=== PATIENT | female | born 1945 | race Two or more races ===

== ENCOUNTER → 2017-12-31 10:50 | Outpatient (CLI) | payer MEDICARE, BC, SELFPAY ==
--- NOTE | 2017-12-31 11:15 | RAD_ITS ---
STUDY: X-RAY CHEST REASON FOR EXAM: Female, 72 years old. Shortness of breath times several years TECHNIQUE: PA and lateral views of the chest. COMPARISON: Previous study of October 28, 2013 FINDINGS: The lungs are clear and expanded. There is no demonstrated pleural abnormality. Normal size heart. Normal mediastinum and kartik. Normal visualized pulmonary arteries. Normal visualized aortic arch and descending thoracic aorta. There is a mild S-shaped thoracolumbar scoliosis. Normal visualized ribs, clavicles, and shoulders. Surgical clips are seen in both axillae. Status post bilateral mastectomy changes are seen. RAD/Chest PA and Lateral IMPRESSION: Status post bilateral mastectomy. Mild thoracolumbar scoliosis. No acute cardiopulmonary disease process is seen. Electronically Signed: Anderson Perez MD at 17:12 EDT , Service support ,
== END ==
PROVIDERS: Family Provider Internal Medicine; PCP Internal Medicine; Visit Provider Internal Medicine Cardiovascular Disease
DX: R06.02 Shortness of breath (principal)
CPT/HCPCS: 71046

== ENCOUNTER → 2018-01-08 08:51 | Day surgery (SDC) | payer MEDICARE, BC, SELFPAY ==
[2018-01-07 10:25] VITALS: BMI 25.7
[2018-01-08 10:40] LABS: Base Excess -3 mmol/L (-2 to +2); Bicarbonate 21.9 mmol/L (22-26); Blood Gas Specimen Type ART; PO2 92 mmHG (75-100); SO2 97 % (95-99); Total Carbon Dioxide 23 mmol/L; pCO2 34.3 mmHg (35-45); pH 7.41 (7.35-7.45)
[2018-01-08 10:40] LABS: Blood Gas Specimen Type VEN; VBG BASE EXCESS -1 mmol/L (-1.0-3.5); VBG Bicarbonate 24 mmol/L (22-26); VBG Oxygen Content 25 mmol/L (23-33); VBG PO2 38 mmHg (25-40); VBG SO2 72 % (50-70); VBG pCO2 38.1 mmHg (41-51); VBG pH 7.41 (7.32-7.42)
[2018-01-08 10:40] LABS: Blood Gas Specimen Type VEN; VBG BASE EXCESS -1 mmol/L (-1.0-3.5); VBG Bicarbonate 24 mmol/L (22-26); VBG Oxygen Content 25 mmol/L (23-33); VBG PO2 36 mmHg (25-40); VBG SO2 69 % (50-70); VBG pCO2 38.1 mmHg (41-51)
--- NOTE | 2018-01-08 10:48 | CL.D_ITS ---
Patient Name: CORY DA SILVA Study Date: 01/08/2018 Performing: Regan Gaspar MD Ht: 62.59 inches 159 cm : 1945 Wt: 143.3 lbs 65 kg Age: 72 Gender: female BSA: 1.67 PROCEDURE(S) PERFORMED OM81-ADA/LHC/COR/LV CLINICAL PROFILE AND INDICATIONS Indications: Other Heart Failure: None Stress/Imaging Stress/Image Study Performed: No CAD Presentations: No Sxs, no angina. CONCLUSIONS Normal coronary arteries Normal LV size, wall motion,and systolic function Right heart pressures - Normal RECOMMENDATIONS Medical therapy DESCRIPTION OF PROCEDURE The patient arrived to the procedure lab. The risks and benefits of the procedure as well as a full d escription of our services here and current unavailability of surgical backup were fully explained to the patient and/or their significant other prior to the catheterization. The Timeout was completed, verifying the correct patient and procedure. The patient's procedural site was prepped and draped in the usual fashion. Local anesthetic was given subcutaneously to right groin region with Lidocaine 2%. Using a modified Seldinger technique, arterial access was obtained via the right femoral artery, a 5 Fr sheath was inserted. Venous access was obtained via the right femoral vein, a 7Fr sheath was inser denia. A 7Fr thermal dilution catheter was inserted and right heart pressures were recorded, it was the n advanced to PA position for cardiac outputs. Thermal dilution cardiac outputs were then recorded. O 2 saturations were then obtained. The Thermal dilution catheter was then removed. Left Coronary Arter y selective angiography was performed in multiple views using a 5 Fr. JL4 catheter. Right Coronary Ar carlene selective angiography was then performed in multiple views using a 5 Fr. 3DRC (Ricky) cathete r. Left Ventriculography was performed in MINOR projection using a 5 Fr. Pigtail catheter. Left Ventric ulography was performed in MINOR projection using a 5 Fr. Pigtail catheter.Contrast was injected throug h the sheath and the Right Iliac and Femoral artery were assessed for possible closure device.The art erial sheath was pulled and a Mynx closure device was deployed for hemostasis. The venous sheath was then pulled and manual compression applied until hemostasis achieved CORONARY ANGIOGRAPHY DOMINANCE: Right Dominant LEFT HEART ASSESSMENT Left Ventricular Ejection Fraction: by LV Gram 60 % Normal LV wall motion Normal Left Ventricular systolic function Normal Left Ventricular systolic function RIGHT HEART ASSESSMENT Thermal CO: 2.61 Thermal CI: 1.56 PW: 4/5 4 PA: 14/4 9 RV: 19/-1 2 RA: 2/ 0 PVR: 153 LEFT MAIN: Angiographically normal LEFT ANTERIOR DECENDING ARTERY: Angiographically normal CIRCUMFLEX ARTERY: Angiographically normal RIGHT CORONARY ARTERY: Angiographically normal COMPLICATIONS No Complications PROCEDURE MEDICATIONS Versed 1 mg IV SUMMARY OF HEMODYNAMIC DATA Time AIR REST ECG 09:37:53 ECG 09:53:52 RA 2/1 (0) 10:16:49 PW 4/5 (4) PV 10:17:30 PA 14/4 (9) PA 10:17:50 PA 18/3 (9) 10:19:13 RV 19/-1, 2 10:21:22 RA 3/3 (1) 10:21:38 AO 152/68 (98) SA 10:23:41 LV 156/3, 12 10:31:07 LV 149/3, 11 10:31:14 LV 133/2, 10 10:32:36 LV 140/3, 12 10:32:44 LVp 143/2, 10 10:32:47 AOp 146/67 (98) 10:32:52 Type SV CO (l/m) CI (l/m/ HR Time AIR REST Thermal 43.50 2.61 1.56 60 09:37:53 Label % O2 Pres/Loc Time AIR REST FA 97 PV 10:27:41 RA 72 SV 10:27:47 PA 69 PA 10:27:50 Signed By Regan Gaspar MD On 01/08/2018 10:47:19 AM Regan Gaspar MD
== END ==
PROVIDERS: Family Provider Internal Medicine; PCP Internal Medicine; Visit Provider Internal Medicine Cardiovascular Disease
DX: R06.02 Shortness of breath (principal); E78.00 Pure hypercholesterolemia, unspecified; I08.3 Combined rheumatic disorders of mitral, aortic and tricuspid valves; I10 Essential (primary) hypertension; R09.89 Other specified symptoms and signs involving the circulatory and respiratory systems; D64.9 Anemia, unspecified; J45.909 Unspecified asthma, uncomplicated; I65.29 Occlusion and stenosis of unspecified carotid artery; K21.9 Gastro-esophageal reflux disease without esophagitis; E03.9 Hypothyroidism, unspecified; M85.80 Other specified disorders of bone density and structure, unspecified site; Z79.82 Long term (current) use of aspirin; Z79.899 Other long term (current) drug therapy; Z82.3 Family history of stroke
CPT/HCPCS: 82803; 93460; 99152; 99153; C1760; J7040; Q9967; C1751; C1894

== ENCOUNTER → 2019-05-30 15:27 | Outpatient (CLI) | payer MEDICARE, BC, SELFPAY ==
[2019-05-03 07:54] VITALS: BMI 25.7
[2019-05-30 18:47] LABS: CRP < 2.90 mg/L (0.0-3.0)
[2019-06-02 00:33] LABS: Endomysial Antibody IgA Negative (Negative)
[2019-06-02 11:52] LABS: Immunoglobulin A 302 mg/dL (64-422); t-Transglutaminase IgA <2 U/mL (0-3)
== END ==
PROVIDERS: Family Provider Internal Medicine; PCP Internal Medicine; Referring Provider Internal Medicine Gastroenterology; Visit Provider Internal Medicine Gastroenterology
DX: K52.9 Noninfective gastroenteritis and colitis, unspecified (principal)
CPT/HCPCS: 36415; 82784; 83516; 86140; 86255

== ENCOUNTER → 2021-02-05 08:52 | Outpatient (CLI) | payer MEDICARE, BC, SELFPAY ==
[2020-05-03 10:30] VITALS: BMI 26.2
--- NOTE | 2021-02-05 08:58 | BD_ITS ---
STUDY: DUAL ENERGY X-RAY ABSORPTIOMETRY / DXA REASON FOR EXAM: Female, 75 years old. M85.89. Patient is postmenopausal. TECHNIQUE: Bone Mineral Density (BMD) measurements of lumbar spine and bilateral hips were obtained. COMPARISON: None. FINDINGS: Lumbar Spine (L1-L4): g/cm2 (0.932) / T-score (-1.1) / Z-score (1.2) Findings are suggestive of normal bone density with a low fracture risk. Left Femur Total: g/cm2 (0.877) / T-score (-0.5) / Z-score (1.1) Left Femoral Neck: g/cm2 (0.721) / T-score (-1.2) / Z-score (0.8) Right Femur Total: g/cm2 (0.878) / T-score (-0.5) / Z-score (1.2) Right Femoral Neck: g/cm2 (0.737) / T-score (-1.0) / Z-score (1.0) BD/Dexa Bone Density Study IMPRESSION: The patient is considered osteopenic as outlined below according to World Alexis Organization (WHO) criteria with a low fracture risk. Reference Information: The T-score is the number of standard deviations above or below the standard which is normal for young adults at their peak bone mineral density. The World Health Organization (WHO) interprets the T-scores as follows: Above -1 Normal bone density Between -1 and -2.5 Osteopenia Equal to / or below -2.5 Osteoporosis As a practical clinical guideline, osteopenia may be graded as follows: Mild -1 through -1.5 Moderate -1.6 through -2.0 Severe -2.1 through -2.4 The Z-score is the number of standard deviations above or below age-matched controls. A Z-score of less than -1.5 would be considered abnormal. References: 1. NIH Osteoporosis and Related Bone Diseases www osteo.org 2. International Society for Clinical Densitometry www iscd.org 3. National Osteoporosis Foundation www nof.org Electronically Signed: Josiah Miller MD at 14:06 EDT , Service support ,
== END ==
PROVIDERS: PCP Internal Medicine; Referring Provider Internal Medicine Gastroenterology; Visit Provider Internal Medicine Gastroenterology
DX: M85.89 Other specified disorders of bone density and structure, multiple sites (principal); Z78.0 Asymptomatic menopausal state
CPT/HCPCS: 77080

== ENCOUNTER 2021-08-12 12:41 | Outpatient (CLI) | payer MEDICARE, BC, SELFPAY ==
[2021-08-12 12:59] LABS: Erythrocyte Sedimentation Rate 13 mm/hr (0-30)
[2021-08-12 13:13] LABS: CRP < 2.90 mg/L (0.0-3.0)
== END 2021-08-12 23:59 | disposition home or self-care (01) ==
LOC: LABSPEC 12:45
PROVIDERS: PCP Internal Medicine; Visit Provider Nurse Practitioner
DX: M54.12 Radiculopathy, cervical region (principal); M62.81 Muscle weakness (generalized); R20.0 Anesthesia of skin; R20.2 Paresthesia of skin
CPT/HCPCS: 85652; 86140

== ENCOUNTER → 2022-02-06 | Outpatient (CLI) | payer MEDICARE, BC, SELFPAY ==
[2022-02-06 15:03] LABS: Hematocrit 36.8 % (37-47); Hemoglobin 12.2 g/dL (12.0-15.0); Mean Corp Hgb Conc 33.2 g/dL (32-36); Mean Corpuscular Hgb 31.3 pg (27.0-32.0); Mean Corpuscular Volume 94.4 fL (81-99); Mean Platelet Vol. 9.5 fl (6.2-12.0); Platelet Count 272 K/mm3 (150-450); RBC Distribution Width CV 12.2 % (11.6-14.6); White Blood Count 5.6 K/mm3 (4.4-11.0)
== END | disposition home or self-care (01) ==
LOC: MTLAB 12:44
PROVIDERS: PCP Internal Medicine; Referring Provider Internal Medicine Pulmonary Disease; Visit Provider Internal Medicine Pulmonary Disease
DX: D50.0 Iron deficiency anemia secondary to blood loss (chronic) (principal)
CPT/HCPCS: 36415; 85027

== ENCOUNTER → 2022-03-18 | Outpatient (CLI) | payer MEDICARE, BC, SELFPAY ==
--- NOTE | 2022-03-18 16:57 | US_ITS ---
STUDY: RENAL ULTRASOUND - COMPLETE REASON FOR EXAM: Female, 76 years old. Flank pain and fever TECHNIQUE: Ultrasound evaluation of the kidneys was performed with real-time and static dodson-scale imaging. COMPARISON: None. FINDINGS: RIGHT KIDNEY: Normal location of the right kidney, which is normal in size. The right kidney measures 9 x 4.9 x 3.9 cm. There is a normal cortex of the right kidney. The renal cortex measures 1 cm. There is no right renal mass or cyst. There are no right renal calculi. There is no right hydronephrosis. DISTAL RIGHT URETER: There is non-visualization of the distal right ureter. There is no demonstrated right ureterovesical junction calculus. There is a visualized right ureteral jet. LEFT KIDNEY: Normal location of the left kidney, which is normal in size. The left kidney measures 9.5 x 4.4 x 5.4 cm. There is a normal cortex of the left kidney. The renal cortex measures 1.3 cm. There is no left renal mass or cyst. There are no left renal calculi. There is no left hydronephrosis. DISTAL LEFT URETER: There is non-visualization of the distal left ureter. There is no demonstrated left ureterovesical junction calculus. There is a visualized left ureteral jet. AORTA: There is no elongation or tortuosity of the abdominal aorta. I.V.C.: The IVC is patent. BLADDER: The distended urinary bladder has a volume of 135.37 ml. There is a diffusely thickened wall of the distended bladder. There is no demonstrated mass within the urinary bladder. There are no demonstrated bladder calculi. US/Kidney and Bladder IMPRESSION: Sonographically normal kidneys Diffuse nonspecific bladder wall thickening. This is likely due to inflammation. Acute or chronic cystitis is suspected. Electronically Signed: Tuan Sawant MD at 10:55 EDT ,
== END | disposition home or self-care (01) ==
LOC: US 16:53
PROVIDERS: PCP Internal Medicine; Visit Provider Urology
DX: N39.0 Urinary tract infection, site not specified (principal)
CPT/HCPCS: 76770

== ENCOUNTER → 2022-03-21 | Outpatient (CLI) | payer MEDICARE, BC, SELFPAY ==
[2022-03-21 12:42] LABS: Anion Gap 12 (5-15); BUN 9 mg/dL (7-18); Calcium,Total 9.7 mg/dL (8.5-10.1); Chloride 101 mmol/L (98-107); Creatinine, Serum 0.69 mg/dL (0.55-1.02); EST Glomerular Filtration Rate 88 mL/min (>60); Est Glom Filt Rate - Afr Amer 107 mL/min (>60); Glucose 94 mg/dL (74-106); Potassium 3.9 mmol/L (3.5-5.1); Sodium Level 135 mmol/L (136-145)
== END | disposition home or self-care (01) ==
LOC: MTLAB 09:33
PROVIDERS: PCP Internal Medicine; Referring Provider Internal Medicine Cardiovascular Disease; Visit Provider Internal Medicine Cardiovascular Disease
DX: R60.0 Localized edema (principal); I10 Essential (primary) hypertension
CPT/HCPCS: 36415; 80048; 83880

== ENCOUNTER → 2022-03-31 | Outpatient (CLI) | payer MEDICARE, BC, SELFPAY ==
--- NOTE | 2022-03-31 08:06 | ECHOD_ITS ---
Version 2 Reason For Study: Dyspnea/SOB Procedure This was a 2D Doppler, Color Flow transthoracic echocardiogram. Myocardial strain analysis was performed in this exam to aid in the assessment of cardiac function. Exam performed in department. Left Ventricle Normal LV size. Left ventricular systolic function is normal. The estimated ejection fraction is 55 %. Stage 1 diastolic dysfunction. No regional wall motion abnormalities noted. Right Ventricle Normal RV size. Normal systolic function. Atria Normal left atrium. Normal right atrium. Mitral Valve Normal mitral valve. Mild-Moderate (1-2+) eccentric mitral valve insufficiency. Tricuspid Valve Normal tricuspid valve. Mild tricuspid valve insufficiency. Aortic Valve Trisinus/trileaflet aortic valve. Trivial aortic valve insufficiency. Pulmonic Valve Normal pulmonic valve. Great Vessels Normal aortic root. The pulmonary artery is normal size. Normal inferior vena cava. Pericardium/Pleural No pericardial effusion. MMode/2D Measurements & Calculations LVIDd: 4.8 cm IVSd: 0.77 cm Ao root diam: 3.4 cm LVIDs: 3.4 cm LVPWd: 0.73 cm RVDd: 3.0 cm FS: 28.1 % LAV(MOD-bp): 35.7 ml LVAd ap4: 21.7 cm2 SV(MOD-sp4): 32.3 ml LAV(MOD-bp) Indexed: 21.6 ml/m2 LVLd ap4: 7.0 cm LAV(MOD-sp2): 42.8 ml EDV(MOD-sp4): 55.3 ml LAV(MOD-sp4): 29.4 ml EDV(sp4-el): 57.0 ml LVAs ap4: 12.8 cm2 LVLs ap4: 6.1 cm ESV(MOD-sp4): 23.0 ml ESV(sp4-el): 22.6 ml EF(MOD-sp4): 58.4 % EF(sp4-el): 60.4 % SV(sp4-el): 34.4 ml LA A4 area: 13.2 cm2 LA dimension(2D): 3.4 cm RA A4 area: 7.5 cm2 Doppler Measurements & Calculations MV E max jose manuel: 68.6 cm/sec Lat Peak E' Jose Manuel: 7.6 cm/sec Med Peak E' Jose Manuel: 5.6 cm/sec MV A max jose manuel: 85.3 cm/sec E/E' lat: 9.1 E/E' med: 12.1 MV E/A: 0.80 Ao V2 max: 139.3 cm/sec AI max jose manuel: 368.2 cm/sec LV V1 max: 107.7 cm/sec Ao max P.8 mmHg AI max P.8 mmHg LV V1 max P.6 mmHg Ao V2 mean: 89.8 cm/sec Ao mean P.6 mmHg AI dec slope: 207.6 cm/sec2 Ao V2 VTI: 29.5 cm AI P1/2t: 519.4 msec PA V2 max: 70.5 cm/sec TR max jose manuel: 222.5 cm/sec TR max P.8 mmHg ECHO/Echo Complete Interpretation Summary Normal LV size. Left ventricular systolic function is normal. The estimated ejection fraction is 55 %. Trivial aortic valve insufficiency. Mild-Moderate (1-2+) eccentric mitral valve insufficiency. Stage 1 diastolic dysfunction. The global longitudinal strain is normal. The global longitudinal strain = -17. 5 % (normal). Ordering Physician: Regan Gaspar Referring Physician: Mattie Santos Performed By: Estefania Martinez, RDCS, RVT
== END | disposition home or self-care (01) ==
LOC: CVS 08:06
PROVIDERS: PCP Internal Medicine; Referring Provider Internal Medicine Cardiovascular Disease; Visit Provider Internal Medicine Cardiovascular Disease
DX: I08.1 Rheumatic disorders of both mitral and tricuspid valves (principal); I50.30 Unspecified diastolic (congestive) heart failure; R06.02 Shortness of breath; R60.0 Localized edema
CPT/HCPCS: 93306

== ENCOUNTER → 2022-04-18 | Outpatient (CLI) | payer MEDICARE, BC, SELFPAY ==
[2022-04-18 18:42] LABS: Anion Gap 6 (5-15); BUN 15 mg/dL (7-18); Calcium,Total 9.8 mg/dL (8.5-10.1); Chloride 102 mmol/L (98-107); Creatinine, Serum 0.75 mg/dL (0.55-1.02); EST Glomerular Filtration Rate 80 mL/min (>60); Est Glom Filt Rate - Afr Amer 97 mL/min (>60); Glucose 101 mg/dL (74-106); Potassium 4.7 mmol/L (3.5-5.1); Sodium Level 139 mmol/L (136-145)
== END | disposition home or self-care (01) ==
LOC: MTLAB 15:00
PROVIDERS: PCP Internal Medicine; Referring Provider Internal Medicine Cardiovascular Disease; Visit Provider Internal Medicine Cardiovascular Disease
DX: R60.0 Localized edema (principal)
CPT/HCPCS: 36415; 80048

== ENCOUNTER 2022-04-30 21:59 | Observation (INO) | payer MEDICARE, BC, SELFPAY ==
[2022-04-30 22:02] VITALS: BP 156/79; PULSE 92; RESP 15; TEMP 36.2; O2SAT 100; BMI 25.9
--- NOTE | 2022-04-30 23:40 | CT_ITS ---
EXAM: CTA Head and Neck W/ Contrast Injection (and W/O Contrast Images if performed) HISTORY: Neuro deficit, acute, stroke suspected TECHNIQUE: CTA Head and Neck W/ Contrast Injection (and W/O Contrast Images if performed) Noncontrast axial images were obtained of the brain and neck. NASCET criteria using the distal ICAs for comparison were used for evaluation of stenoses. 3D reconstructions were reviewed. A radiation dose optimization technique was used for this scan. COMPARISON: None. LIMITATIONS: None. BRAIN: Normal hall/white matter differentiation. VENTRICLES: No hydrocephalus. EXTRA-AXIAL SPACES: No hemorrhages, fluid collections, or masses. CALVARIUM/SKULL BASE: Normal. FACE/SINUSES: Visualized portions normal. SOFT TISSUES: Normal. OTHER: None. CAROTID ARTERIES: Normal. ANTERIOR CEREBRAL ARTERIES: Normal. MIDDLE CEREBRAL ARTERIES: Normal. POSTERIOR CEREBRAL ARTERIES: Normal. BASILAR ARTERY: Normal. VERTEBRAL ARTERIES: Normal. VENOUS STRUCTURES: Normal. OTHER: Odontogenic disease. AORTIC ARCH: Normal. CAROTID ARTERIES: Normal. VERTEBRAL ARTERIES: Normal. OTHER ARTERIES: Normal. VENOUS STRUCTURES: Normal. BONES/SOFT TISSUES: Normal. OTHER: Biapical pleural/parenchymal scarring.. CT/STROKE CTA Head AND Neck W/Con IMPRESSION: 1. No intracranial hemorrhage or acute territorial infarction. 2. No flow-limiting stenosis, aneurysm or dissection in the head and neck. Findings discussed with Jose Howard MD via phone at 9:50 PM PST in 04/30/2022 N.B. : The above Results were Read Back by Leonard Ford MD to Jose Gonzalez MD, and understanding confirmed on 05/01/2022 00:53:38 (ET). Electronically Signed: Leonard Ford MD at 0:54 EDT ,
--- NOTE | 2022-04-30 23:41 | EDS_ITS ---
HPI History of Present Illness Chief Complaint: General Illness Informant: patient and family Onset/Context/Timing Onset: Hours (4) and - Context: Sudden Onset (Noticed during a phone call when she answered it and was speaking abnormally) Timing: Lasts (15 or 20 minutes according to patient) Quality: Expressive aphasia Current Severity: Gone Maximum Severity: Severe Worsened by: Nothing in particular Relieved by: Nothing in particular Narrative Narrative: Patient answered phone when her son called and she was not able to formulate her words correctly. She states subsequently, she was feeling an irregular pulse and her heart was beating hard. No chest pain or shortness of breath, no headache, but she denies having at any point in time any lateralizing weakness or numbness/tingling or facial symptoms or vision changes. The last time [employer] talk to her was several hours before that around 4 PM, her daughter over the phone. She does not take any anticoagulant or antiplatelet medications. She takes medication for blood pressure, she checked it after the symptoms, it was in the 160s. Denies any recent illness or injury, she has not fallen or hit her head recently. No history of any stroke or TIA that she knows of. Recently had dental extractions couple weeks ago, she has been on clindamycin ever since then. She states that those sites are feeling better and better since then. She also started Lasix about 5 weeks ago because of leg edema, she has been feeling shaky ever since then, she felt a little more shaky after this event today. She was initially on 40 mg once daily, and due to the shakiness they backed it off to 20 mg once daily. [facility] Medical History (Updated 05/01/22 @ 06:[address] Jose Gonzalez MD) Anemia Asthma Breast cancer Carotid bruit Carotid stenosis Essential (primary) hypertension GERD (gastroesophageal reflux disease) History of radiation therapy HLD (hyperlipidemia) Hypothyroidism IBS (irritable bowel syndrome) Osteopenia Shortness of breath Home Medications atorvastatin 10 mg tablet 10 mg PO QHS 03/08/17 [History Last Taken 03/08/17] levothyroxine 75 mcg tablet 75 mcg PO DAILY 03/08/17 [History Last Taken 01/08/18] albuterol sulfate 90 mcg/actuation aerosol inhaler 1 inh inhalation DAILY 17 days ##18 10/19/17 [History Last Taken Unknown] multivitamin 1 tab PO QAM 10/19/17 [History Last Taken Unknown] mometasone 50 mcg/actuation nasal spray 1 spray PO DAILY PRN Sob &/Or Wheezing 10/22/17 [History Last Taken Unknown] beclomethasone dipropionate 80 mcg/actuation HFA breath activated aerosol (Qvar RediHaler) 1 inh inhalation BID 05/03/19 [History Last Taken Unknown] cholecalciferol (vitamin D3) 25 mcg (1,000 unit) capsule 2,000 unit PO QDAY 05/03/20 [History Last Taken Unknown] omeprazole 20 mg capsule,delayed release 20 mg PO .qod 05/09/21 [History Last Taken Unknown] amlodipine 5 mg tablet 5 mg PO DAILY Dose decreased back to 5 mg once a day #90 tabs 04/08/22 [Rx Last Taken Unknown] losartan 50 mg tablet 50 mg PO BID #180 tabs 04/08/22 [Rx Last Taken Unknown] clindamycin HCl 300 mg capsule 300 mg PO TID Per dentist. #30 caps 04/21/22 [Rx Last Taken Unknown] furosemide 40 mg tablet (Lasix) 20 mg PO .COMPLEX #90 tabs 04/21/22 [Rx Last Taken Unknown] gabapentin 100 mg capsule 100 mg PO DAILY 04/30/22 [History Last Taken Unknown] Allergy/AdvReac Type Severity Reaction Status Date / Time celecoxib [From Celebrex] Allergy Rash Verified 04/30/22 22:05 codeine Allergy Rash Verified 04/30/22 22:05 Penicillins Allergy Anaphylaxis Verified 04/30/22 22:05 Family History Mother CVA (cerebral vascular accident) Father Diabetes COPD (chronic obstructive pulmonary disease) Sister Colon cancer Sister Cancer ovarian cancer Brother Diabetes Colon cancer Brother Kidney failure Surgical History History of bilateral mastectomy History of left cataract extraction History of right and left heart catheterization (12/2017) Social History Smoking Status: Never smoker alcohol intake: current substance use type: does not use seatbelt use: always do you feel safe at home: Yes ROS ROS ED Constitutional Constitutional ED: Reports other Details: shaky ; Denies chills or fever(s) Eyes Eyes: Denies change in vision or diplopia ENT ENT ED: Denies rhinorrhea or sore throat Cardiovascular Cardiovascular: Reports leg edema; Denies chest pain or palpitations Respiratory/Chest Respiratory/Chest: Denies cough or dyspnea Gastrointestinal Gastrointestinal: Denies abdominal pain, diarrhea, nausea or vomiting Genitourinary Genitourinary ED: Denies dysuria or hematuria Musculoskeletal Musculoskeletal: Denies back pain or neck pain Integumentary Denies abscess or rash Neurologic Neurologic: Reports as per HPI and abnormal speech; Denies headache(s), paresthesias or weakness Psychiatric Psychiatric: Denies anxiety or suicidal thoughts EXAM Physical Exam Const Vital Signs: 04/30/22 22:02 04/30/22 22:40 04/30/22 23:42 Temperature 97.1 F L Temperature Source Temporal Pulse Rate 92 Respiratory Rate 15 Respiratory Effort Normal Respiratory Pattern Normal Blood Pressure 156/79 H Blood Pressure Mean 104 Pulse Ox 100 Oxygen Delivery Method Room Air Room Air 05/01/22 00:36 Temperature Temperature Source Pulse Rate 85 Respiratory Rate 12 Respiratory Effort Respiratory Pattern Blood Pressure 127/69 H Blood Pressure Mean 88 Pulse Ox 100 Oxygen Delivery Method Room Air Positive well nourished and well developed General Appearance ED: well developed and NAD HEENT Reports moist mucous membranes normocephalic and atraumatic Eyes PERRL and EOMs intact bilaterally Neck full ROM and supple Neck Narrative: No carotid bruits bilaterally Resp normal respiratory effort and clear to auscultation bilaterally Cardio regular rate, regular rhythm and no murmurs GI non-tender and non-distended Auscultation: normoactive bowel sounds Palpation: soft Back/Spine no CVA tenderness General Back: other FROM Extremity normal to inspection General Extremety ED: Negative for edema, pulses abnormal or tenderness General Extremity: Negative for edema or pulses abnormal Neuro oriented x3, CN's II-XII intact bilaterally and no sensory deficits noted Sensorium / Orientation: awake and alert Motor Exam: strength 5/5 throughout Skin no rashes or lesions noted and no wounds NIHSS NIHSS Initial: 1a Level of Consciousness: 0 1b LOC Questions (Score 2 if aphasic/stupor): 0 1c LOC Commands (Only score 1st attempt): 0 2 Best Gaze (If aphasic, use reflexive mvmts.): 0 3 Visual: 0 4 Facial Palsy: 0 5 Motor Arm Right (UN = amputation/fusion): 0 5 Motor Arm Left: 0 6 Motor Leg Right: 0 6 Motor Leg Left: 0 7 Limb ataxia (Only + if out of proportion): 0 8 Sensory (Aphasia/stupor=0 or 1, coma=2): 0 9 Best Language: 0 10 Dysarthria (mute, coma=2, intubated=UN): 0 11 Extinction and Inattention (only scored if +): 0 Total Score: 0 MDM MDM MDM Narrative Medical decision making narrative: Stroke work-up obtained, but stroke team felt unnecessary since patient does not have any active symptoms or abnormal findings and her NIHSS is 0. Turns out her sodium is a little on the low side but it has been low in the past and she recently had her Lasix dose cut in half, but given the transient acute nature of these neurologic symptoms I do not think this was caused by her hyponatremia. I think she should be admitted for a stroke/TIA work-up, the CT/CT angiography was all negative/unremarkable, and her heart rhythm is normal. Discussed with hospitalist. With observation her blood pressure came down to 124 systolic. Lab Data Attestation: I reviewed the patient's lab results. Labs: Laboratory Results - last 24 hr 04/30/22 04/30/22 04/30/22 22:15 22:15 22:15 WBC 8.5 RBC 3.68 L Hgb 11.7 L Hct 32.8 L MCV 89.1 MCH 31.8 MCHC 35.7 RDW Std Deviation 39.8 RDW Coeff of Nikunj 12.2 Plt Count 278 MPV 9.3 Immature Gran % (Auto) 0.500 Neut % (Auto) 66.2 Lymph % (Auto) 24.1 Brantley % (Auto) 7.0 Eos % (Auto) 1.7 Baso % (Auto) 0.5 Absolute Neuts (auto) 5.6 Absolute Lymphs (auto) 2.04 Nucleated RBC % 0 PT 12.7 INR 1.0 APTT 30.4 Sodium 125 L Potassium 3.9 Chloride 91 L Carbon Dioxide 25.0 Anion Gap 9 BUN 10 Creatinine 0.74 Estim Creat Clear Calc 39.04 Est GFR (MDRD) Af Amer 99 Est GFR (MDRD) Non-Af 82 BUN/Creatinine Ratio 13.6 Glucose 190 H Calcium 9.5 Troponin I High Sens 8 POC Glucose 04/30/22 23:44 WBC RBC Hgb Hct MCV MCH MCHC RDW Std Deviation RDW Coeff of Nikunj Plt Count MPV Immature Gran % (Auto) Neut % (Auto) Lymph % (Auto) Brantley % (Auto) Eos % (Auto) Baso % (Auto) Absolute Neuts (auto) Absolute Lymphs (auto) Nucleated RBC % PT INR APTT Sodium Potassium Chloride Carbon Dioxide Anion Gap BUN Creatinine Estim Creat Clear Calc Est GFR (MDRD) Af Amer Est GFR (MDRD) Non-Af BUN/Creatinine Ratio Glucose Calcium Troponin I High Sens POC Glucose 129 H Radiography Chest X-Ray - ED: 1 View, Read by ED Physician and No Acute Disease Diagnostic Testing: Clinical Impression(s) from Imaging Studies Head/Neck CTA 04/30/22 23:40 IMPRESSION: 1. No intracranial hemorrhage or acute territorial infarction. 2. No flow-limiting stenosis, aneurysm or dissection in the head and neck. Findings discussed with Jose Howard MD via phone at 9:50 PM PST in 04/30/2022 N.B. : The above Results were Read Back by Leonard Ford MD to Jose Gonzalez MD, and understanding confirmed on 05/01/2022 00:53:38 (ET). Electronically Signed: Leonard Ford MD at 0:54 EDT , ADDENDUM: 05/01/22 0101 IMPRESSION: 1. No intracranial hemorrhage or acute territorial infarction. 2. No flow-limiting stenosis, aneurysm or dissection in the head and neck. Findings discussed with Jose Howard MD via phone at 9:50 PM PST in 04/30/2022 N.B. : The above Results were Read Back by Leonard Ford MD to Jose Gonzalez MD, and understanding confirmed on 05/01/2022 00:53:38 (ET). Electronically Signed: Leonard Ford MD at 0:54 EDT , Chest X-Ray 05/01/22 00:00 IMPRESSION: Blunting of left costophrenic angle again seen, may represent pleural thickening or small left pleural effusion. Electronically Signed: Leonard Ford MD at 0:26 EDT , Rhythm Strip Rhythm Strip: Sinus Rhythm Rate: 80 Ectopy: None EKG Initial EKG: Attestation: I personally reviewed and interpreted this EKG as follows: Interpretation: Sinus Rhythm and No Acute Injury Pattern Discharge Plan Dx/Rx/DC Orders Clinical Impression: Brain TIA, Hyponatremia Disposition Disposition: Acute Care Hospital [facility] Discharge Date/Time: 05/01/22 03:53 Stroke Documentation Questions Stroke Team Activated: No (sx resolved) Was Patient considered for Endovascular Intervention?: No-CTA negative, determined not to be an endovascular candidate IV Alteplase (t-PA) Administered: No (timing, sx resolved)
[2022-04-30 23:50] LABS: Absolute Lymphocyte Count 2.04 X10^3/uL (0.83-4.51); Absolute Neutrophil Count 5.6 X10^3/uL (2.0-7.7); Basophil# 0.04 X10^3/uL; Basophil% 0.5 % (0-1); Eosinophil# 0.14 X10^3/uL; Eosinophils% 1.7 % (0-5); Hematocrit 32.8 % (37-47); Hemoglobin 11.7 g/dL (12.0-15.0); Lymphocyte # 2.04 X10^3/ul (0.83-4.51); Lymphocyte % 24.1 % (19-41); Mean Corp Hgb Conc 35.7 g/dL (32-36); Mean Corpuscular Hgb 31.8 pg (27.0-32.0); Mean Corpuscular Volume 89.1 fL (81-99); Mean Platelet Vol. 9.3 fl (6.2-12.0); Monocyte# 0.59 X10^3/uL; NRBC Flagged by Analyzer 0 % (0-5); Neutrophil # 5.62 X10^3/uL (2.7-7.7); Neutrophil % 66.2 % (47-70); Platelet Count 278 K/mm3 (150-450); RBC Distribution Width CV 12.2 % (11.6-14.6); RBC Distribution Width SD 39.8 fl (35.1-43.9); Red Blood Count 3.68 M/mm3 (4.2-5.4); White Blood Count 8.5 K/mm3 (4.4-11.0)
[2022-04-30 23:58] LABS: Prothrombin Time (Protime)PT. 12.7 SECONDS (11.7-14.9)
[2022-05-01] VITALS (11 sets, daily range): BP systolic 125–158; BP diastolic 58–75; PULSE 69–85; RESP 12–16; TEMP 36.5–37; O2SAT 97–100; BMI 25.0; BMI 25.9
--- NOTE | 2022-05-01 | RAD_ITS ---
INDICATION: Neuro deficit, acute, stroke suspected EXAMINATION/TECHNIQUE: X-RAY - XR Chest 1 View COMPARISON: 12/31/2017 FINDINGS: LINES/DEVICES: None. LUNGS: Biapical pleural/parenchymal scarring. Blunting of the left costophrenic angle, similar compared to the prior. No consolidation, edema. No pneumothorax. MEDIASTINUM AND CARDIOVASCULAR STRUCTURES: Atherosclerotic calcifications and cardiomediastinal contours, similar compared to prior. BONES AND SOFT TISSUES: Surgical clips in the bilateral axilla, similar compared to prior. Scoliotic and degenerative changes in the visualized spine, similar compared to the prior.. RAD/Chest 1 View IMPRESSION: Blunting of left costophrenic angle again seen, may represent pleural thickening or small left pleural effusion. Electronically Signed: Leonard Ford MD at 0:26 EDT ,
[2022-05-01 00:06] LABS: Partial Thromboplast Time 30.4 Seconds (24.1-36.2)
[2022-05-01 00:06] LABS: Bedside Glucose 129 mg/dL (74-106)
[2022-05-01 00:09] LABS: Anion Gap 9 (5-15); BUN 10 mg/dL (7-18); BUN/Creat Ratio 13.6 RATIO (10-20); Calcium,Total 9.5 mg/dL (8.5-10.1); Chloride 91 mmol/L (98-107); Creatinine, Serum 0.74 mg/dL (0.55-1.02); EST Glomerular Filtration Rate 82 mL/min (>60); Est Glom Filt Rate - Afr Amer 99 mL/min (>60); Estimated Creatinine Clearance 39.04 ml/min; Glucose 190 mg/dL (74-106); Potassium 3.9 mmol/L (3.5-5.1); Sodium Level 125 mmol/L (136-145); Troponin-I HS 8 pg/mL (3.0-54.0)
--- NOTE | 2022-05-01 03:51 | HP.PCM.HOS_ITS ---
[facility] - General General Date of Admission: 05/01/22 Date of Service: 05/01/22 Chief Complaint: Dysarthria HPI Narrative CORY DA SILVA, is a 76 F who presented to the emergency department [facility] on 05/01/2022 with dysarthria. Evidently the patient had called her son and he noted to her that she was not speaking correctly and formulating her words well. She did not notice anything until he told her this. The last time she was seen normal prior to this conversation was at 4 PM and the onset of symptoms was approximately 4 hours later. It is reported that these symptoms lasted 15 to 20 minutes. Symptoms were gone upon presentation NIH was 0. She had no other lateralizing symptoms or sensory changes. She d enied any visual changes as well. She checked her blood pressure after she had the symptoms and it was noted to be 160 systolic. She denies any recent illnesses and has no history of stroke or TIA. She did report she had dental extractions about 1 to 2 weeks ago and has been on clindamycin since that point time however this has been improving. She also reported that she had been on Lasix for treatment of leg edema and that she was feeling a little bit more shaky so this dose was decreased recently to 20 mg daily. Vital signs on presentation showed a temperature of 97.1 heart rate of 92, blood pressure 156/79 with subsequent pressure at 127/69, respiratory rate is 15 oxygen saturations were 100% on room air. Her CBC only showed a mild chronic and stable hemoglobin at 11.7. Coags were normal. Her chemistry panel showed marked hyponatremia with a sodium of 125 (baseline 135 to 140) And blood Leukos elevation at 190 at the time of presentation. Her troponin was normal. Her EKG was normal sinus rhythm without any ST-T wave changes concerning for ischemia and intervals were within normal limits. Her chest x- ray showed no acute findings. CTA of her head and neck was unremarkable for any acute findings. [facility] Medical History Anemia Asthma Breast cancer Carotid bruit Carotid stenosis Essential (primary) hypertension GERD (gastroesophageal reflux disease) History of radiation therapy HLD (hyperlipidemia) Hypothyroidism IBS (irritable bowel syndrome) Osteopenia Shortness of breath Home Medications atorvastatin 10 mg tablet 10 mg PO QHS 03/08/17 [History Last Taken 03/08/17] levothyroxine 75 mcg tablet 75 mcg PO DAILY 03/08/17 [History Last Taken 01/08/18] albuterol sulfate 90 mcg/actuation aerosol inhaler 1 inh inhalation DAILY 17 days ##18 10/19/17 [History Last Taken Unknown] multivitamin 1 tab PO QAM 10/19/17 [History Last Taken Unknown] mometasone 50 mcg/actuation nasal spray 1 spray PO DAILY PRN Sob &/Or Wheezing 10/22/17 [History Last Taken Unknown] beclomethasone dipropionate 80 mcg/actuation HFA breath activated aerosol (Qvar RediHaler) 1 inh inhalation BID 05/03/19 [History Last Taken Unknown] cholecalciferol (vitamin D3) 25 mcg (1,000 unit) capsule 2,000 unit PO QDAY 05/03/20 [History Last Taken Unknown] omeprazole 20 mg capsule,delayed release 20 mg PO .qod 05/09/21 [History Last Taken Unknown] amlodipine 5 mg tablet 5 mg PO DAILY Dose decreased back to 5 mg once a day #90 tabs 04/08/22 [Rx Last Taken Unknown] losartan 50 mg tablet 50 mg PO BID #180 tabs 04/08/22 [Rx Last Taken Unknown] clindamycin HCl 300 mg capsule 300 mg PO TID Per dentist. #30 caps 04/21/22 [Rx Last Taken Unknown] furosemide 40 mg tablet (Lasix) 20 mg PO .COMPLEX #90 tabs 04/21/22 [Rx Last Taken Unknown] gabapentin 100 mg capsule 100 mg PO DAILY 04/30/22 [History Last Taken Unknown] Allergy/AdvReac Type Severity Reaction Status Date / Time celecoxib [From Celebrex] Allergy Rash Verified 04/30/22 22:05 codeine Allergy Rash Verified 04/30/22 22:05 Penicillins Allergy Anaphylaxis Verified 04/30/22 22:05 Family History Mother CVA (cerebral vascular accident) Father Diabetes COPD (chronic obstructive pulmonary disease) Sister Colon cancer Sister Cancer ovarian cancer Brother Diabetes Colon cancer Brother Kidney failure Surgical History History of bilateral mastectomy History of left cataract extraction History of right and left heart catheterization (12/2017) Social History Smoking Status: Never smoker alcohol intake: current substance use type: does not use seatbelt use: always do you feel safe at home: Yes ROS Constitutional Constitutional: Denies anorexia, change in weight, chills, fatigue, fever(s), malaise, night sweats, weakness or other Eyes Eyes: Denies blurry vision, change in eye color, change in vision, discharge from eye(s), double vision, erythema, eye pain, loss of vision or other ENT HEENT: Denies abnormal hearing, dysphagia, ear pain, epistaxis, headache(s), hearing loss, nasal congestion, nasal discharge, post nasal drip, sinus pressure, sore throat or other Cardiovascular Cardiovascular: Denies chest pain, claudication, dyspnea on exertion, edema, lightheadedness, orthopnea, palpitations, paroxysmal nocturnal dyspnea, rapid heart rate, syncope or other Respiratory/Chest Respiratory/Chest: Denies cough, dyspnea, excessive phlegm production, hemoptysis, productive cough, shortness of breath at rest, shortness of breath with exertion, wheezing or other Gastrointestinal Gastrointestinal: Denies abdominal pain, coffee ground emesis, constipation, diarrhea, dyspepsia, hematemesis, hematochezia, loose stools, melena, nausea, vomiting or other Genitourinary Genitourinary: Denies burning urination, difficulty urinating, dysuria, hematuria, nocturia, urinary frequency, urinary hesitancy, urinary incontinence, urinary urgency or other Musculoskeletal Musculoskeletal: Denies arthralgias, back pain, joint pain, joint stiffness, joint swelling, myalgias, neck pain or other Neurologic Neurologic: Reports abnormal speech; Denies abnormal gait, confusion, disequilibrium, dizziness, focal weakness, headache(s), numbness, paresthesias, seizure-like activity, seizures, syncope, tingling, tremor(s) or other Psychiatric Psychiatric: Denies anxiety, depression, homicidal ideation, suicidal ideation or other Endocrine Endocrinology: Denies change in body appearance, cold intolerance, excessive sweating, heat intolerance, polydipsia, polyuria or other Allergic/Immunologic Allergic/Immunologic: Denies rhinitis, hives, eczemia, asthma or other Vital Signs Vital Signs Vital Signs: 04/30/22 22:02 04/30/22 22:40 04/30/22 23:42 Temperature 97.1 F L Temperature Source Temporal Pulse Rate 92 Respiratory Rate 15 Respiratory Effort Normal Respiratory Depth Respiratory Pattern Normal Blood Pressure 156/79 H Blood Pressure Mean 104 Blood Pressure Source Blood Pressure Position Blood Pressure Location Pulse Ox 100 Oxygen Delivery Method Room Air Room Air 05/01/22 00:36 05/01/22 03:15 05/01/22 03:41 Temperature 98.2 F Temperature Source Oral Pulse Rate 85 80 Respiratory Rate 12 16 Respiratory Effort Normal Respiratory Depth Normal Respiratory Pattern Normal Blood Pressure 127/69 H 158/75 H Blood Pressure Mean 88 102 Blood Pressure Source Monitor Blood Pressure Position Semi-Fowlers Blood Pressure Location Left Arm Pulse Ox 100 100 Oxygen Delivery Method Room Air Room Air Room Air Weight Weight: 64.41 kg Body Mass Index (BMI) 25.9 Physical Exam Const alert, oriented x3, no apparent distress, healthy appearing and well nourished Constitutional Narrative: Older [place] female sitting up in bed, at bedside and daughter on phone, patient appears comfortable nontoxic, follows commands consistently without any deficits General Appearance: cooperative HEENT normocephalic, head/scalp atraumatic, hearing grossly normal bilaterally and moist oral mucous membranes HEENT Narrative: Dentition is good, Mallampati is 2, no thrush Eyes PERRL, EOMs intact bilaterally and conjunctivae normal Eyes Narrative: No scleral icterus Neck no lymphadenopathy, supple, no JVD and No no carotid bruits Neck Narrative: Left carotid bruit, trachea midline, no thyroid enlargement Resp normal respiratory effort, no retractions, no use of accessory muscles and clear to auscultation bilaterally Auscultation: Negative for crackles, rales, rhonchi or wheezes Cardio regular rate, regular rhythm, S1 normal heart sound, S2 normal heart sound, no murmurs, no rub, no gallops and no clicks Cardio Narrative: No ectopy GI normal to inspection, nondistended, normoactive bowel sounds, soft to palpation, non-tender and non-distended Extremity normal to inspection and no clubbing, cyanosis or edema Extremity Narrative: 2+ pedal pulses Skin no rashes or lesions noted, no wounds, skin turgor normal, no jaundice, no petechiae and no mottling Neuro oriented x3, CN's II-XII intact bilaterally, moves all extremities and no focal motor deficits Neuro Narrative: 2+ reflexes at patella and brachioradialis, no sensory deficits, speech is normal, mild generalized weakness proximal greater than distal Speech: speech normal Psych affect normal Psych Narrative: Very pleasant and appropriately interactive Results Lab / Micro Data Attestation: I reviewed the patient's lab results. Result Diagrams: 04/30/22 22:15 04/30/22 22:15 Labs: Laboratory Results - last 24 hr 04/30/22 22:15: WBC 8.5, RBC 3.68 L, Hgb 11.7 L, Hct 32.8 L, MCV 89.1, MCH 31.8, MCHC 35.7, RDW Std Deviation 39.8, RDW Coeff of [place] 12.2, Plt Count 278, MPV 9.3, Immature Gran % (Auto) 0.500, Neut % (Auto) 66.2, Lymph % (Auto) 24.1, [place] % (Auto) 7.0, Eos % (Auto) 1.7, Baso % (Auto) 0.5, Absolute Neuts (auto) 5.6, Absolute Lymphs (auto) 2.04, Nucleated RBC % 0 04/30/22 22:15: PT 12.7, INR 1.0, APTT 30.4 04/30/22 22:15: Sodium 125 L, Potassium 3.9, Chloride 91 L, Carbon Dioxide 25.0, Anion Gap 9, BUN 10, Creatinine 0.74, Estim Creat Clear Calc 39.04, Est GFR (MDRD) Af Amer 99, Est GFR (MDRD) Non-Af 82, BUN/Creatinine Ratio 13.6, Glucose 190 H, Calcium 9.5, Troponin I High Sens 8 04/30/22 23:44: POC Glucose 129 H Radiology Impression Head/Neck CTA 04/30/22 23:40 IMPRESSION: 1. No intracranial hemorrhage or acute territorial infarction. 2. No flow-limiting stenosis, aneurysm or dissection in the head and neck. Findings discussed with Jose Howard MD via phone at 9:50 PM PST in 04/30/2022 N.B. : The above Results were Read Back by Leonard Ford MD to Jose Gonzalez MD, and understanding confirmed on 05/01/2022 00:53:38 (ET). Electronically Signed: Leonard Ford MD at 0:54 EDT , ADDENDUM: 05/01/22 0101 IMPRESSION: 1. No intracranial hemorrhage or acute territorial infarction. 2. No flow-limiting stenosis, aneurysm or dissection in the head and neck. Findings discussed with Jose Howard MD via phone at 9:50 PM PST in 04/30/2022 N.B. : The above Results were Read Back by Leonard Ford MD to Jose Gonzalez MD, and understanding confirmed on 05/01/2022 00:53:38 (ET). Electronically Signed: Leonard Ford MD at 0:54 EDT , Chest X-Ray 05/01/22 00:00 IMPRESSION: Blunting of left costophrenic angle again seen, may represent pleural thickening or small left pleural effusion. Electronically Signed: Leonard Ford MD at 0:26 EDT , Assessment & Plan Assessment/Plan (1) Dysarthria: (2) Hyponatremia: (3) Hyperglycemia: PLAN: Plan Dysarthria -Patient with no other lateralizing deficits -CTA of the head and neck showed no intracranial hemorrhage or acute territorial infarction and no flow-limiting stenosis aneurysm or dissection in the head or neck -Check lipids -Check hemoglobin A1c -Continue home atorvastatin -Speech eval -Check MRI -Patient with recent 03/31/2022 echocardiogram showing an EF of 55% and trivial aortic valve insufficiency along with mild to moderate eccentric valvular insufficiency and stage I diastolic dysfunction, bubble study was not done at that time -If MRI reveals stroke would recommend echocardiogram be performed with bubble study -PT/OT consultation -Speech therapy consultation Hyponatremia -Suspect this is related to her ongoing diuretic use -Patient is on Lasix day daily with the dose recently being adjusted -We will hold Lasix and reevaluate sodium in the morning -Check TSH -If sodium does not improve with discontinuing the patient of Lasix may need further work-up including urine sodium, urine osmolality, and serum osmolality -Repeat BMP in a.m. Hyperglycemia -Blood sugar 190 on presentation -Patient with no documented history of diabetes -We will check hemoglobin A1c Recent dental infection -Continue home clindamycin Hyperlipidemia -Continue home atorvastatin Hypertension -Continue metoprolol -Hold home Lasix -Continue home losartan Hypothyroidism -Continue home levothyroxine -Check TSH GERD -Continue home PPI with therapeutic substitution Chronic anemia -Hemoglobin stable -Repeat CBC in a.m. History of breast cancer -In remission -No current issues DVT prophylaxis -Lovenox daily Charges/Coding Visit Charges OBSV E&M: 38608 Initial observation care L3
--- NOTE | 2022-05-01 06:02 | MRI_ITS ---
STUDY: MRI BRAIN WITHOUT CONTRAST REASON FOR EXAM: Female, 76 years old. TIA -- word finding difficulty-resolved now TECHNIQUE: Standardized multiplanar fat and water weighted pulse sequences were obtained. COMPARISON: None. FINDINGS: Normal size of the ventricles and extra-axial spaces for the patient''s age. Normal white matter tracts of the supratentorial brain. There is no evidence for recent intracranial ischemia or other cause of cytotoxic edema on diffusion weighted imaging (DWI). Normal T2* images of the brain without demonstrated susceptibility artifact. There is no demonstrated hemosiderin stain. Normal bilateral basal ganglia. Normal thalami. There is no extra-axial fluid accumulation. Normal flow voids within the major intracranial circulation suggesting patency by spin echo criteria. Normal sella turcica, pituitary gland, infundibular stalk, optic chiasm and hypothalamus. Normal tectal plate and pineal gland. Normal midbrain, cecilio and medulla. Normal cerebellum. Normal basal cisterns. Normal bilateral temporal bones. Normal bilateral internal auditory canals. There are bilateral ocular lens implants with otherwise normal intraorbital contents. Normal visualized paranasal sinuses. Normal calvarium and skull base. Normal visualized soft tissue structures. Normal visualized upper cervical spine. MRI/Brain without Contrast IMPRESSION: Normal unenhanced MRI of the brain. Electronically Signed: Rodger Burgess MD at 16:01 EDT ,
[2022-05-01 06:45] LABS: Absolute Lymphocyte Count 1.86 X10^3/uL (0.83-4.51); Absolute Neutrophil Count 2.8 X10^3/uL (2.0-7.7); Basophil# 0.02 X10^3/uL; Basophil% 0.4 % (0-1); Eosinophil# 0.11 X10^3/uL; Eosinophils% 2.1 % (0-5); Hematocrit 31.7 % (37-47); Hemoglobin 11.2 g/dL (12.0-15.0); Lymphocyte # 1.86 X10^3/ul (0.83-4.51); Lymphocyte % 35.7 % (19-41); Mean Corp Hgb Conc 35.3 g/dL (32-36); Mean Corpuscular Hgb 31.5 pg (27.0-32.0); Mean Platelet Vol. 8.6 fl (6.2-12.0); Monocyte# 0.46 X10^3/uL; Monocyte% 8.8 % (0-10); NRBC Flagged by Analyzer 0 % (0-5); Neutrophil # 2.75 X10^3/uL (2.7-7.7); Neutrophil % 52.8 % (47-70); Platelet Count 269 K/mm3 (150-450); RBC Distribution Width SD 39.3 fl (35.1-43.9); Red Blood Count 3.56 M/mm3 (4.2-5.4); White Blood Count 5.2 K/mm3 (4.4-11.0)
[2022-05-01] MEDS: Levothyroxine 75 MCG Tablet PO (06:56)
[2022-05-01 07:04] LABS: Phosphorus 3.5 mg/dL (2.5-4.9)
[2022-05-01 07:07] LABS: ALB/GLOB Ratio 0.9 RATIO (0.9-2.4); AST(SGOT) 15 U/L (15-37); Alanine Aminotransfer ALT/SGPT 20 U/L (13-56); Albumin, Serum 3.3 g/dL (3.2-5.0); Alkaline Phosphatase 54 U/L (45-117); Anion Gap 8 (5-15); BUN 7 mg/dL (7-18); BUN/Creat Ratio 11.7 RATIO (10-20); Calcium,Total 9.5 mg/dL (8.5-10.1); Chloride 99 mmol/L (98-107); Cholesterol 127 mg/dL (200); EST Glomerular Filtration Rate 104 mL/min (>60); Est Glom Filt Rate - Afr Amer 126 mL/min (>60); Estimated Creatinine Clearance 39.04 ml/min; Globulin 3.8 g/dL (2.2-4.2); Glucose 109 mg/dL (74-106); High Density Lipoprotein 55 mg/dL; Protein, Total 7.1 g/dL (6.4-8.2); Sodium Level 133 mmol/L (136-145); Thyroid Stim Hormone (TSH) 2.04 uIU/mL (0.358-3.74); Triglycerides 82 mg/dL; Troponin-I HS 14 pg/mL (3.0-54.0); Very Low Density Lipoprotein 16 mg/dL (5-40)
[2022-05-01 07:10] LABS: Bedside Glucose 108 mg/dL (74-106)
[2022-05-01] MEDS: Clindamycin HCl 150 MG Capsule 300 MG PO ×2 (08:02→14:37)
[2022-05-01] MEDS: Aspirin 81 MG TAB.CHEW PO (08:02)
[2022-05-01] MEDS: Enoxaparin 40 MG/0.4 ML Syringe SC (08:03)
[2022-05-01] MEDS: Pantoprazole Sodium 40 MG Tablet PO (08:03)
[2022-05-01 08:04] LABS: Hemoglobin A1c 5.7 % (3.8-5.6)
--- NOTE | 2022-05-01 11:00 | DS.PCM_ITS ---
Providers Date of Admission: 05/01/22 Date of Discharge: 05/01/22 Primary Care Physician: Dr. Mattie Santos MD Reason For Visit: SOB, HTN, TROUBLE SPEAKING Diagnosis Discharge Diagnosis (1) Dysarthria: Status: Acute Code(s): R47.1 - Dysarthria and anarthria (2) Hyponatremia: Status: Acute Code(s): E87.1 - Hypo-osmolality and hyponatremia (3) Hyperglycemia: Status: Acute Code(s): R73.9 - Hyperglycemia, unspecified Medications at Discharge Home Medications levothyroxine 75 mcg tablet 75 mcg PO DAILY thyroid 03/08/17 albuterol sulfate 90 mcg/actuation aerosol inhaler 1 inh inhalation DAILY breathing 17 days ##18 10/19/17 multivitamin 1 tab PO QAM vitamin 10/19/17 mometasone 50 mcg/actuation nasal spray 1 spray PO DAILY PRN Sob &/Or Wheezing 10/22/17 beclomethasone dipropionate 80 mcg/actuation HFA breath activated aerosol (Qvar RediHaler) 1 inh inhalation BID breathing 05/03/19 cholecalciferol (vitamin D3) 25 mcg (1,000 unit) capsule 2,000 unit PO QDAY vitamin 05/03/20 omeprazole 20 mg capsule,delayed release 20 mg PO .qod reflux 05/09/21 amlodipine 5 mg tablet 5 mg PO DAILY Dose decreased back to 5 mg once a day #90 tabs 04/08/22 losartan 50 mg tablet 50 mg PO BID #180 tabs 04/08/22 clindamycin HCl 300 mg capsule 300 mg PO TID Per dentist. #30 caps 04/21/22 furosemide 40 mg tablet (Lasix) 20 mg PO .COMPLEX #90 tabs 04/21/22 gabapentin 100 mg capsule 100 mg PO DAILY nerve pain 04/30/22 aspirin 81 mg chewable tablet 81 mg PO BREAKFAST 90 days #90 tabs 05/01/22 atorvastatin 20 mg tablet 20 mg PO DAILY #60 tabs 05/01/22 Hospital Course Summary of Care Provided Minutes Spent on Discharge: 35 Hospital Course: Patient is a 76-year-old female admitted with dysarthria. Admitted to monitored bed as a case of TIA TIA ? Patient presented with dysarthria placed on a monitored bed every 4 neurochecks ordered patient underwent subsequent evaluation with an MRI ? Patient MRI was negative for acute CVA. Patient was on statin therapy did continue with dose adjustment from 10 mg of atorvastatin to 20 mg of atorvastatin. Patient was also discharged home on aspirin 81 mg daily. Instructed to follow-up with primary care physician for subsequent care Hyponatremia ? Secondary to patient being on diuretics monitored with BMPs ? Sodium level did improve from1 25-1 33. Patient diuretics?furosemide held on discharge. Hypertension - Blood pressure controlled, home medications continued with dose adjustment as needed Dyslipidemia -Patient is on atorvastatin 10 mg dose was increased to 40 on discharge Hypothyroidism - Patient is on levothyroxine home dose continued GERD ? Patient is on PPI Physical Exam Narrative GENERAL: cooperative HEENT: Atraumatic; normocephalic EYES; Anicteric, Normal Conjunctiva NECK; supple, normal thyroid, RESPIRATORY: Diminished to auscultation CARDIOVASCULAR: Regular S1 S2, GI: soft, normoactive bowel sounds, : No Renal angle tenderness; EXTREMITIES: No edema, no clubbing, MUSCULOSKELETAL: no muscle wasting NEURO: Awake; no lateralizing signs. SKIN: No Rash PSYCH; Flat affect Weight / BMI Weight Weight: 62.1 kg Body Mass Index (BMI) 25.9 ABG / Lab / Microbiology Data Result Diagrams: 05/01/22 06:25 05/01/22 06:25 Laboratory: Laboratory Results - last 24 hr 04/30/22 22:15: WBC 8.5, RBC 3.68 L, Hgb 11.7 L, Hct 32.8 L, MCV 89.1, MCH 31.8, MCHC 35.7, RDW Std Deviation 39.8, RDW Coeff of Nikunj 12.2, Plt Count 278, MPV 9.3, Immature Gran % (Auto) 0.500, Neut % (Auto) 66.2, Lymph % (Auto) 24.1, [place] % (Auto) 7.0, Eos % (Auto) 1.7, Baso % (Auto) 0.5, Absolute Neuts (auto) 5.6, Absolute Lymphs (auto) 2.04, Nucleated RBC % 0 04/30/22 22:15: PT 12.7, INR 1.0, APTT 30.4 04/30/22 22:15: Sodium 125 L, Potassium 3.9, Chloride 91 L, Carbon Dioxide 25.0, Anion Gap 9, BUN 10, Creatinine 0.74, Estim Creat Clear Calc 39.04, Est GFR (MDRD) Af Amer 99, Est GFR (MDRD) Non-Af 82, BUN/Creatinine Ratio 13.6, Glucose 190 H, Calcium 9.5, Troponin I High Sens 8 04/30/22 23:44: POC Glucose 129 H 05/01/22 06:25: Sodium 133 L, Potassium 4.0, Chloride 99, Carbon Dioxide 26.0, A nion Gap 8, BUN 7, Creatinine 0.60, Estim Creat Clear Calc 39.04, Est GFR (MDRD) Af Amer 126, Est GFR (MDRD) Non-Af 104, BUN/Creatinine Ratio 11.7, Glucose 109 H , Calcium 9.5, Magnesium 2.0, Total Bilirubin 0.80, AST 15, ALT 20, Alkaline Phosphatase 54, Troponin I High Sens 14, Total Protein 7.1, Albumin 3.3, Globulin 3.8, Albumin/Globulin Ratio 0.9, Triglycerides 82, Cholesterol 127, LDL Cholesterol 56, VLDL Cholesterol 16, HDL Cholesterol 55, TSH 2.04 05/01/22 06:25: Hemoglobin A1c 5.7 H 05/01/22 06:25: WBC 5.2, RBC 3.56 L, Hgb 11.2 L, Hct 31.7 L, MCV 89.0, MCH 31.5, MCHC 35.3, RDW Std Deviation 39.3, RDW Coeff of Nikunj 12.0, Plt Count 269, MPV 8.6, Immature Gran % (Auto) 0.200, Neut % (Auto) 52.8, Lymph % (Auto) 35.7, [place] % (Auto) 8.8, Eos % (Auto) 2.1, Baso % (Auto) 0.4, Absolute Neuts (auto) 2.8, Absolute Lymphs (auto) 1.86, Nucleated RBC % 0 05/01/22 06:25: Phosphorus 3.5 05/01/22 06:48: POC Glucose 108 H Radiography Diagnostic Testing: Radiology Impression Head/Neck CTA 04/30/22 23:40 IMPRESSION: 1. No intracranial hemorrhage or acute territorial infarction. 2. No flow-limiting stenosis, aneurysm or dissection in the head and neck. Findings discussed with Jose Howard MD via phone at 9:50 PM PST in 04/30/2022 N.B. : The above Results were Read Back by Leonard Ford MD to Jose Gonzalez MD, and understanding confirmed on 05/01/2022 00:53:38 (ET). Electronically Signed: Leonard Ford MD at 0:54 EDT , ADDENDUM: 05/01/22 0101 IMPRESSION: 1. No intracranial hemorrhage or acute territorial infarction. 2. No flow-limiting stenosis, aneurysm or dissection in the head and neck. Findings discussed with Jose Howard MD via phone at 9:50 PM PST in 04/30/2022 N.B. : The above Results were Read Back by Leonard Ford MD to Jose Gonzalez MD, and understanding confirmed on 05/01/2022 00:53:38 (ET). Electronically Signed: Leonard Ford MD at 0:54 EDT , Chest X-Ray 05/01/22 00:00 IMPRESSION: Blunting of left costophrenic angle again seen, may represent pleural thickening or small left pleural effusion. Electronically Signed: Leonard Ford MD at 0:26 EDT , Meaningful Use Info Meaningful Use Diagnoses (Choose all that apply): None applicable Discharge Plan Admission Admit Date/Time: 05/01/22 01:35 Attending Provider: Sheng Diehl Primary Care Provider: Mattie Santos Consulting Providers: Victoria Lee Discharge Orders/Prescriptions Prescriptions: New aspirin 81 mg Tablet,Chewable 81 mg PO BREAKFAST 90 Days Qty: 90 0RF atorvastatin 20 mg tablet 20 mg PO DAILY Qty: 60 0RF Continued cholecalciferol (vitamin D3) 25 mcg (1,000 unit) capsule 2,000 unit PO QDAY multivitamin tablet 1 tab PO QAM albuterol sulfate 90 mcg/actuation HFA aerosol inhaler 1 inh INHALATION DAILY 17 Days Qty: 18 Label Comments: Qvar RediHaler 80 mcg/actuation HFA aerosol breath activated 1 inh INHALATION BID levothyroxine 75 MCG tablet 75 mcg PO DAILY mometasone 50 mcg/actuation spray,non-aerosol 1 spray PO DAILY PRN (Reason: Sob &/Or Wheezing) Label Comments: omeprazole 20 mg capsule,delayed release(DR/EC) 20 mg PO .qod gabapentin 100 mg capsule 100 mg PO DAILY losartan 50 mg tablet 50 mg PO BID Qty: 180 3RF amlodipine 5 mg tablet 5 mg PO DAILY Qty: 90 3RF clindamycin HCl 300 mg capsule 300 mg PO TID Qty: 30 0RF Held furosemide [Lasix] 40 mg tablet 20 mg PO .COMPLEX Qty: 90 3RF Hold Instructions: Resume on 05/22/22. Until okayed by your primary care physician Rx Instructions: 20 mg orally daily; may take 40 mg daily prn weight gain or swelling; Discontinued atorvastatin 10 MG tablet 10 mg PO QHS Referrals / Follow Up: Regan Gaspar MD [Med Staff - Active Staff] - Within 2 Weeks Mattie Santos MD [Primary Care Provider] - In 1 Week Disposition Disposition (needs filled in before D/C Order can be placed): Home, Self Care Charges/Coding Visit Charges OBSV E&M: 68889 Observation care discharge
--- NOTE | 2022-05-01 11:05 | CASEMGMT ---
SW completed a PHQ 9 with patient as she may have had a Stroke or TIA. Patient scored a 4 which indicates minimal depression. Patient originally declined resources for counseling, but then changed her mind and said she would be open to resources. SW provided patient with a list of local counseling agencies. Patient then started to talk a little more about what has been happening with her so SW sat down to listen. Patient was appreciative of CAMIL[facility]. Carol Hendrix [employer] KACI
[2022-05-01 11:46] LABS: Bedside Glucose 114 mg/dL (74-106)
--- NOTE | 2022-05-01 14:31 | CASEMGMT ---
Per therapy, no need for any further therapy at discharge. Pt's NIH is 0, still awaiting MRI. SStchristie RN CM
== END 2022-05-01 16:37 | disposition home or self-care (01) ==
LOC: ED 23:12 → PCU 05-01 03:10
PROVIDERS: Admitting Provider Internal Medicine; Emergency Provider Emergency Medicine; PCP Internal Medicine; Visit Provider Internal Medicine
DX: G45.9 Transient cerebral ischemic attack, unspecified (principal); R47.1 Dysarthria and anarthria; I10 Essential (primary) hypertension; E78.5 Hyperlipidemia, unspecified; E87.1 Hypo-osmolality and hyponatremia; R06.02 Shortness of breath; R73.9 Hyperglycemia, unspecified; E03.9 Hypothyroidism, unspecified; R47.01 Aphasia; K21.9 Gastro-esophageal reflux disease without esophagitis; Z79.890 Hormone replacement therapy; Z79.899 Other long term (current) drug therapy
CPT/HCPCS: 36415; 70496; 70498; 70551; 71045; 80048; 80053; 80061; 82962; 83036; 83735; 84100; 84443; 84484; 85025; 85610; 85730; 93005; 94762; 96372; 97166; 97802; 99218; 99285; Q9967; A4216; G0378

== ENCOUNTER → 2022-05-06 | Outpatient (CLI) | payer MEDICARE, BC, SELFPAY ==
[2022-05-06 13:55] LABS: Anion Gap 6 (5-15); BUN 10 mg/dL (7-18); BUN/Creat Ratio 17.4 RATIO (10-20); Chloride 94 mmol/L (98-107); Creatinine, Serum 0.58 mg/dL (0.55-1.02); EST Glomerular Filtration Rate 109 mL/min (>60); Est Glom Filt Rate - Afr Amer 132 mL/min (>60); Glucose 102 mg/dL (74-106); Potassium 4.3 mmol/L (3.5-5.1); Sodium Level 130 mmol/L (136-145)
== END | disposition home or self-care (01) ==
LOC: LAB 11:25
PROVIDERS: PCP Internal Medicine; Visit Provider Nurse Practitioner Gerontology
DX: E87.1 Hypo-osmolality and hyponatremia (principal)
CPT/HCPCS: 36415; 80048

== ENCOUNTER → 2022-05-14 | Outpatient (CLI) | payer MEDICARE, BC, SELFPAY | END | disposition home or self-care (01) | LOC: PSN 08:25 | PROVIDERS: PCP Internal Medicine; Referring Provider Nurse Practitioner Gerontology; Visit Provider Nurse Practitioner Gerontology | DX: R00.2 Palpitations (principal) | CPT/HCPCS: 93225; 93226 ==

== ENCOUNTER → 2022-05-15 | Outpatient (CLI) | payer MEDICARE, BC, SELFPAY ==
[2022-05-15 10:50] LABS: Anion Gap 10 (5-15); BUN 9 mg/dL (7-18); BUN/Creat Ratio 13.6 RATIO (10-20); Calcium,Total 9.9 mg/dL (8.5-10.1); Chloride 98 mmol/L (98-107); Creatinine, Serum 0.66 mg/dL (0.55-1.02); EST Glomerular Filtration Rate 93 mL/min (>60); Est Glom Filt Rate - Afr Amer 112 mL/min (>60); Glucose 110 mg/dL (74-106); Sodium Level 133 mmol/L (136-145)
== END | disposition home or self-care (01) ==
LOC: LAB 09:29
PROVIDERS: PCP Internal Medicine; Visit Provider Nurse Practitioner Gerontology
DX: E87.1 Hypo-osmolality and hyponatremia (principal)
CPT/HCPCS: 36415; 80048

== ENCOUNTER → 2022-06-17 | Outpatient (CLI) | payer MEDICARE, BC, SELFPAY | END | disposition home or self-care (01) | LOC: CVS 08:58 | PROVIDERS: PCP Internal Medicine; Referring Provider Internal Medicine Cardiovascular Disease; Visit Provider Internal Medicine Cardiovascular Disease | DX: I10 Essential (primary) hypertension (principal) | CPT/HCPCS: 93788 ==

== ENCOUNTER → 2023-06-26 | Outpatient (CLI) | payer MEDICARE, BC, SELFPAY ==
--- NOTE | 2023-06-26 13:00 | CT_ITS ---
STUDY: CT Chest W/O Contrast Injection 06/28/2023 4:11 PM REASON FOR EXAM: Female, 77 years old. SOB Individualized dose optimization techniques were used for this CT. TECHNIQUE: Transaxial imaging was performed without contrast material. COMPARISON: None. FINDINGS: There are degenerative changes of the shoulders. There is no pneumothorax. There is no demonstrated pleural abnormality. Right apical pulmonary fibrosis. Right anterior middle lobe pulmonary fibrosis. Right mastectomy changes. There are multiple metallic clips in the right axilla. This is consistent for a prior axillary dissection. There are mastectomy changes noted. Normal heart and pericardium with no evidence for calcifications of the coronary arteries. Normal mediastinum. Normal hilar regions. Normal pulmonary arteries. There is atherosclerotic calcification of the aortic arch with tortuosity and elongation of the aortic arch and descending thoracic aorta. There are multi-level degenerative changes of the thoracic spine. There are no acute findings of the upper abdomen. CT/Chest without Contrast IMPRESSION: Postsurgical changes along the right chest wall suggesting prior mastectomy and axillary dissection. Pulmonary fibrosis on the right side. This may be related to post radiation changes. Electronically Signed: Juan Francisco Sanchez MD at 16:13 [facility] ,
--- OUTSIDE RECORDS SUMMARY | 2023-06-26 13:26 | XMS RPT_ITS | CCD ---
Author Name Unknown Address [address] [place] [address] Organization [facility] Care Team Providers Care Meal Cook Name Role Phone Светлана Hughes Unavailable Unavailable Светлана Hughes Unavailable Unavailable Leila Santos MD Primary Care Provider Leila Santos MD Primary Care Provider Leila Santos MD Primary Care Provider PALMIRA SHRESTHA Referring Unavailable TALAMPAS, LEILA D Primary Care Unavailable KRISTINE RODRIGUEZ Attending Unavailabl e TALAMPAS, LEILA D Primary Care Unavailable AURORA BOLANOS Attending Unavailable TALAMPAS, LEILA D Referring Unavailable TALAMPAS, LEILA D Primary Care Unavailable TALAMPAS, LEILA D Primary Care Unavailable TALAMPAS, LEILA D Referring Unavailable TALAMPAS, LEILA D Attending Unavailable TALAMPAS, LEILA D Primary Care Unavailable TALAMPAS, LEILA D Primary Care Unavailable AURORA BOLANOS D Referring Unavailable TALAMPAS, LEILA D Primary Care Unavailable BOLANOS AURORA D Referring Unavailable PANCHO, MARYLIN Attending Unavailable TALAMPAS, LEILA D Attending Unavailable TALAMPAS, LEILA D Referring Unavailable TALAMPAS, LEILA D Primary Care Unavailable TALAMPAS, LEILA D Primary Care Unavailable AURORA BOLANOS Attending Unavailable BOLANOS, AURORA D Referring Unavailable DANIELA PORTER Attending Unavailable TALAMPAS, LEILA D Primary Care Unavailable PALMIRA SHRESTHA Attending Unavailable TALAMPAS, LEILA D Primary Care Unavailable PALMIRA SHRESTHA Referring Unavailable KRISTINE RODRIGUEZ Attending Unavailabl e TALAMPAS, LEILA D Primary Care Unavailable TALAMPAS, LEILA D Referring Unavailable TALAMPAS, LEILA D Primary Care Unavailable TALAMPAS, LEILA D Attending Unavailable TALAMPAS, LEILA D Primary Care Unavailable ALEXANDRA NAM Attending Unavailable TALAMPAS, LEILA D Primary Care Unavailable ALEXANDRA NAM Attending Unavailable TALAMPAS, LEILA D Primary Care Unavailable TALAMPAS, LEILA D Attending Unavailable TALAMPAS, LEILA D Referring Unavailable TALAMPAS, LEILA D Primary Care Unavailable Allergies Allergy Classification Reported Allergen(s) Allergy Type Date of Onset Reaction(s) Facility (2 sources) celecoxib Drug Allergy 2 [facility] Work Phone: [phone] (20 sources) codeine; Translations: [CODEINE] Drug Allergy 2 [facility] Work Phone: (2 sources) penicillin Drug Allergy 2 [facility] Work Phone: [phone] (20 sources) celecoxib; Translations: [CELECOXIB] Drug Allergy 6 Rash [facility] Work Phone: (15 sources) Cephalexin Drug Allergy 8 Diarrhea [facility] Work Phone: (8 sources) Penicillins; Translations: [PENICILLINS] Propensity to adverse reactions 2 [facility] (20 sources) Mangoes; Translations: [MANGOES] Food Intolerance 9 Rash, GI Upset [facility] (20 sources) Penicillins Propensity to adverse reactions 2 Rash, Shortness of Breath [facility] Medications Current Medications Medication Drug Class(es) Dates Sig (Normalized) Sig (Original) estradiol 0.1 mg/ml vaginal cream (10 sources) Estrogen Start: 10-14-2022 End: 10-14-2023 estradiol (ESTRACE) 0.01 % (0.1 mg/gram) vaginal cream Use 1 g vaginally as directed. Apply 1 pea-sized amount per vagina with fingertip every night for 2 weeks then 3 times weekly 42.5 g 3 10/14/2022 10/14/2023 Active Completed/Discontinued Medications Medication Drug Class(es) Dates Sig (Normalized) Sig (Original) acetaminophen 325 mg oral tablet (20 sources) Start: 05-19-2002 TYLENOL 325MG CAPLET prn 0 05/19/2002 Active Problems Active Problems Problem Classification Problem Date Documented Date Episodic/Chronic Anxiety disorders (5 sources) Generalized anxiety disorder; Translations: [Generalized anxiety disorder] Chronic Asthma (20 sources) Uncomplicated moderate persistent asthma; Translations: [Moderate persistent asthma, uncomplicated] Onset: 1 09-23-2020 Chronic Blindness and vision defects (1 source) Metamorphopsia; Translations: [Visual distortions of shape and size] 06-10-2023 Episodic Cancer of breast (20 sources) Malignant neoplasm of female breast; Translations: [Malignant neoplasm of unspecified site of unspecified female breast] Onset: 5 01-28-2005 Chronic Cataract (20 sources) Nuclear senile cataract; Translations: [Age-related nuclear cataract, unspecified eye] Onset: 3 11-26-2012 Chronic Chronic obstructive pulmonary disease and bronchiectasis (1 source) Bronchitis; Translations: [Bronchitis, not specified as acute or chronic] Episodic Complication of device; implant or graft (1 source) Vaginitis; Translations: [Infection and inflammatory reaction due to other prosthetic device, implant and graft in genital tract, initial encounter] 02-13-2023 Episodic Complications of surgical procedures or medical care (20 sources) Postmastectomy lymphedema syndrome; 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] Onset: 7 06-15-2007 Chronic Deficiency and other anemia (2 sources) Anemia; Translations: [Anemia, unspecified] Episodic Disorders of lipid metabolism (20 sources) Hyperlipidemia; Translations: [Hypercholesterolemia] Onset: 2 12-23-2011 Chronic Disorders of teeth and jaw (1 source) Infection of tooth; Translations: [Periapical abscess without sinus] Episodic Esophageal disorders (20 sources) Martell's esophagus; 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] 10-06-2018 Chronic Essential hypertension (20 sources) Hypertensive disorder; Translations: [Essential hypertension] Onset: 2 12-23-2011 Chronic Genitourinary symptoms and ill-defined conditions (20 sources) Urge incontinence of urine; Translations: [Urge incontinence] Onset: 7 11-11-2006 Chronic Menopausal disorders (20 sources) Postmenopausal bleeding; Translations: [Postmenopausal bleeding] Onset: 3 11-26-2011 Chronic Miscellaneous mental health disorders (2 sources) Psychophysiologic insomnia; Translations: [Psychophysiologic insomnia] Chronic Nutritional deficiencies (20 sources) Vitamin D deficiency; Translations: [Vitamin D deficiency, unspecified] Onset: 0 08-31-2019 Chronic Osteoarthritis (20 sources) Osteoarthritis of right knee joint; Translations: [Unilateral primary osteoarthritis, right knee] Onset: 8 01-24-2018 Chronic Osteoporosis (20 sources) Osteoporosis; Translations: [Age-related osteoporosis without current pathological fracture] Onset: 2 10-23-2003 Chronic Other aftercare (5 sources) Patient encounter status; Translations: [Other group home (current) drug therapy] Episodic Other bone disease and musculoskeletal deformities (2 sources) Osteopenia; Translations: [Other specified disorders of bone density and structure, multiple sites] Episodic Other connective tissue disease (5 sources) Bilateral weakness of upper limbs; Translations: [Other symptoms and signs involving the musculoskeletal system] Onset: 2 Episodic Other connective tissue disease (2 sources) Plantar fasciitis of left foot; Translations: [Plantar fascial fibromatosis] Episodic Other diseases of bladder and urethra (11 sources) Hypertrophy of bladder; Translations: [Other specified disorders of bladder] Onset: 3 10-14-2022 Chronic Other diseases of veins and lymphatics (7 sources) Lymphedema of right upper limb; Translations: [Lymphedema, not elsewhere classified] Onset: 3 03-24-2023 Chronic Other diseases of veins and lymphatics (1 source) Lymphedema, not elsewhere classified; Translations: [Lymphedema of right arm] Onset: 3 Chronic Other ear and sense organ disorders (1 source) Eczema of external auditory canal; Translations: [Acute eczematoid otitis externa, bilateral] Episodic Other eye disorders (2 sources) Degenerative disorder of eye; Translations: [Degenerative myopia with other maculopathy, bilateral eye] Chronic Other eye disorders (2 sources) Tear film insufficiency; Translations: [Dry eye syndrome of bilateral lacrimal glands] Episodic Other nervous system disorders (5 sources) Numbness and tingling sensation of skin; Translations: [Anesthesia of skin] Onset: 2 Episodic Other skin disorders (1 source) Loss of hair; Translations: [Nonscarring hair loss, unspecified] 03-24-2023 Episodic Other upper respiratory disease (1 source) Allergic rhinitis; Translations: [Allergic rhinitis, unspecified] 03-24-2023 Chronic Prolapse of female genital organs (20 sources) Midline cystocele; Translations: [Cystocele, midline] Onset: 0 12-17-2009 Chronic Residual codes; unclassified (3 sources) Bilateral lower limb edema; Translations: [Localized edema] Episodic Retinal detachments; defects; vascular occlusion; and retinopathy (20 sources) Epiretinal membrane; Translations: [Puckering of macula, unspecified eye] Onset: 3 11-26-2012 Chronic Spondylosis; intervertebral disc disorders; other back problems (5 sources) Cervical radiculopathy; Translations: [Radiculopathy, cervical region] Onset: 2 Episodic Thyroid disorders (20 sources) Acquired hypothyroidism; Translations: [Hypothyroidism, unspecified] Onset: 7 04-01-2017 Chronic Urinary tract infections (2 sources) Acute cystitis; Translations: [Acute cystitis with hematuria] Episodic Varicose veins of lower extremity (2 sources) Varicose veins of lower extremity; Translations: [Varicose veins of bilateral lower extremities with other complications] Onset: 3 03-10-2023 Episodic Past or Other Problems Problem Classification Problem Date Documented Da te Episodic/Chronic Cancer of breast (20 sources) History of malignant neoplasm of breast; Translations: [Personal history of malignant neoplasm of breast] Onset: 2 06-01-2018 Episodic Diabetes mellitus without complication (20 sources) Hyperglycemia; Translations: [Impaired fasting glucose] Onset: 0 08-31-2019 Episodic Fluid and electrolyte disorders (4 sources) Hyponatremia; Translations: [Hypo-osmolality and hyponatremia] Onset: 3 Episodic Genitourinary symptoms and ill-defined conditions (20 sources) Nocturia; Translations: [Nocturia] Onset: 0 12-17-2009 Episodic Malaise and fatigue (2 sources) Fatigue; Translations: [Other fatigue] Onset: 2 12-23-2011 Episodic Other aftercare (1 source) Other group home (current) drug therapy; Translations: [Encounter for long-term current use of medication] Onset: 3 Episodic Other circulatory disease (2 sources) Carotid bruit; Translations: [Other specified symptoms and signs involving the circulatory and respiratory systems] Onset: 3 03-02-2013 Episodic Other connective tissue disease (20 sources) Swelling of limb; Translations: [Other specified soft tissue disorders] Onset: 7 06-15-2007 Episodic Other diseases of bladder and urethra (20 sources) Other specified disorders of urethra; Translations: [Urethrocele] Onset: 7 11-11-2006 Episodic Other female genital disorders (13 sources) Polyp of corpus uteri; Translations: [Polyp of corpus uteri] Onset: 3 Episodic Other gastrointestinal disorders (20 sources) Urgent desire for stool; Translations: [Fecal urgency] Onset: 7 02-16-2017 Episodic Other gastrointestinal disorders (12 sources) Fecal incontinence with fecal urgency; Translations: [Full incontinence of feces] Onset: 7 10-14-2022 Episodic Other inflammatory condition of skin (20 sources) Itching of skin; Translations: [Pruritus, unspecified] Onset: 1 09-23-2020 Episodic Other inflammatory condition of skin (10 sources) Pruritus, unspecified; Translations: [Unspecified pruritic disorder] Onset: 1 09-23-2020 Episodic Other lower respiratory disease (2 sources) Dyspnea; Translations: [Shortness of breath] Onset: 2 12-23-2011 Episodic Other screening for suspected conditions (not mental disorders or infectious disease) (3 sources) Atypical glandular cells on cervical Papanicolaou smear; Translations: [Unspecified abnormal cytological findings in specimens from cervix uteri] Onset: 3 Episodic Other skin disorders (20 sources) Keloid scar; Translations: [Hypertrophic scar] Onset: 6 03-10-2006 Episodic Residual codes; unclassified (2 sources) Family history of stroke; Translations: [Family history of stroke] Onset: 5 03-29-2015 Episodic Residual codes; unclassified (20 sources) Family history of malignant neoplasm of gastrointestinal tract; Translations: [Family history of malignant neoplasm of digestive organs] Onset: 2 07-14-2011 Episodic Residual codes; unclassified (20 sources) Family history of malignant neoplasm of ovary; Translations: [Family history of malignant neoplasm of ovary] Onset: 2 10-13-2011 Episodic Residual codes; unclassified (20 sources) Family history of cancer of colon; Translations: [Family history of malignant neoplasm of digestive organs] Onset: 7 08-28-2016 Episodic Results Test Name Value Interpretation Reference Range Facil ity Vital Signs Date Time Vital Sign Value Performing Clinician Faci lity 03-24-2023 08:27-0400 Body temperature 97.3 [degF] Leila Santos MD Work Phone: [facility] 03-24-2023 08:27-0400 Body weight 58.7 kg Leila Santos MD Work Phone: [facility] 03-24-2023 08:27-0400 Diastolic blood pressure 76 mm[Hg] Leila Santos MD Work Phone: [facility] 03-24-2023 08:27-0400 Heart rate 66 /min Leila Santos MD Work Phone: [facility] 03-24-2023 08:27-0400 Respiratory rate 18 /min Leila Santos MD Work Phone: [facility] 03-24-2023 08:27-0400 SaO2% (BldA) [Mass fraction] 98 % Leila Santos MD Work Phone: [facility] 03-24-2023 08:27-0400 Systolic blood pressure 137 mm[Hg] Leila Santos MD Work Phone: [facility] 03-10-2023 10:03-0400 Diastolic blood pressure 72 mm[Hg] Aurora Bolanos DO Work Phone: [facility] 03-10-2023 10:03-0400 Heart rate 71 /min Aurora Bolanos DO Work Phone: [facility] 03-10-2023 10:03-0400 SaO2% (BldA) [Mass fraction] 100 % Aurora Bolanos DO Work Phone: [facility] 03-10-2023 10:03-0400 Systolic blood pressure 129 mm[Hg] Aurora Bolanos DO Work Phone: [facility] 02-13-2023 07:00-0400 Body height 157.5 cm Kristine Rodriguez MD Work Phone: [facility] 02-13-2023 07:00-0400 Body weight 58.97 kg Kristine Rodriguez MD Work Phone: [facility] 02-13-2023 07:00-0400 Diastolic blood pressure 84 mm[Hg] Kristine Rodriguez MD Work Phone: [facility] 02-13-2023 07:00-0400 Systolic blood pressure 148 mm[Hg] Kristine Rodriguez MD Work Phone: [facility] 12-09-2022 15:32-0400 Body temperature 97.7 [degF] Leila Santos MD Work Phone: [facility] 12-09-2022 15:32-0400 Body weight 59.88 kg Leila Santos MD Work Phone: [facility] 12-09-2022 15:32-0400 Diastolic blood pressure 82 mm[Hg] Leila Santos MD Work Phone: [facility] 12-09-2022 15:32-0400 Heart rate 66 /min Leila Santos MD Work Phone: [facility] 12-09-2022 15:32-0400 Respiratory rate 18 /min Leila Santos MD Work Phone: [facility] 12-09-2022 15:32-0400 SaO2% (BldA) [Mass fraction] 100 % Leila Santos MD Work Phone: [facility] 12-09-2022 15:32-0400 Systolic blood pressure 136 mm[Hg] Leila Santos MD Work Phone: [facility] 09-30-2022 10:01-0400 Diastolic blood pressure 76 mm[Hg] Palmira Shrestha [employer] Work Phone: [facility] 09-30-2022 10:01-0400 Systolic blood pressure 164 mm[Hg] Palmira Shrestha [employer] Work Phone: [facility] 09-17-2022 10:45-0400 Body temperature 97.2 [degF] Leila Santos MD Work Phone: [facility] 09-17-2022 10:45-0400 Body weight 59.88 kg Leila Santos MD Work Phone: [facility] 09-17-2022 10:45-0400 Diastolic blood pressure 72 mm[Hg] Leila Santos MD Work Phone: [facility] 09-17-2022 10:45-0400 Heart rate 66 /min Leila Santos MD Work Phone: [facility] 09-17-2022 10:45-0400 Respiratory rate 18 /min Leila Santos MD Work Phone: [facility] 09-17-2022 10:45-0400 SaO2% (BldA) [Mass fraction] 100 % Leila Santos MD Work Phone: [facility] 09-17-2022 10:45-0400 Systolic blood pressure 134 mm[Hg] Leila Santos MD Work Phone: [facility] 09-16-2022 11:06-0400 Body weight 60.78 kg Palmira Shrestha [employer] Work Phone: [facility] 09-16-2022 11:06-0400 Diastolic blood pressure 72 mm[Hg] Palmira Shrestha [employer] Work Phone: [facility] 09-16-2022 11:06-0400 Systolic blood pressure 118 mm[Hg] Palmira Shrestha [employer] Work Phone: [facility] 07-15-2022 09:32-0500 Diastolic blood pressure 70 mm[Hg] Leila Santos MD Work Phone: [facility] 07-15-2022 09:32-0500 Systolic blood pressure 142 mm[Hg] Leila Santos MD Work Phone: [facility] 07-15-2022 08:34-0500 Body temperature 97.7 [degF] Leila Santos MD Work Phone: [facility] 07-15-2022 08:34-0500 Body weight 60.78 kg Leila Santos MD Work Phone: [facility] 07-15-2022 08:34-0500 Heart rate 68 /min Leila Santos MD Work Phone: [facility] 07-15-2022 08:34-0500 Respiratory rate 18 /min Leila Santos MD Work Phone: [facility] 07-15-2022 08:34-0500 SaO2% (BldA) [Mass fraction] 100 % Leila Santos MD Work Phone: [facility] 04-15-2022 08:27-0400 Body weight 63.5 kg Leila Santos MD Work Phone: [facility] 04-15-2022 08:27-0400 Diastolic blood pressure 82 mm[Hg] Leila Santos MD Work Phone: [facility] 04-15-2022 08:27-0400 Heart rate 65 /min Leila Santos MD Work Phone: [facility] 04-15-2022 08:27-0400 SaO2% (BldA) [Mass fraction] 98 % Leila Santos MD Work Phone: [facility] 04-15-2022 08:27-0400 Systolic blood pressure 126 mm[Hg] Leila Santos MD Work Phone: [facility] 01-03-2022 12:27-0400 Body temperature 97 [degF] Estefania Denbow PA-C Work Phone: [facility] 01-03-2022 12:27-0400 Body weight 65.05 kg Estefania Denbow PA-C Work Phone: [facility] 01-03-2022 12:27-0400 Diastolic blood pressure 78 mm[Hg] Estefania Denbow PA-C Work Phone: [facility] 01-03-2022 12:27-0400 Heart rate 75 /min Estefania Denbow PA-C Work Phone: [facility] 01-03-2022 12:27-0400 Respiratory rate 20 /min Estefania Denbow PA-C Work Phone: [facility] 01-03-2022 12:27-0400 SaO2% (BldA) [Mass fraction] 99 % Estefania Denbow PA-C Work Phone: [facility] 01-03-2022 12:27-0400 Systolic blood pressure 110 mm[Hg] Estefania Denbow PA-C Work Phone: [facility] 12-25-2021 15:05-0400 Body weight 64.86 kg Leila Santos MD Work Phone: [facility] 12-25-2021 15:05-0400 Diastolic blood pressure 78 mm[Hg] Leila Santos MD Work Phone: [facility] 12-25-2021 15:05-0400 Heart rate 66 /min Leila Santos MD Work Phone: [facility] 12-25-2021 15:05-0400 SaO2% (BldA) [Mass fraction] 100 % Leila Santos MD Work Phone: [facility] 12-25-2021 15:05-0400 Systolic blood pressure 138 mm[Hg] Leila Santos MD Work Phone: [facility] 12-24-2021 07:15-0400 Body temperature 97.2 [degF] Jean Carlos Rankin APRN.CNP Work Phone: [facility] 12-24-2021 07:15-0400 Body weight 64.86 kg Jean Carlos [place] [employer] Work Phone: [facility] 12-24-2021 07:15-0400 Diastolic blood pressure 74 mm[Hg] Jean Carlos [place] [employer] Work Phone: [facility] 12-24-2021 07:15-0400 Heart rate 76 /min Jean Carlos [place] [employer] Work Phone: [facility] 12-24-2021 07:15-0400 Respiratory rate 16 /min Jean Carlos [place] [employer] Work Phone: [facility] 12-24-2021 07:15-0400 SaO2% (BldA) [Mass fraction] 97 % Jean Carlos [place] [employer] Work Phone: [facility] 12-24-2021 07:15-0400 Systolic blood pressure 124 mm[Hg] Jean Carlos [place] [employer] Work Phone: [facility] 09-25-2021 11:06-0400 Diastolic blood pressure 78 mm[Hg] Leila Santos MD Work Phone: [facility] 09-25-2021 11:06-0400 Systolic blood pressure 134 mm[Hg] Leila Santos MD Work Phone: [facility] 09-25-2021 10:00-0400 Body weight 65.32 kg Leila Santos MD Work Phone: [facility] 09-25-2021 10:00-0400 Heart rate 64 /min Leila Santos MD Work Phone: [facility] 08-26-2021 15:46-0500 Body weight 64.86 kg Leila Santos MD Work Phone: [facility] 08-26-2021 15:46-0500 Diastolic blood pressure 88 mm[Hg] Leila Santos MD Work Phone: [facility] 08-26-2021 15:46-0500 Heart rate 72 /min Leila Santos MD Work Phone: [facility] 08-26-2021 15:46-0500 Systolic blood pressure 142 mm[Hg] Leila Santos MD Work Phone: [facility] 04-21-2017 10:24-0400 BMI (Body Mass Index) 28 kg/m2 Светлнаа [facility] Work Phone: 04-21-2017 10:24-0400 BP Diastolic 70 mm[Hg] Светлана [facility] Work Phone: 04-21-2017 10:24-0400 BP Systolic 120 mm[Hg] Светлана [facility] Work Phone: 04-21-2017 10:24-0400 Height 157.48 cm Светлана [facility] Work Phone: 04-21-2017 10:24-0400 Pulse (Heart Rate) 68 /min Светлана [facility] Work Phone: 04-21-2017 10:24-0400 Respiratory Rate 20 /min Светлана [facility] Work Phone: 04-21-2017 10:24-0400 Weight 69.45 kg Светлана [facility] Work Phone: 04-03-2016 12:44-0400 BSA (Body Surface Area) 1.7 m2 Светлана [facility] Work Phone: 04-03-2016 12:44-0400 Pulse Oximetry 99 % Светлана [facility] Work Phone: 12-25-2011 11:39-0400 Heart rate 425 ms Светлана [facility] Work Phone: 12-25-2011 11:39-0400 Heart rate 63 /min Светлана [facility] Work Phone: Encounters Encounter Date Encounter Type Care Provider Facility Start: 06-10-2023 End: 06-10-2023 ambulatory DANIELA PORTER Facility:[facility] Start: 06-10-2023 End: 06-10-2023 Patient encounter procedure Daniela Porter MD Work Phone: Ophthalmology Procedures Date Procedure Procedure Detail Performing Clinician Start: 06-10-2023 Clsr lacrimal punctu m plug each Daniela Porter MD Work Phone: Start: 06-10-2023 Computerized ophthal donnell imaging retina Daniela Porter MD Work Phone: Start: 03-24-2023 INFLUENZA VACCINE, P RSV FREE, AGE 65+ YR, HIGH DOSE, QUADRIVALENT (FLUZONE HIGH-DOSE) Leila Santos MD Work Phone: Start: 03-16-2023 Lipid 1996 panel - S tevin or Plasma Leila Santos MD Work Phone: Start: 02-13-2023 Urnls dip stick/tabl et rgnt auto w/o microscopy Kristine Rodriguez MD Work Phone: Start: 09-22-2022 transvaginal Palmira mcallister [employer] Work Phone: Start: 09-17-2022 Urnls dip stick/tabl et rgnt auto w/o microscopy Leila Santos MD Work Phone: Start: 03-28-2022 INFLUENZA SEASONAL QUADRIVALENT HIGH DOSE AGE 65+ Kassidy Roger MD Work Phone: Start: 01-03-2022 Urnls dip stick/tabl et rgnt auto w/o microscopy Francine Nam [employer] Work Phone: Start: 12-25-2021 Adult depression scr eening assessment Leila Santos MD Work Phone: Start: 12-24-2021 Urnls dip stick/tabl et rgnt auto w/o microscopy Leonard Quick APRN[employer] Work Phone: Start: 09-05-2020 Adult depression scr eening assessment Rose Mary Wright PT Work Phone: Start: 07-29-2019 Colonoscopy Rose Mary lorenz PT Work Phone: Start: 04-21-2017 End: 04-21-2017 GETACHEW Gaspar MD Start: 04-21-2017 End: 04-21-2017 Follow Up Appt 6 months Shanique Juan Start: 04-03-2016 End: 04-03-2016 *BMP Regan Gaspar MD Start: 04-03-2016 End: 04-03-2016 *CBC with Differential Regan Gaspar MD Start: 04-03-2016 End: 04-03-2016 GETACHEW Gaspar MD Start: 04-03-2016 End: 04-03-2016 Follow Up Appt 1 year Regan Gaspar MD Start: 04-03-2016 End: 04-03-2016 Natriuretic peptide B [Mass/volume] in Blood Regan Gaspar MD Start: 03-29-2015 End: 03-29-2015 GETACHEW Gaspar MD Start: 03-29-2015 End: 03-30-2015 Documentation of current medications Regan Gaspar MD Start: 03-29-2015 End: 04-09-2015 Echocardiography Regan Gaspar MD Start: 03-29-2015 End: 03-29-2015 Follow Up Appt 1 year Regan Gaspar MD Start: 03-29-2015 End: 03-29-2015 Dietary management education, guidance, and counseling Светлана [facility] Start: 02-28-2014 End: 02-28-2014 GETACHEW Gaspar MD Start: 02-28-2014 End: 02-28-2014 Follow Up Appt 1 year Regan Gaspar MD Start: 02-25-2013 End: 04-09-2015 Carotid duplex Regan Gaspar MD Start: 01-16-2012 End: 01-16-2012 Follow Up Appt 1 year Regan Gaspar MD Start: 12-25-2011 End: 01-12-2012 *BMP Regan Gaspar MD Start: 12-25-2011 End: 01-12-2012 Ct thorax w/o & w/contrast material Regan Gaspar MD Start: 12-25-2011 End: 12-25-2011 Ecg routine ecg w/least 12 lds w/i&r Regan Gaspar MD Start: 12-25-2011 End: 01-12-2012 Echocardiography Regan Gaspar MD Start: 12-25-2011 End: 12-25-2011 Follow up Appt 3 weeks Regan Gaspar MD Start: 12-25-2011 End: 01-12-2012 Nuclear stress test -adenosine Regan Gaspar MD Start: 12-25-2011 End: 01-12-2012 Pulmonary Fuction Test - complete Regan Gaspar MD Plan of Treatment Date Care Activity Detail Author Start: 03-16-2028 Lipid 1996 panel - S tevin or Plasma Lipid Screening [facility] Start: 03-16-2028 Lipid panel Lipid Screening [facility] Start: 04-09-2027 LIPID SCREEN LIPID SCREEN [facility] Start: 09-18-2026 LIPID SCREEN LIPID SCREEN [facility] Start: 03-16-2026 Diabetes Screening Diabetes Screenin g [facility] Start: 12-03-2025 DIABETES SCREEN DIABETES SCREEN [facility] Start: 04-09-2025 DIABETES SCREEN DIABETES SCREEN [facility] Start: 09-18-2024 DIABETES SCREEN DIABETES SCREEN [facility] Start: 07-29-2024 Colonoscopy COLONOSCOPY [facility] Start: 07-29-2024 COLORECTAL CANCER SCREENING COLORECTAL CANCER SCREENING [facility] Start: 07-29-2024 Screening for malign ant neoplasm of colon [facility] Start: 05-25-2024 BP Controlled (<130/80) BP Controlle d (<130/80) [facility] Start: 03-24-2024 Annual PCP Team [employer]ical [employer] reed Disease Visit Annual PCP Team Chronic Disease Visit [facility] Start: 03-24-2024 Covid-19 Vaccine ( season) Covid-19 Vaccine () [facility] Immunizations Immunization Date Immunization Notes Care Provider Sarah alva 03-24-2023 influenza (HD-IIV4) vaccine, age 65+ yr, high dose, quadrivalent, PF (FLUZONE HIGH-DOSE) Leila Santos MD Work Phone: [facility] 03-28-2022 influenza, high-dose , quadrivalent vaccine (FLUZONE HIGH DOSE QUADRIVALENT) Mi Nurse Work Phone: [facility] Work Phone: 03-12-2022 COVID-19 booster vaccine, age 12+ yr, bivalent (PFIZER-BIONTECH) Leila Santos MD Work Phone: [facility] 04-20-2021 influenza, high-dose , quadrivalent vaccine (FLUZONE HIGH DOSE QUADRIVALENT) Rose Mary Wright PT Work Phone: [facility] Work Phone: 08-22-2020 COVID-19 vaccine, ag e 12+ yr (PFIZER-BIONTECH - PURPLE TOP) Rose Mary Wright PT Work Phone: [facility] 08-01-2020 COVID-19 vaccine, ag e 12+ yr (PFIZER-BIONTECH - PURPLE TOP) Rose Mary Wright PT Work Phone: [facility] 03-30-2020 influenza, high-dose , quadrivalent vaccine (FLUZONE HIGH DOSE QUADRIVALENT) Rose Mary Wright PT Work Phone: [facility] Work Phone: 02-17-2020 pneumococcal polysaccharide vaccine, 23 valent Rose Mary Wright PT Work Phone: [facility] 04-23-2019 influenza, high dose seasonal, preservative-free Rose Mary Wright PT Work Phone: [facility] 05-01-2018 influenza, high dose seasonal, preservative-free Rose Mary Wright PT Work Phone: [facility] 04-01-2017 influenza, high dose seasonal, preservative-free Rose Mary Wright PT Work Phone: [facility] 04-19-2016 influenza, high dose seasonal, preservative-free Rose Mary Wright PT Work Phone: [facility] Work Phone: 06-26-2008 zoster vaccine, live Rose Mary Ga rrison PT Work Phone: [facility] 06-29-2000 pneumococcal polysaccharide vaccine, 23 valent Rose Mary Wright PT Work Phone: [facility] Payers Date Payer Category Payer Medicare MEDICARE MEDICAR E A AND B [id number] 2012-Present [phone] [place] [address] Medicare [id number] 2012 Medicare MEDICARE MEDICAR E A AND B [id number] 2012-Present [phone] [place] [address] Medicare [id number] 2012 Medicare [id number] 2005 Unknown [employer] BLUE CARD PPO OOS [id number] 2005-Present [phone] [address] [place] [address] PPO [id number] 2005 Unknown GOLD[employer] BLUE CARD PPO OOS [id number] 2005-Present [phone] [address] [place] [address] PPO [id number] 2005 Unknown [id number] Social History Date Type Detail Facility Start: 10-13-2011 End: 07-15-2022 Tobacco smoking status NHIS Never smoked tobacco [facility] Work Phone: Start: 08-27-2021 End: 06-10-2023 Alcohol intake Ex-drinker (finding) [facility] Start: 05-17-2020 End: 07-12-2022 History SDOH Alcohol Frequency 2 [facility] Start: 05-17-2020 End: 07-12-2022 History SDOH Alcohol Std Drinks 1 [facility] Start: 10-13-2011 History SDOH Alcohol Comment very rarely 3 per year [facility] Start: 02-12-2020 End: 07-12-2022 History SDOH Social Connections Phone 5 [facility] Start: 02-12-2020 End: 07-12-2022 History SDOH Social Connections Hoahaoism 3 [facility] Start: 02-12-2020 End: 07-12-2022 History SDOH Social Connections Meetings 98 [facility] Start: 02-12-2020 End: 07-12-2022 History SDOH Financial 4 [facility] Start: 02-12-2020 Education 17 [facility] Start: 1945 Sex Assigned At Female [facility] Start: 09-06-2021 End: 04-15-2022 Exposure to SARS-CoV-2 (event) Not sure [facility] Start: 10-13-2011 End: 07-15-2022 Tobacco use and exposure Smokeless tobacco non-user [facility] Start: 07-12-2022 History SDOH Physical Activity MPS 6 [facility] Start: 10-06-2018 Alcohol intake Current drinker of alcohol (finding) [facility] Start: 07-12-2022 End: 12-09-2022 History of Social function [facility] Start: 07-12-2022 End: 12-09-2022 Social connection and isolation panel [facility] How often do you get together with friends or relatives? Patient refused [facility] Do you belong to any clubs or organizations such as uatsdin groups, unions, fraternal or athletic groups, or school groups? No [facility] Are you now , , , , never or living with a partner? [facility] How often to you hav e a drink containing alcohol? Monthly or less [facility] How many standard dr inks containing alcohol do you have on a typical day? 1 or 2 [facility] How often do you hav e 6 or more drinks on 1 occasion? Never [facility] Do you feel stress - tense, restless, nervous, or anxious, or unable to sleep at night because your mind is troubled all the time - these days [OSQ] Only a little [facility] (I/We) worried wheth er (my/our) food would run out before (I/we) got money to buy more. Never true [facility] Start: 07-28-2021 Gender identity Identifies as female gender (finding) [facility] Start: 07-28-2021 Sexual orientation Heterosexual (finding) [facility] Medical Equipment Procedure Code Equipment Code Equipment Origin al Text Equipment Identifier Dates Lens Iol Ultrase rt 11.5 - [id number] Start: 11-27-2015 Lens Iol Ultrase rt 17.5 - [id number] Start: 05-11-2020 Clinical Notes 08-26-2021 to 06-10-2023 Patient InstructionsDaniela Porter MD - 06/10/2023 10:29 AM ESTTelephone Encounter - Jessica Bunch LPN - 06/03/2023 2:06 PM ESTTelephone Encounter - Jessica Bunch LPN - 06/03/2023 11:23 AM EST Note Date & Type Note Facility 06-10-2023 Note HNO ID: [id number] Author: Daniela Porter MD Service: ? Author Type: Physician Type: Progress Notes Filed: 06/10/2023 10:53 AM Note Text: Assessment and Plan 1. Dry eye syndrome, bilateral -main complaint is fluctuating vision, especially with prolonged computer use. Also eye fatigue -in setting of severe conjunctival chalasis both eyes Dry Eye Treatment: Artificial tears Effective?: Yes Cyclosporine Effective?: No 2. 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 Epiretinal membrane both eyes -stable peripheral changes -also Epiretinal membrane both eyes -history of laser retinopexy for small tear left eye 4. Bilateral pseudophakia 5. Left posterior capsular opacification -s/p cataract extraction with intraocular lens implantation both eyes with aim -6.00 -s/p YAG capsulotomy right eye -stable Plan: -Retina precautions reviewed. Return to clinic as soon as possible if increased floaters, flashes, or shadows. -artificial tears twice a day both eyes -3-month dissolvable collagen plug size 0.3 placed lower puncta both eyes 06/10/23 -follow-up retina for Epiretinal membrane and high myopia both eyes, optometry for glasses, me in 3 months for dry eye I have confirmed and edited as necessary the relevant ophthalmic history, ROS, and the neuro exam findings as obtained by others. I have seen and examined Francisco Taylor. I have discussed the case and the management of this patient's care with the Resident/Fellow, if applicable. I also have reviewed and agree with the assessment and plan as stated above and agree with all of its relevant components. Daniela Porter MD [facility] 06-10-2023 Instructions Daniela Porter MD - 06/10/2023 10:33 AM EST Images from the original note were not included. documented in this encounter [facility] 06-10-2023 History of Present illness Narrative Assessment and Plan 1. Dry eye syndrome, bilateral -main complaint is fluctuating vision, especially with prolonged computer use. Also eye fatigue -in setting of severe conjunctival chalasis both eyes Dry Eye Treatment: Artificial tears Effective?: Yes Cyclosporine Effective?: No 2. 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 Epiretinal membrane both eyes -stable peripheral changes -also Epiretinal membrane both eyes -history of laser retinopexy for small tear left eye 4. Bilateral pseudophakia 5. Left posterior capsular opacification -s/p cataract extraction with intraocular lens implantation both eyes with aim -6.00 -s/p YAG capsulotomy right eye -stable Plan: -Retina precautions reviewed. Return to clinic as soon as possible if increased floaters, flashes, or shadows. -artificial tears twice a day both eyes -3-month dissolvable collagen plug size 0.3 placed lower puncta both eyes 06/10/23 -follow-up retina for Epiretinal membrane and high myopia both eyes, optometry for glasses, me in 3 months for dry eye I have confirmed and edited as necessary the relevant ophthalmic history, ROS, and the neuro exam findings as obtained by others. I have seen and examined Francisco Taylor. I have discussed the case and the management of this patient's care with the Resident/Fellow, if applicable. I also have reviewed and agree with the assessment and plan as stated above and agree with all of its relevant components. Daniela Porter MD documented in this encounter [facility] 06-03-[address] Yanes reviewed patient's records in [facility] from 2006. Patient does not need to be seen here. Patient can follow up with PCP and [facility]. Patient is at least 21 years out from her surgery. I called and spoke with the patient again and she denied any new concerns. I also spoke with Dr. Gaspar's office and there were no new concerns of local recurrence. Patient is currently in physical therapy for lymphedema. Patient agreeable with plan of care. Jessica Bunch LPN Referral (just a cardiology progress note) was received 06/01/2023. Patient has not seen oncology since [facility] in 2006. Note given to Dr. Yanes to advise on scheduling with [facility]. Jessica Bunch LPN [facility] calling to see if the referral for patient was received. Requested a call if the referral was not received: [phone]- Ask for Marta documented in this encounter [facility] 06-02-2023 Note HNO ID: [id number] Author: Aurora Bolanos, DO Service: ? Author Type: Physician Type: Progress Notes Filed: 06/18/2023 3:02 PM Note Text: [facility] DEPARTMENT OF VASCULAR SURGERY OUTPATIENT VISIT DATE June 02, 2023 OUTPATIENT VISIT TYPE ESTABLISHED SERVICE DATE: 06/02/2023 SERVICE TIME: 9:41 AM PRIMARY CARE PHYSICIAN: Leila Santos MD HISTORY OF PRESENT ILLNESS: Ms. Taylor is a 77 year old female who presents today for a vascular surgery follow-up visit after venous reflux testing. PAST MEDICAL HISTORY Diagnosis Date Acquired hypothyroidism 04/01/[address] Amador--EGD 08/2016 Benign neoplasm of colon Benign neoplasm of rectum and anal canal 07/14/2011 Breast cancer (HCC) right mastectomy 1992 s/p chemo and radiation, 2001 left mastectomy Dengue Disorder of bone and cartilage, unspecified Diverticulosis of colon (without mention of hemorrhage) Esophagitis, unspecified Family history of malignant neoplasm of ovary IBS (irritable bowel syndrome) Leiomyoma of uterus, unspecified Lung infection Malignant neoplasm of breast (female), unspecified site Breast cancer/bilateral Obstructive chronic bronchitis with exacerbation (HCC) COPD Osteoarthritis, knee right knee PMH - PAST MEDICAL HISTORY OF Postmenopausal atrophic vaginitis Atroph. vaginitis/post-men. Postmenopausal bleeding Unspecified essential hypertension Essential hypertension Urge incontinence Uterine prolapse without mention of vaginal wall prolapse urethrocele PAST SURGICAL HISTORY Procedure Laterality Date BREAST SURGERY PROCEDURE UNLISTED 2001 stereotactic bx. L COLONOSCOPY FLX DX W/COLLJ SPEC WHEN PFRMD 04/17/2008 Colonoscopy COLONOSCOPY FLX DX W/COLLJ SPEC WHEN PFRMD 07/14/2011 Colonoscopy COLONOSCOPY FLX DX W/COLLJ SPEC WHEN PFRMD N/A 08/28/2016 ESOPHAGOGASTRODUODENOSCOPY TRANSORAL DIAGNOSTIC 07/14/2011 EGD KENALOG INJECTION dermatology x 2, spot on stomach MASTEC,MOD RADICAL 1992 right MASTEC,MOD RADICAL 05/11/2002 left PAST SURGICAL HISTORY OF uterine polypectomy 2016 and 2019 REM LESION TRUNK,ARM,LEG 0.6 -1.0CM Left 12/02/2014 Exc. SC left chest SC mass REMV CATARACT EXTRACAP,INSERT LENS Left 11/27/2015 Dr. Murillo RIGHT HEART CATHETERIZATION 02/08/2018 SIGMOIDOSCOPY FLX DX W/COLLJ SPEC BR/WA IF PFRMD 08/2002 Sigmoidoscopy XCAPSL CTRC RMVL INSJ IO LENS PROSTH W/O ECP Right 05/11/2020 Cataract Extraction with PC IOL SOCIAL HISTORY Social History Tobacco Use Smoking status: Never Smokeless tobacco: Never Vaping Use Vaping Use: Never used Substance Use Topics Alcohol use: Not Currently Comment: very rarely 3 per year Drug use: No MEDICATIONS: Cholecalciferol, Vitamin D3, 50 mcg (2,000 unit) cap Take 1 capsule by mouth once daily. levothyroxine (SYNTHROID) 50 mcg tablet Take 1 tablet by mouth once daily. As directed (Patient taking differently: Take 50 mcg by mouth once daily. As directed (Taking half pill on Sundays; whole pill daily rest of the week)) benzonatate (TESSALON PERLE) 100 mg capsule Take 1 capsule by mouth three times daily as needed for cough. fexofenadine (MANNY ALLERGY) 180 mg tablet Take 1 tablet by mouth once daily. desvenlafaxine ER (PRISTIQ) 50 mg 24 hr tablet Take 1 tablet by mouth once daily. trospium (SANCTURA) 20 mg tablet Take 1 tablet by mouth twice daily. The patient may take as needed for urinary urgency estradiol (ESTRACE) 0.01 % (0.1 mg/gram) vaginal cream Use 1 g vaginally as directed. Apply 1 pea-sized amount per vagina with fingertip every night for 2 weeks then 3 times weekly gabapentin (NEURONTIN) 100 mg capsule Take 2 capsules by mouth daily at bedtime AND 2 capsules every morning. Do all this for 180 days. mometasone (NASONEX) 50 mcg/actuation nasal spray Use 2 Sprays in the nose once daily. triamcinolone (KENALOG) 0.025 % ointment Apply to affected area twice daily. For ears as needed for recurrence of eczema, no more than 2 weeks at a time losartan (COZAAR) 50 mg tablet Take 1 tablet by mouth twice daily. (Dr. Gaspar) Oxyquinoline-Na Lauryl Sulfate (TRIMO-MARTINEZ JELLY) 0.025-0.01 % gel Use as needed for pessary insertion. betamethasone dipropionate 0.05 % ointment Apply to affected area once daily. As needed. furosemide (LASIX) 20 mg tablet Take 20 mg by mouth every other day. omeprazole (PRILOSEC) 20 mg capsule Take 1 capsule by mouth once daily. cycloSPORINE (RESTASIS) 0.05 % ophthalmic emulsion Use 1 Drop in both eyes twice daily. Generic ok ferrous sulfate (IRON ORAL) Take by mouth. 60 mg every other day atorvastatin (LIPITOR) 10 mg tablet Take 1 tablet by mouth once daily. Magnesium 250 mg tab Take 250 mg by mouth once daily. ascorbic acid, vitamin C, (VITAMIN C) 500 mg tablet Take 500 mg by mouth once daily. amLODIPine (NORVASC) 5 mg tablet Take 1 tablet by mouth once d (more content not included)... [facility] 05-25-2023 Note HNO ID: [id number] Author: Marylin Garcia, PT Service: ? Author Type: Physical Therapist Type: Progress Notes Filed: 05/25/2023 3:33 PM Note Text: Episode Visit Count: 1 Therapist That Will Accept/Oversee The Plan Of Care: Lemon. Coulter Start of Care Date: 05/25/23 Onset Date: 12/27/22 Plan of Care Certification Date: 05/25/23 Next Certification Due Date: 08/25/23 Patient Identified by Name and Date of : Yes REHABILITATION AND SPORTS THERAPY PHYSICAL THERAPY EVALUATION PLAN OF CARE: Assessment: Francisco Taylor presents with diagnosis of R UE lymphedema that interferes with nothing (Sometimes feels fatigued or increases swelling, but no pain or limitations in function.) . She presents with impairments in edema management and soft tissue condition. PROMIS? (Patient-Reported Outcomes Measurement Information System) scores were reviewed and physical function domain and self efficacy domain identified as within normal limits. Prognosis for therapy is Good due to: current objective clinical presentation, good support system/ coping skills, Prognosis may be limited due to multiple co- morbidities, chronic nature of impairments . She will benefit from skilled therapy services to meet the goals established for this plan of care as noted below. Goals for Episode of Care: created on 05/25/23 through 08/25/23 Patient able to verbalize skin care and lymphedema risk reductions Patient will demonstrate proper positioning of limb Patient/family independent with home exercise program including self MLD, skincare guidelines, garment instructions, and UE Decongestive Exercises. Patient will decrease involved limb volume by 5-10% for decreased risk of infection, improved mobility, allow appropriate fit in compressive garment, and decrease circumferential size Patient/family independent with donning/doffing compression garment and proper wearing schedule and care of garment Patient will have increased function and be able to perform all daily and household activities with the involved UE Patient Goals: Reduce the swelling Planned Interventions, Frequency, and Duration: Current Frequency: 2x/week Duration: 8 weeks Total Number of Visits Planned: 16 Planned Treatment Interventions: Therapeutic exercise (41380), Manual therapy (61271), Self-penitentiary management (12060), Patient/Family/Caregiver Education PLAN FOR NEXT VISIT: Assess changes with addition of decongestive exercises and more frequent wearin gof compression sleeve. May initiate MLD and/or instruction in self-MLD techniques. Patient demonstrates good understanding of plan of care and treatment. The above goals and plan of care were discussed and agreed upon by patient/family. SUBJECTIVE: Pt notes that she could always tell there was some puffiness at R shoulder and proximal arm since the surgery (the way her clothes/sleeves would fit), but in December stared feeling a little bit of puffiness in R forearm as well. Notes she also gets tingling and burning soemtimes, but this can occur in either arm d/t cervical disc issue. Pt brings two compression sleeves with her that she has used. One she feels does not have enough pressure and one is a little snug. Pt states she has only been wearing the sleeve for a few hours at a time. 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 5 points is clinically meaningfully difference Percentiles provide an indication of how the patient's score ranks in relation to the general population. Higher percentile rankings indicate better function/quality of life. 50th percentile is the average of the general population and indicates half of respondents had a worse score. OBJECTIVE MEASURES WITH LEVEL OF FUNCTION: Lymphedema Presents with: Swelling, Decreased knowledge of lymphedema management Lymphedema Contributing Factors: Chemotherapy, Radiation, Lymph Node Removal Relative Contra-indications to Neck Manual Lymph Drainage: : Hyper/hypothyroidism, Age (>70 year (more content not included)... [facility] 05-25-2023 History of Present illness Narrative Episode Visit Count: 1 Therapist That Will Accept/Oversee The Plan Of Care: Lemon. Coulter Start of Care Date: 05/25/23 Onset Date: 12/27/22 Plan of Care Certification Date: 05/25/23 Next Certification Due Date: 08/25/23 Patient Identified by Name and Date of : Yes REHABILITATION AND SPORTS THERAPY PHYSICAL THERAPY EVALUATION PLAN OF CARE: Assessment: Francisco Taylor presents with diagnosis of R UE lymphedema that interferes with nothing (Sometimes feels fatigued or increases swelling, but no pain or limitations in function.) . She presents with impairments in edema management and soft tissue condition. PROMIS (Patient-Reported Outcomes Measurement Information System) scores were reviewed and physical function domain and self efficacy domain identified as within normal limits. Prognosis for therapy is Good due to: current objective clinical presentation, good support system/ coping skills, Prognosis may be limited due to multiple co- morbidities, chronic nature of impairments . She will benefit from skilled therapy services to meet the goals established for this plan of care as noted below. Goals for Episode of Care: created on 05/25/23 through 08/25/23 Patient able to verbalize skin care and lymphedema risk reductions Patient will demonstrate proper positioning of limb Patient/family independent with home exercise program including self MLD, skincare guidelines, garment instructions, and UE Decongestive Exercises. Patient will decrease involved limb volume by 5-10% for decreased risk of infection, improved mobility, allow appropriate fit in compressive garment, and decrease circumferential size Patient/family independent with donning/doffing compression garment and proper wearing schedule and care of garment Patient will have increased function and be able to perform all daily and household activities with the involved UE Patient Goals: Reduce the swelling Planned Interventions, Frequency, and Duration: Current Frequency: 2x/week Duration: 8 weeks Total Number of Visits Planned: 16 Planned Treatment Interventions: Therapeutic exercise (56603), Manual therapy (15078), Self-penitentiary management (65823), Patient/Family/Caregiver Education PLAN FOR NEXT VISIT: Assess changes with addition of decongestive exercises and more frequent wearin gof compression sleeve. May initiate MLD and/or instruction in self-MLD techniques. Patient demonstrates good understanding of plan of care and treatment. The above goals and plan of care were discussed and agreed upon by patient/family. SUBJECTIVE: Pt notes that she could always tell there was some puffiness at R shoulder and proximal arm since the surgery (the way her clothes/sleeves would fit), but in December stared feeling a little bit of puffiness in R forearm as well. Notes she also gets tingling and burning soemtimes, but this can occur in either arm d/t cervical disc issue. Pt brings two compression sleeves with her that she has used. One she feels does not have enough pressure and one is a little snug. Pt states she has only been wearing the sleeve for a few hours at a time. 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 5 points is clinically meaningfully difference Percentiles provide an indication of how the patient's score ranks in relation to the general population. Higher percentile rankings indicate better function/quality of life. 50th percentile is the average of the general population and indicates half of respondents had a worse score. OBJECTIVE MEASURES WITH LEVEL OF FUNCTION: Lymphedema Presents with: Swelling, Decreased knowledge of lymphedema management Lymphedema Contributing Factors: Chemotherapy, Radiation, Lymph Node Removal Relative Contra-indications to Neck Manual Lymph Drainage: : Hyper/hypothyroidism, Age (>70 years old) Relative Contra-indications for Abdominal Sequences: Diverticulosis Previous Lymphedema Treatment: Compression Garment Skin: Skin Comments Skin Comments:: No fibrosis or pitting noted R UE. Normal color and good skin hydration. Negative Stemmer's sign. Breast Cancer Related Stage of Lymphedema: Grade 3: Moderate- Change >8% greater than baseline (Stage I) Upper Extremity Circumferential Measurements R Thumb (proximal phalanx) (cm): 5.5 cm R Index Finger (proximal phalanx) (cm): 5.5 cm R Middle Finger (proximal phalanx) (cm): 5.5 cm R Ring Finger (proximal phalanx) (cm): 5 cm R Small Finger (proximal phalanx) (cm): 4.5 cm R DPC (cm): 18.5 cm R Distal Wrist Crease (DWC) (cm): 15.5 cm R 4 cm above wrist (cm): 16 cm R 8 cm above wrist (cm): 20 cm R 12 cm above wrist (cm): 24 cm R 16 cm above wrist (cm): 26.5 cm R 20 cm above wrist (cm): 28 cm R 24 cm above wrist (cm): 26 cm (elbow) R 28 cm above wrist (cm): 28.5 cm R 32 cm above wrist (cm): 29.5 cm R 36 cm above wrist (cm): 31 cm R 40 cm above wrist (cm): 32 cm R 44 cm above wrist (cm): 31 cm L Thumb (proximal phalanx) (cm): 5.5 cm L Index Finger (proximal phalanx) (cm): 5.5 cm L Middle Finger (proximal phalanx) (cm): 5.5 cm L Ring Finger (proximal phalanx) (cm): 5 cm L Small Finger (proximal phalanx) (cm): 4.5 cm L DPC (cm): 18.5 cm L Distal Wrist Crease (DWC) (cm): 15.5 cm L 4 cm above wrist (cm): 16 cm L 8 cm above wrist (cm): 18.5 cm L 12 cm above wrist (cm): 21.5 cm L 16 cm above wrist (cm): 23 cm L 20 cm above wrist (cm): 23.5 cm L 24 cm above wrist (cm): 24 cm (elbow) L 28 cm above wrist (cm): 27 cm L 32 cm above wrist (cm): 30 cm L 36 cm above wrist (cm): 31.5 cm L 40 cm above wrist (cm): 31 cm L 44 cm above wrist (cm): 31 cm Affected Arm : Right Arm Calculate Volume : Yes R Upper Extremity Volume: 2437.26 L Upper Extremity Volume: 2195.59 Difference in Volume: 241.67 Difference in % : 9.92 Education: Education Learning Preferences: Demonstration, Explanation Barriers: None Learning/educational needs: Home exercise program, Plan of Care, Lymphedema Program Education Provided: Yes, see treatment interventions for education provided Education Provided To: Patient Education Mode/Type: Demonstration, Explanation/Discussion, Literature/Printed Materials, Performance Response to Education/Teach Back: States/Identifies, Return Demonstration TREATMENT: PT Treatment Interventions: Therapeutic Exercise, Self-Detention Management Evaluation Therapeutic Exercise: 1: *Instructed in UE Decongestive Exercises and pt performed correctly. Skilled Intervention: Patient was educated in proper exercise technique and purpose for exercises. Skilled judgment was used in selection of appropriate interventions. Provided written instruction for home exercise program to facilitate proper performance and compliance. Correct performance of therapeutic exercises was facilitated with verbal and visual cuing. Patient education as noted. Self-Detention Management: 1: Educated pt in lymphedema including skin care and infection prevention/risk of cellulitis, decongestive exercises, MLD, and compression. 2: Discussed pt's current compression sleeve issues and instructed in forrect fit of sleeve. Suggested pt obtain longer sleeve to better fit her arm and insure adequate coverage and compression gradient for effectiveness. Skilled Intervention: Educated the patient regarding recommendations and provided written instruction to facilitate compliance. Reviewed patient specific diagnosis in relation to activities of daily living/home management. Billing * Evaluation Low Complexity: 1 Unit Therapeutic Exercise Treatment Minutes: 18 Self-Care/Home Management Treatment Minutes: 12 Skilled Treatment Time Minutes (timed and untimed codes): 47 Total Session Time (minutes): 47 Session Start Time : 1120 Session Stop Time : 1207 Marylin Garcia PT documented in this encounter [facility] 04-13-2023 Note Patient Outreach (DOMITILA GUTIERREZ) FRANCISCO TAYLOR ([id number]) 1945 F Date Time Provider Department 04/13/23 NO PCP NETNAV During your visit today, we recorded the following information about you: Marylin Guerrero 04/13/2023 9:38 AM Signed POPULATION HEALTH NAVIGATION OUTREACH Action/FYI RP Patient Outreach: 2nd Attempt - Spoke with patient to schedule in Lymphedema Rehab and Sports Therapy. Patient declined RST Consult at this time. Patient Identified by Name and : YES, via phone Outreach Outcome/Action Spoke to patient / parent / legal guardian: Patient declined Did you use a PCP flex slot to schedule this appointment? No Reason for Outreach Care Gap or Scheduling/Wellness visits Payer: Payor: MEDICARE / Plan: MEDICARE A AND B / Product Type: Medicare / Care Gap Reviewed:: Specialty Scheduling Reminder: Reminder note to check Health Maintenance for items below Health Maintenance items due: Spirometry Never done Pneumococcal Vaccine: 65+(2 - PCV) due on 02/16/2021 BP Controlled (<130/80) due on 03/18/2022 Advance Directive Discussion Never done Navigation Signature: Marylin Reed April 13, 2023 9:38 AM Allergies As of Date: 04/13/2023 Noted Allergy Reaction PENICILLINS 04/19/2002 2 - Rash 12 - Shortness of Breath Comments: ampicillin CELEBREX (CELECOXIB) 06/17/2006 2 - Rash CODEINE 04/19/2002 Comments: rash MANGOES 02/01/2019 2 - Rash 8 - GI Upset Date Reviewed: 03/24/2023 Reviewed by: Perlita Pereyra LPN - Fully Assessed Prescriptions as of 04/13/2023 - albuterol HFA (VENTOLIN HFA) 90 mcg/actuation inhaler Inhale 2 Puffs as instructed every 4 hours as needed for Wheezing/Shortness of Breath. - amLODIPine (NORVASC) 5 mg tablet Take 1 tablet by mouth once daily. (Dr. Gaspar) - ascorbic acid, vitamin C, (VITAMIN C) 500 mg tablet Take 500 mg by mouth once daily. - atorvastatin (LIPITOR) 10 mg tablet Take 1 tablet by mouth once daily. - beclomethasone (QVAR) 80 mcg/actuation inhaler - benzonatate (TESSALON PERLE) 100 mg capsule Take 1 capsule by mouth three times daily as needed for cough. - BETA-CAROTENE,A, W-C AND E/MIN (OCUVITE ORAL) Take by mouth. - betamethasone dipropionate 0.05 % ointment Apply to affected area once daily. As needed. - Cholecalciferol, Vitamin D3, 50 mcg (2,000 unit) cap Take 1 capsule by mouth once daily. - COMPOUNDED PRESCRIPTION Surgical mastectomy bras. Dx: Z85.3 - cycloSPORINE (RESTASIS) 0.05 % ophthalmic emulsion Use 1 Drop in both eyes twice daily. Generic ok - desvenlafaxine ER (PRISTIQ) 50 mg 24 hr tablet Take 1 tablet by mouth once daily. - estradiol (ESTRACE) 0.01 % (0.1 mg/gram) vaginal cream Use 1 g vaginally as directed. Apply 1 pea-sized amount per vagina with fingertip every night for 2 weeks then 3 times weekly - ferrous sulfate (IRON ORAL) Take by mouth. 60 mg every other day - fexofenadine (MANNY ALLERGY) 180 mg tablet Take 1 tablet by mouth once daily. - furosemide (LASIX) 20 mg tablet Take 20 mg by mouth every other day. - gabapentin (NEURONTIN) 100 mg capsule Take 2 capsules by mouth daily at bedtime AND 2 capsules every morning. Do all this for 180 days. - Glucosamine-Chondroitin 250-200 mg tab Take by mouth. - levothyroxine (SYNTHROID) 50 mcg tablet Take 1 tablet by mouth once daily. As directed - losartan (COZAAR) 50 mg tablet Take 1 tablet by mouth twice daily. (Dr. Gaspar) - Magnesium 250 mg tab Take 250 mg by mouth once daily. - mometasone (NASONEX) 50 mcg/actuation nasal spray Use 2 Sprays in the nose once daily. - MULTIVITAMIN TABLET Take one(1) tablet daily. - multivitamin with minerals (VISION/OPTIGEN) tablet Take by mouth. - omeprazole (PRILOSEC) 20 mg capsule Take 1 capsule by mouth once daily. - Oxyquinoline-Na Lauryl Sulfate (TRIMO-MARTINEZ JELLY) 0.025-0.01 % gel Use as needed for pessary insertion. - [place]-3 Fatty Acids (FISH OIL) 500-100 mg cap Take 1 capsule by mouth twice daily. - triamcinolone (KENALOG) 0.025 % ointment Apply to affected area twice daily. For ears as needed for recurrence of eczema, no more than 2 weeks at a time - trospium (SANCTURA) 20 mg tablet Take 1 tablet by mouth twice daily. 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 [facility] 04-13-2023 Note HNO ID: [id number] Author: Marylin Guerrero Service: ? Author Type: ? Type: Progress Notes Filed: 04/13/2023 9:38 AM Note Text: POPULATION HEALTH NAVIGATION OUTREACH Action/FYI RP Patient Outreach: 2nd Attempt - Spoke with patient to schedule in Lymphedema Rehab and Sports Therapy. Patient declined RST Consult at this time. Patient Identified by Name and : YES, via phone Outreach Outcome/Action Spoke to patient / parent / legal guardian: Patient declined Did you use a PCP flex slot to schedule this appointment? No Reason for Outreach Care Gap or Scheduling/Wellness visits Payer: Payor: MEDICARE / Plan: MEDICARE A AND B / Product Type: Medicare / Care Gap Reviewed:: Specialty Scheduling Reminder: Reminder note to check Health Maintenance for items below Health Maintenance items due: Spirometry Never done Pneumococcal Vaccine: 65+(2 - PCV) due on 02/16/2021 BP Controlled (<130/80) due on 03/18/2022 Advance Directive Discussion Never done Navigation Signature: Marylin Reed April 13, 2023 9:38 AM [facility] 04-13-2023 History of Present illness Narrative POPULATION HEALTH NAVIGATION OUTREACH Action/FYI RP Patient Outreach: 2nd Attempt - Spoke with patient to schedule in Lymphedema Rehab and Sports Therapy. Patient declined RST Consult at this time. Patient Identified by Name and : YES, via phone Outreach Outcome/Action Spoke to patient / parent / legal guardian: Patient declined Did you use a PCP flex slot to schedule this appointment? No Reason for Outreach Care Gap or Scheduling/Wellness visits Payer: Payor: MEDICARE / Plan: MEDICARE A AND B / Product Type: Medicare / Care Gap Reviewed:: Specialty Scheduling Reminder: Reminder note to check Health Maintenance for items below Health Maintenance items due: Spirometry Never done Pneumococcal Vaccine: 65+(2 - PCV) due on 02/16/2021 BP Controlled (<130/80) due on 03/18/2022 Advance Directive Discussion Never done Navigation Signature: Marylin Reed April 13, 2023 9:38 AM documented in this encounter [facility] 04-06-2023 Note HNO ID: [id number] Author: Demetrius ReedMarylin Service: ? Author Type: ? Type: Progress Notes Filed: 04/06/2023 1:11 PM Note Text: POPULATION HEALTH NAVIGATION OUTREACH Action/FYI Patient Outreach: Left voicemail for patient to call back to schedule in RST. Sent my chart message. (Please see [employer] order dated for (03/10/2023). Any agent can assist with scheduling. Patient Identified by Name and : NO Outreach Outcome/Action Unable to reach patient: Left message Did you use a PCP flex slot to schedule this appointment? No Reason for Outreach Care Gap or Scheduling/Wellness visits Payer: Payor: MEDICARE / Plan: MEDICARE A AND B / Product Type: Medicare / Care Gap Reviewed:: Specialty Scheduling Reminder: Reminder note to check Health Maintenance for items below Health Maintenance items due: Spirometry Never done Pneumococcal Vaccine: 65+(2 - PCV) due on 02/16/2021 BP Controlled (<130/80) due on 03/18/2022 Advance Directive Discussion Never done Navigation Signature: Marylin Gutierrez Demetrius Reed April 06, 2023 1:10 PM [facility] 04-06-2023 Note Patient Outreach (NE TNAV) FRANCISCO TAYLOR ([id number]) 1945 F Date Time Provider Department 04/06/23 NO PCP NETNAV During your visit today, we recorded the following information about you: Demetrius ReedMarylinne 04/06/2023 1:11 PM Signed POPULATION HEALTH NAVIGATION OUTREACH Action/FYI Patient Outreach: Left voicemail for patient to call back to schedule in RST. Sent my chart message. (Please see [employer] order dated for (03/10/2023). Any agent can assist with scheduling. Patient Identified by Name and : NO Outreach Outcome/Action Unable to reach patient: Left message Did you use a PCP flex slot to schedule this appointment? No Reason for Outreach Care Gap or Scheduling/Wellness visits Payer: Payor: MEDICARE / Plan: MEDICARE A AND B / Product Type: Medicare / Care Gap Reviewed:: Specialty Scheduling Reminder: Reminder note to check Health Maintenance for items below Health Maintenance items due: Spirometry Never done Pneumococcal Vaccine: 65+(2 - PCV) due on 02/16/2021 BP Controlled (<130/80) due on 03/18/2022 Advance Directive Discussion Never done Navigation Signature: Marylin Romo Pss April 06, 2023 1:10 PM Allergies As of Date: 04/06/2023 Noted Allergy Reaction PENICILLINS 04/19/2002 2 - Rash 12 - Shortness of Breath Comments: ampicillin CELEBREX (CELECOXIB) 06/17/2006 2 - Rash CODEINE 04/19/2002 Comments: rash MANGOES 02/01/2019 2 - Rash 8 - GI Upset Date Reviewed: 03/24/2023 Reviewed by: Perlita Pereyra LPN - Fully Assessed Prescriptions as of 04/06/2023 - Cholecalciferol, Vitamin D3, 50 mcg (2,000 unit) cap Take 1 capsule by mouth once daily. - levothyroxine (SYNTHROID) 50 mcg tablet Take 1 tablet by mouth once daily. As directed - benzonatate (TESSALON PERLE) 100 mg capsule Take 1 capsule by mouth three times daily as needed for cough. - fexofenadine (MANNY ALLERGY) 180 mg tablet Take 1 tablet by mouth once daily. - desvenlafaxine ER (PRISTIQ) 50 mg 24 hr tablet Take 1 tablet by mouth once daily. - trospium (SANCTURA) 20 mg tablet Take 1 tablet by mouth twice daily. The patient may take as needed for urinary urgency - estradiol (ESTRACE) 0.01 % (0.1 mg/gram) vaginal cream Use 1 g vaginally as directed. Apply 1 pea-sized amount per vagina with fingertip every night for 2 weeks then 3 times weekly - gabapentin (NEURONTIN) 100 mg capsule Take 2 capsules by mouth daily at bedtime AND 2 capsules every morning. Do all this for 180 days. - mometasone (NASONEX) 50 mcg/actuation nasal spray Use 2 Sprays in the nose once daily. - triamcinolone (KENALOG) 0.025 % ointment Apply to affected area twice daily. For ears as needed for recurrence of eczema, no more than 2 weeks at a time - losartan (COZAAR) 50 mg tablet Take 1 tablet by mouth twice daily. (Dr. Gaspar) - Oxyquinoline-Na Lauryl Sulfate (TRIMO-MARTINEZ JELLY) 0.025-0.01 % gel Use as needed for pessary insertion. - betamethasone dipropionate 0.05 % ointment Apply to affected area once daily. As needed. - furosemide (LASIX) 20 mg tablet Take 20 mg by mouth every other day. - omeprazole (PRILOSEC) 20 mg capsule Take 1 capsule by mouth once daily. - cycloSPORINE (RESTASIS) 0.05 % ophthalmic emulsion Use 1 Drop in both eyes twice daily. Generic ok - ferrous sulfate (IRON ORAL) Take by mouth. 60 mg every other day - atorvastatin (LIPITOR) 10 mg tablet Take 1 tablet by mouth once daily. - multivitamin with minerals (VISION/OPTIGEN) tablet Take by mouth. - Magnesium 250 mg tab Take 250 mg by mouth once daily. - ascorbic acid, vitamin C, (VITAMIN C) 500 mg tablet Take 500 mg by mouth once daily. - amLODIPine (NORVASC) 5 mg tablet Take 1 tablet by mouth once daily. (Dr. Gaspar) - beclomethasone (QVAR) 80 mcg/actuation inhaler - Glucosamine-Chondroitin 250-200 mg tab Take by mouth. - COMPOUNDED PRESCRIPTION Surgical mastectomy bras. Dx: Z85.3 - albuterol HFA (VENTOLIN HFA) 90 mcg/actuation inhaler Inhale 2 Puffs as instructed every 4 hours as needed for Wheezing/Shortness of Breath. - [place]-3 Fatty Acids (FISH OIL) 500-100 mg cap Take 1 capsule by mouth twice daily. - BETA-CAROTENE,A, W-C AND E/MIN (OCUVITE ORAL) Take by mouth. - MULTIVITAMIN TABLET Take one(1) tablet daily. 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 [facility] 03-24-2023 Note HNO ID: [id number] Author: Leila Santos MD Service: ? Author Type: Physician Type: Progress Notes Filed: 03/24/2023 12:12 PM Note Text: This note was created using NoteWriter. Subjective Francisco Taylor is a 77 year old female. Patient presents with: F/U 3 Month: Labs prior SUBJECTIVE: Francisco Taylor is a 77 year old year old lady here today for 3 month follow up appointment for review of medical conditions. Drinking 8 ounces water with electrolyte packet daily. Per [facility]. Continues on iron 3 times weekly with Vitamin C. Hair still thinning. Loses a lot after showers. Dermatology appointment next month. Using Rogaine. Noted right arm swelling that started a couple months ago after no significant swelling in forearm after mastectomy and lymph node dissection 1992. Tingling in upper and now lower extremity. Touching cold water makes sensation go down into legs too. Can be when standing and laying down. labor day weekend latch window dropped on her ring and pinky fingers on left and were swollen. Ring finger was most swollen and still tingly and tender. PAST MEDICAL HISTORY Diagnosis Date Acquired hypothyroidism 04/01/[address] Amador--EGD 08/2016 Benign neoplasm of colon Benign neoplasm of rectum and anal canal 07/14/2011 Breast cancer (HCC) right mastectomy 1992 s/p chemo and radiation, 2001 left mastectomy Dengue Disorder of bone and cartilage, unspecified Diverticulosis of colon (without mention of hemorrhage) Esophagitis, unspecified Family history of malignant neoplasm of ovary IBS (irritable bowel syndrome) Leiomyoma of uterus, unspecified Lung infection Malignant neoplasm of breast (female), unspecified site Breast cancer/bilateral Obstructive chronic bronchitis with exacerbation (HCC) COPD Osteoarthritis, knee right knee PMH - PAST MEDICAL HISTORY OF Postmenopausal atrophic vaginitis Atroph. vaginitis/post-men. Postmenopausal bleeding Unspecified essential hypertension Essential hypertension Urge incontinence Uterine prolapse without mention of vaginal wall prolapse urethrocele Current Outpatient Medications Medication Sig levothyroxine (SYNTHROID) 50 mcg tablet Take 1 tablet by mouth once daily. As directed (Patient taking differently: Take 50 mcg by mouth once daily. As directed (Taking half pill on Sundays; whole pill daily rest of the week)) trospium (SANCTURA) 20 mg tablet Take 1 tablet by mouth twice daily. The patient may take as needed for urinary urgency estradiol (ESTRACE) 0.01 % (0.1 mg/gram) vaginal cream Use 1 g vaginally as directed. Apply 1 pea-sized amount per vagina with fingertip every night for 2 weeks then 3 times weekly gabapentin (NEURONTIN) 100 mg capsule Take 2 capsules by mouth daily at bedtime AND 2 capsules every morning. Do all this for 180 days. desvenlafaxine ER (PRISTIQ) 25 mg 24 hr tablet Take 1 tablet by mouth once daily. triamcinolone (KENALOG) 0.025 % ointment Apply to affected area twice daily. For ears as needed for recurrence of eczema, no more than 2 weeks at a time losartan (COZAAR) 50 mg tablet Take 1 tablet by mouth twice daily. (Dr. Gaspar) Oxyquinoline-Na Lauryl Sulfate (TRIMO-MARTINEZ JELLY) 0.025-0.01 % gel Use as needed for pessary insertion. betamethasone dipropionate 0.05 % ointment Apply to affected area once daily. As needed. furosemide (LASIX) 20 mg tablet Take 20 mg by mouth every other day. omeprazole (PRILOSEC) 20 mg capsule Take 1 capsule by mouth once daily. ferrous sulfate (IRON ORAL) Take by mouth. 60 mg every other day atorvastatin (LIPITOR) 10 mg tablet Take 1 tablet by mouth once daily. multivitamin with minerals (VISION/OPTIGEN) tablet Take by mouth. Magnesium 250 mg tab Take 250 mg by mouth once daily. ascorbic acid, vitamin C, (VITAMIN C) 500 mg tablet Take 500 mg by mouth once daily. amLODIPine (NORVASC) 5 mg tablet Take 1 tablet by mouth once daily. (Dr. Gaspar) (Patient taking differently: Take 5 mg by mouth twice daily. (Dr. Gaspar)) beclomethasone (QVAR) 80 mcg/actuation inhaler Glucosamine-Chondroitin 250-200 mg tab Take by mouth. COMPOUNDED PRESCRIPTION Surgical mastectomy bras. Dx: Z85.3 albuterol HFA (VENTOLIN HFA) 90 mcg/actuation inhaler Inhale 2 Puffs as instructed every 4 hours as needed for Wheezing/Shortness of Breath. [place]-3 Fatty Acids (FISH OIL) 500-100 mg cap Take 1 capsule by mouth twice daily. BETA-CAROTENE,A, W-C AND E/MIN (OCUVITE ORAL) Take by mouth. MULTIVITAMIN TABLET Take one(1) tablet daily. TYLENOL 325MG CAPLET prn CLARITIN 10MG TABLET PRN Cholecalciferol, Vitamin D3, 50 mcg (2,000 unit) cap Take 1 capsule by mouth once daily. mometasone (NASONEX) 50 mcg/actuation nasal spray Use 2 Sprays in the nose once daily. benzonatate (TESSALON PERLE) 100 mg capsule Take 1 capsule by mouth three times daily as needed for cough. (Patient no (more content not included)... [facility] 03-24-2023 History of Present illness Narrative This note was created using Impermiumter. Subjective Francisco Taylor is a 77 year old female. Patient presents with: F/U 3 Month: Labs prior SUBJECTIVE: Francisco Taylor is a 77 year old year old lady here today for 3 month follow up appointment for review of medical conditions. Drinking 8 ounces water with electrolyte packet daily. Per [facility] ENVIRONMENTAL AID. Continues on iron 3 times weekly with Vitamin C. Hair still thinning. Loses a lot after showers. Dermatology appointment next month. Using [facility]. Noted right arm swelling that started a couple months ago after no significant swelling in forearm after mastectomy and lymph node dissection 1992. Tingling in upper and now lower extremity. Touching cold water makes sensation go down into legs too. Can be when standing and laying down. labor day weekend latch window dropped on her ring and pinky fingers on left and were swollen. Ring finger was most swollen and still tingly and tender. PAST MEDICAL HISTORY Diagnosis Date Acquired hypothyroidism 04/01/[address] Amador--EGD 08/2016 Benign neoplasm of colon Benign neoplasm of rectum and anal canal 07/14/2011 Breast cancer (HCC) right mastectomy 1992 s/p chemo and radiation, 2001 left mastectomy Dengue Disorder of bone and cartilage, unspecified Diverticulosis of colon (without mention of hemorrhage) Esophagitis, unspecified Family history of malignant neoplasm of ovary IBS (irritable bowel syndrome) Leiomyoma of uterus, unspecified Lung infection Malignant neoplasm of breast (female), unspecified site Breast cancer/bilateral Obstructive chronic bronchitis with exacerbation (HCC) COPD Osteoarthritis, knee right knee PMH - PAST MEDICAL HISTORY OF Postmenopausal atrophic vaginitis Atroph. vaginitis/post-men. Postmenopausal bleeding Unspecified essential hypertension Essential hypertension Urge incontinence Uterine prolapse without mention of vaginal wall prolapse urethrocele Current Outpatient Medications Medication Sig levothyroxine (SYNTHROID) 50 mcg tablet Take 1 tablet by mouth once daily. As directed (Patient taking differently: Take 50 mcg by mouth once daily. As directed (Taking half pill on Sundays; whole pill daily rest of the week)) trospium (SANCTURA) 20 mg tablet Take 1 tablet by mouth twice daily. The patient may take as needed for urinary urgency estradiol (ESTRACE) 0.01 % (0.1 mg/gram) vaginal cream Use 1 g vaginally as directed. Apply 1 pea-sized amount per vagina with fingertip every night for 2 weeks then 3 times weekly gabapentin (NEURONTIN) 100 mg capsule Take 2 capsules by mouth daily at bedtime AND 2 capsules every morning. Do all this for 180 days. desvenlafaxine ER (PRISTIQ) 25 mg 24 hr tablet Take 1 tablet by mouth once daily. triamcinolone (KENALOG) 0.025 % ointment Apply to affected area twice daily. For ears as needed for recurrence of eczema, no more than 2 weeks at a time losartan (COZAAR) 50 mg tablet Take 1 tablet by mouth twice daily. (Dr. Gaspar) Oxyquinoline-Na Lauryl Sulfate (TRIMO-MARTINEZ JELLY) 0.025-0.01 % gel Use as needed for pessary insertion. betamethasone dipropionate 0.05 % ointment Apply to affected area once daily. As needed. furosemide (LASIX) 20 mg tablet Take 20 mg by mouth every other day. omeprazole (PRILOSEC) 20 mg capsule Take 1 capsule by mouth once daily. ferrous sulfate (IRON ORAL) Take by mouth. 60 mg every other day atorvastatin (LIPITOR) 10 mg tablet Take 1 tablet by mouth once daily. multivitamin with minerals (VISION/OPTIGEN) tablet Take by mouth. Magnesium 250 mg tab Take 250 mg by mouth once daily. ascorbic acid, vitamin C, (VITAMIN C) 500 mg tablet Take 500 mg by mouth once daily. amLODIPine (NORVASC) 5 mg tablet Take 1 tablet by mouth once daily. (Dr. Gaspar) (Patient taking differently: Take 5 mg by mouth twice daily. (Dr. Gaspar)) beclomethasone (QVAR) 80 mcg/actuation inhaler Glucosamine-Chondroitin 250-200 mg tab Take by mouth. COMPOUNDED PRESCRIPTION Surgical mastectomy bras. Dx: Z85.3 albuterol HFA (VENTOLIN HFA) 90 mcg/actuation inhaler Inhale 2 Puffs as instructed every 4 hours as needed for Wheezing/Shortness of Breath. [place]-3 Fatty Acids (FISH OIL) 500-100 mg cap Take 1 capsule by mouth twice daily. BETA-CAROTENE,A, W-C & E/MIN (OCUVITE ORAL) Take by mouth. MULTIVITAMIN TABLET Take one(1) tablet daily. TYLENOL 325MG CAPLET prn CLARITIN 10MG TABLET PRN Cholecalciferol, Vitamin D3, 50 mcg (2,000 unit) cap Take 1 capsule by mouth once daily. mometasone (NASONEX) 50 mcg/actuation nasal spray Use 2 Sprays in the nose once daily. benzonatate (TESSALON PERLE) 100 mg capsule Take 1 capsule by mouth three times daily as needed for cough. (Patient not taking: Reported on 03/24/2023) cycloSPORINE (RESTASIS) 0.05 % ophthalmic emulsion Use 1 Drop in both eyes twice daily. Generic ok No current facility-administered medications for this visit. Review of Systems Objective BP 137/76 Pulse 66 Temp 36.3 C (97.3 F) Resp 18 Wt 58.7 kg (129 lb 6.4 oz) LMP (LMP Unknown) SpO2 98% BMI 23.67 kg/m Last 5 Encounter Wt Readings: Date: Wt: 03/24/2023 58.7 kg (129 lb 6.4 oz) 02/13/2023 59 kg (130 lb) 12/09/2022 59.9 kg (132 lb) 10/14/2022 60.8 kg (134 lb) 10/07/2022 60.6 kg (133 lb 9.6 oz) No waist measurement recorded Estimated body mass index is 23.67 kg/m as calculated from the following: Height as of 02/13/23: 157.5 cm (5' 2 ). Weight as of this encounter: 58.7 kg (129 lb 6.4 oz). Last 5 Encounter BP Readings: Date: BP: 03/24/2023 137/76 03/10/2023 129/72 02/13/2023 148/84 12/09/2022 136/82 10/14/2022 134/70 Physical Exam Constitutional: Appearance: Normal appearance. HENT: Head: Normocephalic. Eyes: Conjunctiva/sclera: Conjunctivae normal. Cardiovascular: Rate and Rhythm: Normal rate and regular rhythm. Heart sounds: Normal heart sounds. Pulmonary: Effort: Pulmonary effort is normal. Breath sounds: Normal breath sounds. Skin: General: Skin is warm and dry. Neurological: General: No focal deficit present. Mental Status: She is alert and oriented to person, place, and time. Psychiatric: Mood and Affect: Mood normal. Behavior: Behavior normal. Thought Content: Thought content normal. Judgment: Judgment normal. Component Latest Ref Rng & Units 04/09/2022 12/03/2022 03/16/2023 Protein, Total 6.3 - 8.0 g/dL 7.1 6.9 6.9 Albumin 3.9 - 4.9 g/dL 4.3 4.1 4.1 Calcium 8.5 - 10.2 mg/dL 10.1 9.8 9.7 Bilirubin, Total 0.2 - 1.3 mg/dL 1.0 1.1 0.9 Alkaline Phosphatase 34 - 123 U/L 56 55 47 AST 13 - 35 U/L 24 22 26 ALT 7 - 38 U/L 19 20 20 Glucose 74 - 99 mg/dL 104 (H) 93 93 BUN 7 - 21 mg/dL 10 11 11 Creatinine 0.58 - 0.96 mg/dL 0.66 0.68 0.66 Sodium 136 - 144 mmol/L 133 (L) 127 (L) 134 (L) Potassium 3.7 - 5.1 mmol/L 4.2 4.7 4.0 Chloride 97 - 105 mmol/L 97 91 (L) 98 CO2 22 - 30 mmol/L 26 25 25 Anion Gap 9 - 18 mmol/L 10 11 11 eGFR >=60 mL/min/1.73m 92 92 92 WBC 3.70 - 11.00 k/uL 6.62 5.22 RBC 3.90 - 5.20 m/uL 3.90 3.72 (L) Hemoglobin 11.5 - 15.5 g/dL 12.3 11.4 (L) Hematocrit 36.0 - 46.0 % 36.5 34.4 (L) MCV 80.0 - 100.0 fL 93.6 92.5 MCH 26.0 - 34.0 pg 31.5 30.6 MCHC 30.5 - 36.0 g/dL 33.7 33.1 RDW-CV 11.5 - 15.0 % 11.9 12.8 Platelet Count 150 - 400 k/uL 296 226 MPV 9.0 - 12.7 fL 9.0 9.8 Absolute nRBC <0.01 k/uL <0.01 <0.01 Cholesterol, Total <200 mg/dL 127 131 Triglyceride <150 mg/dL 82 47 HDL Cholesterol >39 mg/dL 49 58 Non HDL Cholesterol <130 mg/dL 78 73 Fasting Time hrs 12 11.5 VLDL Cholesterol <30 mg/dL 16 9 TC:HDL Ratio <5.10 2.59 2.26 LDL Cholesterol <100 mg/dL 62 64 LDL:HDL Ratio <2.54 1.27 1.10 TSH 0.270 - 4.200 mIU/L 1.750 1.850 2.340 Free T4 0.9 - 1.7 ng/dL 1.7 1.9 (H) 1.6 Free T3 2.3 - 4.1 pg/mL 2.8 2.5 2.5 Vitamin D 25 Hydroxy 31.0 - 80.0 ng/mL 39.2 54.0 Magnesium 1.7 - 2.3 mg/dL 1.9 Assessment and Plan Encounter Diagnosis ICD-10-CM 1. Essential hypertension I10 COMP METABOLIC PANEL CBC VITAMIN D 25 HYDROXY TSH BLD T4 FREE/FREE THYROX T3 FREE BLD LIPID PANEL BASIC 2. Lymphedema of right arm I89.0 New problem the past 2 months; prior mastectomy and lymph node dissection but no problems till now.Discussed management. Consult OT as needed 3. Generalized anxiety disorder F41.1 desvenlafaxine ER (PRISTIQ) 50 mg 24 hr tablet Will try higher dose to see if helps with tension and anxiety 4. Acquired hypothyroidism E03.9 TSH BLD T4 FREE/FREE THYROX T3 FREE BLD Clinically euthyroid. Stay on same dose 5. Hyponatremia E87.1 COMP METABOLIC PANEL Improved. Electrolyte packet in water daily per cardiology ENVIRONMENTAL AID 6. Vitamin D deficiency E55.9 VITAMIN D 25 HYDROXY Well replaced. Continue same dose supplement 7. Hypercholesteremia E78.00 LIPID PANEL BASIC Well controlled. Continue present management 8. Hair thinning L65.9 Will see podiatrist next month 9. Allergic rhinitis, unspecified seasonality, unspecified trigger J30.9 Mold allergies probably now with increaesd cough.Adjust meds 10. Encounter for immunization Z23 INFLUENZA VACCINE, PRSV FREE, AGE 65+ YR, HIGH DOSE, QUADRIVALENT (FLUZONE HIGH-DOSE) Above issues addressed with patient. Patient involved in shared decision making for management of medical issues. History and medications reviewed. Epic updated as needed Refills and/or prescriptions taken care of and meds adjusted as indicated after reviewed history, exam and labs. Health Maintenance reviewed. Updated record and/or ordered tests as recorded. Encouraged on efforts at healthy diet and regular exercise and adequate sleep. Leila Santos MD documented in this encounter [facility] 03-10-2023 Note HNO ID: [id number] Author: Aurora Bolanos, DO Service: ? Author Type: Physician Type: Progress Notes Filed: 03/30/2023 11:29 AM Note Text: [facility] DEPARTMENT OF VASCULAR SURGERY OUTPATIENT VISIT DATE March 10, 2023 OUTPATIENT VISIT TYPE CONSULTATION SERVICE DATE: 03/10/2023 SERVICE TIME: 10:01 AM PRIMARY CARE PHYSICIAN: Leila Santos MD REFERRING PROVIDER: Leila Santos [address] [facility] [address] Consult requested for an opinion regarding the evaluation and treatment of the above. My final impression and recommendations will be communicated back to the requesting physician by way of the shared medical record or letter via [place] mail. CHIEF COMPLAINT: Patient presents with: New Patient History of Present Illness: Patient is a 77 year old / female presenting for consultation, evaluation and possible treatment of varicose veins and leg edema.bilateral aching, throbbing, edema, and new onset of right arm edema. She has a history of breast cancer and recently developed swelling . Predisposing factors included not significant. No specific history of injury or prior problems. Relieving factors include support hose, elevation of legs, and reduced activity with mild improvement in symptoms. Patient denies DVT and phlebitis. PAIN ASSESSMENT: PAIN EVALUATION No data found in the last 1 encounters. Obstetric History T0 L2 SAB0 IAB0 Ectopic0 Multiple0 Live Births0 Comment: Menarche at age 15. AFB 23. Menopause at age 47 - chemo induced 2 vaginal deliveries Name of Baby 1: Not recorded Date: Not recorded GA: Not recorded Delivery: Not recorded Apgar1: Not recorded Apgar5: Not recorded Living: Not recorded Name of Baby 2: Not recorded Date: Not recorded GA: Not recorded Delivery: Not recorded Apgar1: Not recorded Apgar5: Not recorded Living: Not recorded Duration of Symptoms: Progressive PAST MEDICAL HISTORY Diagnosis Date Acquired hypothyroidism 04/01/[address] Amador--EGD 08/2016 Benign neoplasm of colon Benign neoplasm of rectum and anal canal 07/14/2011 Breast cancer (HCC) right mastectomy 1992 s/p chemo and radiation, 2001 left mastectomy Dengue Disorder of bone and cartilage, unspecified Diverticulosis of colon (without mention of hemorrhage) Esophagitis, unspecified Family history of malignant neoplasm of ovary IBS (irritable bowel syndrome) Leiomyoma of uterus, unspecified Lung infection Malignant neoplasm of breast (female), unspecified site Breast cancer/bilateral Obstructive chronic bronchitis with exacerbation (HCC) COPD Osteoarthritis, knee right knee PMH - PAST MEDICAL HISTORY OF Postmenopausal atrophic vaginitis Atroph. vaginitis/post-men. Postmenopausal bleeding Unspecified essential hypertension Essential hypertension Urge incontinence Uterine prolapse without mention of vaginal wall prolapse urethrocele PAST SURGICAL HISTORY Procedure Laterality Date BREAST SURGERY PROCEDURE UNLISTED 2001 stereotactic bx. L COLONOSCOPY FLX DX W/COLLJ SPEC WHEN PFRMD 04/17/2008 Colonoscopy COLONOSCOPY FLX DX W/COLLJ SPEC WHEN PFRMD 07/14/2011 Colonoscopy COLONOSCOPY FLX DX W/COLLJ SPEC WHEN PFRMD N/A 08/28/2016 ESOPHAGOGASTRODUODENOSCOPY TRANSORAL DIAGNOSTIC 07/14/2011 EGD KENALOG INJECTION dermatology x 2, spot on stomach MASTEC,MOD RADICAL 1992 right MASTEC,MOD RADICAL 05/11/2002 left PAST SURGICAL HISTORY OF uterine polypectomy 2016 and 2019 REM LESION TRUNK,ARM,LEG 0.6 -1.0CM Left 12/02/2014 Exc. SC left chest SC mass REMV CATARACT EXTRACAP,INSERT LENS Left 11/27/2015 Dr. Murillo RIGHT HEART CATHETERIZATION 02/08/2018 SIGMOIDOSCOPY FLX DX W/COLLJ SPEC BR/WA IF PFRMD 08/2002 Sigmoidoscopy XCAPSL CTRC RMVL INSJ IO LENS PROSTH W/O ECP Right 05/11/2020 Cataract Extraction with PC IOL SOCIAL HISTORY: Social History Tobacco Use Smoking status: Never Smokeless tobacco: Never Vaping Use Vaping Use: Never used Substance Use Topics Alcohol use: Not Currently Comment: very rarely 3 per year Drug use: No FAMILY HISTORY Problem Relation Age of Onset Diabetes Father Emphysema Father Cataract Mother other (rheumatoid arthritis) Sister Blindness Maternal Grandmother Diabetes Brother Cataract Brother other (Other) Brother thrombocytopenia Colon Cancer Sister =03/04 Glaucoma Sister Colon Cancer Brother Ovarian cancer Sister 2010 at 66 No Family History Sister No known family history of breast cancer. MEDICATIONS: trospium (SANCTURA) 20 mg tablet Take 1 tablet by mouth twice daily. The patient may take as needed for urinary urgency estradiol (ESTRACE) 0.01 % (0.1 mg/gram) vaginal cream Use 1 g vaginally as directed. Apply 1 pea-sized amount per vagina with fingertip every night for 2 weeks then 3 times we (more content not included)... [facility] 03-10-2023 Instructions Aurora Bolanos DO - 03/10/2023 10:45 AM EDT [facility]- Lymphedema Surgery Appointments [phone] documented in this encounter [facility] 03-10-2023 History of Present illness Narrative Images from the original note were not included. [facility] DEPARTMENT OF VASCULAR SURGERY OUTPATIENT VISIT DATE March 10, 2023 OUTPATIENT VISIT TYPE CONSULTATION SERVICE DATE: 03/10/2023 SERVICE TIME: 10:01 AM PRIMARY CARE PHYSICIAN: Leila Santos MD REFERRING PROVIDER: Leila Santos [address] [facility] [place] [address] Consult requested for an opinion regarding the evaluation and treatment of the above. My final impression and recommendations will be communicated back to the requesting physician by way of the shared medical record or letter via [place] mail. CHIEF COMPLAINT: Patient presents with: New Patient History of Present Illness: Patient is a 77 year old / female presenting for consultation, evaluation and possible treatment of varicose veins and leg edema.bilateral aching, throbbing, edema, and new onset of right arm edema. She has a history of breast cancer and recently developed swelling . Predisposing factors included not significant. No specific history of injury or prior problems. Relieving factors include support hose, elevation of legs, and reduced activity with mild improvement in symptoms. Patient denies DVT and phlebitis. PAIN ASSESSMENT: PAIN EVALUATION No data found in the last 1 encounters. Obstetric History T0 L2 SAB0 IAB0 Ectopic0 Multiple0 Live Births0 Comment: Menarche at age 15. AFB 23. Menopause at age 47 - chemo induced 2 vaginal deliveries Name of Baby 1: Not recorded Date: Not recorded GA: Not recorded Delivery: Not recorded Apgar1: Not recorded Apgar5: Not recorded Living: Not recorded Name of Baby 2: Not recorded Date: Not recorded GA: Not recorded Delivery: Not recorded Apgar1: Not recorded Apgar5: Not recorded Living: Not recorded Duration of Symptoms: Progressive PAST MEDICAL HISTORY Diagnosis Date Acquired hypothyroidism 04/01/[address] Amador--EGD 08/2016 Benign neoplasm of colon Benign neoplasm of rectum and anal canal 07/14/2011 Breast cancer (HCC) right mastectomy 1992 s/p chemo and radiation, 2001 left mastectomy Dengue Disorder of bone and cartilage, unspecified Diverticulosis of colon (without mention of hemorrhage) Esophagitis, unspecified Family history of malignant neoplasm of ovary IBS (irritable bowel syndrome) Leiomyoma of uterus, unspecified Lung infection Malignant neoplasm of breast (female), unspecified site Breast cancer/bilateral Obstructive chronic bronchitis with exacerbation (HCC) COPD Osteoarthritis, knee right knee PMH - PAST MEDICAL HISTORY OF Postmenopausal atrophic vaginitis Atroph. vaginitis/post-men. Postmenopausal bleeding Unspecified essential hypertension Essential hypertension Urge incontinence Uterine prolapse without mention of vaginal wall prolapse urethrocele PAST SURGICAL HISTORY Procedure Laterality Date BREAST SURGERY PROCEDURE UNLISTED 2001 stereotactic bx. L COLONOSCOPY FLX DX W/COLLJ SPEC WHEN PFRMD 04/17/2008 Colonoscopy COLONOSCOPY FLX DX W/COLLJ SPEC WHEN PFRMD 07/14/2011 Colonoscopy COLONOSCOPY FLX DX W/COLLJ SPEC WHEN PFRMD N/A 08/28/2016 ESOPHAGOGASTRODUODENOSCOPY TRANSORAL DIAGNOSTIC 07/14/2011 EGD KENALOG INJECTION dermatology x 2, spot on stomach MASTEC,MOD RADICAL 1992 right MASTEC,MOD RADICAL 05/11/2002 left PAST SURGICAL HISTORY OF uterine polypectomy 2016 and 2019 REM LESION TRUNK,ARM,LEG 0.6 -1.0CM Left 12/02/2014 Exc. SC left chest SC mass REMV CATARACT EXTRACAP,INSERT LENS Left 11/27/2015 Dr. Murillo RIGHT HEART CATHETERIZATION 02/08/2018 SIGMOIDOSCOPY FLX DX W/COLLJ SPEC BR/WA IF PFRMD 08/2002 Sigmoidoscopy XCAPSL CTRC RMVL INSJ IO LENS PROSTH W/O ECP Right 05/11/2020 Cataract Extraction with PC IOL SOCIAL HISTORY: Social History Tobacco Use Smoking status: Never Smokeless tobacco: Never Vaping Use Vaping Use: Never used Substance Use Topics Alcohol use: Not Currently Comment: very rarely 3 per year Drug use: No FAMILY HISTORY Problem Relation Age of Onset Diabetes Father Emphysema Father Cataract Mother other (rheumatoid arthritis) Sister Blindness Maternal Grandmother Diabetes Brother Cataract Brother other (Other) Brother thrombocytopenia Colon Cancer Sister =03/04 Glaucoma Sister Colon Cancer Brother Ovarian cancer Sister 2010 at 66 No Family History Sister No known family history of breast cancer. MEDICATIONS: trospium (SANCTURA) 20 mg tablet Take 1 tablet by mouth twice daily. The patient may take as needed for urinary urgency estradiol (ESTRACE) 0.01 % (0.1 mg/gram) vaginal cream Use 1 g vaginally as directed. Apply 1 pea-sized amount per vagina with fingertip every night for 2 weeks then 3 times weekly gabapentin (NEURONTIN) 100 mg capsule Take 2 capsules by mouth daily at bedtime AND 2 capsules every morning. Do all this for 180 days. desvenlafaxine ER (PRISTIQ) 25 mg 24 hr tablet Take 1 tablet by mouth once daily. mometasone (NASONEX) 50 mcg/actuation nasal spray Use 2 Sprays in the nose once daily. triamcinolone (KENALOG) 0.025 % ointment Apply to affected area twice daily. For ears as needed for recurrence of eczema, no more than 2 weeks at a time losartan (COZAAR) 50 mg tablet Take 1 tablet by mouth twice daily. (Dr. Gaspar) benzonatate (TESSALON PERLE) 100 mg capsule Take 1 capsule by mouth three times daily as needed for cough. Oxyquinoline-Na Lauryl Sulfate (TRIMO-MARTINEZ JELLY) 0.025-0.01 % gel Use as needed for pessary insertion. betamethasone dipropionate 0.05 % ointment Apply to affected area once daily. As needed. furosemide (LASIX) 20 mg tablet Take 20 mg by mouth every other day. omeprazole (PRILOSEC) 20 mg capsule Take 1 capsule by mouth once daily. levothyroxine (SYNTHROID) 50 mcg tablet Take 1 tablet by mouth once daily. cycloSPORINE (RESTASIS) 0.05 % ophthalmic emulsion Use 1 Drop in both eyes twice daily. Generic ok ferrous sulfate (IRON ORAL) Take by mouth. 60 mg every other day atorvastatin (LIPITOR) 10 mg tablet Take 1 tablet by mouth once daily. multivitamin with minerals (VISION/OPTIGEN) tablet Take by mouth. Magnesium 250 mg tab Take 250 mg by mouth once daily. ascorbic acid, vitamin C, (VITAMIN C) 500 mg tablet Take 500 mg by mouth once daily. amLODIPine (NORVASC) 5 mg tablet Take 1 tablet by mouth once daily. (Dr. Gaspar) (Patient taking differently: Take 5 mg by mouth twice daily. (Dr. Gaspar)) beclomethasone (QVAR) 80 mcg/actuation inhaler Cholecalciferol, Vitamin D3, 1,000 unit cap Take 1 capsule by mouth once daily. (Patient taking differently: Take 2,000 Units by mouth once daily.) Glucosamine-Chondroitin 250-200 mg tab Take by mouth. COMPOUNDED PRESCRIPTION Surgical mastectomy bras. Dx: Z85.3 albuterol HFA (VENTOLIN HFA) 90 mcg/actuation inhaler Inhale 2 Puffs as instructed every 4 hours as needed for Wheezing/Shortness of Breath. [place]-3 Fatty Acids (FISH OIL) 500-100 mg cap Take 1 capsule by mouth twice daily. BETA-CAROTENE,A, W-C & E/MIN (OCUVITE ORAL) Take by mouth. MULTIVITAMIN TABLET Take one(1) tablet daily. TYLENOL 325MG CAPLET prn CLARITIN 10MG TABLET PRN ALLERGIES: ALLERGIES Allergen Reactions Penicillins Rash, Shortness of Breath ampicillin Celebrex [Celecoxib] Rash Codeine rash Mangoes Rash, GI Upset REVIEW of SYSTEMS: Constitutional: No weight loss, malaise or fevers. HEENT: Negative for frequent or significant headaches, No changes in hearing or vision, no nose bleeds or other nasal problems Respiratory: Negative for cough, wheezing, or shortness of breath and dry cough for last month and a half Cardiovascular: Negative for chest pain and palpitations and Positive for leg swelling Gatrointestinal: Negative for abdominal discomfort, blood in stools or black stools or change in bowel habits Genitourinary: No difficulty urination, nocturia >1 times per night or hematuria and Positive for urgency Musculoskeletal: Negative for back pain and muscle pain and Positive for joint swelling and joint pain Endocrine: Positive for cold intolerance Hematology/Lymphatic: Negative for prolonged bleeding, bruising easily or swollen nodes Neurologic: No history or headaches, syncope, paralysis, seizures or tremors Integumentary: Negative for lesions, rash, and itching. PHYSICAL EXAM: VITALS: There were no vitals taken for this visit. General: Alert, oriented, cooperative, healthy appearance Integumentary: Normal color, no rash, no lesions. HEENT: EOM, pupils equal, round and reactive. Cardiovascular: Pulse regular. Lungs: No chest deformities or chest wall tenderness. Abdomen: Not examined Extremities: Edema Neurological: AAOx3. Normal cognition and motor skills. Vascular: Dorsalis Pedal Right: Normal - Left: Normal Diagnostic tests reviewed for today's visit: Most recent labs Most recent imaging IMPRESSION: Ms. Taylor is a 77 year old female with lower extremity edema, upper extremity secondary lymphedema . PLAN and RECOMMENDATIONS: Discussed venous pathology with patient Recommend continued use of compression stockings, elevation and exercise Will get venous reflux testing and follow up to discuss results Referral to lymphedema therapy for right arm lymphedema SIGNATURE: Aurora Bolanos DO PATIENT NAME: Francisco Taylor DATE: March 10, 2023 TIME: 10:01 AM documented in this encounter [facility] 02-13-2023 Note HNO ID: [id number] Author: Kristine Rodriguez MD Service: ? Author Type: Physician Type: Progress Notes Filed: 02/13/2023 8:33 AM Note Text: Female Pelvic Medicine AND Reconstructive Surgery Follow-Up Francisco Taylor is a 77 year old female who presents for a follow-up of urinary incontinence, urinary urgency, urinary frequency, pelvic organ prolapse, fecal incontinence. LAST VISIT: 10/14/2022 (Office Visit) IMPRESSION: Francisco Taylor is a 76 year old female with Pelvic Organ Prolapse Stage IV Uterovaginal prolapse, Urge Urinary Incontinence, Urinary Frequency, Voiding Dysfunction, Incomplete bladder emptying, Pelvic floor dysfunction with pelvic muscle wasting, Fecal urgency Incontinence associated diet, Hypertension, vaginal atrophy and hematuria, hx Endometrial biopsy c/w polyp, colposcopy negative but ulcers from biopsies from friction and rubbing, +TC but work up has been negative, submucous myoma +personal hx of breast cancer last treatment 2001, sisters with colon cancer and ovarian cancer Dx of CHF managed by cardiology outside system PLAN: 1) Pessary instructed with dental floss, remove once a week and leave it out over night 2) Start vaginal estrogen 3) Trial [place] for urinary and bowel urgency and frequency, Myrbetriq made her blood pressure increase 4) Consider surgery as a last resort, TVH, BS, USVVS, APR possible sling based on bladder testing Could be a candidate for the Premier Trial 5) Urine cytology, hold off on cysto RTC in #-4 months ======= HISTORY SINCE LAST VISIT: Pt removing for 2-3 days every 4 weeks. States having bleeding the first two months after the initial insertion, has improved the third month. Using Trimosan and Estrace. Taking Trosipium only as needed when vacation or traveling but not everyday. Fecal incontinence has decreased with the use of the pessary. No UTI since using the pessary. Urinary Incontinence: yes, first time in the morning with urge Voiding Dysfunction: no Urinary Frequency: no Urinary Urgency: yes, occasional Prolapse Symptoms: no, with the pessary Defecatory Dysfunction: no Fecal Incontinence: yes occasional with sneeze or cough Abnormal Bleeding: yes, after the pessary removal Pain: no Abnormal Vaginal Discharge: yes, yellowish REVIEW OF SYSTEMS: General: Negative for unintentional weight loss, fever, chills, or weakness. Skin: Negative for rash or itching. Psychiatric: Negative for depression. Reports normal stress. Neurologic: Negative for new headache or syncope. Endocrine: Negative for sweating, cold intolerance or heat intolerance. Cardiovascular: Negative for recent chest pain, chest pressure or chest discomfort. Hematologic/Lymphatic: Negative for easy bruising or excessive bleeding. Respiratory: dry cough Gastrointestinal: Negative for persistent abdominal pain. Negative for anorexia, persistent nausea and/or vomiting. Musculoskeletal: Negative for muscle pain, back pain, joint pain or stiffness. Valarie Bates RN February 13, 2023 7:10 AM I have confirmed and edited as necessary, the PFSH and ROS obtained by others. Kristine Rodriguez MD Process Pumper offered: Patient declines. OBJECTIVE: BP 148/84 Ht 157.5 cm (5' 2 ) Wt 59 kg (130 lb) LMP (LMP Unknown) BMI 23.78 kg/m? General: Well appearing, alert, in no acute distress, well-hydrated, well nourished. Abdomen: Abdomen soft, non-tender Pelvic: Ext. Genitalia: No lesions or other abnormalities Vagina: atrophic epithelium, cystocele, rectocele, and apical prolapse Small irritation at top of the vagina POP-Q: Prolapse Noted: Yes No change and appears improved Cervix: Normal Urethra: Caruncle Bimanual: Normal size anteverted uterus, No tenderness, No masses Rectovaginal: No tenderness, No masses, Rectocele Levator Ani Contraction: 2+ Levator Ani Tone: normal Levator Ani Tenderness: (No Saddle Sensory Exam (S2-4): normal UA results: trace leukocytes , trace hemoglobin Bladder scan: N/A 10/07 colposcopy Alexandra Nam A. Cervix, at 3:00, biopsy: ---Benign transformation zone mucosa with acute inflammation and reactive changes. B. Cervix, at 6:00, biopsy: ---Benign transformation zone mucosa with acute inflammation and reactive changes. C. Cervix, at 9:00, biopsy: ---Benign transformation zone mucosa with acute inflammation, granulation tissue, and acute inflammation. D. Cervix, at 12:00, biopsy: ---Benign transformation zone mucosa with acute inflammation, granulation tissue, and acute inflammation. E. Endocervix, curettage: ---Benign endocervical glandular epithelium. IMPRESSION: Francisco Taylor is a 77 year old female with Pelvic Organ Prolapse , Urge Urinary Incontinence, Urinary Frequency, Incomplete bladder emptying, Pelvic floor dysfunction, TC with negative workup. Pat (more content not included)... [facility] 02-13-2023 History of Present illness Narrative Female Pelvic Medicine & Reconstructive Surgery Follow-Up Francisco Taylor is a 77 year old female who presents for a follow-up of urinary incontinence, urinary urgency, urinary frequency, pelvic organ prolapse, fecal incontinence. LAST VISIT: 10/14/2022 (Office Visit) IMPRESSION: Francisco Taylor is a 76 year old female with Pelvic Organ Prolapse Stage IV Uterovaginal prolapse, Urge Urinary Incontinence, Urinary Frequency, Voiding Dysfunction, Incomplete bladder emptying, Pelvic floor dysfunction with pelvic muscle wasting, Fecal urgency Incontinence associated diet, Hypertension, vaginal atrophy and hematuria, hx Endometrial biopsy c/w polyp, colposcopy negative but ulcers from biopsies from friction and rubbing, +TC but work up has been negative, submucous myoma +personal hx of breast cancer last treatment 2001, sisters with colon cancer and ovarian cancer Dx of CHF managed by cardiology outside system PLAN: 1) Pessary instructed with dental floss, remove once a week and leave it out over night 2) Start vaginal estrogen 3) Trial [place] for urinary and bowel urgency and frequency, Pepper made her blood pressure increase 4) Consider surgery as a last resort, TVH, BS, USVVS, APR possible sling based on bladder testing Could be a candidate for the Premier Trial 5) Urine cytology, hold off on cysto RTC in #-4 months HISTORY SINCE LAST VISIT: Pt removing for 2-3 days every 4 weeks. States having bleeding the first two months after the initial insertion, has improved the third month. Using Trimosan and Estrace. Taking Trosipium only as needed when vacation or traveling but not everyday. Fecal incontinence has decreased with the use of the pessary. No UTI since using the pessary. Urinary Incontinence: yes, first time in the morning with urge Voiding Dysfunction: no Urinary Frequency: no Urinary Urgency: yes, occasional Prolapse Symptoms: no, with the pessary Defecatory Dysfunction: no Fecal Incontinence: yes occasional with sneeze or cough Abnormal Bleeding: yes, after the pessary removal Pain: no Abnormal Vaginal Discharge: yes, yellowish REVIEW OF SYSTEMS: General: Negative for unintentional weight loss, fever, chills, or weakness. Skin: Negative for rash or itching. Psychiatric: Negative for depression. Reports normal stress. Neurologic: Negative for new headache or syncope. Endocrine: Negative for sweating, cold intolerance or heat intolerance. Cardiovascular: Negative for recent chest pain, chest pressure or chest discomfort. Hematologic/Lymphatic: Negative for easy bruising or excessive bleeding. Respiratory: dry cough Gastrointestinal: Negative for persistent abdominal pain. Negative for anorexia, persistent nausea and/or vomiting. Musculoskeletal: Negative for muscle pain, back pain, joint pain or stiffness. Valarie Bates RN February 13, 2023 7:10 AM I have confirmed and edited as necessary, the PFSH and ROS obtained by others. Kristine Rodriguez MD Process Pumper offered: Patient declines. OBJECTIVE: BP 148/84 Ht 157.5 cm (5' 2 ) Wt 59 kg (130 lb) LMP (LMP Unknown) BMI 23.78 kg/m General: Well appearing, alert, in no acute distress, well-hydrated, well nourished. Abdomen: Abdomen soft, non-tender Pelvic: Ext. Genitalia: No lesions or other abnormalities Vagina: atrophic epithelium, cystocele, rectocele, and apical prolapse Small irritation at top of the vagina POP-Q: Prolapse Noted: Yes No change and appears improved Cervix: Normal Urethra: Caruncle Bimanual: Normal size anteverted uterus, No tenderness, No masses Rectovaginal: No tenderness, No masses, Rectocele Levator Ani Contraction: 2+ Levator Ani Tone: normal Levator Ani Tenderness: (No Saddle Sensory Exam (S2-4): normal UA results: trace leukocytes , trace hemoglobin Bladder scan: N/A 10/07 colposcopy Alexandra Nam A. Cervix, at 3:00, biopsy: ---Benign transformation zone mucosa with acute inflammation and reactive changes. B. Cervix, at 6:00, biopsy: ---Benign transformation zone mucosa with acute inflammation and reactive changes. C. Cervix, at 9:00, biopsy: ---Benign transformation zone mucosa with acute inflammation, granulation tissue, and acute inflammation. D. Cervix, at 12:00, biopsy: ---Benign transformation zone mucosa with acute inflammation, granulation tissue, and acute inflammation. E. Endocervix, curettage: ---Benign endocervical glandular epithelium. IMPRESSION: Francisco Taylor is a 77 year old female with Pelvic Organ Prolapse , Urge Urinary Incontinence, Urinary Frequency, Incomplete bladder emptying, Pelvic floor dysfunction, TC with negative workup. Patient is now having dental implants Reports improvement of symptoms since pessary but bleeding likely due to some local inflammation of vagina as a result of the pessary. PLAN: 1) Continue #3 ring pessary removed and reinserted, trial PT Patient to remove pessary more often and try to get estrogen higher in the vagina Continue Trimosan as well 2) Considering surgery and would probably proceed with red devil tissue repair. Patient seems reluctant to have surgery now Patient reassured that this is not a life-threatening issue but she and daughter are concerned with her age being a factor. RTC in 6 months, reeval AND PAP Discussed short-term and long-term questions with daughter over the phone (daughter could not make flight in from [place]) Medical Decision Making: Problems: Moderate: 2+ stable chronic illnesses Data: Unique test result(s) reviewed: 1 Unique test(s) ordered: 2 Risk: Low: Low risk from testing/treatment Moderate: Drug management Medical Decision Making Level: 4 - Moderate Copy Drs. Santos and Vladimir Rodriguez MD documented in this encounter [facility] 12-09-2022 Note HNO ID: [id number] Author: Leila Santos MD Service: ? Author Type: Physician Type: Progress Notes Filed: 01/11/2023 10:33 PM Note Text: This note was created using Pixstariter. Subjective Francisco Taylor is a 76 year old female. Patient presents with: F/U 3 Month: Labs prior SUBJECTIVE: Francisco Taylor is a 76 year old year old lady here today for 3 month follow up appointment for review of medical conditions. Three SBPs 160s when gets up in AM. Most are 140s with some 120s and 150s. whether just got up or after meds. Takes amlodipine in AM. Losartan twice daily. Tends to get anxious. Started walking. After vacation, was not walking as much. Did increase sodium after recent labs since 6.7 labs showed sodium 127. Was feeling ill when had labs done.[place] like could not think well, lightheaded, not feeling well overall. Sometimes getting transient nerve issues like creepy crawlies on her skin on arms and legs when sleeping and sometimes while awake lying down or standing. Only lasts a few sends after goes down legs then goes away. PAST MEDICAL HISTORY Diagnosis Date Acquired hypothyroidism 04/01/[address] Amador--EGD 08/2016 Benign neoplasm of colon Benign neoplasm of rectum and anal canal 07/14/2011 Breast cancer (HCC) right mastectomy 1992 s/p chemo and radiation, 2001 left mastectomy Dengue Disorder of bone and cartilage, unspecified Diverticulosis of colon (without mention of hemorrhage) Esophagitis, unspecified Family history of malignant neoplasm of ovary IBS (irritable bowel syndrome) Leiomyoma of uterus, unspecified Lung infection Malignant neoplasm of breast (female), unspecified site Breast cancer/bilateral Obstructive chronic bronchitis with exacerbation (HCC) COPD Osteoarthritis, knee right knee PMH - PAST MEDICAL HISTORY OF Postmenopausal atrophic vaginitis Atroph. vaginitis/post-men. Postmenopausal bleeding Unspecified essential hypertension Essential hypertension Urge incontinence Uterine prolapse without mention of vaginal wall prolapse urethrocele Current Outpatient Medications Medication Sig trospium (SANCTURA) 20 mg tablet Take 1 tablet by mouth twice daily. The patient may take as needed for urinary urgency estradiol (ESTRACE) 0.01 % (0.1 mg/gram) vaginal cream Use 1 g vaginally as directed. Apply 1 pea-sized amount per vagina with fingertip every night for 2 weeks then 3 times weekly gabapentin (NEURONTIN) 100 mg capsule Take 2 capsules by mouth daily at bedtime AND 2 capsules every morning. Do all this for 180 days. desvenlafaxine ER (PRISTIQ) 25 mg 24 hr tablet Take 1 tablet by mouth once daily. mometasone (NASONEX) 50 mcg/actuation nasal spray Use 2 Sprays in the nose once daily. triamcinolone (KENALOG) 0.025 % ointment Apply to affected area twice daily. For ears as needed for recurrence of eczema, no more than 2 weeks at a time losartan (COZAAR) 50 mg tablet Take 1 tablet by mouth twice daily. (Dr. Gaspar) benzonatate (TESSALON PERLE) 100 mg capsule Take 1 capsule by mouth three times daily as needed for cough. Oxyquinoline-Na Lauryl Sulfate (TRIMO-MARTINEZ JELLY) 0.025-0.01 % gel Use as needed for pessary insertion. betamethasone dipropionate 0.05 % ointment Apply to affected area once daily. As needed. furosemide (LASIX) 20 mg tablet Take 20 mg by mouth every other day. omeprazole (PRILOSEC) 20 mg capsule Take 1 capsule by mouth once daily. levothyroxine (SYNTHROID) 50 mcg tablet Take 1 tablet by mouth once daily. cycloSPORINE (RESTASIS) 0.05 % ophthalmic emulsion Use 1 Drop in both eyes twice daily. Generic ok ferrous sulfate (IRON ORAL) Take by mouth. 60 mg every other day atorvastatin (LIPITOR) 10 mg tablet Take 1 tablet by mouth once daily. multivitamin with minerals (VISION/OPTIGEN) tablet Take by mouth. Magnesium 250 mg tab Take 250 mg by mouth once daily. ascorbic acid, vitamin C, (VITAMIN C) 500 mg tablet Take 500 mg by mouth once daily. amLODIPine (NORVASC) 5 mg tablet Take 1 tablet by mouth once daily. (Dr. Gaspar) beclomethasone (QVAR) 80 mcg/actuation inhaler Cholecalciferol, Vitamin D3, 1,000 unit cap Take 1 capsule by mouth once daily. (Patient taking differently: Take 2,000 Units by mouth once daily.) Glucosamine-Chondroitin 250-200 mg tab Take by mouth. COMPOUNDED PRESCRIPTION Surgical mastectomy bras. Dx: Z85.3 albuterol HFA (VENTOLIN HFA) 90 mcg/actuation inhaler Inhale 2 Puffs as instructed every 4 hours as needed for Wheezing/Shortness of Breath. [place]-3 Fatty Acids (FISH OIL) 500-100 mg cap Take 1 capsule by mouth twice daily. BETA-CAROTENE,A, W-C AND E/MIN (OCUVITE ORAL) Take by mouth. MULTIVITAMIN TABLET Take one(1) tablet daily. TYLENOL 325MG CAPLET prn CLARITIN 10MG TABLET PRN No current facility-administered medications for this visit. Review of Systems Objective BP 136/82 Pulse 66 T (more content not included)... [facility] 12-09-2022 Instructions Leila Santos MD - 12/09/2022 4:12 PM EDT Increase Vitamin D3 to total 3000 units daily to get level over 40 to 50 range. Keep getting enough sodium in your diet. Consider taking half pill levothyroxine on Sundays then whole pill the other 6 days to see if a slight decrease is enough to help with hair thinning in case a little too much on the over-replaced side even though TSH is within normal limits . documented in this encounter [facility] 12-09-2022 History of Present illness Narrative This note was created using Pixstariter. Subjective Francisco Taylor is a 76 year old female. Patient presents with: F/U 3 Month: Labs prior SUBJECTIVE: Francisco Taylor is a 76 year old year old lady here today for 3 month follow up appointment for review of medical conditions. Three SBPs 160s when gets up in AM. Most are 140s with some 120s and 150s. whether just got up or after meds. Takes amlodipine in AM. Losartan twice daily. Tends to get anxious. Started walking. After vacation, was not walking as much. Did increase sodium after recent labs since 6.7 labs showed sodium 127. Was feeling ill when had labs done.[place] like could not think well, lightheaded, not feeling well overall. Sometimes getting transient nerve issues like creepy crawlies on her skin on arms and legs when sleeping and sometimes while awake lying down or standing. Only lasts a few sends after goes down legs then goes away. PAST MEDICAL HISTORY Diagnosis Date Acquired hypothyroidism 04/01/[address] dysplasia [address] Amador--EGD 08/2016 Benign neoplasm of colon Benign neoplasm of rectum and anal canal 07/14/2011 Breast cancer (HCC) right mastectomy 1992 s/p chemo and radiation, 2001 left mastectomy Dengue Disorder of bone and cartilage, unspecified Diverticulosis of colon (without mention of hemorrhage) Esophagitis, unspecified Family history of malignant neoplasm of ovary IBS (irritable bowel syndrome) Leiomyoma of uterus, unspecified Lung infection Malignant neoplasm of breast (female), unspecified site Breast cancer/bilateral Obstructive chronic bronchitis with exacerbation (HCC) COPD Osteoarthritis, knee right knee PMH - PAST MEDICAL HISTORY OF Postmenopausal atrophic vaginitis Atroph. vaginitis/post-men. Postmenopausal bleeding Unspecified essential hypertension Essential hypertension Urge incontinence Uterine prolapse without mention of vaginal wall prolapse urethrocele Current Outpatient Medications Medication Sig trospium (SANCTURA) 20 mg tablet Take 1 tablet by mouth twice daily. The patient may take as needed for urinary urgency estradiol (ESTRACE) 0.01 % (0.1 mg/gram) vaginal cream Use 1 g vaginally as directed. Apply 1 pea-sized amount per vagina with fingertip every night for 2 weeks then 3 times weekly gabapentin (NEURONTIN) 100 mg capsule Take 2 capsules by mouth daily at bedtime AND 2 capsules every morning. Do all this for 180 days. desvenlafaxine ER (PRISTIQ) 25 mg 24 hr tablet Take 1 tablet by mouth once daily. mometasone (NASONEX) 50 mcg/actuation nasal spray Use 2 Sprays in the nose once daily. triamcinolone (KENALOG) 0.025 % ointment Apply to affected area twice daily. For ears as needed for recurrence of eczema, no more than 2 weeks at a time losartan (COZAAR) 50 mg tablet Take 1 tablet by mouth twice daily. (Dr. Gaspar) benzonatate (TESSALON PERLE) 100 mg capsule Take 1 capsule by mouth three times daily as needed for cough. Oxyquinoline-Na Lauryl Sulfate (TRIMO-MARTINEZ JELLY) 0.025-0.01 % gel Use as needed for pessary insertion. betamethasone dipropionate 0.05 % ointment Apply to affected area once daily. As needed. furosemide (LASIX) 20 mg tablet Take 20 mg by mouth every other day. omeprazole (PRILOSEC) 20 mg capsule Take 1 capsule by mouth once daily. levothyroxine (SYNTHROID) 50 mcg tablet Take 1 tablet by mouth once daily. cycloSPORINE (RESTASIS) 0.05 % ophthalmic emulsion Use 1 Drop in both eyes twice daily. Generic ok ferrous sulfate (IRON ORAL) Take by mouth. 60 mg every other day atorvastatin (LIPITOR) 10 mg tablet Take 1 tablet by mouth once daily. multivitamin with minerals (VISION/OPTIGEN) tablet Take by mouth. Magnesium 250 mg tab Take 250 mg by mouth once daily. ascorbic acid, vitamin C, (VITAMIN C) 500 mg tablet Take 500 mg by mouth once daily. amLODIPine (NORVASC) 5 mg tablet Take 1 tablet by mouth once daily. (Dr. Gaspar) beclomethasone (QVAR) 80 mcg/actuation inhaler Cholecalciferol, Vitamin D3, 1,000 unit cap Take 1 capsule by mouth once daily. (Patient taking differently: Take 2,000 Units by mouth once daily.) Glucosamine-Chondroitin 250-200 mg tab Take by mouth. COMPOUNDED PRESCRIPTION Surgical mastectomy bras. Dx: Z85.3 albuterol HFA (VENTOLIN HFA) 90 mcg/actuation inhaler Inhale 2 Puffs as instructed every 4 hours as needed for Wheezing/Shortness of Breath. [place]-3 Fatty Acids (FISH OIL) 500-100 mg cap Take 1 capsule by mouth twice daily. BETA-CAROTENE,A, W-C & E/MIN (OCUVITE ORAL) Take by mouth. MULTIVITAMIN TABLET Take one(1) tablet daily. TYLENOL 325MG CAPLET prn CLARITIN 10MG TABLET PRN No current facility-administered medications for this visit. Review of Systems Objective BP 136/82 Pulse 66 Temp 36.5 C (97.7 F) Resp 18 Wt 59.9 kg (132 lb) LMP (LMP Unknown) SpO2 100% BMI 24.14 kg/m Last 5 Encounter Wt Readings: Date: Wt: 12/09/2022 59.9 kg (132 lb) 10/14/2022 60.8 kg (134 lb) 10/07/2022 60.6 kg (133 lb 9.6 oz) 09/17/2022 59.9 kg (132 lb) 09/16/2022 60.8 kg (134 lb) No waist measurement recorded Estimated body mass index is 24.14 kg/m as calculated from the following: Height as of 10/14/22: 157.5 cm (5' 2 ). Weight as of this encounter: 59.9 kg (132 lb). Last 5 Encounter BP Readings: Date: BP: 12/09/2022 136/82 10/14/2022 134/70 10/07/2022 134/78 09/30/2022 164/76 09/17/2022 134/72 Physical Exam Component Latest Ref Rng & Units 12/18/2021 04/09/2022 12/03/2022 Protein, Total 6.3 - 8.0 g/dL 7.1 6.9 Albumin 3.9 - 4.9 g/dL 4.3 4.1 Calcium 8.5 - 10.2 mg/dL 10.1 9.8 Bilirubin, Total 0.2 - 1.3 mg/dL 1.0 1.1 Alkaline Phosphatase 34 - 123 U/L 56 55 AST 13 - 35 U/L 24 22 ALT 7 - 38 U/L 19 20 Glucose 74 - 99 mg/dL 104 (H) 93 BUN 7 - 21 mg/dL 10 11 Creatinine 0.58 - 0.96 mg/dL 0.66 0.68 Sodium 136 - 144 mmol/L 133 (L) 127 (L) Potassium 3.7 - 5.1 mmol/L 4.2 4.7 Chloride 97 - 105 mmol/L 97 91 (L) CO2 22 - 30 mmol/L 26 25 Anion Gap 9 - 18 mmol/L 10 11 eGFR >=60 mL/min/1.73m 92 92 WBC 3.70 - 11.00 k/uL 6.62 RBC 3.90 - 5.20 m/uL 3.90 Hemoglobin 11.5 - 15.5 g/dL 12.3 Hematocrit 36.0 - 46.0 % 36.5 MCV 80.0 - 100.0 fL 93.6 MCH 26.0 - 34.0 pg 31.5 MCHC 30.5 - 36.0 g/dL 33.7 RDW-CV 11.5 - 15.0 % 11.9 Platelet Count 150 - 400 k/uL 296 MPV 9.0 - 12.7 fL 9.0 Absolute nRBC <0.01 k/uL <0.01 Cholesterol, Total <200 mg/dL 127 Triglyceride <150 mg/dL 82 HDL Cholesterol >39 mg/dL 49 Non HDL Cholesterol <130 mg/dL 78 Fasting Time hrs 12 VLDL Cholesterol <30 mg/dL 16 TC:HDL Ratio <5.10 2.59 LDL Cholesterol <100 mg/dL 62 LDL:HDL Ratio <2.54 1.27 TSH 0.270 - 4.200 mIU/L 0.556 1.750 1.850 Free T4 0.9 - 1.7 ng/dL 2.0 (H) 1.7 1.9 (H) Free T3 2.3 - 4.1 pg/mL 3.0 2.8 2.5 Magnesium 1.7 - 2.3 mg/dL 1.9 Vitamin D 25 Hydroxy 31.0 - 80.0 ng/mL 39.2 Component Vitamin D 25 Hydroxy Latest Ref Rng & Units 31.0 - 80.0 ng/mL 02/14/2016 31.1 07/07/2018 51.3 01/11/2019 28.3 (L) 04/21/2019 32.6 02/13/2020 32.7 04/19/2020 41.5 10/04/2020 35.4 07/26/2021 46.5 09/18/2021 44.8 12/03/2022 39.2 Assessment and Plan Encounter Diagnosis ICD-10-CM 1. Essential hypertension I10 COMP METABOLIC PANEL CBC 2. Hyponatremia E87.1 COMP METABOLIC PANEL 3. Generalized anxiety disorder F41.1 4. Vitamin D deficiency E55.9 VITAMIN D 25 HYDROXY 5. Bilateral leg edema R60.0 6. Acquired hypothyroidism E03.9 TSH BLD T4 FREE/FREE THYROX T3 FREE BLD 7. Hypercholesteremia E78.00 LIPID PANEL BASIC 8. Encounter for long-term current use of medication Z79.899 MAGNESIUM BLD Above issues addressed with patient. Patient involved in shared decision making for management of medical issues. History and medications reviewed. Epic updated as needed Refills and/or prescriptions taken care of and meds adjusted as indicated after reviewed history, exam and labs. Health Maintenance reviewed. Updated record and/or ordered tests as recorded. Encouraged on efforts at healthy diet and regular exercise and adequate sleep. Leila Santos MD documented in this encounter [facility] 11-06-2022 Miscellaneous Notes LEAH:10/14/2022 IMPRESSION: Francisco Taylor is a 76 year old female with Pelvic Organ Prolapse Stage IV Uterovaginal prolapse, Urge Urinary Incontinence, Urinary Frequency, Voiding Dysfunction, Incomplete bladder emptying, Pelvic floor dysfunction with pelvic muscle wasting, Fecal urgency Incontinence associated diet, Hypertension, vaginal atrophy and hematuria, hx Endometrial biopsy c/w polyp, colposcopy negative but ulcers from biopsies from friction and rubbing, +TC but work up has been negative, submucous myoma +personal hx of breast cancer last treatment 2001, sisters with colon cancer and ovarian cancer Dx of CHF managed by cardiology outside system PLAN: 1) Pessary instructed with dental floss, remove once a week and leave it out over night 2) Start vaginal estrogen 3) Trial [place] for urinary and bowel urgency and frequency, Myrbetriq made her blood pressure increase 4) Consider surgery as a last resort, TVH, BS, USVVS, APR possible sling based on bladder testing Could be a candidate for the Premier Trial 5) Urine cytology, hold off on cysto RTC in #-4 months My final recommendations will be communicated back to the requesting physician by way of shared Medical record or letter via [place] mail. Kristine Rodriguez MD documented in this encounter [facility] 10-14-2022 Note HNO ID: [id number] Author: Kristine Rodriguez MD Service: ? Author Type: Physician Type: Procedures Filed: 10/14/2022 12:10 PM Note Text: Francisco Taylor presents today for pessary insertion for prolapse. The procedure including risks, benefits, options and personnel performing the procedure was discussed with the patient. There are no contraindications to the procedure. Francisco Taylor expressed understanding and agreed to proceed. UNIVERSAL PROTOCOL / SAFETY CHECKLIST Procedure to be Performed: pessary insertion and teaching Sign In: A Moment of CARE was completed. Personnel directly involved with the procedure wore the appropriate PPE (Personal Protective Equipment). Patient/Surrogate Stated/Verified: PATIENT VERIFIED(optional for EMERGENT procedures): Patient name, Relevant allergies, and The intended procedure Time Out Communication: Intended patient and procedure match the source documents. Consent documented and matches the intended procedure. Sign Out: SIGN OUT (optional for EMERGENT procedures): All specimen containers correctly labeled. Kristine Rodriguez MD A size #4, ring with support pessary (owned by patient) was inserted, patient tolerated the procedure well and the device is comfortable. She demonstrated appropriate insertion and removal of the pessary as well as proper use and care. We instructed on insertion, correct fit and placement of floss to imporve self maintenance. Kristine Rodriguez MD [facility] 10-14-2022 Note HNO ID: [id number] Author: Kristine Rodriguez MD Service: ? Author Type: Physician Type: Progress Notes Filed: 10/14/2022 12:10 PM Note Text: Female Pelvic Medicine AND Reconstructive Surgery Consult CHIEF COMPLAINT: Francisco Taylor is a 76 year old female who presents for consultation requested by Palmira Shrestha APRN.CNP (AIRCRAFT ENGINE SPECIALIST) for an opinion regarding Pelvic Organ Prolapse, PMB. 09/30/2022 Office Visit with Referring Provider (Palmira Shrestha APRN.CNP) ASSESSMENT/PLAN: 1. PMB (postmenopausal bleeding) - ICD9: 627.1, ICD10: N95.0 (primary diagnosis) -Endometrial polyp -Complete prolapse with cervical abrasions. 2. Complete uterovaginal prolapse - ICD9: 618.3, ICD10: N81.3 -Is not wearing pessary at this time but may consider reinserting it in the future before surgical intervention. She has questions about using pessary on her vacation in October and advised that this would probably be fine. 3. Atypical glandular cells of undetermined significance (TC) on cervical Pap smear - ICD9: 795.00, ICD10: R87.619 -Discussed and scheduled for colposcopy with ECC next Thursday with Dr. Nam. 4. Endometrial polyp - ICD9: 621.0, ICD10: N84.0 -Fragments on EMB pathology. Lengthy discussion with patient and her daughter per phone regarding results and colposcopy with ECC with Dr Nam. Results will be sent to Dr Rodriguez to keep her updated and to see if she has any further recommendations prior to her scheduled appointment in December. == HISTORY OF PRESENT ILLNESS: Had colposcopy on 10/07/22 - is having some spotting since the colposcopy. Has had prolapse for a long time but was not bothersome. One month ago prolapse worsened and vaginal bleeding started. History of uterine polyps; polypectomy 2016 Dr. De La Rosa and 2019 Dr. Salas, bleeding resolved. History of wearing pessary, got a long time ago, started using again in 2019, stopped using pessary 2 months ago. Ring with support. History of seeing Dr. Rodriguez and [facility] Byers. Urologist Dr. Tejada 2019. Renal ultrasound completed. Urology could not complete office cystoscopy due to urethral stricture. History of frequent UTIs. Reports incomplete emptying and double voiding. 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 Patient is postmenopausal.; Menopause yes Deliveries: History of third or fourth degree laceration: No Weight of largest baby: 6lb9oz Sexual function Sexually active: Sexual dysfunction: not active due to prolapse PFDI-20 Do you: Usually experience pressure in the lower abdomen? No (0) Usually experience heaviness or dullness in the pelvic area? No (0) Usually have a bulge or something falling out that you can see or feel in your vaginal area? Yes, quite a bit bothersome (4) Ever have to push on the vagina or around the rectum to have or complete a bowel movement? No (0) Usually experience a feeling of incomplete bladder emptying? Yes, moderately bothersome (3) Ever have to push up on a bulge in the vaginal area with your fingers to start or complete urination? No (0) Feel you need to strain too hard to have a bowel movement? Yes, not at all bothersome (1) Feel you have not completely emptied your bowels at the end of a bowel movement? Yes, not at all bothersome (1) Usually lose stool beyond your control if your stool is well formed? Yes, not at all bothersome (1) Usually lose stool beyond your control if your stool is loose? Yes, moderately bothersome (3) Usually lose gas from the rectum beyond your control? Yes, not at all bothersome (1) Usually have pain when you pass your stool? No (0) Experience a strong sense of urgency and have to pereira to the bathroom to have a bowel movement? Yes, moderately bothersome (3) Does part of your bowel ever pass through the rectum and bulge outside during or after a bowel movement? No (0) Usually experience frequent urination? Yes, moderately bothersome (3) Usually experience urine leakage associated with a feeling of urgency, that is, a strong sensation of needing to go to the bathroom? Yes, moderately bothersome (3) Usually experience urine leakage related to coughing, sneezing or laughing? Yes, not at all bothersome (1) Usually experience small amounts of urine leakage (that is, drops)? Yes, not at all bothersome (1) Usually experience difficulty emptying your bladder? No (0) Usually experience pain or discomfort in the lower abdomen or genital region? No (0) Do you have pain associated with your prolapse (not pressure or fullness) No PAST SURGICAL HISTORY Procedure Laterality Date BREAST SURGERY PROCEDURE UNLISTED 2001 stereotactic bx. L COLONOSCOPY FLX DX W/COLLJ SPEC WHEN PFRMD 04/17/2008 Colonoscopy (more content not included)... [facility] 10-10-2022 Miscellaneous Notes Spoke with pt and below information given to pt and pt voiced understanding. Enma Odell LPN Left message to call office Spotting is normal from colposcopy. I am glad she is seeing sooner. Alexandra Nam MD Pt calling and stated that she is continuing to have bright red spotting. Pt had colposcopy on 10/07/22. She is needing to change her pad about 2-3 times per day. Pt has appointment with Dr Rodriguez next week. Enma Odell LPN documented in this encounter [facility] 10-07-2022 Note HNO ID: [id number] Author: Alexandra Nam MD Service: ? Author Type: Physician Type: Progress Notes Filed: 10/07/2022 1:24 PM Note Text: I was present during the patient's exam by Dr. Nam. Lin Cooper MA Francisco is a 76 year old Female who presents today for a colposcopy. The patient's last pap smear was Atypical Glandular Cells from August 2022. Patient has a history of abnormal pap: No. The patient has had prior treatment: none. test: n/a UNIVERSAL PROTOCOL / SAFETY CHECKLIST Procedure to be Performed: Colposcopy with possible Biopsy Sign In: A Moment of CARE was completed. Personnel directly involved with the procedure wore the appropriate PPE (Personal Protective Equipment). Patient/Surrogate Stated/Verified: PATIENT VERIFIED(optional for EMERGENT procedures): Patient name, Date of , Relevant allergies, and The intended procedure Time Out Communication: Intended patient and procedure match the source documents. Consent documented and matches the intended procedure. Sign Out: SIGN OUT (optional for EMERGENT procedures): All specimen containers correctly labeled. All instruments, equipment, possible retained foreign bodies accounted for. Post-procedure follow-up management communicated and Plan of Care Visit completed when applicable. PROCEDURE: EXTERNAL GENITALIA: Normal in appearance without lesions CERVIX: Excellent visualization of cervix achieved (complete prolapse). Cervix swabbed x 3 with 3% acetic acid solution. Cervix grossly normal. Squamocolumnar junction visualized. No acetowhite changes, punctations, mosaicism or atypical vasculature noted. BIOPSY: Done at 3:00, 6:00, 9:00, and 12:00 ECC: done HEMOSTASIS: Obtained with Monsel's solution, silver nitrate, and pressure Procedure Summary: Patient tolerated procedure well. ASSESSMENT: Atypical glandular cells in setting of PMB PLAN: Specimens labeled and sent to Pathology. Will notify patient of results in 1-2 weeks. Post-procedure instructions reviewed and written material given to the patient. Alexandra Nam MD [facility] 09-30-2022 Note HNO ID: [id number] Author: Palmira Shrestha APRN.[employer] Service: ? Author Type: Nurse Practitioner Type: Progress Notes Filed: 09/30/2022 12:48 PM Note Text: Process Pumper offered: Patient declines. Francisco Taylor is a 76 year old female who presents for problem visit discuss diagnostic testing results HPI: Francisco here to discuss diagnostic testing results following appointment for postmenopausal bleeding and complete uterovaginal prolapse and recommended follow-up. Her daughter was on speaker phone for appointment. Pt shows picture on phone of small amount pink bleeding on toilet tissue in the toilet that she has most mornings. Discussed Pap test finding of atypical glandular cells and several clusters of endometrial cells with tubal metaplasia, endometrial biopsy pathology of fragments of endometrial polyp and benign endocervical tissue and pelvic ultrasound findings of submucosal fibroid distorting the endometrium and upper uterine body fibroid. She has appointment with Dr. Rodriguez for surgical options to treat complete prolapse. Advised that I reached out to Dr. Rodriguez and had her review her chart with diagnostic testing results. Dr. Rodriguez recommended colposcopy and ECC prior to her scheduled appointment in December. Francisco has an appointment next Thursday with Dr. Nam for the procedure. OB History T0 L2 SAB0 IAB0 Ectopic0 Multiple0 Live Births0 Comment: Menarche at age 15. AFB 23. 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 Amador--EGD 08/2016 Benign neoplasm of colon Benign neoplasm of rectum and anal canal 07/14/2011 Breast cancer (HCC) right mastectomy 1992 s/p chemo and radiation, 2001 left mastectomy Dengue Disorder of bone and cartilage, unspecified Diverticulosis of colon (without mention of hemorrhage) Esophagitis, unspecified Family history of malignant neoplasm of ovary IBS (irritable bowel syndrome) Leiomyoma of uterus, unspecified Lung infection Malignant neoplasm of breast (female), unspecified site Breast cancer/bilateral Obstructive chronic bronchitis with exacerbation (HCC) COPD Osteoarthritis, knee right knee PMH - PAST MEDICAL HISTORY OF Postmenopausal atrophic vaginitis Atroph. vaginitis/post-men. Postmenopausal bleeding Unspecified essential hypertension Essential hypertension Urge incontinence Uterine prolapse without mention of vaginal wall prolapse urethrocele PAST SURGICAL HISTORY Procedure Laterality Date BREAST SURGERY PROCEDURE UNLISTED 2001 stereotactic bx. L COLONOSCOPY FLX DX W/COLLJ SPEC WHEN PFRMD 04/17/2008 Colonoscopy COLONOSCOPY FLX DX W/COLLJ SPEC WHEN PFRMD 07/14/2011 Colonoscopy COLONOSCOPY FLX DX W/COLLJ SPEC WHEN PFRMD N/A 08/28/2016 ESOPHAGOGASTRODUODENOSCOPY TRANSORAL DIAGNOSTIC 07/14/2011 EGD KENALOG INJECTION dermatology x 2, spot on stomach MASTEC,MOD RADICAL 1992 right MASTEC,MOD RADICAL 05-11-02 left REM LESION TRUNK,ARM,LEG 0.6 -1.0CM Left 12/02/14 Exc. SC left chest SC mass REMV CATARACT EXTRACAP,INSERT LENS Left 11/27/2015 Dr. Murillo RIGHT HEART CATHETERIZATION 02/08/2018 SIGMOIDOSCOPY FLX DX W/COLLJ SPEC BR/WA IF PFRMD 08/2002 Sigmoidoscopy XCAPSL CTRC RMVL INSJ IO LENS PROSTH W/O ECP Right 05/11/2020 Cataract Extraction with PC IOL FAMILY HISTORY Problem Relation Age of Onset Diabetes Father Emphysema Father Cataract Mother other (rheumatoid arthritis) Sister Blindness Maternal Grandmother Diabetes Brother Cataract Brother other (Other) Brother thrombocytopenia Colon Cancer Sister =03/04 Glaucoma Sister Colon Cancer Brother Ovarian cancer Sister 2010 at 66 No Family History Sister No known family history of breast cancer. Social History Tobacco Use Smoking status: Never Smokeless tobacco: Never Vaping Use Vaping Use: Never used Substance Use Topics Alcohol use: Not Currently Comment: very rarely 3 per year Drug use: No Current Outpatient Medications Medication Sig gabapentin (NEURONTIN) 100 mg capsule Take 2 capsules by mouth daily at bedtime AND 2 capsules every morning. Do all this for 180 days. desvenlafaxine ER (PRISTIQ) 25 mg 24 hr tablet Take 1 tablet by mouth once daily. mometasone (NASONEX) 50 mcg/actuation nasal spray Use 2 Sprays in the nose once daily. triamcinolone (KENALOG) 0.025 % ointment Apply to affected area twice daily. For ears as needed for recurrence of eczema, no more than 2 weeks at a time losartan (COZAAR) 50 mg tablet Take 1 tablet by mouth twice daily. (Dr. Gaspar) benzonatate (TESSALON PERLE) 100 mg (more content not included)... [facility] 09-30-2022 History of Present illness Narrative Process Pumper offered: Patient declines. Francisco Taylor is a 76 year old female who presents for problem visit discuss diagnostic testing results HPI: Francisco here to discuss diagnostic testing results following appointment for postmenopausal bleeding and complete uterovaginal prolapse and recommended follow-up. Her daughter was on speaker phone for appointment. Pt shows picture on phone of small amount pink bleeding on toilet tissue in the toilet that she has most mornings. Discussed Pap test finding of atypical glandular cells and several clusters of endometrial cells with tubal metaplasia, endometrial biopsy pathology of fragments of endometrial polyp and benign endocervical tissue and pelvic ultrasound findings of submucosal fibroid distorting the endometrium and upper uterine body fibroid. She has appointment with Dr. Rodriguez for surgical options to treat complete prolapse. Advised that I reached out to Dr. Rodriguez and had her review her chart with diagnostic testing results. Dr. Rodriguez recommended colposcopy and ECC prior to her scheduled appointment in December. Francisco has an appointment next Thursday with Dr. Nam for the procedure. OB History T0 L2 SAB0 IAB0 Ectopic0 Multiple0 Live Births0 Comment: Menarche at age 15. AFB 23. 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 Amador--EGD 08/2016 Benign neoplasm of colon Benign neoplasm of rectum and anal canal 07/14/2011 Breast cancer (HCC) right mastectomy 1992 s/p chemo and radiation, 2001 left mastectomy Dengue Disorder of bone and cartilage, unspecified Diverticulosis of colon (without mention of hemorrhage) Esophagitis, unspecified Family history of malignant neoplasm of ovary IBS (irritable bowel syndrome) Leiomyoma of uterus, unspecified Lung infection Malignant neoplasm of breast (female), unspecified site Breast cancer/bilateral Obstructive chronic bronchitis with exacerbation (HCC) COPD Osteoarthritis, knee right knee PMH - PAST MEDICAL HISTORY OF Postmenopausal atrophic vaginitis Atroph. vaginitis/post-men. Postmenopausal bleeding Unspecified essential hypertension Essential hypertension Urge incontinence Uterine prolapse without mention of vaginal wall prolapse urethrocele PAST SURGICAL HISTORY Procedure Laterality Date BREAST SURGERY PROCEDURE UNLISTED 2001 stereotactic bx. L COLONOSCOPY FLX DX W/COLLJ SPEC WHEN PFRMD 04/17/2008 Colonoscopy COLONOSCOPY FLX DX W/COLLJ SPEC WHEN PFRMD 07/14/2011 Colonoscopy COLONOSCOPY FLX DX W/COLLJ SPEC WHEN PFRMD N/A 08/28/2016 ESOPHAGOGASTRODUODENOSCOPY TRANSORAL DIAGNOSTIC 07/14/2011 EGD KENALOG INJECTION dermatology x 2, spot on stomach MASTEC,MOD RADICAL 1992 right MASTEC,MOD RADICAL 05-11-02 left REM LESION TRUNK,ARM,LEG 0.6 -1.0CM Left 12/02/14 Exc. SC left chest SC mass REMV CATARACT EXTRACAP,INSERT LENS Left 11/27/2015 Dr. Murillo RIGHT HEART CATHETERIZATION 02/08/2018 SIGMOIDOSCOPY FLX DX W/COLLJ SPEC BR/WA IF PFRMD 08/2002 Sigmoidoscopy XCAPSL CTRC RMVL INSJ IO LENS PROSTH W/O ECP Right 05/11/2020 Cataract Extraction with PC IOL FAMILY HISTORY Problem Relation Age of Onset Diabetes Father Emphysema Father Cataract Mother other (rheumatoid arthritis) Sister Blindness Maternal Grandmother Diabetes Brother Cataract Brother other (Other) Brother thrombocytopenia Colon Cancer Sister =03/04 Glaucoma Sister Colon Cancer Brother Ovarian cancer Sister 2010 at 66 No Family History Sister No known family history of breast cancer. Social History Tobacco Use Smoking status: Never Smokeless tobacco: Never Vaping Use Vaping Use: Never used Substance Use Topics Alcohol use: Not Currently Comment: very rarely 3 per year Drug use: No Current Outpatient Medications Medication Sig gabapentin (NEURONTIN) 100 mg capsule Take 2 capsules by mouth daily at bedtime AND 2 capsules every morning. Do all this for 180 days. desvenlafaxine ER (PRISTIQ) 25 mg 24 hr tablet Take 1 tablet by mouth once daily. mometasone (NASONEX) 50 mcg/actuation nasal spray Use 2 Sprays in the nose once daily. triamcinolone (KENALOG) 0.025 % ointment Apply to affected area twice daily. For ears as needed for recurrence of eczema, no more than 2 weeks at a time losartan (COZAAR) 50 mg tablet Take 1 tablet by mouth twice daily. (Dr. Gaspar) benzonatate (TESSALON PERLE) 100 mg capsule Take 1 capsule by mouth three times daily as needed for cough. Oxyquinoline-Na Lauryl Sulfate (TRIMO-MARTINEZ JELLY) 0.025-0.01 % gel Use as needed for pessary insertion. betamethasone dipropionate 0.05 % ointment Apply to affected area once daily. As needed. furosemide (LASIX) 20 mg tablet Take 20 mg by mouth every other day. omeprazole (PRILOSEC) 20 mg capsule Take 1 capsule by mouth once daily. levothyroxine (SYNTHROID) 50 mcg tablet Take 1 tablet by mouth once daily. ferrous sulfate (IRON ORAL) Take by mouth. 60 mg every other day atorvastatin (LIPITOR) 10 mg tablet Take 1 tablet by mouth once daily. multivitamin with minerals (VISION/OPTIGEN) tablet Take by mouth. Magnesium 250 mg tab Take 250 mg by mouth once daily. ascorbic acid, vitamin C, (VITAMIN C) 500 mg tablet Take 500 mg by mouth once daily. beclomethasone (QVAR) 80 mcg/actuation inhaler Glucosamine-Chondroitin 250-200 mg tab Take by mouth. COMPOUNDED PRESCRIPTION Surgical mastectomy bras. Dx: Z85.3 albuterol HFA (VENTOLIN HFA) 90 mcg/actuation inhaler Inhale 2 Puffs as instructed every 4 hours as needed for Wheezing/Shortness of Breath. [place] Oil[place]-3 Fatty Acids (FISH OIL) 500-100 mg cap Take 1 capsule by mouth twice daily. BETA-CAROTENE,A, W-C & E/MIN (OCUVITE ORAL) Take by mouth. MULTIVITAMIN TABLET Take one(1) tablet daily. TYLENOL 325MG CAPLET prn CLARITIN 10MG TABLET PRN cycloSPORINE (RESTASIS) 0.05 % ophthalmic emulsion Use 1 Drop in both eyes twice daily. Generic ok amLODIPine (NORVASC) 5 mg tablet Take 1 tablet by mouth once daily. (Dr. Gaspar) Cholecalciferol, Vitamin D3, 1,000 unit cap Take 1 capsule by mouth once daily. (Patient taking differently: Take 2,000 Units by mouth once daily.) No current facility-administered medications for this visit. Allergies As of Date: 09/30/2022 Allergen Noted Reaction PENICILLINS 04/19/2002 Rash and Shortness of Breath CELEBREX [CELECOXIB] 06/17/2006 Rash CODEINE 04/19/2002 MANGOES 02/01/2019 Rash and GI Upset Fully Assessed 09/30/2022 REVIEW OF SYSTEMS Allergies and current medication updated:Yes EXAM: BP 164/76 GENERAL: pleasant, female in no apparent distress CHEST: Normal inspiratory effort NEURO: alert and oriented x3,exam grossly non-focal ASSESSMENT/PLAN: 1. PMB (postmenopausal bleeding) - ICD9: 627.1, ICD10: N95.0 (primary diagnosis) -Endometrial polyp -Complete prolapse with cervical abrasions. 2. Complete uterovaginal prolapse - ICD9: 618.3, ICD10: N81.3 -Is not wearing pessary at this time but may consider reinserting it in the future before surgical intervention. She has questions about using pessary on her vacation in October and advised that this would probably be fine. 3. Atypical glandular cells of undetermined significance (TC) on cervical Pap smear - ICD9: 795.00, ICD10: R87.619 -Discussed and scheduled for colposcopy with ECC next Thursday with Dr. Nam. 4. Endometrial polyp - ICD9: 621.0, ICD10: N84.0 -Fragments on EMB pathology. Lengthy discussion with patient and her daughter per phone regarding results and colposcopy with ECC with Dr Nam. Results will be sent to Dr Rodriguez to keep her updated and to see if she has any further recommendations prior to her scheduled appointment in December. Palmira Shrestha APRN.CNP Medical Decision Making: Problems: Moderate: New problem with uncertain prognosis Data: Unique test result(s) reviewed: 3+ Unique test(s) ordered: 2 Medical Decision Making Level: 4 - Moderate documented in this encounter [facility] 09-26-2022 Miscellaneous Notes Appointment given with Palmira Shrestha next weeks to review results. Cherelle Bernard RN Yes, she needs an appointment with Dr Nam. I need to talk to her about the results and my conversation with Dr Rodriguez with her recommendations. Palmira Shrestha APRN.CNP Patient notified and voiced understanding. Patient only wants to follow up with Dr. Nam. Appointment scheduled. FYI. Cherelle Bernard RN Please call patient and assist in scheduling virtual or office visit to discuss EMB results. She will need additional testing in our office prior to her appointment with Dr. Rodriguez. Palmira Shrestha APRN.CNP documented in this encounter [facility] 09-22-2022 Note HNO ID: [id number] Author: Mary Cohara, RDMS Service: ? Author Type: Egg Gatherer Type: Progress Notes Filed: 09/22/2022 10:39 AM Note Text: Radiology Service Progress Note PATIENT NAME: Francisco Taylor DATE OF SERVICE: September 22, 2022 TIME: 10:38 AM PATIENT IDENTITY VERIFICATION COMPLETED USING TWO (2) IDENTIFIERS: Name and Date of confirmed by patient verbally. FALL SCREENING: Has the patient had 2 falls in the last year or 1 fall with injury or currently using an Ambulatory Assistive Device (Walker, Cane, Wheelchair, Crutches, etc.)? No PATIENT GENDER DATA: Female. status: : No status: NO. PATIENT RELEVANT IMPLANT DATA REVIEWED: Not Applicable RADIOLOGY DEPARTMENT: Ultrasound PERIPHERAL IV DATA: Not applicable SIGNED BY: Mary Pappas RDMS September 22, 2022 10:38 AM [facility] 09-22-2022 History of Present illness Narrative Radiology Service Progress Note PATIENT NAME: Francisco Taylor DATE OF SERVICE: September 22, 2022 TIME: 10:38 AM PATIENT IDENTITY VERIFICATION COMPLETED USING TWO (2) IDENTIFIERS: Name and Date of confirmed by patient verbally. FALL SCREENING: Has the patient had 2 falls in the last year or 1 fall with injury or currently using an Ambulatory Assistive Device (Walker, Cane, Wheelchair, Crutches, etc.)? No PATIENT GENDER DATA: Female. status: : No status: NO. PATIENT RELEVANT IMPLANT DATA REVIEWED: Not Applicable RADIOLOGY DEPARTMENT: Ultrasound PERIPHERAL IV DATA: Not applicable SIGNED BY: Mary Pappas RDMS September 22, 2022 10:38 AM documented in this encounter [facility] 09-17-2022 Note HNO ID: [id number] Author: Leila Santos MD Service: ? Author Type: Physician Type: Progress Notes Filed: 10/20/2022 12:06 AM Note Text: This note was created using Pixstariter. Subjective Francisco Taylor is a 76 year old female. No chief complaint on file. SUBJECTIVE: Francisco Taylor is a 76 year old year old lady here today for 3 month follow up appointment for review of medical conditions. Refills for meds reviewed. Needed TAC 0.025% for ears (Dr. Portillo prescribed before). Just applies as needed (not needing daily). Bleeding from persistent prolapse--saw [facility] yesterday. Had endometrial biopsy. US Thursday. Has appointment with Dr. Rodriguez. No pain or burning with urinating. Urine cloudy. Not her typical UTI symptoms. Plans for traveling in October to [place] for her 77th birthday and grandson's 21st birthday Noted UTI with UCx growing Klebsiella Pnemoniae I to Macrobid, S to other antibiotic except R to ampicillin. BP log--high prior to meds, own after. Before meds--150 to 160s, after meds 120s. HR mostly 60s. Getting light vibration sensation in arm and legs sometimes--gabapentin still helping. Has had dry cough lately. Makes it bad for prolapse. PAST MEDICAL HISTORY Diagnosis Date Acquired hypothyroidism 04/01/[address] Amador--EGD 08/2016 Benign neoplasm of colon Benign neoplasm of rectum and anal canal 07/14/2011 Breast cancer (HCC) right mastectomy 1992 s/p chemo and radiation, 2001 left mastectomy Dengue Disorder of bone and cartilage, unspecified Diverticulosis of colon (without mention of hemorrhage) Esophagitis, unspecified Family history of malignant neoplasm of ovary IBS (irritable bowel syndrome) Leiomyoma of uterus, unspecified Lung infection Malignant neoplasm of breast (female), unspecified site Breast cancer/bilateral Obstructive chronic bronchitis with exacerbation (HCC) COPD Osteoarthritis, knee right knee PMH - PAST MEDICAL HISTORY OF Postmenopausal atrophic vaginitis Atroph. vaginitis/post-men. 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 betamethasone dipropionate 0.05 % ointment Apply to affected area once daily. As needed. furosemide (LASIX) 20 mg tablet Take 20 mg by mouth every other day. omeprazole (PRILOSEC) 20 mg capsule Take 1 capsule by mouth once daily. levothyroxine (SYNTHROID) 50 mcg tablet Take 1 tablet by mouth once daily. cycloSPORINE (RESTASIS) 0.05 % ophthalmic emulsion Use 1 Drop in both eyes twice daily. Generic ok ferrous sulfate (IRON ORAL) Take by mouth. 60 mg every other day atorvastatin (LIPITOR) 10 mg tablet Take 1 tablet by mouth once daily. multivitamin with minerals (VISION/OPTIGEN) tablet Take by mouth. Magnesium 250 mg tab Take 250 mg by mouth once daily. ascorbic acid, vitamin C, (VITAMIN C) 500 mg tablet Take 500 mg by mouth once daily. amLODIPine (NORVASC) 5 mg tablet Take 1 tablet by mouth once daily. (Dr. Gaspar) beclomethasone (QVAR) 80 mcg/actuation inhaler Cholecalciferol, Vitamin D3, 1,000 unit cap Take 1 capsule by mouth once daily. (Patient taking differently: Take 2,000 Units by mouth once daily.) Glucosamine-Chondroitin 250-200 mg tab Take by mouth. COMPOUNDED PRESCRIPTION Surgical mastectomy bras. Dx: Z85.3 albuterol HFA (VENTOLIN HFA) 90 mcg/actuation inhaler Inhale 2 Puffs as instructed every 4 hours as needed for Wheezing/Shortness of Breath. [place]-3 Fatty Acids (FISH OIL) 500-100 mg cap Take 1 capsule by mouth twice daily. BETA-CAROTENE,A, W-C AND E/MIN (OCUVITE ORAL) Take by mouth. MULTIVITAMIN TABLET Take one(1) tablet daily. TYLENOL 325MG CAPLET prn CLARITIN 10MG TABLET PRN gabapentin (NEURONTIN) 100 mg capsule Take 2 capsules by mouth daily at bedtime AND 2 capsules every morning. Do all this for 180 days. desvenlafaxine ER (PRISTIQ) 25 mg 24 hr tablet Take 1 tablet by mouth once daily. mometasone (NASONEX) 50 mcg/actuation nasal spray Use 2 Sprays in the nose once daily. triamcinolone (KENALOG) 0.025 % ointment Apply to affected area twice daily. For ears as needed for recurrence of eczema, no more than 2 weeks at a time ciprofloxacin HCl (CIPRO) 500 mg tablet Take 1 tablet by mouth twice daily for 10 days. As directed azithromycin (ZITHROMAX Z-JOSE ENRIQUE) 250 mg tablet Take 2 tablets day one, then, 1 tablet daily until gone. Us as directed for illness while traveling losartan (COZAAR) 50 mg tablet Take 1 tablet by mouth twice daily. (Dr. Gaspar) No current facility-administered medications for this visit. Review of Systems Objective BP 134/72 Pulse 66 Temp 36.2 ?C (97.2 ?F) Resp 18 Wt 59.9 kg (more content not included)... [facility] 09-17-2022 Instructions Leila Santos MD - 09/17/2022 11:37 AM EDT Traveler' s diarrhea treatment: Agent Dose Duration Comment Azithromycin 1000 mg once Single dose* Preferred for dysentery or febrile diarrhea, travelers from [place], and women. The 1000 mg dose may be associated with nausea. 500 mg once daily 3-day course Rifaximin 200 mg 3 times daily 3-day course Not for use with dysentery or febrile diarrhea. Rifamycin 2 (194 mg) tablets twice daily 3-day course Levofloxacin 500 mg once daily Single dose* or 3-day course Fluoroquinolones are associated with multiple adverse events. Resistance to fluoroquinolones in enteric pathogens is increasing worldwide, limiting their utility. Ciprofloxacin 750 mg once Single dose* 500 mg twice daily 3-day course Ofloxacin 400 mg once daily Single dose* or 3-day course documented in this encounter [facility] 09-17-2022 History of Present illness Narrative This note was created using Impermiumter. Subjective Francisco Taylor is a 76 year old female. No chief complaint on file. SUBJECTIVE: Francisco Taylor is a 76 year old year old lady here today for 3 month follow up appointment for review of medical conditions. Refills for meds reviewed. Needed TAC 0.025% for ears (Dr. Portillo prescribed before). Just applies as needed (not needing daily). Bleeding from persistent prolapse--saw [facility] yesterday. Had endometrial biopsy. US Thursday. Has appointment with Dr. Rodriguez. No pain or burning with urinating. Urine cloudy. Not her typical UTI symptoms. Plans for traveling in October to [place] for her 77th birthday and grandson's 21st birthday Noted UTI with UCx growing Klebsiella Pnemoniae I to Macrobid, S to other antibiotic except R to ampicillin. BP log--high prior to meds, own after. Before meds--150 to 160s, after meds 120s. HR mostly 60s. Getting light vibration sensation in arm and legs sometimes--gabapentin still helping. Has had dry cough lately. Makes it bad for prolapse. PAST MEDICAL HISTORY Diagnosis Date Acquired hypothyroidism 04/01/[address]ell's [address] without dysplasia [address] Amador--EGD 08/2016 Benign neoplasm of colon Benign neoplasm of rectum and anal canal 07/14/2011 Breast cancer (HCC) right mastectomy 1992 s/p chemo and radiation, 2001 left mastectomy Dengue Disorder of bone and cartilage, unspecified Diverticulosis of colon (without mention of hemorrhage) Esophagitis, unspecified Family history of malignant neoplasm of ovary IBS (irritable bowel syndrome) Leiomyoma of uterus, unspecified Lung infection Malignant neoplasm of breast (female), unspecified site Breast cancer/bilateral Obstructive chronic bronchitis with exacerbation (HCC) COPD Osteoarthritis, knee right knee PMH - PAST MEDICAL HISTORY OF Postmenopausal atrophic vaginitis Atroph. vaginitis/post-men. 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 betamethasone dipropionate 0.05 % ointment Apply to affected area once daily. As needed. furosemide (LASIX) 20 mg tablet Take 20 mg by mouth every other day. omeprazole (PRILOSEC) 20 mg capsule Take 1 capsule by mouth once daily. levothyroxine (SYNTHROID) 50 mcg tablet Take 1 tablet by mouth once daily. cycloSPORINE (RESTASIS) 0.05 % ophthalmic emulsion Use 1 Drop in both eyes twice daily. Generic ok ferrous sulfate (IRON ORAL) Take by mouth. 60 mg every other day atorvastatin (LIPITOR) 10 mg tablet Take 1 tablet by mouth once daily. multivitamin with minerals (VISION/OPTIGEN) tablet Take by mouth. Magnesium 250 mg tab Take 250 mg by mouth once daily. ascorbic acid, vitamin C, (VITAMIN C) 500 mg tablet Take 500 mg by mouth once daily. amLODIPine (NORVASC) 5 mg tablet Take 1 tablet by mouth once daily. (Dr. Gaspar) beclomethasone (QVAR) 80 mcg/actuation inhaler Cholecalciferol, Vitamin D3, 1,000 unit cap Take 1 capsule by mouth once daily. (Patient taking differently: Take 2,000 Units by mouth once daily.) Glucosamine-Chondroitin 250-200 mg tab Take by mouth. COMPOUNDED PRESCRIPTION Surgical mastectomy bras. Dx: Z85.3 albuterol HFA (VENTOLIN HFA) 90 mcg/actuation inhaler Inhale 2 Puffs as instructed every 4 hours as needed for Wheezing/Shortness of Breath. [place]-3 Fatty Acids (FISH OIL) 500-100 mg cap Take 1 capsule by mouth twice daily. BETA-CAROTENE,A, W-C & E/MIN (OCUVITE ORAL) Take by mouth. MULTIVITAMIN TABLET Take one(1) tablet daily. TYLENOL 325MG CAPLET prn CLARITIN 10MG TABLET PRN gabapentin (NEURONTIN) 100 mg capsule Take 2 capsules by mouth daily at bedtime AND 2 capsules every morning. Do all this for 180 days. desvenlafaxine ER (PRISTIQ) 25 mg 24 hr tablet Take 1 tablet by mouth once daily. mometasone (NASONEX) 50 mcg/actuation nasal spray Use 2 Sprays in the nose once daily. triamcinolone (KENALOG) 0.025 % ointment Apply to affected area twice daily. For ears as needed for recurrence of eczema, no more than 2 weeks at a time ciprofloxacin HCl (CIPRO) 500 mg tablet Take 1 tablet by mouth twice daily for 10 days. As directed azithromycin (ZITHROMAX Z-JOSE ENRIQUE) 250 mg tablet Take 2 tablets day one, then, 1 tablet daily until gone. Us as directed for illness while traveling losartan (COZAAR) 50 mg tablet Take 1 tablet by mouth twice daily. (Dr. Gaspar) No current facility-administered medications for this visit. Review of Systems Objective BP 134/72 Pulse 66 Temp 36.2 C (97.2 F) Resp 18 Wt 59.9 kg (132 lb) LMP (LMP Unknown) SpO2 100% BMI 24.14 kg/m Last 5 Encounter Wt Readings: Date: Wt: 09/17/2022 59.9 kg (132 lb) 09/16/2022 60.8 kg (134 lb) 07/15/2022 60.8 kg (134 lb) 04/15/2022 63.5 kg (140 lb) 01/03/2022 65 kg (143 lb 6.4 oz) No waist measurement recorded Estimated body mass index is 24.14 kg/m as calculated from the following: Height as of 05/09/20: 157.5 cm (5' 2 ). Weight as of this encounter: 59.9 kg (132 lb). Last 5 Encounter BP Readings: Date: BP: 09/17/2022 134/72 09/16/2022 118/72 07/15/2022 142/70 04/15/2022 126/82 01/03/2022 110/78 Physical Exam Constitutional: Appearance: Normal appearance. HENT: Head: Normocephalic. Right Ear: Tympanic membrane, ear canal and external ear normal. Left Ear: Tympanic membrane, ear canal and external ear normal. Mouth/Throat: Mouth: Mucous membranes are moist. Pharynx: Oropharynx is clear. No oropharyngeal exudate or posterior oropharyngeal erythema. Eyes: Conjunctiva/sclera: Conjunctivae normal. Cardiovascular: Rate and Rhythm: Normal rate and regular rhythm. Heart sounds: Normal heart sounds. Pulmonary: Effort: Pulmonary effort is normal. Breath sounds: Normal breath sounds. Skin: General: Skin is warm and dry. Neurological: General: No focal deficit present. Mental Status: She is alert and oriented to person, place, and time. Psychiatric: Mood and Affect: Mood normal. Behavior: Behavior normal. Thought Content: Thought content normal. Judgment: Judgment normal. Assessment and Plan Encounter Diagnosis ICD-10-CM 1. Essential hypertension I10 losartan (COZAAR) 50 mg tablet 2. Generalized anxiety disorder F41.1 desvenlafaxine ER (PRISTIQ) 25 mg 24 hr tablet Try Pristiq as discussed 3. 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 Cloudy urine R82.90 UA DIP, URINE (POC) 5. Foul smelling urine R82.90 UA DIP, URINE (POC) 6. Bronchitis J40 azithromycin (ZITHROMAX Z-JOSE ENRIQUE) 250 mg tablet Patient here for yearly exam and follow up. Above issues addressed with patient. Patient involved in shared decision making for management of medical issues. History and medications reviewed. Epic updated as needed Refills taken care of and meds adjusted as indicated after reviewed history, exam and labs. Health Maintenance reviewed. Updated record and/or ordered tests as recorded. Encouraged on efforts at healthy diet and regular exercise and adequate sleep. Leila Santos MD documented in this encounter [facility] 09-16-2022 Note HNO ID: [id number] Author: Palmira Shrestha APRN.[employer] Service: ? Author Type: Nurse Practitioner Type: Progress Notes Filed: 09/16/2022 12:45 PM Note Text: Process Pumper offered: Patient declines. Francisco Taylor is a 76 year old female who presents for problem visit problems with pessary and vaginal spotting. HPI: Stopped wearing pessary 3-4 months ago because of UTI's. Evaluated by PCP and urology, Dee Simon - who advised to continue pessary use and recommended cystoscopy, which will be done with clearance from cardiology. Recently diagnosed with heart failure and has started furosemide. A couple of days last week and yesterday had a smear of blood on toilet paper. Started exercise machines and walking 3 months ago 4-5 days/week. Getting slight back ache and prolapse is able to be felt in vaginal all of the time now. 02/2020 - endocervical polypectomy benign. Pap normal. 2016 - cervical polypectomy benign, EMB pathology benign 2019 Pap normal OB History T0 L2 SAB0 IAB0 Ectopic0 Multiple0 Live Births0 Comment: Menarche at age 15. AFB 23. 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 Amador--EGD 08/2016 Benign neoplasm of colon Benign neoplasm of rectum and anal canal 07/14/2011 Breast cancer (HCC) right mastectomy 1992 s/p chemo and radiation, 2001 left mastectomy Dengue Disorder of bone and cartilage, unspecified Diverticulosis of colon (without mention of hemorrhage) Esophagitis, unspecified Family history of malignant neoplasm of ovary IBS (irritable bowel syndrome) Leiomyoma of uterus, unspecified Lung infection Malignant neoplasm of breast (female), unspecified site Breast cancer/bilateral Obstructive chronic bronchitis with exacerbation (HCC) COPD Osteoarthritis, knee right knee PMH - PAST MEDICAL HISTORY OF Postmenopausal atrophic vaginitis Atroph. vaginitis/post-men. Postmenopausal bleeding Unspecified essential hypertension Essential hypertension Urge incontinence Uterine prolapse without mention of vaginal wall prolapse urethrocele PAST SURGICAL HISTORY Procedure Laterality Date BREAST SURGERY PROCEDURE UNLISTED 2001 stereotactic bx. L COLONOSCOPY FLX DX W/COLLJ SPEC WHEN PFRMD 04/17/2008 Colonoscopy COLONOSCOPY FLX DX W/COLLJ SPEC WHEN PFRMD 07/14/2011 Colonoscopy COLONOSCOPY FLX DX W/COLLJ SPEC WHEN PFRMD N/A 08/28/2016 ESOPHAGOGASTRODUODENOSCOPY TRANSORAL DIAGNOSTIC 07/14/2011 EGD KENALOG INJECTION dermatology x 2, spot on stomach MASTEC,MOD RADICAL 1992 right MASTEC,MOD RADICAL 05-11-02 left REM LESION TRUNK,ARM,LEG 0.6 -1.0CM Left 12/02/14 Exc. SC left chest SC mass REMV CATARACT EXTRACAP,INSERT LENS Left 11/27/2015 Dr. Murillo RIGHT HEART CATHETERIZATION 02/08/2018 SIGMOIDOSCOPY FLX DX W/COLLJ SPEC BR/WA IF PFRMD 08/2002 Sigmoidoscopy XCAPSL CTRC RMVL INSJ IO LENS PROSTH W/O ECP Right 05/11/2020 Cataract Extraction with PC IOL FAMILY HISTORY Problem Relation Age of Onset Diabetes Father Emphysema Father Cataract Mother other (rheumatoid arthritis) Sister Blindness Maternal Grandmother Diabetes Brother Cataract Brother other (Other) Brother thrombocytopenia Colon Cancer Sister =03/04 Glaucoma Sister Colon Cancer Brother Ovarian cancer Sister 2010 at 66 No Family History Sister No known family history of breast cancer. Social History Tobacco Use Smoking status: Never Smokeless tobacco: Never Vaping Use Vaping Use: Never used Substance Use Topics Alcohol use: Not Currently Comment: very rarely 3 per year Drug use: No Current Outpatient Medications Medication Sig furosemide (LASIX) 20 mg tablet Take 20 mg by mouth every other day. omeprazole (PRILOSEC) 20 mg capsule Take 1 capsule by mouth once daily. levothyroxine (SYNTHROID) 50 mcg tablet Take 1 tablet by mouth once daily. cycloSPORINE (RESTASIS) 0.05 % ophthalmic emulsion Use 1 Drop in both eyes twice daily. Generic ok ferrous sulfate (IRON ORAL) Take by mouth. 60 mg every other day atorvastatin (LIPITOR) 10 mg tablet Take 1 tablet by mouth once daily. desvenlafaxine ER (PRISTIQ) 25 mg 24 hr tablet Take 1 tablet by mouth once daily. gabapentin (NEURONTIN) 100 mg capsule Take 2 capsules by mouth daily at bedtime AND 2 capsules every morning. Do all this for 180 days. (Patient taking differently: Take 1 capsules by mouth daily at bedtime AND 1 capsules every morning. Do all this for 180 days.) losartan (COZAAR) 50 mg tablet Take 1 tablet by mouth once daily. (Dr. Gaspar) betamethasone dipropionate 0.05 % ointment (more content not included)... [facility] 09-16-2022 Instructions Palmira Shrestha APRN.CNP - 09/16/2022 12:12 PM EDT May reinsert pessary in one week. YOUR RECOVERY After your biopsy you may have: Vaginal bleeding (less than a normal menstrual period) Mild cramping Do NOT put anything in the vagina for 1 week after your endometrial biopsy. This includes: tampons douches and refraining from having sexual intercourse If you have any discomfort, you may take an over the counter pain medication (motrin, advil, ibuprofen, tylenol, etc). If this does not relieve your discomfort, contact the office. It is okay to wear a sanitary pad until the discharge and spotting stops. RISKS Although problems seldom occur with endometrial biopsies, there can be some complications. You may feel faint during and shortly after the procedure as well as have some bleeding after the procedure. There is also a risk of infection after the procedure. These complications are rare and can be easily treated. You should contact you doctor is you have any of the following: Heavy bleeding (more than your normal period) Bleeding with clots Severe abdominal pain Fever (more than 100.4F) Foul smelling vaginal discharge RESULTS We will have the results of your biopsy in 1-2 weeks. If you do not hear the results of your biopsy after 2 weeks, please contact the office for the results. If you have any additional questions or concerns please do not hesitate to contact the office. documented in this encounter [facility] 09-16-2022 History of Present illness Narrative Process Pumper offered: Patient declines. Francisco Taylor is a 76 year old female who presents for problem visit problems with pessary and vaginal spotting. HPI: Stopped wearing pessary 3-4 months ago because of UTI's. Evaluated by PCP and urology, Dee Simon - who advised to continue pessary use and recommended cystoscopy, which will be done with clearance from cardiology. Recently diagnosed with heart failure and has started furosemide. A couple of days last week and yesterday had a smear of blood on toilet paper. Started exercise machines and walking 3 months ago 4-5 days/week. Getting slight back ache and prolapse is able to be felt in vaginal all of the time now. 02/2020 - endocervical polypectomy benign. Pap normal. 2016 - cervical polypectomy benign, EMB pathology benign 2019 Pap normal OB History T0 L2 SAB0 IAB0 Ectopic0 Multiple0 Live Births0 Comment: Menarche at age 15. AFB 23. 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 Amador--EGD 08/2016 Benign neoplasm of colon Benign neoplasm of rectum and anal canal 07/14/2011 Breast cancer (HCC) right mastectomy 1992 s/p chemo and radiation, 2001 left mastectomy Dengue Disorder of bone and cartilage, unspecified Diverticulosis of colon (without mention of hemorrhage) Esophagitis, unspecified Family history of malignant neoplasm of ovary IBS (irritable bowel syndrome) Leiomyoma of uterus, unspecified Lung infection Malignant neoplasm of breast (female), unspecified site Breast cancer/bilateral Obstructive chronic bronchitis with exacerbation (HCC) COPD Osteoarthritis, knee right knee PMH - PAST MEDICAL HISTORY OF Postmenopausal atrophic vaginitis Atroph. vaginitis/post-men. Postmenopausal bleeding Unspecified essential hypertension Essential hypertension Urge incontinence Uterine prolapse without mention of vaginal wall prolapse urethrocele PAST SURGICAL HISTORY Procedure Laterality Date BREAST SURGERY PROCEDURE UNLISTED 2001 stereotactic bx. L COLONOSCOPY FLX DX W/COLLJ SPEC WHEN PFRMD 04/17/2008 Colonoscopy COLONOSCOPY FLX DX W/COLLJ SPEC WHEN PFRMD 07/14/2011 Colonoscopy COLONOSCOPY FLX DX W/COLLJ SPEC WHEN PFRMD N/A 08/28/2016 ESOPHAGOGASTRODUODENOSCOPY TRANSORAL DIAGNOSTIC 07/14/2011 EGD KENALOG INJECTION dermatology x 2, spot on stomach MASTEC,MOD RADICAL 1992 right MASTEC,MOD RADICAL 05-11-02 left REM LESION TRUNK,ARM,LEG 0.6 -1.0CM Left 12/02/14 Exc. SC left chest SC mass REMV CATARACT EXTRACAP,INSERT LENS Left 11/27/2015 Dr. Murillo RIGHT HEART CATHETERIZATION 02/08/2018 SIGMOIDOSCOPY FLX DX W/COLLJ SPEC BR/WA IF PFRMD 08/2002 Sigmoidoscopy XCAPSL CTRC RMVL INSJ IO LENS PROSTH W/O ECP Right 05/11/2020 Cataract Extraction with PC IOL FAMILY HISTORY Problem Relation Age of Onset Diabetes Father Emphysema Father Cataract Mother other (rheumatoid arthritis) Sister Blindness Maternal Grandmother Diabetes Brother Cataract Brother other (Other) Brother thrombocytopenia Colon Cancer Sister =03/04 Glaucoma Sister Colon Cancer Brother Ovarian cancer Sister 2010 at 66 No Family History Sister No known family history of breast cancer. Social History Tobacco Use Smoking status: Never Smokeless tobacco: Never Vaping Use Vaping Use: Never used Substance Use Topics Alcohol use: Not Currently Comment: very rarely 3 per year Drug use: No Current Outpatient Medications Medication Sig furosemide (LASIX) 20 mg tablet Take 20 mg by mouth every other day. omeprazole (PRILOSEC) 20 mg capsule Take 1 capsule by mouth once daily. levothyroxine (SYNTHROID) 50 mcg tablet Take 1 tablet by mouth once daily. cycloSPORINE (RESTASIS) 0.05 % ophthalmic emulsion Use 1 Drop in both eyes twice daily. Generic ok ferrous sulfate (IRON ORAL) Take by mouth. 60 mg every other day atorvastatin (LIPITOR) 10 mg tablet Take 1 tablet by mouth once daily. desvenlafaxine ER (PRISTIQ) 25 mg 24 hr tablet Take 1 tablet by mouth once daily. gabapentin (NEURONTIN) 100 mg capsule Take 2 capsules by mouth daily at bedtime AND 2 capsules every morning. Do all this for 180 days. (Patient taking differently: Take 1 capsules by mouth daily at bedtime AND 1 capsules every morning. Do all this for 180 days.) losartan (COZAAR) 50 mg tablet Take 1 tablet by mouth once daily. (Dr. Gaspar) betamethasone dipropionate 0.05 % ointment Apply to affected area once daily. As needed. multivitamin with minerals (VISION/OPTIGEN) tablet Take by mouth. Magnesium 250 mg tab Take 250 mg by mouth once daily. ascorbic acid, vitamin C, (VITAMIN C) 500 mg tablet Take 500 mg by mouth once daily. Oxyquinoline-Na Lauryl Sulfate (TRIMO-MARTINEZ JELLY) 0.025-0.01 % gel Use as needed for pessary insertion. amLODIPine (NORVASC) 5 mg tablet Take 1 tablet by mouth once daily. (Dr. Gaspar) beclomethasone (QVAR) 80 mcg/actuation inhaler Cholecalciferol, Vitamin D3, 1,000 unit cap Take 1 capsule by mouth once daily. (Patient taking differently: Take 2,000 Units by mouth once daily.) Glucosamine-Chondroitin 250-200 mg tab Take by mouth. COMPOUNDED PRESCRIPTION Surgical mastectomy bras. Dx: Z85.3 mometasone (NASONEX) 50 mcg/actuation nasal spray Use 2 Sprays in the nose once daily. albuterol HFA (VENTOLIN HFA) 90 mcg/actuation inhaler Inhale 2 Puffs as instructed every 4 hours as needed for Wheezing/Shortness of Breath. [place]-3 Fatty Acids (FISH OIL) 500-100 mg cap Take 1 capsule by mouth twice daily. BETA-CAROTENE,A, W-C & E/MIN (OCUVITE ORAL) Take by mouth. MULTIVITAMIN TABLET Take one(1) tablet daily. TYLENOL 325MG CAPLET prn CLARITIN 10MG TABLET PRN No current facility-administered medications for this visit. Allergies As of Date: 09/16/2022 Allergen Noted Reaction PENICILLINS 04/19/2002 Rash and Shortness of Breath CELEBREX [CELECOXIB] 06/17/2006 Rash CODEINE 04/19/2002 MANGOES 02/01/2019 Rash and GI Upset Fully Assessed 09/16/2022 REVIEW OF SYSTEMS Abdomen: No bloating, early satiety, indigestion, or increased flatulence. No abdominal pain, nausea, vomiting, diarrhea, or constipation. Allergies and current medication updated:Yes EXAM: BP 118/72 Wt 134 lb (60.8kg) GENERAL: pleasant, female in no apparent distress CHEST: Normal inspiratory effort ABDOMEN: soft, non-tender, and no masses PELVIC:external genitalia normal, no vulvar lesions, no cervical lesions, normal appearing perineal body and perianal region .Complete uterine prolapse BIMANUAL: no adnexal masses and non-tender NEURO: alert and oriented x3,exam grossly non-focal ASSESSMENT/PLAN: 1. PMB (postmenopausal bleeding) - ICD9: 627.1, ICD10: N95.0 (primary diagnosis) -No trauma or area of bleeding noted to cervix or vaginal henry. She has not worn pessary for past 3 to 4 months. -History of endocervical and cervical polyp - ENDOMETRIAL BIOPSY - SURGICAL PATHOLOGY - PAP TEST - PELVIC US WHI - US FEMALE PELVIS TRANSVAG -Patient may reinsert pessary using Trimo-Martinez in 1 week if desired. She plans to reinsert in the morning while prolapse is reduced before standing. 2. Complete uterovaginal prolapse - ICD9: 618.3, ICD10: N81.3 -Previously used ring with support pessary but has not used in past 3 to 4 months due to increased UTIs. -Increased low back pain and significance of prolapse exercising 3-4 times a week for 3 months. -Evaluated by Dr. Butler [facility] and will need cystoscopy done after CHF is treated adequately. -Patient would like consult to urogynecology Dr. Rodriguez for possible surgical intervention - CONSULT TO URO GYNECOLOGY 3. Kel[place] - ICD9: 701.4, ICD10: L91.0 - BETAMETHASONE DIPROPIONATE 0.05 % TOPICAL OINTMENT Will notify of results. Follow- up as needed. Palmira Shrestha APRN.[employer] Francisco is a 76 year old Female who presents today for an endometrial biopsy for post menopausal bleeding. test: n/a UNIVERSAL PROTOCOL / SAFETY CHECKLIST Procedure to be Performed: endometrial biopsy Sign In: A Moment of CARE was completed. Personnel directly involved with the procedure wore the appropriate PPE (Personal Protective Equipment). Patient/Surrogate Stated/Verified: PATIENT VERIFIED(optional for EMERGENT procedures): Patient name, Date of , Relevant allergies, and The intended procedure Time Out Communication: Intended patient and procedure match the source documents. Consent documented and matches the intended procedure. Sign Out: SIGN OUT (optional for EMERGENT procedures): All specimen containers correctly labeled. All instruments, equipment, possible retained foreign bodies accounted for. Post-procedure follow-up management communicated and Plan of Care Visit completed when applicable. Palmira Shrestha APRN.CNP PROCEDURE: EXTERNAL GENITALIA: Normal in appearance without lesions VAGINA: Normal in appearance without lesions- complete uterine prolapse BIOPSY: Speculum placed into the vagina with excellent visualization of the cervix. Cervix cleaned with betadine. Anterior lip of cervix grasped with single toothed tenaculum. Uterus sounded to 8.5 cm. Pipelle inserted into the uterus without difficulty and endometrial biopsy obtained. 4 passes with minimal specimen collected. Specimen labeled and sent to pathology. Hemostasis achieved. Procedure Summary: Patient tolerated procedure well. ASSESSMENT: post menopausal bleeding PLAN: Specimens labeled and sent to Pathology. Will notify patient of results in 1-2 weeks. Post-procedure instructions reviewed and written material given to the patient. Palmira Shrestha APRN.CNP Medical Decision Making: Problems: Moderate: New problem with uncertain prognosis and 1+ chronic illnesses with change Data: Unique test result(s) reviewed: 3+ Unique test(s) ordered: 3+ Medical Decision Making Level: 4 - Moderate documented in this encounter [facility] 07-15-2022 Note HNO ID: [id number] Author: Leila Santos MD Service: ? Author Type: Physician Type: Progress Notes Filed: 08/11/2022 12:05 AM Note Text: This note was created using [employer]. Subjective Francisco Taylor is a 76 year old female. Patient presents with: F/U 3 Month SUBJECTIVE: Francisco Taylor is a 76 year old year old lady here today for 3 month follow up appointment for review of medical conditions. Reviewed ER evaluation and admitted to hospital when had dysarthria. Noted that sodium was down to 125 after was started on Lasix 20 mg every other day. Was also feeling jittery after dysarthria issue. Fluttering in chest noted then too. Followed up with Dr. Gaspar. Told to avoid too much water and not too much salt. Told to get some electrolyte packet for 1 per day. Diagnosed with Stage 1 CHF. Lasix just every other day now. Last labs in April. Dental issues noted. Was not eating well for a while. Eating better now. Feeling better with modest weight loss. 24 hour holter monitor and BP monitor done--were fine. Discussed gabapentin. Low dose and tolerating well. Just started Pristiq. Wants to see if helps with energy when first gets up. Always been a slow start compared to . Discussed plans to see Dr. Rodriguez for prolapse. Dr. Forrester retired. Still losing a lot of hair. Wonders about supplement. Considering podiatrist but out of pocket. Using [employer]. PAST MEDICAL HISTORY Diagnosis Date Acquired hypothyroidism 04/01/[address] Amador--EGD 08/2016 Benign neoplasm of colon Benign neoplasm of rectum and anal canal 07/14/2011 Breast cancer (HCC) right mastectomy 1992 s/p chemo and radiation, 2001 left mastectomy Dengue Disorder of bone and cartilage, unspecified Diverticulosis of colon (without mention of hemorrhage) Esophagitis, unspecified Family history of malignant neoplasm of ovary IBS (irritable bowel syndrome) Leiomyoma of uterus, unspecified Lung infection Malignant neoplasm of breast (female), unspecified site Breast cancer/bilateral Obstructive chronic bronchitis with exacerbation (HCC) COPD Osteoarthritis, knee right knee PMH - PAST MEDICAL HISTORY OF Postmenopausal atrophic vaginitis Atroph. vaginitis/post-men. 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 cycloSPORINE (RESTASIS) 0.05 % ophthalmic emulsion Use 1 Drop in both eyes twice daily. Generic ok ferrous sulfate (IRON ORAL) Take by mouth. 60 mg every other day atorvastatin (LIPITOR) 10 mg tablet Take 1 tablet by mouth once daily. desvenlafaxine ER (PRISTIQ) 25 mg 24 hr tablet Take 1 tablet by mouth once daily. gabapentin (NEURONTIN) 100 mg capsule Take 2 capsules by mouth daily at bedtime AND 2 capsules every morning. Do all this for 180 days. (Patient taking differently: Take 1 capsules by mouth daily at bedtime AND 1 capsules every morning. Do all this for 180 days.) omeprazole (PRILOSEC) 20 mg capsule Take 1 capsule by mouth once daily. levothyroxine (SYNTHROID) 50 mcg tablet Take 1 tablet by mouth once daily. losartan (COZAAR) 50 mg tablet Take 1 tablet by mouth once daily. (Dr. Gaspar) betamethasone dipropionate 0.05 % ointment Apply to affected area once daily. As needed. multivitamin with minerals (VISION/OPTIGEN) tablet Take by mouth. Magnesium 250 mg tab Take 250 mg by mouth once daily. ascorbic acid, vitamin C, (VITAMIN C) 500 mg tablet Take 500 mg by mouth once daily. Oxyquinoline-Na Lauryl Sulfate (TRIMO-MARTINEZ JELLY) 0.025-0.01 % gel Use as needed for pessary insertion. amLODIPine (NORVASC) 5 mg tablet Take 1 tablet by mouth once daily. (Dr. Gaspar) beclomethasone (QVAR) 80 mcg/actuation inhaler Cholecalciferol, Vitamin D3, 1,000 unit cap Take 1 capsule by mouth once daily. (Patient taking differently: Take 2,000 Units by mouth once daily.) Glucosamine-Chondroitin 250-200 mg tab Take by mouth. COMPOUNDED PRESCRIPTION Surgical mastectomy bras. Dx: Z85.3 mometasone (NASONEX) 50 mcg/actuation nasal spray Use 2 Sprays in the nose once daily. albuterol HFA (VENTOLIN HFA) 90 mcg/actuation inhaler Inhale 2 Puffs as instructed every 4 hours as needed for Wheezing/Shortness of Breath. [place]-3 Fatty Acids (FISH OIL) 500-100 mg cap Take 1 capsule by mouth twice daily. BETA-CAROTENE,A, W-C AND E/MIN (OCUVITE ORAL) Take by mouth. MULTIVITAMIN TABLET Take one(1) tablet daily. TYLENOL 325MG CAPLET prn CLARITIN 10MG TABLET PRN furosemide (LASIX) 40 mg tablet Take 40 mg by mouth once daily. ondansetron (ZOFRAN) 4 mg tablet Take 1 tablet by mouth every 8 hours as needed for nausea/vomiting. No current facility-administered medicat (more content not included)... [facility] 07-15-2022 Instructions Leila Santos MD - 07/15/2022 9:23 AM EST Vascular--[facility]--Dr. Bolanos comes to [place] from [place]. documented in this encounter [facility] 07-15-2022 History of Present illness Narrative This note was created using [employer]star[employer]. Subjective Francisco Taylor is a 76 year old female. Patient presents with: F/U 3 Month SUBJECTIVE: Francisco Taylor is a 76 year old year old lady here today for 3 month follow up appointment for review of medical conditions. Reviewed ER evaluation and admitted to hospital when had dysarthria. Noted that sodium was down to 125 after was started on Lasix 20 mg every other day. Was also feeling jittery after dysarthria issue. Fluttering in chest noted then too. Followed up with Dr. Gaspar. Told to avoid too much water and not too much salt. Told to get some electrolyte packet for 1 per day. Diagnosed with Stage 1 CHF. Lasix just every other day now. Last labs in April. Dental issues noted. Was not eating well for a while. Eating better now. Feeling better with modest weight loss. 24 hour holter monitor and BP monitor done--were fine. Discussed gabapentin. Low dose and tolerating well. Just started Pristiq. Wants to see if helps with energy when first gets up. Always been a slow start compared to . Discussed plans to see Dr. Rodriguez for prolapse. Dr. Forrester retired. Still losing a lot of hair. Wonders about supplement. Considering podiatrist but out of pocket. Using [employer]. PAST MEDICAL HISTORY Diagnosis Date Acquired hypothyroidism 04/01/[address] Amador--EGD 08/2016 Benign neoplasm of colon Benign neoplasm of rectum and anal canal 07/14/2011 Breast cancer (HCC) right mastectomy 1992 s/p chemo and radiation, 2001 left mastectomy Dengue Disorder of bone and cartilage, unspecified Diverticulosis of colon (without mention of hemorrhage) Esophagitis, unspecified Family history of malignant neoplasm of ovary IBS (irritable bowel syndrome) Leiomyoma of uterus, unspecified Lung infection Malignant neoplasm of breast (female), unspecified site Breast cancer/bilateral Obstructive chronic bronchitis with exacerbation (HCC) COPD Osteoarthritis, knee right knee PMH - PAST MEDICAL HISTORY OF Postmenopausal atrophic vaginitis Atroph. vaginitis/post-men. 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 cycloSPORINE (RESTASIS) 0.05 % ophthalmic emulsion Use 1 Drop in both eyes twice daily. Generic ok ferrous sulfate (IRON ORAL) Take by mouth. 60 mg every other day atorvastatin (LIPITOR) 10 mg tablet Take 1 tablet by mouth once daily. desvenlafaxine ER (PRISTIQ) 25 mg 24 hr tablet Take 1 tablet by mouth once daily. gabapentin (NEURONTIN) 100 mg capsule Take 2 capsules by mouth daily at bedtime AND 2 capsules every morning. Do all this for 180 days. (Patient taking differently: Take 1 capsules by mouth daily at bedtime AND 1 capsules every morning. Do all this for 180 days.) omeprazole (PRILOSEC) 20 mg capsule Take 1 capsule by mouth once daily. levothyroxine (SYNTHROID) 50 mcg tablet Take 1 tablet by mouth once daily. losartan (COZAAR) 50 mg tablet Take 1 tablet by mouth once daily. (Dr. Gaspar) betamethasone dipropionate 0.05 % ointment Apply to affected area once daily. As needed. multivitamin with minerals (VISION/OPTIGEN) tablet Take by mouth. Magnesium 250 mg tab Take 250 mg by mouth once daily. ascorbic acid, vitamin C, (VITAMIN C) 500 mg tablet Take 500 mg by mouth once daily. Oxyquinoline-Na Lauryl Sulfate (TRIMO-MARTINEZ JELLY) 0.025-0.01 % gel Use as needed for pessary insertion. amLODIPine (NORVASC) 5 mg tablet Take 1 tablet by mouth once daily. (Dr. Gaspar) beclomethasone (QVAR) 80 mcg/actuation inhaler Cholecalciferol, Vitamin D3, 1,000 unit cap Take 1 capsule by mouth once daily. (Patient taking differently: Take 2,000 Units by mouth once daily.) Glucosamine-Chondroitin 250-200 mg tab Take by mouth. COMPOUNDED PRESCRIPTION Surgical mastectomy bras. Dx: Z85.3 mometasone (NASONEX) 50 mcg/actuation nasal spray Use 2 Sprays in the nose once daily. albuterol HFA (VENTOLIN HFA) 90 mcg/actuation inhaler Inhale 2 Puffs as instructed every 4 hours as needed for Wheezing/Shortness of Breath. [place]-3 Fatty Acids (FISH OIL) 500-100 mg cap Take 1 capsule by mouth twice daily. BETA-CAROTENE,A, W-C & E/MIN (OCUVITE ORAL) Take by mouth. MULTIVITAMIN TABLET Take one(1) tablet daily. TYLENOL 325MG CAPLET prn CLARITIN 10MG TABLET PRN furosemide (LASIX) 40 mg tablet Take 40 mg by mouth once daily. ondansetron (ZOFRAN) 4 mg tablet Take 1 tablet by mouth every 8 hours as needed for nausea/vomiting. No current facility-administered medications for this visit. Review of Systems Objective BP 144/87 Pulse 68 Temp 36.5 C (97.7 F) Resp 18 Wt 60.8 kg (134 lb) LMP (LMP Unknown) SpO2 100% BMI 24.51 kg/m Last 5 Encounter Wt Readings: Date: Wt: 07/15/2022 60.8 kg (134 lb) 04/15/2022 63.5 kg (140 lb) 01/03/2022 65 kg (143 lb 6.4 oz) 12/25/2021 64.9 kg (143 lb) 12/24/2021 64.9 kg (143 lb) No waist measurement recorded Estimated body mass index is 24.51 kg/m as calculated from the following: Height as of 05/09/20: 157.5 cm (5' 2 ). Weight as of this encounter: 60.8 kg (134 lb). Last 5 Encounter BP Readings: Date: BP: 07/15/2022 142/70 04/15/2022 126/82 01/03/2022 110/78 12/25/2021 138/78 12/24/2021 124/74 Physical Exam Constitutional: Appearance: Normal appearance. HENT: Head: Normocephalic. Eyes: Conjunctiva/sclera: Conjunctivae normal. Cardiovascular: Rate and Rhythm: Normal rate and regular rhythm. Heart sounds: Normal heart sounds. Pulmonary: Effort: Pulmonary effort is normal. Breath sounds: Normal breath sounds. Skin: General: Skin is warm and dry. Neurological: General: No focal deficit present. Mental Status: She is alert and oriented to person, place, and time. Psychiatric: Mood and Affect: Mood normal. Behavior: Behavior normal. Thought Content: Thought content normal. Judgment: Judgment normal. Reviewed labs. Assessment and Plan Encounter Diagnosis ICD-10-CM 1. Hyponatremia E87.1 COMP METABOLIC PANEL 2. Acquired hypothyroidism E03.9 TSH BLD T3 FREE BLD T4 FREE/FREE THYROX 3. Vitamin D deficiency E55.9 VITAMIN D 25 HYDROXY 4. Essential hypertension I10 COMP METABOLIC PANEL CBC 5. Complete uterine prolapse N81.3 CONSULT TO AIRCRAFT ENGINE SPECIALIST Above issues addressed with patient. Patient involved in shared decision making for management of medical issues. History and medications reviewed. Epic updated as needed Refills and/or prescriptions taken care of and meds adjusted as indicated after reviewed history, exam and labs. Health Maintenance reviewed. Updated record and/or ordered tests as recorded. Encouraged on efforts at healthy diet and regular exercise and adequate sleep. Leila Santos MD documented in this encounter [facility] 06-10-2022 Miscellaneous Notes Left message for patient to call office Received therapeutic duplication fax from [employer] asking for clarification on Atorvastatin dose. Requested Prescription is Atorvastatin 10 mg daily but received filled 20 mg tablet on 05/02. Assuming this was increased in recent hospital stay due to recent stroke. Mychart sent to patient , waiting reply documented in this encounter [facility] 05-20-2022 Instructions Daniela Porter MD - 05/20/2022 12:04 PM EST Images from the original note were not included. -emergency numbers: [phone] or ext [phone] and ask for the eye doctor production quality analyst. documented in this encounter [facility] 05-20-2022 History of Present illness Narrative Assessment and Plan 1. Dry eye syndrome, bilateral -fluctuating vision, especially with prolonged computer use 2. 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 Bilateral pseudophakia 4. Left posterior capsular opacification -s/p cataract extraction with intraocular lens implantation both eyes with aim -6.00 -s/p YAG capsulotomy right eye -stable Plan: -Retina precautions reviewed. Return to clinic as soon as possible if increased floaters, flashes, or shadows. -artificial tears twice a day both eyes -restasis twice a day both eyes -follow-up 1 year with dilated fundus exam and OCT macula both eyes / sooner as needed optometry for glasses I have confirmed and edited as necessary the relevant ophthalmic history, ROS, and the neuro exam findings as obtained by others. I have seen and examined Francisco Taylor. I have discussed the case and the management of this patient's care with the Resident/Fellow, if applicable. I also have reviewed and agree with the assessment and plan as stated above and agree with all of its relevant components. Daniela Porter MD May 20, 2022 11:58 AM documented in this encounter [facility] 04-15-2022 History of Present illness Narrative This note was created using [employer]. Subjective Francisco Taylor is a 76 year old female. Patient presents with: F/U 6 months SUBJECTIVE: Francisco Taylor is a 76 year old year old lady here today for 6 month follow up appointment for review of medical conditions. Clinically euthyroid on current dose. Not as much exercise lately. Has been drinking [address] Gaspar has her on Lasix 40mg. Echo showed 55% EF and Grade I diastolic dysfunction. 1-2+ eccentric valve insufficiency. Noted that has some mild swelling in legs but better since Lasix added. Tenderness in legs noted. Getting palpitations and feeling jittery. SBPs down to 110s. Follows with Dr. Pak and his [employer]. Taking iron 65mg with Vitamin C now. Noted CBC from [facility] showed RBC 3.9 and Hg 12.2 and Hct 36.8%. Indices normal. CBC done because Diffusion capacity was decreased to 59%. Gets PFTs every [address] Simon for recurrent UTIs. Brought lab report from her office for Urine Culture and sensitivities. Tolerated Keflex.Noted that US showed bladder wall thickening.To have cystopscopy. Needs to do in OR with anesthesia since has narrow urethra. Postponed surgery when had infection (?URI). Not yet scheduled. 04/25-- teeth extractions and bone grafts. Will get implants and/or partials. Anxious and lack of energy noted. Not sleeping well. Would like to try Pristiq. PAST MEDICAL HISTORY Diagnosis Date Acquired hypothyroidism 04/01/[address] dysplasia [address] Amador--EGD 08/2016 Benign neoplasm of colon Benign neoplasm of rectum and anal canal 07/14/2011 Breast cancer (HCC) right mastectomy 1992 s/p chemo and radiation, 2001 left mastectomy Dengue Disorder of bone and cartilage, unspecified Diverticulosis of colon (without mention of hemorrhage) Esophagitis, unspecified Family history of malignant neoplasm of ovary IBS (irritable bowel syndrome) Leiomyoma of uterus, unspecified Lung infection Malignant neoplasm of breast (female), unspecified site Breast cancer/bilateral Obstructive chronic bronchitis with exacerbation (HCC) COPD Osteoarthritis, knee right knee PMH - PAST MEDICAL HISTORY OF Postmenopausal atrophic vaginitis Atroph. vaginitis/post-men. Postmenopausal bleeding Unspecified essential hypertension Essential hypertension Urge incontinence Uterine prolapse without mention of vaginal wall prolapse urethrocele Current Outpatient Medications Medication Sig ferrous sulfate (IRON ORAL) Take by mouth. 60 mg every other day furosemide (LASIX) 40 mg tablet Take 40 mg by mouth once daily. gabapentin (NEURONTIN) 100 mg capsule Take 2 capsules by mouth daily at bedtime AND 2 capsules every morning. Do all this for 180 days. (Patient taking differently: Take 1 capsules by mouth daily at bedtime AND 1 capsules every morning. Do all this for 180 days.) omeprazole (PRILOSEC) 20 mg capsule Take 1 capsule by mouth once daily. ondansetron (ZOFRAN) 4 mg tablet Take 1 tablet by mouth every 8 hours as needed for nausea/vomiting. levothyroxine (SYNTHROID) 50 mcg tablet Take 1 tablet by mouth once daily. atorvastatin (LIPITOR) 10 mg tablet Take 1 tablet by mouth once daily. losartan (COZAAR) 50 mg tablet Take 1 tablet by mouth once daily. (Dr. Gaspar) betamethasone dipropionate 0.05 % ointment Apply to affected area once daily. As needed. Magnesium 250 mg tab Take 250 mg by mouth once daily. ascorbic acid, vitamin C, (VITAMIN C) 500 mg tablet Take 500 mg by mouth once daily. amLODIPine (NORVASC) 5 mg tablet Take 1 tablet by mouth once daily. (Dr. Gaspar) beclomethasone (QVAR) 80 mcg/actuation inhaler Cholecalciferol, Vitamin D3, 1,000 unit cap Take 1 capsule by mouth once daily. (Patient taking differently: Take 2,000 Units by mouth once daily.) Glucosamine-Chondroitin 250-200 mg tab Take by mouth. mometasone (NASONEX) 50 mcg/actuation nasal spray Use 2 Sprays in the nose once daily. albuterol HFA (VENTOLIN HFA) 90 mcg/actuation inhaler Inhale 2 Puffs as instructed every 4 hours as needed for Wheezing/Shortness of Breath. [place]-3 Fatty Acids (FISH OIL) 500-100 mg cap Take 1 capsule by mouth twice daily. BETA-CAROTENE,A, W-C & E/MIN (OCUVITE ORAL) Take by mouth. MULTIVITAMIN TABLET Take one(1) tablet daily. TYLENOL 325MG CAPLET prn CLARITIN 10MG TABLET PRN multivitamin with minerals (MULTIPLE VITAMIN-MINERALS) tablet Take by mouth. Oxyquinoline-Na Lauryl Sulfate (TRIMO-MARTINEZ JELLY) 0.025-0.01 % gel Use as needed for pessary insertion. COMPOUNDED PRESCRIPTION Surgical mastectomy bras. Dx: Z85.3 No current facility-administered medications for this visit. Review of Systems Objective BP 126/82 Pulse 65 Wt 63.5 kg (140 lb) LMP (LMP Unknown) SpO2 98% BMI 25.61 kg/m Last 5 Encounter Wt Readings: Date: Wt: 04/15/2022 63.5 kg (140 lb) 01/03/2022 65 kg (143 lb 6.4 oz) 12/25/2021 64.9 kg (143 lb) 12/24/2021 64.9 kg (143 lb) 09/25/2021 65.3 kg (144 lb) No waist measurement recorded Estimated body mass index is 25.61 kg/m as calculated from the following: Height as of 05/09/20: 157.5 cm (5' 2 ). Weight as of this encounter: 63.5 kg (140 lb). Last 5 Encounter BP Readings: Date: BP: 04/15/2022 126/82 01/03/2022 110/78 12/25/2021 138/78 12/24/2021 124/74 09/25/2021 134/78 Physical Exam Constitutional: Appearance: Normal appearance. HENT: Head: Normocephalic. Eyes: Conjunctiva/sclera: Conjunctivae normal. Cardiovascular: Rate and Rhythm: Normal rate and regular rhythm. Heart sounds: Normal heart sounds. Pulmonary: Effort: Pulmonary effort is normal. Breath sounds: Normal breath sounds. Musculoskeletal: Right lower leg: Edema (trace to 1+) present. Left lower leg: Edema (trace to 1+) present. Skin: General: Skin is warm and dry. Neurological: General: No focal deficit present. Mental Status: She is alert and oriented to person, place, and time. Psychiatric: Mood and Affect: Mood normal. Behavior: Behavior normal. Thought Content: Thought content normal. Judgment: Judgment normal. Labs reviewed. Component Latest Ref Rng & Units 12/18/2021 04/09/2022 Protein, Total 6.3 - 8.0 g/dL 7.1 Albumin 3.9 - 4.9 g/dL 4.3 Calcium 8.5 - 10.2 mg/dL 10.1 Bilirubin, Total 0.2 - 1.3 mg/dL 1.0 Alkaline Phosphatase 34 - 123 U/L 56 AST 13 - 35 U/L 24 ALT 7 - 38 U/L 19 Glucose 74 - 99 mg/dL 104 (H) BUN 7 - 21 mg/dL 10 Creatinine 0.58 - 0.96 mg/dL 0.66 Sodium 136 - 144 mmol/L 133 (L) Potassium 3.7 - 5.1 mmol/L 4.2 Chloride 97 - 105 mmol/L 97 CO2 22 - 30 mmol/L 26 Anion Gap 9 - 18 mmol/L 10 eGFR >=60 mL/min/1.73m 92 Cholesterol, Total <200 mg/dL 127 Triglyceride <150 mg/dL 82 HDL Cholesterol >39 mg/dL 49 Non HDL Cholesterol <130 mg/dL 78 Fasting Time hrs 12 VLDL Cholesterol <30 mg/dL 16 TC:HDL Ratio <5.10 2.59 LDL Cholesterol <100 mg/dL 62 LDL:HDL Ratio <2.54 1.27 TSH 0.270 - 4.200 mIU/L 0.556 1.750 Free T4 0.9 - 1.7 ng/dL 2.0 (H) 1.7 Free T3 2.3 - 4.1 pg/mL 3.0 2.8 Magnesium 1.7 - 2.3 mg/dL 1.9 Assessment and Plan Encounter Diagnosis ICD-10-CM 1. Acquired hypothyroidism E03.9 2. Hypercholesteremia E78.00 atorvastatin (LIPITOR) 10 mg tablet 3. Plantar fasciitis of left foot M72.2 4. Dental infection K04.7 clindamycin (CLEOCIN) 300 mg capsule having swelling in glands and has broken tooth. 5. Vitamin D deficiency E55.9 6. Bilateral leg edema R60.0 7. Generalized anxiety disorder F41.1 desvenlafaxine ER (PRISTIQ) 25 mg 24 hr tablet 8. Psychophysiological insomnia F51.04 9. Recurrent UTI N39.0 10. Essential hypertension I10 Above issues addressed with patient. Patient involved in shared decision making for management of medical issues. History and medications reviewed. Epic updated as needed Refills and/or prescriptions taken care of and meds adjusted as indicated after reviewed history, exam and labs. Clinically euthyroid. TSH fine. Continue to adjust dose of replacement as indicated based on symptoms and labs. Health Maintenance reviewed. Updated record and/or ordered tests as recorded. Encouraged on efforts at healthy diet and regular exercise and adequate sleep. Continue present management. Continue present meds. Further evaluation and treatment as indicated. Leila Santos MD documented in this encounter [facility] 01-08-2022 Miscellaneous Notes Pt called and is notified of providers results and instructions. Pt voices understanding. She states she has the Levaquin with her. She reports that she thinks she is almost over it, but will that the other antibiotic. Marta Tripp RN No significant growth on Urine Cultures to help guide therapy. Reviewed that had been given Macrobid and Levaquin at last appointment. She had taken Macrobid for the UTI. Since she is away in [place], and leaving for vacation, she could take the Levaquin to treat the UTIs symptoms that have recurred despite treating with macrodantin. If has recurrent or persistent symptoms after the Levaquin, needs to follow up with urology to determine what is causing her symptoms. if she does not have the Levaquin with her, can send a RX to a pharmacy in [place] (just need name of pharmacy and address) Pt calls & states she has been seen 3X since 12/24/21 for urinary issues. Has been treated for UTI. Pt states sx improved while taking antibiotic but did not completely resolve. Pt states she now has urinary frequency & leaking again. Denies pain with urination or fever. Pt states she is leaving early am tomorrow for vacation, pt is in [place] currently. Pt asking what to do now? Hansa Farr LPN documented in this encounter [facility] 01-05-2022 Miscellaneous Notes Patient given results and verbalized understanding of instructions given. Marylin Tello Please reach out and inform patient that urine culture was with mixed aislinn, if she is still experiencing symptoms she needs to get an appointment with PCP for retesting. documented in this encounter [facility] 01-03-2022 History of Present illness Narrative Subjective HPI HPI Francisco Taylor is a 76 year old female who presents today for CC of urine recheck. Slight disomfort in vaginal region, however notes she uses pessary for vaginal prolapse so that could be why. Also urine is slightly cloudy. Was initally seen on 12/24/21 and was started on Macrobid x 5 days. Symptoms have improved since then. She is about to leave on a trip and wanted to make sure the infection had been adequately txed. BP 110/78 Pulse 75 Temp 36.1 C (97 F) Resp 20 Wt 65 kg (143 lb 6.4 oz) LMP (LMP Unknown) SpO2 99% BMI 26.23 kg/m ALLERGIES Allergen Reactions Penicillins Rash, Shortness of Breath ampicillin Celebrex [Celecoxib] Rash Codeine rash Keflex [Cephalexin] Diarrhea Had severe diarrhea when took this; not sure if allergy to med, but would try other antibiotic before this one Mangoes Rash, GI Upset ACTIVE PROBLEM LIST History of Bilateral Breast Cancer Osteoporosis, Unspecified Malignant Neoplasm of Breast (Female), Unspecified Site Keloid Scar Urethrocele(618.03) Urge Incontinence Swelling of Limb Postmastectomy Lymphedema Syndrome Nocturia Cystocele, Midline Family History of Malignant Neoplasm of Gastrointestinal Tract Family History of Malignant Neoplasm of Ovary Postmenopausal Bleeding Senile Nuclear Sclerosis Epiretinal Membrane Essential Hypertension Family History of Colon Cancer Urinary Urgency Complete Uterovaginal Prolapse Fecal Urgency Acquired Hypothyroidism Primary Osteoarthritis of Right Knee Breast Cancer (Hcc) 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 Vitamin D Deficiency Elevated Fasting Glucose Hypercholesteremia Personal History of Breast Cancer Pre-Operative Examination Nuclear Sclerotic Cataract of Right Eye Moderate Persistent Asthma Without Complication Pruritus, unspecified Family History Problem Relation Age of Onset Diabetes Father Emphysema Father Cataract Mother other (rheumatoid arthritis) Sister Blindness Maternal Grandmother Diabetes Brother Cataract Brother other (Other) Brother thrombocytopenia Colon Cancer Sister =03/04 Glaucoma Sister Colon Cancer Brother Ovarian cancer Sister 2010 at 66 No Family History Sister No known family history of breast cancer. Social History Tobacco Use Smoking status: Never Smoker Smokeless tobacco: Never Used Vaping Use Vaping Use: Never used Substance Use Topics Alcohol use: Not Currently Comment: very rarely 3 per year Drug use: No Review of Systems Constitutional: Negative for chills and fever. Gastrointestinal: Negative for abdominal pain, constipation, diarrhea, nausea and vomiting. Genitourinary: Negative for dysuria, flank pain, frequency (Not moreso than baseline), hematuria and urgency. Objective BP 110/78 Pulse 75 Temp 36.1 C (97 F) Resp 20 Wt 65 kg (143 lb 6.4 oz) LMP (LMP Unknown) SpO2 99% BMI 26.23 kg/m Physical Exam Constitutional: General: She is not in acute distress. Appearance: Normal appearance. She is not ill-appearing. Cardiovascular: Rate and Rhythm: Normal rate and regular rhythm. Heart sounds: S1 normal and S2 normal. No murmur heard. Pulmonary: Effort: Pulmonary effort is normal. Breath sounds: Normal breath sounds. No decreased breath sounds, wheezing, rhonchi or rales. Abdominal: General: Bowel sounds are normal. Palpations: Abdomen is soft. There is no hepatomegaly or splenomegaly. Tenderness: There is no abdominal tenderness. There is no right CVA tenderness, left CVA tenderness, guarding or rebound. Skin: General: Skin is warm and dry. Findings: No rash. Neurological: Mental Status: She is alert and oriented to person, place, and time. Psychiatric: Behavior: Behavior is cooperative. ASSESSMENT/PLAN: 1. Cloudy urine - ICD9: 791.9, ICD10: R82.90 Reviewed last urine culture - which was negative for true UTI Relatively unremarkable dip today, will send out again to verify if any infection present. Will adjust as necessary pending results. - UA DIP, URINE (POC) - URINE CULTURE Pt advised to see PCP if symptoms persist or progress. Reviewed red flags with patient and when to seek care sooner. The patient indicates understanding of these issues and agrees with the plan. Estefania Garcia PA-C documented in this encounter [facility] 01-02-2022 Miscellaneous Notes Patient notified of providers message and verbalized understanding. Seen by PCP 12/24. Bacteria in urine. Iwould recommend urgent care visit for quicker result and treatment Patient calls and states that she is still having concetntrated urine. Patient is having a lot of nocturnal frequency with urination. Patient asking if urine can be checked again for UTI? Please call when order is placed. Please review and advise, Dorothea Skinner RN documented in this encounter [facility] 12-25-2021 History of Present illness Narrative This note was created using Impermiumter. Subjective Francisco Taylor is a 76 year old female. Patient presents with: Follow Up SUBJECTIVE: Francisco Taylor is a 76 year old year old lady here today for 3 month follow up appointment for review of medical conditions. Taking thyroid pill 6.5 pills total per week with the half pill done on Sundays Still feels a little jittery at times. No palpitations. Has noted swelling in her feet and legs and hands (fingers swelling in AM). Norvasc was decreaed to 5 mg but still some swelling. Plantar fasciitis--left foot. Saw bowling ball finisher. Given exercises. Treated for UTI yesterday. Through [facility]. Given for 5 days. Going on trips in the next month. [place] on the . PAST MEDICAL HISTORY Diagnosis Date Acquired hypothyroidism 04/01/[address] Amador--EGD 08/2016 Benign neoplasm of colon Benign neoplasm of rectum and anal canal 07/14/2011 Breast cancer (HCC) right mastectomy 1992 s/p chemo and radiation, 2001 left mastectomy Dengue Disorder of bone and cartilage, unspecified Diverticulosis of colon (without mention of hemorrhage) Esophagitis, unspecified Family history of malignant neoplasm of ovary IBS (irritable bowel syndrome) Leiomyoma of uterus, unspecified Lung infection Malignant neoplasm of breast (female), unspecified site Breast cancer/bilateral Obstructive chronic bronchitis with exacerbation (HCC) COPD Osteoarthritis, knee right knee PMH - PAST MEDICAL HISTORY OF Postmenopausal atrophic vaginitis Atroph. vaginitis/post-men. Postmenopausal bleeding Unspecified essential hypertension Essential hypertension Urge incontinence Uterine prolapse without mention of vaginal wall prolapse urethrocele Current Outpatient Medications Medication Sig nitrofurantoin monohydrate and macrocrystal (MACROBID) 100 mg capsule Take 1 capsule by mouth twice daily for 5 days. levothyroxine (SYNTHROID) 75 mcg tablet Take 1 tablet by mouth once daily. atorvastatin (LIPITOR) 10 mg tablet Take 1 tablet by mouth once daily. losartan (COZAAR) 50 mg tablet Take 1 tablet by mouth once daily. (Dr. Gaspar) gabapentin (NEURONTIN) 100 mg capsule Take 2 capsules by mouth daily at bedtime AND 2 capsules every morning. Do all this for 180 days. betamethasone dipropionate 0.05 % ointment Apply to affected area once daily. As needed. multivitamin with minerals (MULTIPLE VITAMIN-MINERALS) tablet Take by mouth. Magnesium 250 mg tab Take 250 mg by mouth once daily. ascorbic acid, vitamin C, (VITAMIN C) 500 mg tablet Take 500 mg by mouth once daily. omeprazole (PRILOSEC) 20 mg capsule Take 1 capsule by mouth once daily. Oxyquinoline-Na Lauryl Sulfate (TRIMO-MARTINEZ JELLY) 0.025-0.01 % gel Use as needed for pessary insertion. amLODIPine (NORVASC) 5 mg tablet Take 1 tablet by mouth once daily. (Dr. Gaspar) beclomethasone (QVAR) 80 mcg/actuation inhaler Cholecalciferol, Vitamin D3, 1,000 unit cap Take 1 capsule by mouth once daily. (Patient taking differently: Take 2,000 Units by mouth once daily. ) Glucosamine-Chondroitin (OSTEO BI-FLEX) 250-200 mg tab Take by mouth. COMPOUNDED PRESCRIPTION Surgical mastectomy bras. Dx: Z85.3 mometasone (NASONEX) 50 mcg/actuation nasal spray Use 2 Sprays in the nose once daily. albuterol HFA (VENTOLIN HFA) 90 mcg/actuation inhaler Inhale 2 Puffs as instructed every 4 hours as needed for Wheezing/Shortness of Breath. [place] Oil[place]-3 Fatty Acids (FISH OIL) 500-100 mg cap Take 1 capsule by mouth twice daily. BETA-CAROTENE,A, W-C & E/MIN (OCUVITE ORAL) Take by mouth. MULTIVITAMIN TABLET Take one(1) tablet daily. TYLENOL 325MG CAPLET prn CLARITIN 10MG TABLET PRN No current facility-administered medications for this visit. Review of Systems Objective BP 138/78 Pulse 66 Wt 64.9 kg (143 lb) LMP (LMP Unknown) SpO2 100% BMI 26.16 kg/m Physical Exam Constitutional: Appearance: Normal appearance. HENT: Head: Normocephalic. Eyes: Conjunctiva/sclera: Conjunctivae normal. Cardiovascular: Rate and Rhythm: Normal rate and regular rhythm. Heart sounds: Normal heart sounds. Pulmonary: Effort: Pulmonary effort is normal. Breath sounds: Normal breath sounds. Musculoskeletal: Right lower le+ Pitting Edema present. Left lower le+ Pitting Edema present. Skin: General: Skin is warm and dry. Neurological: General: No focal deficit present. Mental Status: She is alert and oriented to person, place, and time. Psychiatric: Mood and Affect: Mood normal. Behavior: Behavior normal. Thought Content: Thought content normal. Judgment: Judgment normal. Component Latest Ref Rng & Units 07/26/2021 08/12/2021 09/18/2021 12/18/2021 WBC 3.70 - 11.00 k/uL 6.84 5.83 5.86 RBC 3.90 - 5.20 m/uL 4.03 3.73 (L) 3.93 Hemoglobin 11.5 - 15.5 g/dL 12.2 11.5 12.1 Hematocrit 36.0 - 46.0 % 37.6 34.4 (L) 37.6 MCV 80.0 - 100.0 fL 93.3 92.2 95.7 MCH 26.0 - 34.0 pg 30.3 30.8 30.8 MCHC 30.5 - 36.0 g/dL 32.4 33.4 32.2 RDW-CV 11.5 - 15.0 % 12.3 12.4 12.2 Platelet Count 150 - 400 k/uL 260 268 195 MPV 9.0 - 12.7 fL 9.5 9.0 10.2 Neut% % 59.5 Abs Neut (ANC) 1.45 - 7.50 k/uL 3.47 Lymph% % 31.2 Abs Lymph 1.00 - 4.00 k/uL 1.82 Mclean% % 6.2 Abs Mclean <0.87 k/uL 0.36 Eosin% % 2.2 Abs Eosin <0.46 k/uL 0.13 Baso% % 0.9 Abs Baso <0.11 k/uL 0.05 Nucleated Reds 0 /100 WBC 0.0 Absolute nRBC <0.01 k/uL <0.01 <0.01 <0.01 Diff Type Auto Diff Protein, Total 6.3 - 8.0 g/dL 7.7 6.8 7.1 Albumin 3.9 - 4.9 g/dL 4.4 4.1 4.2 Calcium 8.5 - 10.2 mg/dL 10.3 (H) 9.6 10.0 Bilirubin, Total 0.2 - 1.3 mg/dL 1.0 0.4 1.0 Alkaline Phosphatase 34 - 123 U/L 62 66 59 AST 13 - 35 U/L 23 18 22 Glucose 74 - 99 mg/dL 100 (H) 129 (H) 99 BUN 7 - 21 mg/dL 12 10 10 Creatinine 0.58 - 0.96 mg/dL 0.66 0.61 0.66 Sodium 136 - 144 mmol/L 131 (L) 138 135 (L) Potassium 3.7 - 5.1 mmol/L 4.0 3.6 (L) 4.1 Chloride 97 - 105 mmol/L 94 (L) 103 99 CO2 22 - 30 mmol/L 23 23 24 Anion Gap 9 - 18 mmol/L 14 12 12 ALT 7 - 38 U/L 20 18 21 eGFR- >60 >60 eGFR-All Other Races . >60 >60 eGFR >=60 mL/min/1.73m 93 Cholesterol, Total <200 mg/dL 150 137 Triglyceride <150 mg/dL 95 85 HDL Cholesterol >39 mg/dL 55 50 LDL Cholesterol <100 mg/dL 76 70 Non HDL Cholesterol <130 mg/dL 95 87 Fasting Time hrs 12 12 VLDL Cholesterol <30 mg/dL 19 17 TC:HDL Ratio <5.10 2.73 2.74 LDL:HDL Ratio <2.54 1.38 1.40 Iron 41 - 186 ug/dL 125 TIBC 232 - 386 ug/dL 344 Transferrin Saturation 15 - 57 % 36 Hemoglobin A1C 4.3 - 5.6 % 5.9 (H) Estimated Average Glucose mg/dL 123 Vitamin D 25 Hydroxy 31.0 - 80.0 ng/mL 46.5 44.8 TSH 0.270 - 4.200 mIU/L 1.700 0.629 0.556 Free T4 0.9 - 1.7 ng/dL 2.0 (H) 1.9 (H) 2.0 (H) Ferritin 14.7 - 205.1 ng/mL 80.1 60.4 Folate >4.7 ng/mL >20.0 Vitamin B12 232 - 1,245 pg/mL 1,144 Magnesium 1.7 - 2.3 mg/dL 1.8 1.9 WSR 0 - 20 mm/hr Test sent to [facility]. CRP <0.9 mg/dL Test sent to [facility]. Free T3 2.3 - 4.1 pg/mL 3.0 Assessment and Plan ASSESSMENT/PLAN: 1. Acquired hypothyroidism - ICD9: 244.9, ICD10: E03.9 (primary diagnosis) - Instructed patient on importance of taking on an empty stomach either first thing in the morning or at bedtime. Clinically still feels a little on hyperthyroid side with feeling jittery despite taking 6.5 tablets levothyroxine per week. TSH is under 1. Decrease dose to 50mcg daily. Continue to check labs and adjust dose as indicated - TSH BLD - T4 FREE/FREE THYROX - T3 FREE BLD 2. Plantar fasciitis of left foot - ICD9: 728.71, ICD10: M72.2 Discussed management. Follow up wit bowling ball finisher as needed 3. Acute cystitis with hematuria - ICD9: 595.0, ICD10: N30.01 Levaquin. Further evaluation and treatment as indicated. 4. Vaginal prolapse - ICD9: 618.00, ICD10: N81.10 METAL RIVETER evaluation and treatment as indicated 5. Bilateral leg edema - ICD9: 782.3, ICD10: R60.0 Conservative management discussed. Noted still swollen despite lower dose amlodipine. Consider change med if needed--she can sdiscuss with assemblies and installations inspector as indicated. 6. Essential hypertension - ICD9: 401.9, ICD10: I10 - good control - Recommended regular aerobic exercise. - Recommend home blood pressure monitoring, to bring results in on next visit - Goal of BP <130/80 - COMP METABOLIC PANEL 7. Hypercholesteremia - ICD9: 272.0, ICD10: E78.00 Further evaluation and treatment as indicated. - LIPID PANEL BASIC 8. Encounter for long-term current use of medication - ICD9: V58.69, ICD10: Z79.899 - LIPID PANEL BASIC - TSH BLD - T4 FREE/FREE THYROX - T3 FREE BLD - COMP METABOLIC PANEL Leila Santos MD documented in this encounter [facility] 12-24-2021 Instructions Jean Carlos Rankin APRN.[employer] - 12/24/2021 7:26 AM EDT URINARY TRACT INFECTION GENERAL INFORMATION: A urinary tract infection (UTI) is an infection of the bladder or kidneys. A bladder infection, called cystitis, is the more common type. If the infection travels up to the kidneys, it is called pyelonephritis. This can be more serious. UTIs are a common problem in women. Having sexual relations can leave a woman more susceptible to developing a UTI, but it is not sexually transmitted like gonorrhea. Some women have a problem with recurrent UTIs. INSTRUCTIONS: 1. Your doctor prescribed an antibiotic to treat the UTI. Take exactly as directed. Be sure to take all the medication prescribed, even if your symptoms disappear. If you stop treatment early, the infection may not be fully treated and the symptoms could come back again. 2. Get plenty of rest. You may take acetaminophen for fever and aches. 3. Drink 6 to 8 glasses of fluids, especially water, every day. This helps wash out germs from your urinary tract. Cranberry juice or other sources of vitamin C are also good for you. 4. Urinate often, as soon as you feel the urge. Empty your bladder completely. Urinate before and after you have sex. 5. Always wipe from front to back after going to the bathroom. This pushes germs away from your bladder, rather than towards it. 6. Showers are better than baths, and you should wash the genital area daily. Avoid bubble bath or bath oils if you do take a bath. 7. Wear underwear and pantyhose with a cotton crotch. CONTACT YOUR DOCTOR: 1. You have a temperature over 102F (38.8C) after 48 hours on medication. 2. You notice blood in your urine. 3. Your symptoms don't improve in 2 days. 4. You develop nausea, vomiting, diarrhea, or a rash. 5. You develop new or unexplained symptoms. These may be related to the medication you are taking. 6. Your symptoms return after you finish treatment. RETURN TO THE EMERGENCY DEPARTMENT IF: You develop vomiting and can't keep your medication or fluids down. documented in this encounter [facility] 12-24-2021 History of Present illness Narrative Subjective HPI A nontoxic appearing female presents to urgent care with chief complaint of possible UTI. Duration of symptoms 1 day. Associated symptoms dysuria, frequency, and urgency. Patient has history of UTIs in past with similar signs and symptoms. Patient denies the use of any [id number] medications or home remedies for symptom management. Patient states pain is a 1/10. Patient denies any fevers, flank pain, abdominal pain, nausea, vomiting, vaginal discharge, or urological abnormalities. Past medical history prescription medication use allergies reviewed. .Patient presents with: Urinary Frequency: x last night PAST MEDICAL HISTORY Diagnosis Date Acquired hypothyroidism 04/01/[address] Amador--EGD 08/2016 Benign neoplasm of colon Benign neoplasm of rectum and anal canal 07/14/2011 Breast cancer (HCC) right mastectomy 1992 s/p chemo and radiation, 2001 left mastectomy Dengue Disorder of bone and cartilage, unspecified Diverticulosis of colon (without mention of hemorrhage) Esophagitis, unspecified Family history of malignant neoplasm of ovary IBS (irritable bowel syndrome) Leiomyoma of uterus, unspecified Lung infection Malignant neoplasm of breast (female), unspecified site Breast cancer/bilateral Obstructive chronic bronchitis with exacerbation (HCC) COPD Osteoarthritis, knee right knee PMH - PAST MEDICAL HISTORY OF Postmenopausal atrophic vaginitis Atroph. vaginitis/post-men. Postmenopausal bleeding Unspecified essential hypertension Essential hypertension Urge incontinence Uterine prolapse without mention of vaginal wall prolapse urethrocele PAST SURGICAL HISTORY Procedure Laterality Date BREAST SURGERY PROCEDURE UNLISTED 2001 stereotactic bx. L COLONOSCOPY FLX DX W/COLLJ SPEC WHEN PFRMD 04/17/2008 Colonoscopy COLONOSCOPY FLX DX W/COLLJ SPEC WHEN PFRMD 07/14/2011 Colonoscopy COLONOSCOPY FLX DX W/COLLJ SPEC WHEN PFRMD N/A 08/28/2016 ESOPHAGOGASTRODUODENOSCOPY TRANSORAL DIAGNOSTIC 07/14/2011 EGD [place] INJECTION dermatology x 2, spot on stomach MASTEC,MOD RADICAL 1992 right MASTEC,MOD RADICAL 05-11-02 left REM LESION TRUNK,ARM,LEG 0.6 -1.0CM Left 12/02/14 Exc. SC left chest SC mass REMV CATARACT EXTRACAP,INSERT LENS Left 11/27/2015 Dr. Murillo RIGHT HEART CATHETERIZATION 02/08/2018 SIGMOIDOSCOPY FLX DX W/COLLJ SPEC BR/WA IF PFRMD 08/2002 Sigmoidoscopy XCAPSL CTRC RMVL INSJ IO LENS PROSTH W/O ECP Right 05/11/2020 Cataract Extraction with PC IOL ALLERGIES Celebrex [Celecoxib], Codeine, Keflex [Cephalexin], Mangoes, and Penicillins MEDICATIONS levothyroxine (SYNTHROID) 75 mcg tablet Take 1 tablet by mouth once daily. atorvastatin (LIPITOR) 10 mg tablet Take 1 tablet by mouth once daily. losartan (COZAAR) 50 mg tablet Take 1 tablet by mouth once daily. (Dr. Gaspar) gabapentin (NEURONTIN) 100 mg capsule Take 2 capsules by mouth daily at bedtime AND 2 capsules every morning. Do all this for 180 days. betamethasone dipropionate 0.05 % ointment Apply to affected area once daily. As needed. multivitamin with minerals (MULTIPLE VITAMIN-MINERALS) tablet Take by mouth. Magnesium 250 mg tab Take 250 mg by mouth once daily. ascorbic acid, vitamin C, (VITAMIN C) 500 mg tablet Take 500 mg by mouth once daily. omeprazole (PRILOSEC) 20 mg capsule Take 1 capsule by mouth once daily. Oxyquinoline-Na Lauryl Sulfate (TRIMO-MARTINEZ JELLY) 0.025-0.01 % gel Use as needed for pessary insertion. amLODIPine (NORVASC) 5 mg tablet Take 1 tablet by mouth once daily. (Dr. Gaspar) beclomethasone (QVAR) 80 mcg/actuation inhaler Cholecalciferol, Vitamin D3, 1,000 unit cap Take 1 capsule by mouth once daily. Glucosamine-Chondroitin (OSTEO BI-FLEX) 250-200 mg tab Take by mouth. COMPOUNDED PRESCRIPTION Surgical mastectomy bras. Dx: Z85.3 mometasone (NASONEX) 50 mcg/actuation nasal spray Use 2 Sprays in the nose once daily. albuterol HFA (VENTOLIN HFA) 90 mcg/actuation inhaler Inhale 2 Puffs as instructed every 4 hours as needed for Wheezing/Shortness of Breath. [place]-3 Fatty Acids (FISH OIL) 500-100 mg cap Take 1 capsule by mouth twice daily. BETA-CAROTENE,A, W-C & E/MIN (OCUVITE ORAL) Take by mouth. MULTIVITAMIN TABLET Take one(1) tablet daily. TYLENOL 325MG CAPLET prn CLARITIN 10MG TABLET PRN FAMILY HISTORY Problem Relation Age of Onset Diabetes Father Emphysema Father Cataract Mother other (rheumatoid arthritis) Sister Blindness Maternal Grandmother Diabetes Brother Cataract Brother other (Other) Brother thrombocytopenia Colon Cancer Sister =03/04 Glaucoma Sister Colon Cancer Brother Ovarian cancer Sister 2010 at 66 No Family History Sister No known family history of breast cancer. Social History Tobacco Use Smoking status: Never Smoker Smokeless tobacco: Never Used Vaping Use Vaping Use: Never used Substance Use Topics Alcohol use: Not Currently Comment: very rarely 3 per year Drug use: No BP 124/74 Pulse 76 Temp 36.2 C (97.2 F) Resp 16 Wt 64.9 kg (143 lb) LMP (LMP Unknown) SpO2 97% BMI 26.16 kg/m Review of Systems Constitutional: Negative for chills, fever and malaise/fatigue. HENT: Negative for congestion, ear discharge, ear pain, sinus pain and sore throat. Eyes: Negative for blurred vision, pain, discharge and redness. Respiratory: Negative for cough, hemoptysis, sputum production, shortness of breath, wheezing and stridor. Cardiovascular: Negative for chest pain. Gastrointestinal: Negative for abdominal pain, diarrhea, nausea and vomiting. Genitourinary: Positive for dysuria, frequency and urgency. Negative for flank pain and hematuria. Musculoskeletal: Negative for myalgias. Skin: Negative for itching and rash. Neurological: Negative for dizziness and headaches. Objective Physical Exam Constitutional: General: She is not in acute distress. Appearance: She is not diaphoretic. HENT: Head: Normocephalic. Mouth/Throat: Mouth: Mucous membranes are moist. Pharynx: Oropharynx is clear. No oropharyngeal exudate or posterior oropharyngeal erythema. Eyes: Conjunctiva/sclera: Conjunctivae normal. Pupils: Pupils are equal, round, and reactive to light. Cardiovascular: Rate and Rhythm: Normal rate and regular rhythm. Heart sounds: Normal heart sounds. Pulmonary: Effort: Pulmonary effort is normal. No tachypnea, accessory muscle usage or respiratory distress. Breath sounds: Normal breath sounds. No stridor. Abdominal: Palpations: Abdomen is soft. Tenderness: There is no abdominal tenderness. There is no right CVA tenderness or left CVA tenderness. Musculoskeletal: Cervical back: Normal range of motion and neck supple. No rigidity or tenderness. Lymphadenopathy: Cervical: No cervical adenopathy. Skin: General: Skin is warm and dry. Neurological: Mental Status: She is alert and oriented to person, place, and time. ASSESSMENT/PLAN: 1. Urinary frequency - ICD9: 788.41, ICD10: R35.0 - UA DIP, URINE (POC) - URINE CULTURE Leukocytes blood trace amount of protein noted on urinalysis. With history of UTIs patient will be started on Macrobid. Has tolerated this in the past. Creatinine clearance 80. Urine culture pending. Patient was educated on supportive therapies. Patient will follow up with primary care provider as needed. Patient was instructed to immediately proceed to emergency room for any new, worsening, or symptoms lasting longer than anticipated. The patient's clinical presentation is otherwise unremarkable at this time. Based on exam and clinical finding, the patient is stable for discharge. Plan of care was discussed with patient. Patient verbalizes understanding and agrees to plan of care. This note was generated using [employer] software. It may contain errors in wording, punctuation, or spelling. Jean Carlos Rankin APRN.VAN documented in this encounter [facility] 11-22-2021 Miscellaneous Notes Patient phones requesting refills as follows: Pending Prescriptions Disp Refills LEVOTHYROXINE 75 MCG TABLET 90 tablet 3 Sig: Take 1 tablet by mouth once daily. BRANDON: No LEAH-09/25/21 Labs-09/18/21 NOV-12/25/21 med filled 01/09/21 Please review and advise. Yenny Pyle LPN documented in this encounter [facility] 10-09-2021 Miscellaneous Notes Refill to be addressed at appt 12/25/2021. Emily Salazar LPN documented in this encounter [facility] 09-27-2021 History of Present illness Narrative Episode Visit Count: 9 Therapist That Will Oversee The Plan Of Care: Rose Mary Wright Start of Care Date: 08/27/21 Onset Date: 07/30/21 Plan of Care Certification Date: 08/27/21 Next Certification Due Date: 10/08/21 Patient Identified by Name and Date of : Yes REHABILITATION AND SPORTS THERAPY PHYSICAL THERAPY DISCONTINUANCE OF CARE PLAN OF CARE UPDATE: Assessment: Francisco Taylor is discontinued from Physical Therapy services due to Patient/Client declining further intervention.. Patient was seen for 9 visits from Start of Care Date: 08/27/21 to 09/27/2021 and treatment included: Therapeutic exercise, Manual therapy, Self-penitentiary management, Patient/Family/Caregiver Education and Modalities: Ultrasound. Pt has noted some improvements and wishes to continue exs at home to see how she does Goals for Episode of Care: created on 08/27/21 through 10/08/21 updated 09/27/21 Independent in a Home Exercise Program./ achieved Patient will decrease pain to 2/10 with functional activities to allow patient to improve standing tolerance for ADLs. and central sx only /partially achieved Sleep throughout the night without pain/symptoms./ achieved Maintain proper sitting posture throughout the session to allow for decreased sx and centralization / partially achieved Knowledgeable RE: prophylaxis./ achieved Patient will increase strength of UE to 4+/5/5 to allow for improve ability to maintain proper posture, improve mechanics and decrease pain.. partially achieved Patient Goals: make sx go away, strengthen shoulders and arms SUBJECTIVE: Patient Reason for Visit: Pt has been feeling burning this morning. Pt notes that she saw her physician. Encouraged her to continue with exs and may send her to pain management in the future. Pt notes that she has improved some. Less frequent burning and feels a little stronger. Pain: Post Treatment Pain Post Treatment Pain Level: 0 PROMIS Scales Higher is Better 07/28/2021 08/22/2021 09/02/2021 Phys Func - Score - - 45 (within normal limits) Phys Func - Percentile - - 31 % Social Roles - Score - - 45 (within normal limits) Social Role - Percentile - - 31 % GH Physical - Score 42.3 (Good) 42.3 (Good) - GH Physical - Percentile 22 % 22 % - GH Mental - Score 41.1 (Good) 41.1 (Good) - GH Mental - Percentile 19 % 19 % - Self-Eff Symptom - Score - - 41 (Average) Self-Eff Symptom - Percentile - - 18 % T-scores: mean of general population = 50. 5 points is clinically meaningfully difference Percentiles provide an indication of how the patient's score ranks in relation to the general population. Higher percentile rankings indicate better function/quality of life. 50th percentile is the average of the general population and indicates half of respondents had a worse score. Lower is Better 09/02/2021 Fatigue - Score 57 (mild) Fatigue - Percentile 24 % T-scores: mean of general population = 50. 5 points is clinically meaningfully difference Percentiles provide an indication of how the patient's score ranks in relation to the general population. Higher percentile rankings indicate better function/quality of life. 50th percentile is the average of the general population and indicates half of respondents had a worse score. OBJECTIVE MEASURES WITH LEVEL OF FUNCTION: Spine Observations R Cervical Spine Palpation Tenderness: Upper trapezius L Cervical Spine Palpation Tenderness: Upper trapezius Cervical Spine ROM Cervical Flexion AROM (degrees) : 40 Degrees Cervical Extension AROM (degrees) : 35 Degrees Cervical Side-Bend Right AROM (degrees): 20 Degrees Cervical Side-Bend Left AROM (degrees) : 30 Degrees Cervical Rotation Right AROM (degrees) : 57 Degrees Cervical Rotation Left AROM (degrees) : 58 Degrees UE and Cervical Strength R Shoulder Flexion: 4/5 R Shoulder Internal Rotation: 5/5 R Shoulder External Rotation: 5/5 R Elbow Flexion (C6): 5/5 L Shoulder Flexion: 4/5 L Shoulder Internal Rotation: 5/5 L Shoulder External Rotation: 5/5 Functional Strength Functional Strength: Pt notes still feeling functional weakness for reaching and lifing things TREATMENT: Therapeutic Exercise: 1: isometric cervical extension 5 sec hold x3 b 2: seated triceps orange band 1x10 B 3: orange rep band shoulder flexion and extnesion 1x10 B review for form 4: scaption 2# reviewed for form 5: orange rep band scapular reteraction 1x10 6: orange rep band shoulder ER and IR 1x10 B 7: orange rep band biceps curls reviewed Skilled Intervention: Patient was educated in proper exercise technique and purpose for exercises. Reviewed and educated patient on additions/changes for home exercise program . Skilled judgment was provided in selection of appropriate interventions. Provided written instruction for home exercise program to facilitate proper performance and compliance. Correct performance of therapeutic exercises was facilitated with verbal and visual cuing. Manual Therapy: Manual Traction: supine with pillow , pull to tolerance 30 sec on and 10 off monitored UE sx throughout with centralization x10 min. Skilled Intervention: Manual skills to improve joint mobility, ROM, and decrease pain. Utilized anatomy knowledge of the therapist, and assessment of patient's response to intervention. Modalities: Ultrasound Body Region Treated - Ultrasound: B upper trap and cervical Patient Position: seated Mode: 50% w/cm2: 1.2 MHZ: 1 Minutes: 8 Skilled Intervention: Proper administration and selection of modality based on clinical presentation, deficits, and needs. Patient response monitored throughout treatment. Billing Therapeutic Exercise Treatment Minutes: 20 Manual TherapyTreatment Minutes: 10 Ultrasound Treatment Minutes: 8 Total Treatment Time Minutes (timed and untimed codes) : 38 Rose Mary Wright PT documented in this encounter [facility] 09-25-2021 Instructions Leila Santos MD - 09/25/2021 10:48 AM EDT Decrease thyroid weekly dosage by taking levothyroxine half pill one day per week (6.5 pills weekly). documented in this encounter [facility] 09-25-2021 History of Present illness Narrative This note was created using Pix[employer]. Subjective Francisco Taylor is a 75 year old female. Patient presents with: F/U 6 months SUBJECTIVE: Francisco Taylor is a 75 year old year old lady here today for 6 month follow up appointment for review of medical conditions. Was dizzy and with swelling on amlodipine 10 mg daily. Now on amlodpine 5 mg daily and losartan 50 mg BID since April. BP 140s over 80s now. Continues to work with Dr. Gaspar on BP. PPI every other day. No ulcer noted. Some hair thinning Ongoing aftigue issues Still with tingling and burning in hands. Comes and goes PT seemedhad not helped a lot but resuming exercises. Traction has helped. Some creepy crawlies or tingling all over when anxious noted. Might be hyperventilating. Gabapentin helps a little. Sleeping better wit h2 at night and 1 in AM. Still some symptoms in AM--okay with increasing dose. PAST MEDICAL HISTORY Diagnosis Date Acquired hypothyroidism 04/01/[address] Martell[address] Amador--EGD 08/2016 Benign neoplasm of colon Benign neoplasm of rectum and anal canal 07/14/2011 Breast cancer (HCC) right mastectomy 1992 s/p chemo and radiation, 2001 left mastectomy Dengue Disorder of bone and cartilage, unspecified Diverticulosis of colon (without mention of hemorrhage) Esophagitis, unspecified Family history of malignant neoplasm of ovary IBS (irritable bowel syndrome) Leiomyoma of uterus, unspecified Lung infection Malignant neoplasm of breast (female), unspecified site Breast cancer/bilateral Obstructive chronic bronchitis with exacerbation (HCC) COPD Osteoarthritis, knee right knee PMH - PAST MEDICAL HISTORY OF Postmenopausal atrophic vaginitis Atroph. vaginitis/post-men. 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 As needed. gabapentin (NEURONTIN) 100 mg capsule Take 1-2 capsules by mouth daily at bedtime for 90 days. multivitamin with minerals (MULTIPLE VITAMIN-MINERALS) tablet Take by mouth. levothyroxine (SYNTHROID) 75 mcg tablet Take 1 tablet by mouth once daily. losartan (COZAAR) 100 mg tablet Take 1 tablet by mouth once daily. Replaces Valsartan 320 mg (Patient taking differently: Take 100 mg by mouth once daily. Replaces Valsartan 320 mg; 50 mg twice daily ) Magnesium 250 mg tab Take 250 mg by mouth once daily. ascorbic acid, vitamin C, (VITAMIN C) 500 mg tablet Take 500 mg by mouth once daily. omeprazole (PRILOSEC) 20 mg capsule Take 1 capsule by mouth once daily. atorvastatin (LIPITOR) 10 mg tablet Take 1 tablet by mouth once daily. Oxyquinoline-Na Lauryl Sulfate (TRIMO-MARTINEZ JELLY) 0.025-0.01 % gel Use as needed for pessary insertion. amLODIPine (NORVASC) 5 mg tablet Take 1 tablet by mouth once daily. (Dr. Gaspar) beclomethasone (QVAR) 80 mcg/actuation inhaler Cholecalciferol, Vitamin D3, 1,000 unit cap Take 1 capsule by mouth once daily. (Patient taking differently: Take 2,000 Units by mouth once daily. ) Glucosamine-Chondroitin (OSTEO BI-FLEX) 250-200 mg tab Take by mouth. COMPOUNDED PRESCRIPTION Surgical mastectomy bras. Dx: Z85.3 mometasone (NASONEX) 50 mcg/actuation nasal spray Use 2 Sprays in the nose once daily. albuterol HFA (VENTOLIN HFA) 90 mcg/actuation inhaler Inhale 2 Puffs as instructed every 4 hours as needed for Wheezing/Shortness of Breath. [place]-3 Fatty Acids (FISH OIL) 500-100 mg cap Take 1 capsule by mouth twice daily. BETA-CAROTENE,A, W-C & E/MIN (OCUVITE ORAL) Take by mouth. MULTIVITAMIN TABLET Take one(1) tablet daily. TYLENOL 325MG CAPLET prn CLARITIN 10MG TABLET PRN No current facility-administered medications for this visit. Review of Systems Objective BP 142/82 Pulse 64 Wt 65.3 kg (144 lb) LMP (LMP Unknown) BMI 26.34 kg/m Last 5 Encounter Wt Readings: Date: Wt: 09/25/2021 65.3 kg (144 lb) 08/27/2021 66.2 kg (146 lb) 08/26/2021 64.9 kg (143 lb) 08/12/2021 65.8 kg (145 lb) 07/30/2021 66.7 kg (147 lb) No waist measurement recorded Estimated body mass index is 26.34 kg/m as calculated from the following: Height as of 05/09/20: 157.5 cm (5' 2 ). Weight as of this encounter: 65.3 kg (144 lb). Last 5 Encounter BP Readings: Date: BP: 09/25/2021 142/82 08/27/2021 134/80 08/26/2021 142/88 08/12/2021 148/84 07/30/2021 156/76 09/25/21 1000 09/25/21 1106 BP: 142/82 134/78 Pulse: 64 Weight: 65.3 kg (144 lb) Physical Exam Constitutional: Appearance: Normal appearance. HENT: Head: Normocephalic. Eyes: Conjunctiva/sclera: Conjunctivae normal. Cardiovascular: Rate and Rhythm: Normal rate and regular rhythm. Heart sounds: Normal heart sounds. Pulmonary: Effort: Pulmonary effort is normal. Breath sounds: Normal breath sounds. Skin: General: Skin is warm and dry. Neurological: General: No focal deficit present. Mental Status: She is alert and oriented to person, place, and time. Psychiatric: Mood and Affect: Mood normal. Behavior: Behavior normal. Thought Content: Thought content normal. Judgment: Judgment normal. Component Latest Ref Rng & Units 07/26/2021 08/12/2021 09/18/2021 WBC 3.70 - 11.00 k/uL 6.84 5.83 5.86 RBC 3.90 - 5.20 m/uL 4.03 3.73 (L) 3.93 Hemoglobin 11.5 - 15.5 g/dL 12.2 11.5 12.1 Hematocrit 36.0 - 46.0 % 37.6 34.4 (L) 37.6 MCV 80.0 - 100.0 fL 93.3 92.2 95.7 MCH 26.0 - 34.0 pg 30.3 30.8 30.8 MCHC 30.5 - 36.0 g/dL 32.4 33.4 32.2 RDW-CV 11.5 - 15.0 % 12.3 12.4 12.2 Platelet Count 150 - 400 k/uL 260 268 195 MPV 9.0 - 12.7 fL 9.5 9.0 10.2 Neut% % 59.5 Abs Neut (ANC) 1.45 - 7.50 k/uL 3.47 Lymph% % 31.2 Abs Lymph 1.00 - 4.00 k/uL 1.82 Mclean% % 6.2 Abs Mclean <0.87 k/uL 0.36 Eosin% % 2.2 Abs Eosin <0.46 k/uL 0.13 Baso% % 0.9 Abs Baso <0.11 k/uL 0.05 Nucleated Reds 0 /100 WBC 0.0 Absolute nRBC <0.01 k/uL <0.01 <0.01 <0.01 Diff Type Auto Diff Protein, Total 6.3 - 8.0 g/dL 7.7 6.8 7.1 Albumin 3.9 - 4.9 g/dL 4.4 4.1 4.2 Calcium 8.5 - 10.2 mg/dL 10.3 (H) 9.6 10.0 Bilirubin, Total 0.2 - 1.3 mg/dL 1.0 0.4 1.0 Alkaline Phosphatase 34 - 123 U/L 62 66 59 AST 13 - 35 U/L 23 18 22 Glucose 74 - 99 mg/dL 100 (H) 129 (H) 99 BUN 7 - 21 mg/dL 12 10 10 Creatinine 0.58 - 0.96 mg/dL 0.66 0.61 0.66 Sodium 136 - 144 mmol/L 131 (L) 138 135 (L) Potassium 3.7 - 5.1 mmol/L 4.0 3.6 (L) 4.1 Chloride 97 - 105 mmol/L 94 (L) 103 99 CO2 22 - 30 mmol/L 23 23 24 Anion Gap 9 - 18 mmol/L 14 12 12 ALT 7 - 38 U/L 20 18 21 eGFR- >60 >60 eGFR-All Other Races . >60 >60 eGFR >=60 mL/min/1.73m 93 Cholesterol, Total <200 mg/dL 150 137 Triglyceride <150 mg/dL 95 85 HDL Cholesterol >39 mg/dL 55 50 LDL Cholesterol <100 mg/dL 76 70 Non HDL Cholesterol <130 mg/dL 95 87 Fasting Time hrs 12 12 VLDL Cholesterol <30 mg/dL 19 17 TC:HDL Ratio <5.10 2.73 2.74 LDL:HDL Ratio <2.54 1.38 1.40 Iron 41 - 186 ug/dL 125 TIBC 232 - 386 ug/dL 344 Transferrin Saturation 15 - 57 % 36 Hemoglobin A1C 4.3 - 5.6 % 5.9 (H) Estimated Average Glucose mg/dL 123 Vitamin D 25 Hydroxy 31.0 - 80.0 ng/mL 46.5 44.8 TSH 0.270 - 4.200 mIU/L 1.700 0.629 Free T4 0.9 - 1.7 ng/dL 2.0 (H) 1.9 (H) Ferritin 14.7 - 205.1 ng/mL 80.1 60.4 Folate >4.7 ng/mL >20.0 Vitamin B12 232 - 1,245 pg/mL 1,144 Magnesium 1.7 - 2.3 mg/dL 1.8 WSR 0 - 20 mm/hr Test sent to [facility]. CRP <0.9 mg/dL Test sent to [facility]. From [facility] : CRP <2.90 (normal) Sed rate 13 mm/hr (normal 0-30 Assessment and Plan Encounter Diagnosis ICD-10-CM 1. Vitamin D deficiency E55.9 2. Essential hypertension I10 losartan (COZAAR) 50 mg tablet 3. Osteopenia of multiple sites M85.89 4. Acquired hypothyroidism E03.9 TSH BLD T4 FREE/FREE THYROX T3 FREE BLD 5. Anemia, unspecified type D64.9 6. Encounter for long-term current use of medication Z79.899 MAGNESIUM BLD 7. Hypercholesteremia E78.00 atorvastatin (LIPITOR) 10 mg tablet ASSESSMENT/PLAN: 1. Essential hypertension - ICD9: 401.9, ICD10: I10 (primary diagnosis) - fair control - Continue current medication(s) - Recommended regular aerobic exercise. - Recommend home blood pressure monitoring, to bring results in on next visit - Goal of BP <130/80 - LOSARTAN 50 MG TABLET 2. Acquired hypothyroidism - ICD9: 244.9, ICD10: E03.9 - Instructed patient on importance of taking on an empty stomach either first thing in the morning or at bedtime. Weight decreasing Adjust thyroid replacement, Further evaluation and treatment as indicated. - Behavioral intervention - TSH BLD - T4 FREE/FREE THYROX - T3 FREE BLD 3. Vitamin D deficiency - ICD9: 268.9, ICD10: E55.9 adjust as indicated 4. Osteopenia of multiple sites - ICD9: 733.90, ICD10: M85.89 - Reviewed the need for Calcium and Vitamin D supplements and weight bearing exercise as tolerated 5. Anemia, unspecified type - ICD9: 285.9, ICD10: D64.9 6. Encounter for long-term current use of medication - ICD9: V58.69, ICD10: Z79.899 - MAGNESIUM BLD 7. Hypercholesteremia - ICD9: 272.0, ICD10: E78.00 Continue present management. - ATORVASTATIN 10 MG TABLET Leila Santos MD documented in this encounter [facility] 09-23-2021 History of Present illness Narrative Episode Visit Count: 8 Therapist That Will Oversee The Plan Of Care: Rose Mary Wright PT Start of Care Date: 08/27/21 Onset Date: 07/30/21 Plan of Care Certification Date: 08/27/21 Next Certification Due Date: 10/08/21 Patient Identified by Name and Date of : Yes REHABILITATION AND SPORTS THERAPY PHYSICAL THERAPY TREATMENT NOTE ASSESSMENT: Francisco Taylor tolerated the session with no issues. She demonstrated improvements in endurance for exs and good tolerance to ultrasound . The patient will continue to benefit from ongoing skilled physical therapy to progress toward set goals. PLAN FOR NEXT VISIT: POC SUBJECTIVE: Patient Reason for Visit: Pt notes that she did well with the ultrasound. Notes that she has some pain along scar under right axilla with ER exercise and would like to review Pain: Pain Pain Level: 5 Pain Location: Upper Arm - Left;Upper Arm - Right Post Treatment Pain Post Treatment Pain Level: (not quantified , but states it feels good ) OBJECTIVE MEASURES WITH LEVEL OF FUNCTION: decreased UE sx following manual traction TREATMENT: Therapeutic Exercise: 1: cervical retraction 1x10 2: hoist 2 large band scapular retraction 2x12 3: numbers on wall 1-3 30 sec x2 B 4: scaption 2# 2x12 B 5: ball circles on door 4# CW and CCW 2x10B 6: reviewed orange band triceps seated with cues for form 8: hoist triceps with long bar standing 2 large 2x10 Skilled Intervention: Patient was educated in proper exercise technique and purpose for exercises. Skilled judgment was provided in selection of appropriate interventions. Correct performance of therapeutic exercises was facilitated with verbal and visual cuing. Manual Therapy: Manual Traction: supine with pillow , pull to tolerance 30 sec on and 10 off monitored UE sx throughout with centralization x10 min. Skilled Intervention: Manual skills to improve joint mobility, ROM, and decrease pain. Utilized anatomy knowledge of the therapist, and assessment of patient's response to intervention. Modalities: Ultrasound Body Region Treated - Ultrasound: B upper trap and cervical Patient Position: seated Mode: 50% w/cm2: 1.2 MHZ: 1 Minutes: 8 Skilled Intervention: Proper administration and selection of modality based on clinical presentation, deficits, and needs. Patient response monitored throughout treatment. Billing Therapeutic Exercise Treatment Minutes: 20 Manual TherapyTreatment Minutes: 10 Ultrasound Treatment Minutes: 8 Total Treatment Time Minutes (timed and untimed codes) : 38 Rose Mary Wright PT documented in this encounter [facility] documented as of this encounter (statuses as of 09/27/2021) [facility]03-01-2022 History of Past illness Narrative* Problem Noted Date Resolved Date Radiculopathy of cervical region 08/27/2021 09/27/2021 Weakness of both upper extremities 08/27/2021 09/27/2021 Tingling 08/27/2021 09/27/2021 Overview: No numbness documented as of this encounter (statuses as of 09/30/2021) [facility] History of Past illness Narrative* Problem Noted Date Resolved Date Radiculopathy of cervical region 08/27/2021 09/27/2021 Weakness of both upper extremities 08/27/2021 09/27/2021 Tingling 08/27/2021 09/27/2021 Overview: No numbness documented as of this encounter (statuses as of 10/09/2021) [facility] History of Past illness Narrative* Problem Noted Date Resolved Date Radiculopathy of cervical region 08/27/2021 09/27/2021 Weakness of both upper extremities 08/27/2021 09/27/2021 Tingling 08/27/2021 09/27/2021 Overview: No numbness documented as of this encounter (statuses as of 10/20/2021) [facility] History of Past illness Narrative* Problem Noted Date Resolved Date Radiculopathy of cervical region 08/27/2021 09/27/2021 Weakness of both upper extremities 08/27/2021 09/27/2021 Tingling 08/27/2021 09/27/2021 Overview: No numbness documented as of this encounter (statuses as of 11/22/2021) [facility] History of Past illness Narrative* Problem Noted Date Resolved Date Radiculopathy of cervical region 08/27/2021 09/27/2021 Weakness of both upper extremities 08/27/2021 09/27/2021 Tingling 08/27/2021 09/27/2021 Overview: No numbness documented as of this encounter (statuses as of 12/24/2021) [facility]-01-2022 History of Past illness Narrative* Problem Noted Date Resolved Date Radiculopathy of cervical region 08/27/2021 09/27/2021 Weakness of both upper extremities 08/27/2021 09/27/2021 Tingling 08/27/2021 09/27/2021 Overview: No numbness documented as of this encounter (statuses as of 01/02/2022) [facility]01[facility]2022 History of Past illness Narrative* Problem Noted Date Resolved Date Radiculopathy of cervical region 08/27/2021 09/27/2021 Weakness of both upper extremities 08/27/2021 09/27/2021 Tingling 08/27/2021 09/27/2021 Overview: No numbness documented as of this encounter (statuses as of 01/03/2022) [facility]2022 History of Past illness Narrative* Problem Noted Date Resolved Date Radiculopathy of cervical region 08/27/2021 09/27/2021 Weakness of both upper extremities 08/27/2021 09/27/2021 Tingling 08/27/2021 09/27/2021 Overview: No numbness documented as of this encounter (statuses as of 01/05/2022) [address]01-2022 History of Past illness Narrative* Problem Noted Date Resolved Date Radiculopathy of cervical region 08/27/2021 09/27/2021 Weakness of both upper extremities 08/27/2021 09/27/2021 Tingling 08/27/2021 09/27/2021 Overview: No numbness documented as of this encounter (statuses as of 01/08/2022) [facility]2022 History of Past illness Narrative* Problem Noted Date Resolved Date Radiculopathy of cervical region 08/27/2021 09/27/2021 Weakness of both upper extremities 08/27/2021 09/27/2021 Tingling 08/27/2021 09/27/2021 Overview: No numbness documented as of this encounter (statuses as of 01/10/2022) [facility]2022 History of Past illness Narrative* Problem Noted Date Resolved Date Radiculopathy of cervical region 08/27/2021 09/27/2021 Weakness of both upper extremities 08/27/2021 09/27/2021 Tingling 08/27/2021 09/27/2021 Overview: No numbness documented as of this encounter (statuses as of 02/24/2022) [facility]2022 History of Past illness Narrative* Problem Noted Date Resolved Date Radiculopathy of cervical region 08/27/2021 09/27/2021 Weakness of both upper extremities 08/27/2021 09/27/2021 Tingling 08/27/2021 09/27/2021 Overview: No numbness documented as of this encounter (statuses as of 03/28/2022) [facility]22 History of Past illness Narrative* Problem Noted Date Resolved Date Radiculopathy of cervical region 08/27/2021 09/27/2021 Weakness of both upper extremities 08/27/2021 09/27/2021 Tingling 08/27/2021 09/27/2021 Overview: No numbness documented as of this encounter (statuses as of 05/02/2022) [facility] History of Past illness Narrative* Problem Noted Date Resolved Date Radiculopathy of cervical region 08/27/2021 09/27/2021 Weakness of both upper extremities 08/27/2021 09/27/2021 Tingling 08/27/2021 09/27/2021 Overview: No numbness documented as of this encounter (statuses as of 05/20/2022) [facility]2022 History of Past illness Narrative* Problem Noted Date Resolved Date Radiculopathy of cervical region 08/27/2021 09/27/2021 Weakness of both upper extremities 08/27/2021 09/27/2021 Tingling 08/27/2021 09/27/2021 Overview: No numbness documented as of this encounter (statuses as of 06/13/2022) [facility]2022 History of Past illness Narrative* Problem Noted Date Resolved Date Radiculopathy of cervical region 08/27/2021 09/27/2021 Weakness of both upper extremities 08/27/2021 09/27/2021 Tingling 08/27/2021 09/27/2021 Overview: No numbness documented as of this encounter (statuses as of 08/11/2022) [facility]22 History of Past illness Narrative* Problem Noted Date Resolved Date Radiculopathy of cervical region 08/27/2021 09/27/2021 Weakness of both upper extremities 08/27/2021 09/27/2021 Tingling 08/27/2021 09/27/2021 Overview: No numbness documented as of this encounter (statuses as of 09/16/2022) [facility]2022 History of Past illness Narrative* Problem Noted Date Resolved Date Radiculopathy of cervical region 08/27/2021 09/27/2021 Weakness of both upper extremities 08/27/2021 09/27/2021 Tingling 08/27/2021 09/27/2021 Overview: No numbness documented as of this encounter (statuses as of 09/26/2022) [facility] History of Past illness Narrative* Problem Noted Date Resolved Date Radiculopathy of cervical region 08/27/2021 09/27/2021 Weakness of both upper extremities 08/27/2021 09/27/2021 Tingling 08/27/2021 09/27/2021 Overview: No numbness documented as of this encounter (statuses as of 09/30/2022) [facility] History of Past illness Narrative* Problem Noted Date Resolved Date Radiculopathy of cervical region 08/27/2021 09/27/2021 Weakness of both upper extremities 08/27/2021 09/27/2021 Tingling 08/27/2021 09/27/2021 Overview: No numbness documented as of this encounter (statuses as of 10/10/2022) [facility] History of Past illness Narrative* Problem Noted Date Resolved Date Radiculopathy of cervical region 08/27/2021 09/27/2021 Weakness of both upper extremities 08/27/2021 09/27/2021 Tingling 08/27/2021 09/27/2021 Overview: No numbness Malignant neoplasm of breast (female), unspecifi ed site 01/28/2005 10/20/2022 History of bilateral breast cancer 04/27/2002 10/20/2022 documented as of this encounter (statuses as of 10/20/2022) [facility]22 History of Past illness Narrative* Problem Noted Date Resolved Date Radiculopathy of cervical region 08/27/2021 09/27/2021 Weakness of both upper extremities 08/27/2021 09/27/2021 Tingling 08/27/2021 09/27/2021 Overview: No numbness Malignant neoplasm of breast (female), unspecifi ed site 01/28/2005 10/20/2022 History of bilateral breast cancer 04/27/2002 10/20/2022 documented as of this encounter (statuses as of 11/06/2022) [facility]2022 History of Past illness Narrative* Problem Noted Date Diagnosed Date Resolved Date Radiculopathy of cervical region 08/27/2021 09/27/2021 Weakness of both upper extremities 08/27/2021 09/27/2021 Tingling 08/27/2021 09/27/2021 Overview: No numbness Malignant neoplasm of breast (female), unspecified site 01/28/2005 10/20/2022 History of bilateral breast cancer 04/27/2002 10/20/2022 documented as of this encounter (statuses as of 01/12/2023) [facility] History of Past illness Narrative* Problem Noted Date Diagnosed Date Resolved Date Radiculopathy of cervical region 08/27/2021 09/27/2021 Weakness of both upper extremities 08/27/2021 09/27/2021 Tingling 08/27/2021 09/27/2021 Overview: No numbness Malignant neoplasm of breast (female), unspecified site 01/28/2005 10/20/2022 History of bilateral breast cancer 04/27/2002 10/20/2022 documented as of this encounter (statuses as of 02/13/2023) [facility]22 History of Past illness Narrative* Problem Noted Date Diagnosed Date Resolved Date Radiculopathy of cervical region 08/27/2021 09/27/2021 Weakness of both upper extremities 08/27/2021 09/27/2021 Tingling 08/27/2021 09/27/2021 Overview: No numbness Malignant neoplasm of breast (female), unspecified site 01/28/2005 10/20/2022 History of bilateral breast cancer 04/27/2002 10/20/2022 documented as of this encounter (statuses as of 03/25/2023) [place] [address]-01-2022 History of Past illness Narrative* Problem Noted Date Diagnosed Date Resolved Date Radiculopathy of cervical region 08/27/2021 09/27/2021 Weakness of both upper extremities 08/27/2021 09/27/2021 Tingling 08/27/2021 09/27/2021 Overview: No numbness Malignant neoplasm of breast (female), unspecified site 01/28/2005 10/20/2022 History of bilateral breast cancer 04/27/2002 10/20/2022 documented as of this encounter (statuses as of 03/31/2023) [facility] History of Past illness Narrative* Problem Noted Date Diagnosed Date Resolved Date Radiculopathy of cervical region 08/27/2021 09/27/2021 Weakness of both upper extremities 08/27/2021 09/27/2021 Tingling 08/27/2021 09/27/2021 Overview: No numbness Malignant neoplasm of breast (female), unspecified site 01/28/2005 10/20/2022 History of bilateral breast cancer 04/27/2002 10/20/2022 documented as of this encounter (statuses as of 04/13/2023) [facility]22 History of Past illness Narrative* Problem Noted Date Diagnosed Date Resolved Date Radiculopathy of cervical region 08/27/2021 09/27/2021 Weakness of both upper extremities 08/27/2021 09/27/2021 Tingling 08/27/2021 09/27/2021 Overview: No numbness Malignant neoplasm of breast (female), unspecified site 01/28/2005 10/20/2022 History of bilateral breast cancer 04/27/2002 10/20/2022 documented as of this encounter (statuses as of 05/03/2023) [facility] History of Past illness Narrative* Problem Noted Date Diagnosed Date Resolved Date Radiculopathy of cervical region 08/27/2021 09/27/2021 Weakness of both upper extremities 08/27/2021 09/27/2021 Tingling 08/27/2021 09/27/2021 Overview: No numbness Malignant neoplasm of breast (female), unspecified site 01/28/2005 10/20/2022 History of bilateral breast cancer 04/27/2002 10/20/2022 documented as of this encounter (statuses as of 05/26/2023) [facility]2022 History of Past illness Narrative* Problem Noted Date Diagnosed Date Resolved Date Radiculopathy of cervical region 08/27/2021 09/27/2021 Weakness of both upper extremities 08/27/2021 09/27/2021 Tingling 08/27/2021 09/27/2021 Overview: No numbness Malignant neoplasm of breast (female), unspecified site 01/28/2005 10/20/2022 History of bilateral breast cancer 04/27/2002 10/20/2022 documented as of this encounter (statuses as of 05/28/2023) [facility]2022 History of Past illness Narrative* Problem Noted Date Diagnosed Date Resolved Date Radiculopathy of cervical region 08/27/2021 09/27/2021 Weakness of both upper extremities 08/27/2021 09/27/2021 Tingling 08/27/2021 09/27/2021 Overview: No numbness Malignant neoplasm of breast (female), unspecified site 01/28/2005 10/20/2022 History of bilateral breast cancer 04/27/2002 10/20/2022 documented as of this encounter (statuses as of 06/03/2023) [facility]22 History of Past illness Narrative* Problem Noted Date Diagnosed Date Resolved Date Radiculopathy of cervical region 08/27/2021 09/27/2021 Weakness of both upper extremities 08/27/2021 09/27/2021 Tingling 08/27/2021 09/27/2021 Overview: No numbness Malignant neoplasm of breast (female), unspecified site 01/28/2005 10/20/2022 History of bilateral breast cancer 04/27/2002 10/20/2022 documented as of this encounter (statuses as of 06/11/2023) [facility]2022 History of Present illness Narrative* Leila Santos MD - 08/26/2021 4:21 PM EST This note was created using [employer]perm[employer]. Subjective Francisco Taylor is a 75 year old female. Patient presents with: Follow Up SUBJECTIVE: Francisco Taylor is a 75 year old year old lady here today for follow up appointment for review of medical conditions. Burning sensation in left arm and sometimes crawling sensation in legs. Some mild weakness in elbows with lifting. Hurt in antecubital fossa. Cannot sleep well at night because of the pain and sensations. Cannot find right way to sleep. Prefers to start with PT and see how symptoms respond. Had responded to traction with PT in the past. Daughter wanted to listen in on plan. Discussed gabapentin Asked about calcium Osteopenia based on Bone density 02/05/21 at [facility] PAST MEDICAL HISTORY Diagnosis Date Acquired hypothyroidism 04/01/[address] Amador--EGD 08/2016 Benign neoplasm of colon Benign neoplasm of rectum and anal canal 07/14/2011 Breast cancer (HCC) right mastectomy 1992 s/p chemo and radiation, 2001 left mastectomy Dengue Disorder of bone and cartilage, unspecified Diverticulosis of colon (without mention of hemorrhage) Esophagitis, unspecified Family history of malignant neoplasm of ovary IBS (irritable bowel syndrome) Leiomyoma of uterus, unspecified Lung infection Malignant neoplasm of breast (female), unspecified site Breast cancer/bilateral Obstructive chronic bronchitis with exacerbation (HCC) COPD Osteoarthritis, knee right knee PMH - PAST MEDICAL HISTORY OF Postmenopausal atrophic vaginitis Atroph. vaginitis/post-men. Postmenopausal bleeding Unspecified essential hypertension Essential hypertension Urge incontinence Uterine prolapse without mention of vaginal wall prolapse urethrocele Current Outpatient Medications Medication Sig multivitamin with minerals (MULTIPLE VITAMIN-MINERALS) tablet Take by mouth. levothyroxine (SYNTHROID) 75 mcg tablet Take 1 tablet by mouth once daily. losartan (COZAAR) 100 mg tablet Take 1 tablet by mouth once daily. Replaces Valsartan 320 mg (Patient taking differently: Take 100 mg by mouth once daily. Replaces Valsartan 320 mg; 50 mg twice daily ) Magnesium 250 mg tab Take 250 mg by mouth once daily. ascorbic acid, vitamin C, (VITAMIN C) 500 mg tablet Take 500 mg by mouth once daily. omeprazole (PRILOSEC) 20 mg capsule Take 1 capsule by mouth once daily. atorvastatin (LIPITOR) 10 mg tablet Take 1 tablet by mouth once daily. Oxyquinoline-Na Lauryl Sulfate (TRIMO-MARTINEZ JELLY) 0.025-0.01 % gel Use as needed for pessary insertion. amLODIPine (NORVASC) 5 mg tablet Take 1 tablet by mouth once daily. (Dr. Gaspar) beclomethasone (QVAR) 80 mcg/actuation inhaler Cholecalciferol, Vitamin D3, 1,000 unit cap Take 1 capsule by mouth once daily. (Patient taking differently: Take 2,000 Units by mouth once daily. ) Glucosamine-Chondroitin (OSTEO BI-FLEX) 250-200 mg tab Take by mouth. COMPOUNDED PRESCRIPTION Surgical mastectomy bras. Dx: Z85.3 mometasone (NASONEX) 50 mcg/actuation nasal spray Use 2 Sprays in the nose once daily. albuterol HFA (VENTOLIN HFA) 90 mcg/actuation inhaler Inhale 2 Puffs as instructed every 4 hours asneeded for Wheezing/Shortness of Breath. triamcinolone acetonide (KENALOG) 0.1 % cream Apply 1 application to affected area three times daily. Apply sparingly to area [place]-3 Fatty Acids (FISH OIL) 500-100 mg cap Take 1 capsule by mouth twice daily. BETA-CAROTENE,A, W-C & E/MIN (OCUVITE ORAL) Take by mouth. MULTIVITAMIN TABLET Take one(1) tablet daily. TYLENOL 325MG CAPLET prn CLARITIN 10MG TABLET PRN No current facility-administered medications for this visit. Review of Systems Objective BP 142/88 Pulse 72 Wt 64.9 kg (143 lb) LMP (LMP Unknown) BMI 26.16 kg/m Last 5 Encounter BP Readings: Date: BP: 08/26/2021 142/88 08/12/2021 148/84 07/30/2021 156/76 03/18/2021 136/74 01/07/2021 138/74 Last 5 Encounter Wt Readings: Date: Wt: 08/26/2021 64.9 kg (143 lb) 08/12/2021 65.8 kg (145 lb) 07/30/2021 66.7 kg (147 lb) 03/18/2021 65.3 kg (144 lb) 01/07/2021 67.1 kg (148 lb) Physical Exam Constitutional: Appearance: Normal appearance. Pulmonary: Effort: Pulmonary effort is normal. Musculoskeletal: Cervical back: Normal range of motion. Neurological: Mental Status: She is alert and oriented to person, place, and time. Psychiatric: Mood and Affect: Mood normal. Speech: Speech normal. Thought Content: Thought content normal. Judgment: Judgment normal. Component Latest Ref Rng & Units 07/26/2021 08/12/2021 WBC 3.70 - 11.00 k/uL 6.84 5.83 RBC 3.90 - 5.20 m/uL 4.03 3.73 (L) Hemoglobin 11.5 - 15.5 g/dL 12.2 11.5 Hematocrit 36.0 - 46.0 % 37.6 34.4 (L) MCV 80.0 - 100.0 fL 93.3 92.2 MCH 26.0 - 34.0 pG 30.3 30.8 MCHC 30.5 - 36.0 g/dL 32.4 33.4 RDW-CV 11.5 - 15.0 % 12.3 12.4 Platelet Count 150 - 400 k/uL 260 268 MPV 9.0 - 12.7 fL 9.5 9.0 Neut% % 59.5 Abs Neut (ANC) 1.45 - 7.50 k/uL 3.47 Lymph% % 31.2 Abs Lymph 1.00 - 4.00 k/uL 1.82 Mclean% % 6.2 Abs Mclean <0.87 k/uL 0.36 Eosin% % 2.2 Abs Eosin <0.46 k/uL 0.13 Baso% % 0.9 Abs Baso <0.11 k/uL 0.05 Nucleated Reds 0 /100 WBC 0.0 Absolute nRBC <0.01 k/uL <0.01 <0.01 Diff Type Auto Diff Protein, Total 6.3 - 8.0 g/dL 7.7 6.8 Albumin 3.9 - 4.9 g/dL 4.4 4.1 Calcium 8.5 - 10.2 mg/dL 10.3 (H) 9.6 Bilirubin, Total 0.2 - 1.3 mg/dL 1.0 0.4 Alkaline Phosphatase 34 - 123 U/L 62 66 AST 13 - 35 U/L 23 18 Glucose 74 - 99 mg/dL 100 (H) 129 (H) BUN 7 - 21 mg/dL 12 10 Creatinine 0.58 - 0.96 mg/dL 0.66 0.61 Sodium 136 - 144 mmol/L 131 (L) 138 Potassium 3.7 - 5.1 mmol/L 4.0 3.6 (L) Chloride 97 - 105 mmol/L 94 (L) 103 CO2 22 - 30 mmol/L 23 23 Anion Gap 9 - 18 mmol/L 14 12 ALT 7 - 38 U/L 20 18 eGFR- >60 >60 eGFR-All Other Races . >60 >60 Cholesterol, Total <200 mg/dL 150 Triglyceride <150 mg/dL 95 HDL Cholesterol >39 mg/dL 55 LDL Cholesterol <100 mg/dL 76 Non HDL Cholesterol <130 mg/dL 95 Fasting Time hrs 12 VLDL Cholesterol <30 mg/dL 19 TC:HDL Ratio <5.10 2.73 LDL:HDL Ratio <2.54 1.38 Iron 41 - 186 ug/dL 125 TIBC 232 - 386 ug/dL 344 Transferrin Saturation 15 - 57 % 36 Hemoglobin A1C 4.3 - 5.6 % 5.9 (H) Estimated Average Glucose mg/dL 123 Vitamin D 25 Hydroxy 31.0 - 80.0 ng/mL 46.5 TSH 0.270 - 4.200 uU/mL 1.700 Free T4 0.9 - 1.7 ng/dL 2.0 (H) Ferritin 14.7 - 205.1 ng/mL 80.1 Folate >4.7 ng/mL >20.0 Vitamin B12 232 - 1,245 pg/mL 1,144 Magnesium 1.7 - 2.3 mg/dL 1.8 WSR 0 - 20 mm/hr Test sent to [facility]. CRP <0.9 mg/dL Test sent to [facility]. Assessment and Plan ASSESSMENT/PLAN: 1. Radiculopathy of cervical region - ICD9: 723.4, ICD10: M54.12 (primary diagnosis) Further evaluation and treatment as indicated. - CONSULT TO PHYSICAL THERAPY 2. Weakness of both upper extremities - ICD9: 729.89, ICD10: R29.898 - CONSULT TO PHYSICAL THERAPY 3. Tingling - ICD9: 782.0, ICD10: R20.0, R20.2 - CONSULT TO PHYSICAL THERAPY 4. Osteopenia of multiple sites - ICD9: 733.90, ICD10: M85.89 - Reviewed the need for Calcium and Vitamin D supplements and weight bearing exercise as tolerated 5. Vitamin D deficiency - ICD9: 268.9, ICD10: E55.9 Adjust dose as indicated. Last level was fine - VITAMIN D 25 HYDROXY 6. Essential hypertension - ICD9: 401.9, ICD10: I10 - fair control - Continue current medication(s) - Recommended regular aerobic exercise. - Recommend home blood pressure monitoring, to bring results in on next visit - Goal of BP <130/80 - COMP METABOLIC PANEL - CBC 7. Elevated fasting glucose - ICD9: 790.21, ICD10: R73.01 Needs to keep working on diet and exercise with lifestyle changes for effective weight loss as wellas prevention of DM, and control of BP and lipids. Stay on same dose Update labs Further evaluation and treatment as indicated. - TSH BLD - T4 FREE/FREE THYROX 9. Anemia, unspecified type - ICD9: 285.9, ICD10: D64.9 Further evaluation and treatment as indicated. - CBC - FERRITIN BLD 10. Generalized anxiety disorder - ICD9: 300.02, ICD10: F41.1 Should improve with improved sleep. Further evaluation and treatment as indicated. 11. Psychophysiological insomnia - ICD9: 307.42, ICD10: F51.04 Sleep hygiene discussed. Treat pain issues. Further evaluation and treatment as indicated. Leila Santos MD Medical Decision Making: Problems: Moderate: 2+ stable chronic illnesses and New problem with uncertain prognosis Data: Unique test(s) ordered: 3+ Risk: Moderate: Drug management Medical Decision Making Level: 4 - Moderate [facility] Radiculopathy of cervical region- Primary Brachial neuritis or radiculitis nos Weakness of both upper extremities Numbness and tingling Disturbance of skin sensation documented in this encounter [facility]* Diagnosis Radiculopathy of cervical region- Primary Brachial neuritis or radiculitis nos Weakness of both upper extremities Numbness and tingling Disturbance of skin sensation [facility] Essential hypertension- Primary Unspecified essential hypertension Acquired hypothyroidism Unspecified hypothyroidism Vitamin D deficiency Unspecified vitamin D deficiency Osteopenia of multiple sites Anemia, unspecified type Encounter for long-term current use of medication Hypercholesteremia Pure hypercholesterolemia [facility] Diagnosis Radiculopathy of cervical region- Primary Brachial neuritis or radiculitis nos Weakness of both upper extremities Tingling Disturbance of skin sensation Osteopenia of multiple sites Vitamin D deficiency Unspecified vitamin D deficiency Essential hypertension Unspecified essential hypertension Elevated fasting glucose Impaired fasting glucose Acquired hypothyroidism Unspecified hypothyroidism Anemia, unspecified type Generalized anxiety disorder Psychophysiological insomnia Persistent disorder of initiating or maintaining sleep [facility] Urinary frequency- Primary [facility] Diagnosis Cloudy urine- Primary Other nonspecific finding on examination of urine [facility] Diagnosis Acquired hypothyroidism- Primary Unspecified hypothyroidism Plantar fasciitis of left foot Plantar fascial fibromatosis Acute cystitis with hematuria Acute cystitis Vaginal prolapse Unspecified prolapse of vaginal henry Bilateral leg edema Edema Essential hypertension Unspecified essential hypertension Hypercholesteremia Pure hypercholesterolemia Encounter for long-term current use of medication [facility] Acquired hypothyroidism- Primary Unspecified hypothyroidism Generalized anxiety disorder Hypercholesteremia Pure hypercholesterolemia Plantar fasciitis of left foot Plantar fascial fibromatosis Dental infection Acute apical periodontitis of pulpal origin Vitamin D deficiency Unspecified vitamin D deficiency Bilateral leg edema Edema Psychophysiological insomnia Persistent disorder of initiating or maintaining sleep Recurrent UTI Urinary tract infection, site not specified Essential hypertension Unspecified essential hypertension [facility] Diagnosis Dry eye syndrome, bilateral- Primary 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 Bilateral pseudophakia Lens replaced by other means Left posterior capsular opacification After-cataract, unspecified [facility] Diagnosis Hyponatremia- Primary Hyposmolality and/or hyponatremia Acquired hypothyroidism Unspecified hypothyroidism Vitamin D deficiency Unspecified vitamin D deficiency Essential hypertension Unspecified essential hypertension Complete uterine prolapse Uterine prolapse without mention of vaginal wall prolapse [facility] Diagnosis Special screening for malignant neoplasms, colon- Primary [facility] Diagnosis PMB (postmenopausal bleeding)- Primary Postmenopausal bleeding Complete uterovaginal prolapse Uterovaginal prolapse, complete Keloid Keloid scar [facility] Diagnosis PMB (postmenopausal bleeding)- Primary Postmenopausal bleeding Complete uterovaginal prolapse Uterovaginal prolapse, complete Atypical glandular cells of undetermined significance (TC) on cervical Pap smear Abnormal glandular Papanicolaou smear of cervix Endometrial polyp Polyp of corpus uteri [facility] Diagnosis Essential hypertension- Primary Unspecified essential hypertension Generalized anxiety disorder Eczema of external ear, bilateral Cloudy urine Other nonspecific finding on examination of urine Foul smelling urine Other nonspecific finding on examination of urine Bronchitis Bronchitis, not specified as acute or chronic [facility] Diagnosis Essential hypertension- Primary Unspecified essential hypertension Hyponatremia Hyposmolality and/or hyponatremia Generalized anxiety disorder Vitamin D deficiency Unspecified vitamin D deficiency Bilateral leg edema Edema Acquired hypothyroidism Unspecified hypothyroidism Hypercholesteremia Pure hypercholesterolemia Encounter for long-term current use of medication [facility]* Diagnosis Complete uterovaginal prolapse- Primary Uterovaginal prolapse, complete Pelvic muscle wasting Vaginal atrophy Postmenopausal atrophic vaginitis Urge incontinence Feeling of incomplete bladder emptying Incomplete bladder emptying Vaginal inflammation from pessary, initial encounter ([facility]) Atypical glandular cells of undetermined significance (TC) on cervical Pap smear Abnormal glandular Papanicolaou smear of cervix documented [facility]* Diagnosis Essential hypertension- Primary Unspecified essential hypertension Lymphedema of right arm Generalized anxiety disorder Acquired hypothyroidism Unspecified hypothyroidism Hyponatremia Hyposmolality and/or hyponatremia Vitamin D deficiency Unspecified vitamin D deficiency Hypercholesteremia Pure hypercholesterolemia Hair thinning Alopecia, unspecified Allergic rhinitis, unspecified seasonality, unspecified trigger Encounter for immunization Need for other specified prophylactic vaccination against single bacterial disease documented in this encounter [facility] note* Diagnosis Symptomatic varicose veins of both lower extremities- Primary Varicose veins of lower extremities with other complications Lymphedema of right arm [facility] Diagnosis PMB (postmenopausal bleeding) Postmenopausal bleeding [facility] Diagnosis Lymphedema of right arm- Primary [facility] Diagnosis 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 for referral (narrative)* Outpatient Procedure (Routine) - Pending Review Specialty Diagnoses / Procedures Referred By July escoto Referred To Contact [facility] Diagnoses Atypical glandular cells of undetermined significance (TC) on cervical Pap smear Procedures COLPOSCOPY COLPOSCOPY CERVIX BX CERVIX & ENDOCRV CURRETAGE Palmira Shrestha APRN.CNP [address] [place] [address] [facility] [address] [place] [address] Referral ID Status Reason Start Date Expiration Date Visits Requested Visits Authorized [id number] Pending Review Auto-Generat ed Referral 09/30/2022 09/30/2023 1 1 [facility] for referral (narrative)* Diagnostic Procedure Only (Routine) - Closed Specialty Diagnoses / Procedures Referred By July escoto Referred To Contact [facility] Diagnoses PMB (postmenopausal bleeding) Procedures US FEMALE PELVIS TRANSVAG US TRANSVAGINAL Palmira Shrestha APRN.[employer] [address] [place] [address] [place] [address] Referral ID Status Reason Start Date Expiration Date V isits Requested Visits Authorized [id number] Closed Auto-Generate d Referral 09/16/2022 10/16/2023 1 1 [facility] Advance Directives No Advanced Directives Records FoundDocuments on File Type Date Recorded 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 Advance Directive(s) 05/04/2020 8:23 AM Advance Directive(s) 08/28/2016 1:51 PM Advance Directive(s) 11/21/2015 9:12 AM Advance Directive(s) 11/20/2015 3:47 PM Documents on File Type Date Recorded 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 Advance Directive(s) 05/04/2020 8:23 AM Advance Directive(s) 08/28/2016 1:51 PM Advance Directive(s) 11/21/2015 9:12 AM Advance Directive(s) 11/20/2015 3:47 PM Documents on File Type Date Recorded 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 Advance Directive(s) 11/21/2015 9:12 AM Documents on File Type Date Recorded 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 Advance Directive(s) 11/21/2015 9:12 AM Reason for Referral Specialty Diagnoses / Procedures Referred By Contac t Referred To Contact [facility] Diagnoses Numbness and tingling Weakness of both upper extremities Radiculopathy of cervical region Procedures CONSULT TO PHYSICAL THERAPY PHYSICAL THERAPY EVALUATION HIGH COMPLEX 45 MINS Leila Santos MD [address] [place] [address] [place] [place] [address] Referral ID Status Reason Start Date Expiration Date Visits Requested Visits Authorized [id number] Authorized PCP Requested Referral Auto-Generate d Referral 08/26/2021 08/26/2022 99 99 Specialty Diagnoses / Procedures Referred By Contac t Referred To Contact Diagnoses Complete uterine prolapse Procedures CONSULT TO AIRCRAFT ENGINE SPECIALIST OFFICE/OUTPATIENT [facility] MDM 60-74 MINUTES Leila Santos MD [address] [place] [address] Kristine Rodriguez MD [address] [place], [place] [id number] Referral ID Status Reason Start Date Expiration Date Visits Requested Visits Authorized [id number] Authorized PCP Requested Referral Auto-Generate d Referral 07/15/2022 07/15/2023 1 1 Specialty Diagnoses / Procedures Referred By Contac t Referred To Contact Diagnoses Complete uterovaginal prolapse Procedures CONSULT TO URO GYNECOLOGY OFFICE/OUTPATIENT [facility] 60-74 MINUTES Palmira Shrestha APRN.[employer] [address] [place] [address] Referral ID Status Reason Start Date Expiration Date Visits Requested Visits Authorized [id number] Authorized PCP Requested Referral Auto-Generate d Referral 09/16/2022 09/16/2023 1 1 Specialty Diagnoses / Procedures Referred By Contac t Referred To Contact [facility] Diagnoses PMB (postmenopausal bleeding) Procedures US FEMALE PELVIS TRANSVAG US TRANSVAGINAL Palmira Shrestha APRN.[employer] [address] [place] [address] [facility] Referral ID Status Reason Start Date Expiration Date Visits Requested Visits Authorized [id number] Authorized Auto-Generat ed Referral 09/16/2022 10/16/2023 1 1 Specialty Diagnoses / Procedures Referred By Contac t Referred To Contact [facility] Diagnoses PMB (postmenopausal bleeding) Procedures PELVIC US WHI US PELVIC NONOBSTETRIC REAL-TIME IMAGE COMPLETE Palmira Shrestha APRN.[employer] [address] [place] [address] [id number] [place] [address] Referral ID Status Reason Start Date Expiration Date Visits Requested Visits Authorized [id number] Pending Review Auto-Generat ed Referral 09/16/2022 09/16/2023 1 1 Specialty Diagnoses / Procedures Referred By Contac t Referred To Contact [facility] Diagnoses PMB (postmenopausal bleeding) Procedures ENDOMETRIAL BIOPSY ENDOMETRIAL BX W/WO ENDOCERVIX BX W/O DILAT SPX Palmira Shrestha APRN.[employer] [address] [place] [address] [facility] [address] [place] [id number] Referral ID Status Reason Start Date Expiration Date Visits Requested Visits Authorized [id number] Pending Review Auto-Generat ed Referral 09/16/2022 09/16/2023 1 1 Specialty Diagnoses / Procedures Referred By Contac t Referred To Contact [facility] Diagnoses Pelvic muscle wasting Procedures CONSULT TO PHYSICAL THERAPY PHYSICAL THERAPY EVALUATION HIGH COMPLEX 45 MINS Kristine Rodriguez MD [address] [id number] [facility] [address] [address] Referral ID Status Reason Start Date Expiration Date Visits Requested Visits Authorized [id number] Authorized PCP Requested Referral Auto-Generate d Referral 02/13/2023 02/13/2024 99 99 Specialty Diagnoses / Procedures Referred By Contac t Referred To Contact [facility] Diagnoses Lymphedema of right arm Procedures CONSULT TO LYMPHEDEMA THERAPY OFFICE/OUTPATIENT [facility] 60-74 MINUTES Aurora Bolanos, DO [address] [place] [address] [address] Referral ID Status Reason Start Date Expiration Date Visits Requested Visits Authorized [id number] Authorized Auto-Generat ed Referral 03/10/2023 03/09/2024 99 99 Specialty Diagnoses / Procedures Referred By Contac t Referred To Contact [facility] Diagnoses Symptomatic varicose veins of both lower extremities Procedures US VENOUS INCOMPETENCY KHURRAM VAS LAB DUP-SCAN XTR VEINS COMPLETE BILATERAL STUDY Aurora Bolanos, DO [address] [place] [address] [address] Referral ID Status Reason Start Date Expiration Date Visits Requested Visits Authorized [id number] Authorized Auto-Generat ed Referral 03/10/2023 03/09/2024 1 1 Medications Administered Section Active Administered Medications - up to 3 most recent administrations Medication Order MAR Action Action Date Dose Rate Site PHENYLephrine 2.5 % 1 Drop (AK-DILATE, KRYSTIN-SYNEPHRINE) 1 Drop, BOTH EYES, DIRECTED, Starting on Thu05/20/22 at 1100, Until Thu05/20/22 at 2259, Administer for dilation PROTECT FROM LIGHT Given 05/20/2022 11:00 AM EST 1 Drop proparacaine 0.5 % 1 Drop (ALCAINE) 1 Drop, BOTH EYES, DIRECTED, Starting on Thu05/20/22 at 1100, Until Thu05/20/22 at 2259, Administer for pneumo tonometry, tonopen tonometry, or pachymetry. In the event of a proparacaine shortage, administer tetracaine 0.5% ophthalmic drops 1 drop in the left eye as directed for pneumo tonometry, tonopen tonometry, or pachymetry Given 05/20/2022 11:00 AM EST 1 Drop tropicamide 1 % 1 Drop (MYDRIACYL) 1 Drop, BOTH EYES, DIRECTED, Starting on Thu05/20/22 at 1100, Until Thu05/20/22 at 2259, Administer for dilation Given 05/20/2022 11:00 AM EST 1 Drop Inactive Administered Medications - up to 3 most recent administrations Medication Order MAR Action Action Date Dose Rate Site PHENYLephrine 2.5 % 1 Drop (AK-DILATE, KRYSTIN-SYNEPHRINE) 1 Drop, BOTH EYES, DIRECTED, Starting on Thu06/10/23 at 1000, Until Thu06/10/23 at 215, Administer for dilation PROTECT FROM LIGHT Given 06/10/2023 10:15 AM EST 1 Drop proparacaine 0.5 % 1 Drop (ALCAINE) 1 Drop, BOTH EYES, DIRECTED, Starting on Thu06/10/23 at 1000, Until Thu06/10/23 at 215, Administer for pneumo tonometry, tonopen tonometry, or pachymetry. In the event of a proparacaine shortage, administer tetracaine 0.5% ophthalmic drops 1 drop in the left eye as directed for pneumo tonometry, tonopen tonometry, or pachymetry Given 06/10/2023 10:15 AM EST 1 Drop tropicamide 1 % 1 Drop (MYDRIACYL) 1 Drop, BOTH EYES, DIRECTED, Starting on Thu06/10/23 at 1000, Until Thu06/10/23 at 215, Administer for dilation Given 06/10/2023 10:15 AM EST 1 Drop Summary Purpose Family History No Family History Records Found Additional Source Comments Source Comments (unrecognize d section and content) In the event this informatio n is protected by the Federal Confidentiality of Alcohol and Drug Abuse Patient Records regulations: The Federal rules restrict any use of the information to criminally investigate or prosecute any alcohol or drug abuse patient.[facility] the event this information is protected by the Federal Confidentiality of Alcohol and Drug Abuse Patient Records regulations: The Federal rules restrict any use of the information to criminally investigate or prosecute any alcohol or drug abuse patient.[facility] the event this information is protected by the Federal Confidentiality of Alcohol and Drug Abuse Patient Records regulations: The Federal rules restrict any use of the information to criminally investigate or prosecute any alcohol or drug abuse patient.[facility] the event this information is protected by the Federal Confidentiality of Alcohol and Drug Abuse Patient Records regulations: The Federal rules restrict any use of the information to criminally investigate or prosecute any alcohol or drug abuse patient.[facility] the event this information is protected by the Federal Confidentiality of Alcohol and Drug Abuse Patient Records regulations: The Federal rules restrict any use of the information to criminally investigate or prosecute any alcohol or drug abuse patient.[facility] the event this information is protected by the Federal Confidentiality of Alcohol and Drug Abuse Patient Records regulations: The Federal rules restrict any use of the information to criminally investigate or prosecute any alcohol or drug abuse patient.[facility] the event this information is protected by the Federal Confidentiality of Alcohol and Drug Abuse Patient Records regulations: The Federal rules restrict any use of the information to criminally investigate or prosecute any alcohol or drug abuse patient.[facility] the event this information is protected by the Federal Confidentiality of Alcohol and Drug Abuse Patient Records regulations: The Federal rules restrict any use of the information to criminally investigate or prosecute any alcohol or drug abuse patient.[facility] the event this information is protected by the Federal Confidentiality of Alcohol and Drug Abuse Patient Records regulations: The Federal rules restrict any use of the information to criminally investigate or prosecute any alcohol or drug abuse patient.[facility] the event this information is protected by the Federal Confidentiality of Alcohol and Drug Abuse Patient Records regulations: The Federal rules restrict any use of the information to criminally investigate or prosecute any alcohol or drug abuse patient.[facility] the event this information is protected by the Federal Confidentiality of Alcohol and Drug Abuse Patient Records regulations: The Federal rules restrict any use of the information to criminally investigate or prosecute any alcohol or drug abuse patient.[facility] the event this information is protected by the Federal Confidentiality of Alcohol and Drug Abuse Patient Records regulations: The Federal rules restrict any use of the information to criminally investigate or prosecute any alcohol or drug abuse patient.[facility] the event this information is protected by the Federal Confidentiality of Alcohol and Drug Abuse Patient Records regulations: The Federal rules restrict any use of the information to criminally investigate or prosecute any alcohol or drug abuse patient.[facility] the event this information is protected by the Federal Confidentiality of Alcohol and Drug Abuse Patient Records regulations: The Federal rules restrict any use of the information to criminally investigate or prosecute any alcohol or drug abuse patient.[facility] the event this information is protected by the Federal Confidentiality of Alcohol and Drug Abuse Patient Records regulations: The Federal rules restrict any use of the information to criminally investigate or prosecute any alcohol or drug abuse patient.[facility] the event this information is protected by the Federal Confidentiality of Alcohol and Drug Abuse Patient Records regulations: The Federal rules restrict any use of the information to criminally investigate or prosecute any alcohol or drug abuse patient.[facility] the event this information is protected by the Federal Confidentiality of Alcohol and Drug Abuse Patient Records regulations: The Federal rules restrict any use of the information to criminally investigate or prosecute any alcohol or drug abuse patient.[facility] the event this information is protected by the Federal Confidentiality of Alcohol and Drug Abuse Patient Records regulations: The Federal rules restrict any use of the information to criminally investigate or prosecute any alcohol or drug abuse patient.[facility] the event this information is protected by the Federal Confidentiality of Alcohol and Drug Abuse Patient Records regulations: The Federal rules restrict any use of the information to criminally investigate or prosecute any alcohol or drug abuse patient.[facility] the event this information is protected by the Federal Confidentiality of Alcohol and Drug Abuse Patient Records regulations: The Federal rules restrict any use of the information to criminally investigate or prosecute any alcohol or drug abuse patient.[facility] the event this information is protected by the Federal Confidentiality of Alcohol and Drug Abuse Patient Records regulations: The Federal rules restrict any use of the information to criminally investigate or prosecute any alcohol or drug abuse patient.[facility] the event this information is protected by the Federal Confidentiality of Alcohol and Drug Abuse Patient Records regulations: The Federal rules restrict any use of the information to criminally investigate or prosecute any alcohol or drug abuse patient.[facility] the event this information is protected by the Federal Confidentiality of Alcohol and Drug Abuse Patient Records regulations: The Federal rules restrict any use of the information to criminally investigate or prosecute any alcohol or drug abuse patient.[facility] the event this information is protected by the Federal Confidentiality of Alcohol and Drug Abuse Patient Records regulations: The Federal rules restrict any use of the information to criminally investigate or prosecute any alcohol or drug abuse patient.[facility] the event this information is protected by the Federal Confidentiality of Alcohol and Drug Abuse Patient Records regulations: The Federal rules restrict any use of the information to criminally investigate or prosecute any alcohol or drug abuse patient.[facility] the event this information is protected by the Federal Confidentiality of Alcohol and Drug Abuse Patient Records regulations: The Federal rules restrict any use of the information to criminally investigate or prosecute any alcohol or drug abuse patient.[facility] the event this information is protected by the Federal Confidentiality of Alcohol and Drug Abuse Patient Records regulations: The Federal rules restrict any use of the information to criminally investigate or prosecute any alcohol or drug abuse patient.[facility] the event this information is protected by the Federal Confidentiality of Alcohol and Drug Abuse Patient Records regulations: The Federal rules restrict any use of the information to criminally investigate or prosecute any alcohol or drug abuse patient.[facility] the event this information is protected by the Federal Confidentiality of Alcohol and Drug Abuse Patient Records regulations: The Federal rules restrict any use of the information to criminally investigate or prosecute any alcohol or drug abuse patient.[facility] the event this information is protected by the Federal Confidentiality of Alcohol and Drug Abuse Patient Records regulations: The Federal rules restrict any use of the information to criminally investigate or prosecute any alcohol or drug abuse patient.[facility] the event this information is protected by the Federal Confidentiality of Alcohol and Drug Abuse Patient Records regulations: The Federal rules restrict any use of the information to criminally investigate or prosecute any alcohol or drug abuse patient.[facility] the event this information is protected by the Federal Confidentiality of Alcohol and Drug Abuse Patient Records regulations: The Federal rules restrict any use of the information to criminally investigate or prosecute any alcohol or drug abuse patient.[facility] the event this information is protected by the Federal Confidentiality of Alcohol and Drug Abuse Patient Records regulations: The Federal rules restrict any use of the information to criminally investigate or prosecute any alcohol or drug abuse patient.[facility] the event this information is protected by the Federal Confidentiality of Alcohol and Drug Abuse Patient Records regulations: The Federal rules restrict any use of the information to criminally investigate or prosecute any alcohol or drug abuse patient.[facility] the event this information is protected by the Federal Confidentiality of Alcohol and Drug Abuse Patient Records regulations: The Federal rules restrict any use of the information to criminally investigate or prosecute any alcohol or drug abuse patient.[facility] the event this information is protected by the Federal Confidentiality of Alcohol and Drug Abuse Patient Records regulations: The Federal rules restrict any use of the information to criminally investigate or prosecute any alcohol or drug abuse patient.[facility] Reason for Visit (unrecogniz ed section and content) Specialty Diagnoses / Procedures Referred By July t Referred To Contact [facility] Diagnoses Numbness and tingling Weakness of both upper extremities Radiculopathy of cervical region Procedures CONSULT TO PHYSICAL THERAPY PHYSICAL THERAPY EVALUATION HIGH COMPLEX 45 MINS Leila Santos MD [address] [place] [address] [facility] [address] [place] [address] Referral ID Status Reason Start Date Expiration Date Visits Requested Visits Authorized [id number] Authorized PCP Requested Referral Auto-Generate d Referral 08/26/2021 08/26/2022 99 99 Reason Comments Physical Therapy Reason Comments F/U 6 months Reason Comments Prescription Refills Reason Comments Follow Up Reason Onset Date Comments Refill Request 11/21/2021 Reason Comments Urinary Frequency x last night Reason Comments Patient Request Reason Comments UTI f/u, recheck, contin ued symptoms Reason Comments Results Reason Comments Urinary Frequency Reason Comments Follow Up Reason Comments Dry Eye(s) Both Eyes Blurred Vision Both Eyes Reason Comments F/U 3 Month Reason Comments Results Appointment Reason Comments Results Reason Comments Patient Question Reason Comments F/U 3 Month Labs prior Reason Comments New Patient Reason Comments Radiology US Specialty Diagnoses / Procedures Referred By Contsavanna t Referred To Contact [facility] Diagnoses PMB (postmenopausal bleeding) Procedures US FEMALE PELVIS TRANSVAG US TRANSVAGINAL Palmira Shrestha APRN.[employer] [address] [place] [address] [place] [address] Referral ID Status Reason Start Date Expiration Date V isits Requested Visits Authorized [id number] Closed Auto-Generate d Referral 09/16/2022 10/16/2023 1 1 Reason Comments PT Eval Specialty Diagnoses / Procedures Referred By Contac t Referred To Contact [facility] Diagnoses Lymphedema of right arm Procedures CONSULT TO LYMPHEDEMA THERAPY OFFICE/OUTPATIENT NEW HIGH MDM 60-74 MINUTES Aurora Bolanos, DO [address] [place] [address] [facility] [address] [place] [address] Referral ID Status Reason Start Date Expiration Date Visits Requested Visits Authorized [id number] Authorized Auto-Generat ed Referral 03/10/2023 03/09/2024 99 99 Reason Comments Opened In Error Reason Comments New Patient Reason Comments Dry Eye Syndrome Follow Up Care Teams (unrecognized sec tion and content) Meal Cook Relationship Specialty Start Date End Date Leila Santos MD [address] [place] [id number] PCP - General Internal Medicine 11/21/15 Meal Cook Relationship Specialty Start Date End Date Leila Santos MD [address] [place] [id number] PCP - General Internal Medicine 11/21/15 Meal Cook Relationship Specialty Start Date End Date Leila Santos MD [address] [place] [phone] PCP - General Internal Medicine 11/21/15 Meal Cook Relationship Specialty Start Date End Date Leila Santos MD [address] [place] [id number] PCP - General Internal Medicine 11/21/15 Meal Cook Relationship Specialty Start Date End Date Leila Santos MD [address] [place] [id number] PCP - General Internal Medicine 11/21/15 Meal Cook Relationship Specialty Start Date End Date Leila Santos MD [address] [place] [id number] PCP - General Internal Medicine 11/21/15 Meal Cook Relationship Specialty Start Date End Date Leila Santos MD [address] [place] [address] PCP - General Internal Medicine 11/21/15 Meal Cook Relationship Specialty Start Date End Date Leila Santos MD [address] [place] [address], [place] [address] PCP - General Internal Medicine 11/21/15 Meal Cook Relationship Specialty Start Date End Date Leila Santos MD [address] [place] [address], [place] [address] PCP - General Internal Medicine 11/21/15 Meal Cook Relationship Specialty Start Date End Date Leila Santos MD [address] [place] [address], [place] [address] PCP - General Internal Medicine 11/21/15 Meal Cook Relationship Specialty Start Date End Date Leila Santos MD [address] [place] [address], [place] [address] PCP - General Internal Medicine 11/21/15 Meal Cook Relationship Specialty Start Date End Date Leila Santos MD [address] [place] [address], [place] [address] PCP - General Internal Medicine 11/21/15 Meal Cook Relationship Specialty Start Date End Date Leila Santos MD [address] [place] [address], [place] [address] PCP - General Internal Medicine 11/21/15 Meal Cook Relationship Specialty Start Date End Date Leila Santos MD [address] [place] [address], [place] [address] PCP - General Internal Medicine 11/21/15 Meal Cook Relationship Specialty Start Date End Date Leila Santos MD [address] [place] [address], [place] [address] PCP - General Internal Medicine 11/21/15 Meal Cook Relationship Specialty Start Date End Date Leila Santos MD [address] [place] [address] PCP - General Internal Medicine 11/21/15 Meal Cook Relationship Specialty Start Date End Date Leila Santos MD [address] [place] [address] PCP - General Internal Medicine 11/21/15 Meal Cook Relationship Specialty Start Date End Date Leila Santos MD [address] [place] [address] PCP - General Internal Medicine 11/21/15 Meal Cook Relationship Specialty Start Date End Date Leila Santos MD [address] [place] [address] PCP - General Internal Medicine 11/21/15 Meal Cook Relationship Specialty Start Date End Date Leila Santos MD [address] [place] [address] PCP - General Internal Medicine 11/21/15 Meal Cook Relationship Specialty Start Date End Date Leila Santos MD [address] [place] [address] PCP - General Internal Medicine 11/21/15 Meal Cook Relationship Specialty Start Date End Date Leila Santos MD [address] [place] [address] PCP - General Internal Medicine 11/21/15 Meal Cook Relationship Specialty Start Date End Date Leila Santos MD [address] [place] [address] PCP - General Internal Medicine 11/21/15 Meal Cook Relationship Specialty Start Date End Date Leila Santos MD [address] [place] [address] PCP - General Internal Medicine 11/21/15 Meal Cook Relationship Specialty Start Date End Date Leila Santos MD [address] [place] [address] PCP - General Internal Medicine 11/21/15 Meal Cook Relationship Specialty Start Date End Date Leila Santos MD [address] [place] [address] PCP - General Internal Medicine 11/21/15 Meal Cook Relationship Specialty Start Date End Date Leila Santos MD [address] [place] [address] PCP - General Internal Medicine 11/21/15 Meal Cook Relationship Specialty Start Date End Date Leila Santos MD [address] [place] [address] PCP - General Internal Medicine 11/21/15 Meal Cook Relationship Specialty Start Date End Date Leila Santos MD [address] [place] [address] PCP - General Internal Medicine 11/21/15 Meal Cook Relationship Specialty Start Date End Date Leila Santos MD [address] [place] [address] PCP - General Internal Medicine 11/21/15 INFORMATION SOURCE (unrecogn ized section and content) FOR RECORDS PERTAINING TO PATIENTS WHO ARE OR HAVE BEEN ENROLLED IN A CHEMICAL DEPENDENCY/SUBSTANCEABUSE PROGRAM, SOME INFORMATION MAY BE OMITTED. This clinical summary was aggregated from multiple sources. Caution should be exercised in using it in the provision of clinical care. This summary normalizes information from multiple sources, and as a consequence, information in this document may materially change the coding, format and clinical context of patient data. In addition, data may be omitted in some cases. CLINICAL DECISIONS SHOULD BE BASED ON THE PRIMARY CLINICAL RECORDS. [facility] provides no warranty or guarantee of the accuracy or completeness of information in this document.
== END | disposition home or self-care (01) ==
LOC: CT 12:59
PROVIDERS: PCP Internal Medicine; Referring Provider Internal Medicine Pulmonary Disease; Visit Provider Internal Medicine Pulmonary Disease
DX: R06.02 Shortness of breath (principal)
CPT/HCPCS: 71250

== ENCOUNTER 2024-02-13 13:40 | Emergency (ER) | payer MEDICARE, BC, SELFPAY ==
[2024-02-13] VITALS (50 sets, daily range): BP systolic 103–166; BP diastolic 53–91; PULSE 39–85; RESP 11–24; TEMP 36.4–36.7; O2SAT 94–99; BMI 26.1
--- NOTE | 2024-02-13 14:22 | EKG12_ITS ---
Test Reason : ANEESH Blood Pressure : / mmHG Vent. Rate : 047 BPM Atrial Rate : 000 BPM P-R Int : 000 ms QRS Dur : 090 ms QT Int : 450 ms P-R-T Axes : 000 -17 011 degrees QTc Int : 398 ms Junctional rhythm with retrograde conduction Moderate voltage criteria for LVH, may be normal variant ( R in aVL , [place] product ) Abnormal ECG Confirmed by LOS MADISON, NICOLE ([id number]), desk editor ELIZABETH SALGADO ([id number]) on 02/19/2024 6:14:37 AM Referred By: Confirmed By:JEFRY MADISON MD
--- NOTE | 2024-02-13 14:28 | EDS_ITS ---
HPI History of Present Illness Chief Complaint: Dizziness Detail of Chief Complaint: Patient felt lightheaded today at home with a low heart rate in the 30s. Informant: patient and spouse/S.O. Onset/Context/Timing Onset: Today and Hours Context: Gradual Onset Timing: Continuous Current Severity: Mild Maximum Severity: Mild Narrative Narrative: 78-year-old female history of prior breast cancer and congestive heart failure. No prior heart surgeries. No history of needing a pacemaker or having any abnormal heart rhythm. Earlier today she felt lightheaded at home. Said her blood pressure was running okay but her heart rate was in the 30s. She denies any chest pain. She said she was a little short of breath with it. She denies any vomiting or diarrhea. No new medications. Prior similar symptoms: No Recent Illness/Hospitalization: No PFSH [facility] Medical History IBS (irritable bowel syndrome) Essential (primary) hypertension History of radiation therapy Breast cancer Shortness of breath Anemia Asthma Hypothyroidism Osteopenia GERD (gastroesophageal reflux disease) Carotid stenosis Carotid bruit HLD (hyperlipidemia) Home Medications ?Medication ?Instructions ?Recorded ?Last Taken ?Type multivitamin 1 tab PO QAM vitamin 10/19/17 02/12/24 History mometasone 50 mcg/actuation nasal 1 spray PO DAILY PRN Sob &/Or 10/22/17 Unknown History spray Wheezing cholecalciferol (vitamin D3) 25 2,000 unit PO QDAY vitamin 05/03/20 02/13/24 History mcg (1,000 unit) capsule omeprazole 20 mg capsule,delayed 20 mg PO DAILY reflux 05/09/21 02/12/24 History release albuterol sulfate 90 mcg/actuation 2 inh inhalation DAILY PRN 06/11/22 Unknown History aerosol inhaler breathing 17 days #18 grams beclomethasone dipropionate 80 2 inh inhalation DAILY breathing 06/11/22 02/12/24 History mcg/actuation HFA breath activated aerosol (Qvar RediHaler) estradiol 4 mcg vaginal insert 4 mcg vaginal Q21D 12/15/22 02/12/24 History amlodipine 5 mg tablet 5 mg PO BID #180 tabs 05/26/23 02/12/24 Rx aspirin 81 mg tablet,delayed 81 mg PO QHS 05/26/23 02/13/24 History release desvenlafaxine succinate 50 mg 50 mg PO DAILY 05/26/23 02/12/24 History tablet,extended release 24 hr (Pristiq) furosemide 20 mg tablet (Lasix) 20 mg PO Q OTHER DAY #90 tabs 05/26/23 02/13/24 Rx gabapentin 100 mg capsule 100 mg PO BID nerve pain 05/26/23 02/12/24 History losartan 50 mg tablet 50 mg PO BID #180 tabs 05/26/23 02/12/24 Rx atorvastatin 10 mg tablet 10 mg PO QHS 02/13/24 02/12/24 History levothyroxine 50 mcg tablet 25 mcg PO BLANKENSHIP 02/13/24 02/07/24 History levothyroxine 50 mcg tablet 50 mcg PO MOTUWETHFRSA 02/13/24 02/13/24 History (Synthroid) trospium 60 mg capsule,extended 60 mg PO DAILY 02/13/24 02/12/24 History release 24 hr Allergy/AdvReac Type Severity Reaction Status Date / Time celecoxib (From Celebrex) Allergy Rash Verified 02/13/24 13:41 codeine Allergy Rash Verified 02/13/24 13:41 Penicillins Allergy Anaphylaxis Verified 02/13/24 13:41 Family History Mother CVA (cerebral vascular accident) Father Diabetes COPD (chronic obstructive pulmonary disease) Sister Colon cancer Sister Cancer ovarian cancer Brother Diabetes Colon cancer Brother Kidney failure Surgical History History of right and left heart catheterization (12/2017) History of left cataract extraction History of bilateral mastectomy Social History Smoking Status: Never smoker alcohol intake: current substance use type: does not use seatbelt use: always do you feel safe at home: Yes ROS ROS ED ROS Narrative Lightheaded. Low heart rate. Dyspneic. Constitutional Constitutional ED: Denies chills or fever(s) Eyes Eyes: Denies blurry vision ENT ENT ED: Denies ear pain Cardiovascular Cardiovascular: Denies chest pain Respiratory/Chest Respiratory/Chest: Reports dyspnea; Denies cough Gastrointestinal Gastrointestinal: Denies abdominal pain Genitourinary Genitourinary ED: Denies dysuria or hematuria Musculoskeletal Musculoskeletal: Denies arthralgias Integumentary Denies abscess Neurologic Neurologic: Denies headache(s) Psychiatric Psychiatric: Denies anxiety Endocrine Endocrinology: Denies cold intolerance Hematologic/Lymphatic Hematologic/Lymphatic: Reports none Allergic/Immunologic Allergic/Immunologic ED: Denies mouth swelling or tongue swelling EXAM Physical Exam Narrative Exam Narrative: 78-year-old female sitting upright in bed. Heart rates in the 40s to 50s. Vital signs otherwise are stable and afebrile. Pulse ox 99% on room air. Initial blood pressure 137/60. She is tolerating as well. is at bedside. She sitting upright in bed speaking to me. H EENT exam unremarkable. Neck nontender no JVD. Lungs clear to auscultation bilaterally. Heart bradycardic rate in the 50s no murmur. Abdomen soft nontender. Moving all 4 extremities. Nontender no edema. Neurologically she is awake and alert no focal motor deficits. Const Vital Signs: 02/13/24 13:40 02/13/24 13:49 02/13/24 14:33 Temperature 97.5 F L Temperature Source Temporal Pulse Rate 51 L Respiratory Rate 16 Respiratory Effort Normal Non-Labored Respiratory Pattern Normal Blood Pressure 137/60 H Blood Pressure Mean 85 Pulse Ox 99 Oxygen Delivery Method Room Air Room Air Positive well nourished and well developed; Negative for cachectic, contractures or unkempt General Appearance ED: well developed and NAD; Negative for unkempt, cachectic, contractures, cyanotic, diaphoretic or pallor Nutritional Appearance: Negative for cachectic HEENT Reports moist mucous membranes; Denies dry mucous membranes Negative for trauma or tenderness Mouth ED: No dry mucous membranes Mouth: No dry mucous membranes Eyes PERRL and EOMs intact bilaterally General Eye ED: Negative for pale conjunctiva or scleral icterus Neck no lymphadenopathy, supple and no JVD General: Negative for tenderness Lymph Lymphatic: Negative for other Chest Wall inspection of chest normal and palpation of chest normal Chest: Negative for other Resp normal respiratory effort and clear to auscultation bilaterally Effort and Inspection: Negative for retractions Auscultation: Negative for rales, rhonchi, wheezes or diminished lung sounds Cardio regular rhythm, S1 normal heart sound, S2 normal heart sound and no murmurs; Negative for regular rate Rate: bradycardia GI normal to inspection, nondistended, normoactive bowel sounds, non-tender, non- distended and no masses Inspection: Negative for abdominal distention Palpation: soft; Negative for tender, guarding or rebound tenderness present Back/Spine no CVA tenderness General Back: Negative for CVA tenderness Cervical Spine: Negative for cervical spine tenderness Thoracic Spine / Upper Back: Negative for thoracic spinal tenderness or paraspinal muscle tenderness Lumbar Spine / Lower Back: Negative for lumbar spinal tenderness Extremity normal to inspection General Extremety ED: Negative for edema or tenderness General Extremity: Negative for edema Neuro oriented x3 and CN's II-XII intact bilaterally Sensorium / Orientation: alert; Negative for orientation impaired, lethargic or stuporous Motor Exam: strength 5/5 throughout; Negative for general weakness or strength abnormal Psych mental status grossly normal Appearance: Negative for unkempt Attitude: No agitated Mood & Affect: Negative for depressed, anxious or tearful Skin no rashes or lesions noted, no wounds and skin turgor normal General Skin Exam: Negative for jaundice or pallor Lesions: No lesion noted Rashes: No rashes noted Trauma: Negative for abrasion Wounds: Negative for wounds noted MDM MDM MDM Narrative Medical decision making narrative: 78-year-old female with lightheadedness and bradycardia here she is in the low 40s to 60. At home she was in the 30s. She has a history of mild CHF but has never had an [place] or any cardiac surgery. No new medications. Concern is for significant bradycardia. She will undergo a cardiac workup. We will have atropine at the bedside if we need it but she does not require that currently. Repeat exam patient is doing well at 3:20 PM. Her heart rate score between 36 and about 60. It may or may not be the cause of her dizziness. And the hospitalist on page for admission. History & Record Review Discussion w/independent historian: Patient and Family Additional record(s) reviewed:: Prior inpatient record, Prior outpatient record, Prior ED visit and Prior labs Lab Data Attestation: I reviewed the patient's lab results. Lab results narrative: CBC shows white count 8 H&H 10.7 and 31.7 she is her baseline anemia. Platelets 224. Chemistry shows sodium 129 she has had a history of hyponatremia. Gap 7. BUN and creatinine of 20 and 0.8. Glucose 118. Troponin normal at 12. TSH normal at 1.9 Labs are consistent with her baseline. Labs: Laboratory Results - last 24 hr 02/13/24 14:00 WBC 8.4 RBC 3.44 L Hgb 10.7 L Hct 31.7 L MCV 92.2 MCH 31.1 MCHC 33.8 RDW Std Deviation 41.3 RDW Coeff of Nikunj 12.3 Plt Count 224 MPV 8.9 Immature Gran % (Auto) 0.200 Neut % (Auto) 57.8 Lymph % (Auto) 32.3 Allen % (Auto) 7.2 Eos % (Auto) 2.0 Baso % (Auto) 0.5 Absolute Neuts (auto) 4.9 Absolute Lymphs (auto) 2.72 Nucleated RBC % 0 Sodium 129 L Potassium 4.1 Chloride 97 L Carbon Dioxide 25.0 Anion Gap 7 BUN 20 H Creatinine 0.89 Estim Creat Clear Calc 47.50 Est GFR (MDRD) Af Amer 79 Est GFR (MDRD) Non-Af 66 BUN/Creatinine Ratio 22.5 H Glucose 118 H Calcium 9.4 Troponin I High Sens 12 TSH 1.920 Radiography Chest X-Ray - ED: 1 View, Read by ED Physician, Heart, Lungs, Mediastinum, Bony Structures, No Acute Disease and Chronic Changes Diagnostic Testing: Clinical Impression(s) from Imaging Studies Chest X-Ray 02/13/24 14:35 IMPRESSION: No acute thoracic pathology. Electronically Signed: Jaylan Santillan MD at 14:58 EDT Reading Location ID and State: [facility] / [place] Tel , Service support , Chest x-ray, portable, single view interpreted by myself shows normal cardiac silhouette. Chronic changes on the lung cabrera. No effusion. No CHF. All chronic changes. Rhythm Strip Rhythm Strip: Junctional bradycardia Rate: 47 Ectopy: None EKG Initial EKG: Attestation: I personally reviewed and interpreted this EKG as follows: Interpretation: No Acute Injury Pattern and Junctional Comments: Junctional bradycardia rate of 47 no acute signs of [place] or ischemia. No obvious signs of third-degree heart block. Discharge Plan Triage Chief Complaint: Dizziness ED Provider: Roberto Ervin Dx/Rx/DC Orders Clinical Impression: Dizziness, Bradycardia Prescriptions: No Action cholecalciferol (vitamin D3) 25 mcg (1,000 unit) capsule 2,000 unit PO QDAY multivitamin tablet 1 tab PO QAM albuterol sulfate 90 mcg/actuation HFA aerosol inhaler 2 inh INHALATION DAILY PRN (Reason: breathing) 17 Days Qty: 18 Patient Comments: Qvar RediHaler 80 mcg/actuation HFA aerosol breath activated 2 inh INHALATION DAILY estradiol 4 mcg insert 4 mcg vaginal Q21D aspirin 81 mg tablet,delayed release (DR/EC) 81 mg PO QHS desvenlafaxine succinate [Pristiq] 50 mg tablet extended release 24 hr 50 mg PO DAILY amlodipine 5 mg tablet 5 mg PO BID Qty: 180 3RF furosemide [Lasix] 20 mg tablet 20 mg PO Q OTHER DAY Qty: 90 3RF losartan 50 mg tablet 50 mg PO BID Qty: 180 3RF mometasone 50 mcg/actuation spray,non-aerosol 1 spray PO DAILY PRN (Reason: Sob &/Or Wheezing) Patient Comments: omeprazole 20 mg capsule,delayed release(DR/EC) 20 mg PO DAILY gabapentin 100 mg capsule 100 mg PO BID Patient Comments: PT STATES SHE ONLY TAKES MORNING DOSE PRN levothyroxine [Synthroid] 50 mcg tablet 50 mcg PO MOTUWETHFRSA levothyroxine 50 mcg tablet 25 mcg PO BLANKENSHIP trospium 60 mg capsule,extended release 24hr 60 mg PO DAILY atorvastatin 10 mg tablet 10 mg PO QHS Primary Care Provider: Mattie Santos Referrals: Mattie Santos MD [Primary Care Provider] - Print Language: Frisian Disposition Disposition: Acute Care Hospital [facility]
--- NOTE | 2024-02-13 14:35 | RAD_ITS ---
STUDY: X-RAY CHEST REASON FOR EXAM: Female, 78 years old. Chest pain TECHNIQUE: Frontal view of the chest COMPARISON: 05/01/2022 FINDINGS: There are stable fibrotic changes in the right lung. There are no focal infiltrates. There are no pleural effusions. There is no pneumothorax. The heart is normal in size. There are surgical clips noted in the bilateral axillary regions. The visualized osseous structures are within normal limits. RAD/Chest 1 View (Portable) IMPRESSION: No acute thoracic pathology. Electronically Signed: Jaylan Santillan MD at 14:58 EDT ,
[2024-02-13 14:37] LABS: Absolute Lymphocyte Count 2.72 X10^3/uL (0.83-4.51); Absolute Neutrophil Count 4.9 X10^3/uL (2.0-7.7); Basophil# 0.04 X10^3/uL; Basophil% 0.5 % (0-1); Eosinophil# 0.17 X10^3/uL; Hematocrit 31.7 % (37-47); Hemoglobin 10.7 g/dL (12.0-15.0); Lymphocyte # 2.72 X10^3/ul (0.83-4.51); Lymphocyte % 32.3 % (19-41); Mean Corp Hgb Conc 33.8 g/dL (32-36); Mean Corpuscular Hgb 31.1 pg (27.0-32.0); Mean Corpuscular Volume 92.2 fL (81-99); Mean Platelet Vol. 8.9 fl (6.2-12.0); Monocyte# 0.61 X10^3/uL; Monocyte% 7.2 % (0-10); NRBC Flagged by Analyzer 0 % (0-5); Neutrophil # 4.87 X10^3/uL (2.7-7.7); Neutrophil % 57.8 % (47-70); Platelet Count 224 K/mm3 (150-450); RBC Distribution Width CV 12.3 % (11.6-14.6); RBC Distribution Width SD 41.3 fl (35.1-43.9); Red Blood Count 3.44 M/mm3 (4.2-5.4); White Blood Count 8.4 K/mm3 (4.4-11.0)
[2024-02-13 15:02] LABS: Anion Gap 7 (5-15); BUN 20 mg/dL (7-18); BUN/Creat Ratio 22.5 RATIO (10-20); Calcium,Total 9.4 mg/dL (8.5-10.1); Chloride 97 mmol/L (98-107); Creatinine, Serum 0.89 mg/dL (0.55-1.02); EST Glomerular Filtration Rate 66 mL/min (>60); Est Glom Filt Rate - Afr Amer 79 mL/min (>60); Glucose 118 mg/dL (74-106); Potassium 4.1 mmol/L (3.5-5.1); Sodium Level 129 mmol/L (136-145); Troponin-I HS 12 pg/mL (3.0-54.0)
[2024-02-13 16:09] LABS: Bacteria 0 SEEN /hpf (None Seen); Color, Urine Yellow (Yellow); Glucose, Dipstick Normal (Normal); Ketone-Dipstick Negative (Negative); Leukocyte Esterase-Dipstick Negative /ul (Negative); Mucous, Urine 0 SEEN /hpf (<or=2+); Nitrite-Dipstick Negative (Negative); Occult Blood-Urine Negative /ul (Negative); Protein-Dipstick Negative (Negative); Red Blood Cells-Urine 0 SEEN /hpf (0-5); Squamous Epithelial Cells - UA 0 SEEN /hpf (5-10); Urine Bilirubin Dipstick Negative (Negative); Urine Clarity Clear (Clear); Urine Urobilinogen Normal (Normal); White Blood Cells 0 SEEN /hpf (0-5)
--- NOTE | 2024-02-13 21:43 | PCM.HP.STD ---
[facility] - General General Date of Admission: 02/13/24 Date of Service: 02/13/24 Chief Complaint: Lightheadedness with Bradycardia. HPI Narrative CORY TAYLOR, is a 78 F with a past medical history of essential hypertension, hyperlipidemia, hypothyroidism, overweight; with BMI of 26.1 this admission, history of mild CHF; on Losartan and Lasix qod, history of Right breast cancer; s/p radiation and bilateral mastectomy with lymphedema syndrome, history of carotid stenosis; with bruit, history of mitral valve insufficiency, neuropathy; on Gabapentin, history of asthma, history of anemia, IBS, depression; on Desvenlafaxine, listed allergy to PCN (anaphylaxis), history of cataract; s/p extraction, osteopenia and OA who presents to [facility] ER complaining of lightheadedness with symptomatic bradycardia in the ~35 bpm range. Ms. Taylor reports her symptoms began approximately 30 minutes prior to her initial arrival with the gradual-onset of progressively worsening lightheadedness and dizziness with a heart rate in the 30's. She admits to mild SOB but she denies related fever, chills, nausea, vomiting, diaphoresis or chest pain. She states her blood pressure also remained in a normal range. She denies any new medications, recent illness or recent overexertion and she also denies a history of cardiac arrhythmias or being told she may require a PPM. In the ER her EKG revealed Junctional Bradycardia with a heart rate of 47 bpm and no signs of ischemia of complete heart block and she was diagnosed with Severe Symptomatic Bradycardia likely as the underlying cause for her lightheadedness and dizziness with Mild Chronic Hyponatremia of 129 mmol/L present on admission; (with baseline levels ranging from 125-133) mmol/L) patient currently waiting for a bed at [facility] with a delay in transfer to lack of bed availability so the hospitalist service was contacted to admit this patient until such time a bed becomes available and she was then admitted to the PCU for ongoing care for a stay that is expected to extend beyond 2 midnights. [facility] Medical History IBS (irritable bowel syndrome) Essential (primary) hypertension History of radiation therapy Breast cancer Shortness of breath Anemia Asthma Hypothyroidism Osteopenia GERD (gastroesophageal reflux disease) Carotid stenosis Carotid bruit HLD (hyperlipidemia) Home Medications ?Medication ?Instructions ?Recorded ?Last Taken ?Type multivitamin 1 tab PO QAM vitamin 10/19/17 02/12/24 History mometasone 50 mcg/actuation nasal 1 spray PO DAILY PRN Sob &/Or 10/22/17 Unknown History spray Wheezing cholecalciferol (vitamin D3) 25 2,000 unit PO QDAY vitamin 05/03/20 02/13/24 History mcg (1,000 unit) capsule omeprazole 20 mg capsule,delayed 20 mg PO DAILY reflux 05/09/21 02/12/24 History release albuterol sulfate 90 mcg/actuation 2 inh inhalation DAILY PRN 06/11/22 Unknown History aerosol inhaler breathing 17 days #18 grams beclomethasone dipropionate 80 2 inh inhalation DAILY breathing 06/11/22 02/12/24 History mcg/actuation HFA breath activated aerosol (Qvar RediHaler) estradiol 4 mcg vaginal insert 4 mcg vaginal Q21D 12/15/22 02/12/24 History amlodipine 5 mg tablet 5 mg PO BID #180 tabs 05/26/23 02/12/24 Rx aspirin 81 mg tablet,delayed 81 mg PO QHS 05/26/23 02/13/24 History release desvenlafaxine succinate 50 mg 50 mg PO DAILY 05/26/23 02/12/24 History tablet,extended release 24 hr (Pristiq) furosemide 20 mg tablet (Lasix) 20 mg PO Q OTHER DAY #90 tabs 05/26/23 02/13/24 Rx gabapentin 100 mg capsule 100 mg PO BID nerve pain 05/26/23 02/12/24 History losartan 50 mg tablet 50 mg PO BID #180 tabs 05/26/23 02/12/24 Rx atorvastatin 10 mg tablet 10 mg PO QHS 02/13/24 02/12/24 History levothyroxine 50 mcg tablet 25 mcg PO BLANKENSHIP 02/13/24 02/07/24 History levothyroxine 50 mcg tablet 50 mcg PO MOTUWETHFRSA 02/13/24 02/13/24 History (Synthroid) trospium 60 mg capsule,extended 60 mg PO DAILY 02/13/24 02/12/24 History release 24 hr Allergy/AdvReac Type Severity Reaction Status Date / Time celecoxib (From Celebrex) Allergy Rash Verified 02/13/24 13:41 codeine Allergy Rash Verified 02/13/24 13:41 Penicillins Allergy Anaphylaxis Verified 02/13/24 13:41 Family History Mother CVA (cerebral vascular accident) Father Diabetes COPD (chronic obstructive pulmonary disease) Sister Colon cancer Sister Cancer ovarian cancer Brother Diabetes Colon cancer Brother Kidney failure Surgical History History of right and left heart catheterization (12/2017) History of left cataract extraction History of bilateral mastectomy Social History Smoking Status: Never smoker alcohol intake: current substance use type: does not use seatbelt use: always do you feel safe at home: Yes Vital Signs Vital Signs Vital Signs: 02/13/24 13:40 02/13/24 13:49 02/13/24 13:53 Temperature 97.5 F L Temperature Source Temporal Pulse Rate 51 L 58 L Pulse Rate [Lying] Pulse Rate [Sitting (for 1 minute prior to obtaining)] Pulse Rate [Standing (for 1 minute prior to obtaining)] Respiratory Rate 16 15 Respiratory Effort Normal Non-Labored Respiratory Pattern Normal Blood Pressure 137/60 H Blood Pressure [Lying] Blood Pressure [Sitting (for 1 minute prior to obtaining)] Blood Pressure [Standing (for 1 minute prior to obtaining)] Blood Pressure Mean 85 Blood Pressure Mean [Lying] Blood Pressure Mean [Sitting (for 1 minute prior to obtaining)] Blood Pressure Mean [Standing (for 1 minute prior to obtaining)] Pulse Ox 99 98 Oxygen Delivery Method Room Air 02/13/24 14:00 02/13/24 14:15 02/13/24 14:30 Temperature Temperature Source Pulse Rate 49 L 47 L 54 L Pulse Rate [Lying] Pulse Rate [Sitting (for 1 minute prior to obtaining)] Pulse Rate [Standing (for 1 minute prior to obtaining)] Respiratory Rate 20 H 20 H 22 H Respiratory Effort Respiratory Pattern Blood Pressure 112/60 110/54 L 109/57 L Blood Pressure [Lying] Blood Pressure [Sitting (for 1 minute prior to obtaining)] Blood Pressure [Standing (for 1 minute prior to obtaining)] Blood Pressure Mean 73 71 73 Blood Pressure Mean [Lying] Blood Pressure Mean [Sitting (for 1 minute prior to obtaining)] Blood Pressure Mean [Standing (for 1 minute prior to obtaining)] Pulse Ox 98 95 97 Oxygen Delivery Method 02/13/24 14:33 02/13/24 14:45 02/13/24 15:00 Temperature Temperature Source Pulse Rate 43 L 48 L Pulse Rate [Lying] Pulse Rate [Sitting (for 1 minute prior to obtaining)] Pulse Rate [Standing (for 1 minute prior to obtaining)] Respiratory Rate 22 H 21 H Respiratory Effort Respiratory Pattern Blood Pressure 103/55 L 108/53 L Blood Pressure [Lying] Blood Pressure [Sitting (for 1 minute prior to obtaining)] Blood Pressure [Standing (for 1 minute prior to obtaining)] Blood Pressure Mean 72 71 Blood Pressure Mean [Lying] Blood Pressure Mean [Sitting (for 1 minute prior to obtaining)] Blood Pressure Mean [Standing (for 1 minute prior to obtaining)] Pulse Ox 95 Oxygen Delivery Method Room Air 02/13/24 15:15 02/13/24 15:25 02/13/24 15:26 Temperature 97.5 F L Temperature Source Pulse Rate 39 L 42 L 42 L Pulse Rate [Lying] Pulse Rate [Sitting (for 1 minute prior to obtaining)] Pulse Rate [Standing (for 1 minute prior to obtaining)] Respiratory Rate 24 H 20 H 20 H Respiratory Effort Respiratory Pattern Blood Pressure 115/53 L 115/53 L 115/53 L Blood Pressure [Lying] Blood Pressure [Sitting (for 1 minute prior to obtaining)] Blood Pressure [Standing (for 1 minute prior to obtaining)] Blood Pressure Mean 72 73 73 Blood Pressure Mean [Lying] Blood Pressure Mean [Sitting (for 1 minute prior to obtaining)] Blood Pressure Mean [Standing (for 1 minute prior to obtaining)] Pulse Ox 95 94 94 Oxygen Delivery Method Room Air 02/13/24 15:30 02/13/24 15:38 02/13/24 15:40 Temperature Temperature Source Pulse Rate 45 L 53 L Pulse Rate [Lying] 48 L Pulse Rate [Sitting (for 1 minute prior to obtaining)] 75 Pulse Rate [Standing (for 1 minute prior to obtaining)] 73 Respiratory Rate 18 18 Respiratory Effort Respiratory Pattern Blood Pressure 133/56 H 133/61 H Blood Pressure [Lying] 133/61 H Blood Pressure [Sitting (for 1 minute prior to obtaining)] 153/72 H Blood Pressure [Standing (for 1 minute prior to obtaining)] 153/71 H Blood Pressure Mean 77 83 Blood Pressure Mean [Lying] 85 Blood Pressure Mean [Sitting (for 1 minute prior to obtaining)] 99 Blood Pressure Mean [Standing (for 1 minute prior to obtaining)] 98 Pulse Ox 96 99 Oxygen Delivery Method 02/13/24 15:42 02/13/24 15:45 02/13/24 16:03 Temperature Temperature Source Pulse Rate 81 74 Pulse Rate [Lying] Pulse Rate [Sitting (for 1 minute prior to obtaining)] Pulse Rate [Standing (for 1 minute prior to obtaining)] Respiratory Rate 23 H Respiratory Effort Respiratory Pattern Blood Pressure 153/72 H 153/71 H Blood Pressure [Lying] Blood Pressure [Sitting (for 1 minute prior to obtaining)] Blood Pressure [Standing (for 1 minute prior to obtaining)] Blood Pressure Mean 96 96 Blood Pressure Mean [Lying] Blood Pressure Mean [Sitting (for 1 minute prior to obtaining)] Blood Pressure Mean [Standing (for 1 minute prior to obtaining)] Pulse Ox 96 99 Oxygen Delivery Method 02/13/24 16:15 02/13/24 16:30 02/13/24 16:56 Temperature Temperature Source Pulse Rate 69 66 Pulse Rate [Lying] Pulse Rate [Sitting (for 1 minute prior to obtaining)] Pulse Rate [Standing (for 1 minute prior to obtaining)] Respiratory Rate 23 H 18 Respiratory Effort Respiratory Pattern Blood Pressure 140/59 H 147/64 H 139/60 H Blood Pressure [Lying] Blood Pressure [Sitting (for 1 minute prior to obtaining)] Blood Pressure [Standing (for 1 minute prior to obtaining)] Blood Pressure Mean 83 88 85 Blood Pressure Mean [Lying] Blood Pressure Mean [Sitting (for 1 minute prior to obtaining)] Blood Pressure Mean [Standing (for 1 minute prior to obtaining)] Pulse Ox Oxygen Delivery Method 02/13/24 16:57 02/13/24 17:00 02/13/24 17:15 Temperature Temperature Source Pulse Rate 71 65 66 Pulse Rate [Lying] Pulse Rate [Sitting (for 1 minute prior to obtaining)] Pulse Rate [Standing (for 1 minute prior to obtaining)] Respiratory Rate 17 17 21 H Respiratory Effort Respiratory Pattern Blood Pressure 139/60 H 144/59 H 141/61 H Blood Pressure [Lying] Blood Pressure [Sitting (for 1 minute prior to obtaining)] Blood Pressure [Standing (for 1 minute prior to obtaining)] Blood Pressure Mean 86 85 82 Blood Pressure Mean [Lying] Blood Pressure Mean [Sitting (for 1 minute prior to obtaining)] Blood Pressure Mean [Standing (for 1 minute prior to obtaining)] Pulse Ox 98 96 Oxygen Delivery Method Room Air 02/13/24 17:30 02/13/24 17:51 02/13/24 18:00 Temperature Temperature Source Pulse Rate 75 Pulse Rate [Lying] Pulse Rate [Sitting (for 1 minute prior to obtaining)] Pulse Rate [Standing (for 1 minute prior to obtaining)] Respiratory Rate Respiratory Effort Respiratory Pattern Blood Pressure 156/75 H 147/63 H Blood Pressure [Lying] Blood Pressure [Sitting (for 1 minute prior to obtaining)] Blood Pressure [Standing (for 1 minute prior to obtaining)] Blood Pressure Mean 99 88 Blood Pressure Mean [Lying] Blood Pressure Mean [Sitting (for 1 minute prior to obtaining)] Blood Pressure Mean [Standing (for 1 minute prior to obtaining)] Pulse Ox 95 Oxygen Delivery Method 02/13/24 18:07 02/13/24 18:15 02/13/24 18:30 Temperature Temperature Source Pulse Rate 70 71 73 Pulse Rate [Lying] Pulse Rate [Sitting (for 1 minute prior to obtaining)] Pulse Rate [Standing (for 1 minute prior to obtaining)] Respiratory Rate 14 17 15 Respiratory Effort Respiratory Pattern Blood Pressure 147/63 H 143/67 H 149/62 H Blood Pressure [Lying] Blood Pressure [Sitting (for 1 minute prior to obtaining)] Blood Pressure [Standing (for 1 minute prior to obtaining)] Blood Pressure Mean 91 90 87 Blood Pressure Mean [Lying] Blood Pressure Mean [Sitting (for 1 minute prior to obtaining)] Blood Pressure Mean [Standing (for 1 minute prior to obtaining)] Pulse Ox 97 98 97 Oxygen Delivery Method Room Air 02/13/24 18:45 02/13/24 19:00 02/13/24 19:15 Temperature Temperature Source Pulse Rate 72 66 68 Pulse Rate [Lying] Pulse Rate [Sitting (for 1 minute prior to obtaining)] Pulse Rate [Standing (for 1 minute prior to obtaining)] Respiratory Rate 16 13 12 Respiratory Effort Respiratory Pattern Blood Pressure 152/66 H 148/62 H 149/63 H Blood Pressure [Lying] Blood Pressure [Sitting (for 1 minute prior to obtaining)] Blood Pressure [Standing (for 1 minute prior to obtaining)] Blood Pressure Mean 92 88 88 Blood Pressure Mean [Lying] Blood Pressure Mean [Sitting (for 1 minute prior to obtaining)] Blood Pressure Mean [Standing (for 1 minute prior to obtaining)] Pulse Ox 98 99 Oxygen Delivery Method 02/13/24 19:30 02/13/24 19:45 02/13/24 20:15 Temperature Temperature Source Pulse Rate 81 Pulse Rate [Lying] Pulse Rate [Sitting (for 1 minute prior to obtaining)] Pulse Rate [Standing (for 1 minute prior to obtaining)] Respiratory Rate 21 H Respiratory Effort Respiratory Pattern Blood Pressure 136/63 H 166/72 H 117/91 H Blood Pressure [Lying] Blood Pressure [Sitting (for 1 minute prior to obtaining)] Blood Pressure [Standing (for 1 minute prior to obtaining)] Blood Pressure Mean 85 100 101 Blood Pressure Mean [Lying] Blood Pressure Mean [Sitting (for 1 minute prior to obtaining)] Blood Pressure Mean [Standing (for 1 minute prior to obtaining)] Pulse Ox Oxygen Delivery Method 02/13/24 20:16 02/13/24 20:30 02/13/24 20:45 Temperature Temperature Source Pulse Rate 69 69 Pulse Rate [Lying] Pulse Rate [Sitting (for 1 minute prior to obtaining)] Pulse Rate [Standing (for 1 minute prior to obtaining)] Respiratory Rate 12 11 L Respiratory Effort Respiratory Pattern Blood Pressure 145/68 H 147/63 H Blood Pressure [Lying] Blood Pressure [Sitting (for 1 minute prior to obtaining)] Blood Pressure [Standing (for 1 minute prior to obtaining)] Blood Pressure Mean 90 86 Blood Pressure Mean [Lying] Blood Pressure Mean [Sitting (for 1 minute prior to obtaining)] Blood Pressure Mean [Standing (for 1 minute prior to obtaining)] Pulse Ox 99 Oxygen Delivery Method 02/13/24 21:01 02/13/24 21:15 Temperature Temperature Source Pulse Rate 85 75 Pulse Rate [Lying] Pulse Rate [Sitting (for 1 minute prior to obtaining)] Pulse Rate [Standing (for 1 minute prior to obtaining)] Respiratory Rate 20 H 14 Respiratory Effort Respiratory Pattern Blood Pressure Blood Pressure [Lying] Blood Pressure [Sitting (for 1 minute prior to obtaining)] Blood Pressure [Standing (for 1 minute prior to obtaining)] Blood Pressure Mean Blood Pressure Mean [Lying] Blood Pressure Mean [Sitting (for 1 minute prior to obtaining)] Blood Pressure Mean [Standing (for 1 minute prior to obtaining)] Pulse Ox 95 96 Oxygen Delivery Method Weight Weight: 142 lb 11.2 oz Body Mass Index (BMI) 26.1 Results Lab / Micro Data 02/13/24 14:00 02/13/24 14:00 Labs: Laboratory Results - last 24 hr 02/13/24 14:00: WBC 8.4, RBC 3.44 L, Hgb 10.7 L, Hct 31.7 L, MCV 92.2, MCH 31.1, MCHC 33.8, RDW Std Deviation 41.3, RDW Coeff of [place] 12.3, Plt Count 224, MPV 8.9, Immature Gran % (Auto) 0.200, Neut % (Auto) 57.8, Lymph % (Auto) 32.3, [place] % (Auto) 7.2, Eos % (Auto) 2.0, Baso % (Auto) 0.5, Absolute Neuts (auto) 4.9, Absolute Lymphs (auto) 2.72, Nucleated RBC % 0, Sodium 129 L, Potassium 4.1, Chloride 97 L, Carbon Dioxide 25.0, Anion Gap 7, BUN 20 H, Creatinine 0.89, Estim Creat Clear Calc 47.50, Est GFR (MDRD) Af Amer 79, Est GFR (MDRD) Non-Af 66, BUN/Creatinine Ratio 22.5 H, Glucose 118 H, Calcium 9.4, Troponin I High Sens 12, TSH 1.920 02/13/24 16:00: Urine Color Yellow, Urine Clarity Clear, Urine pH 7.0, Ur Specific [place] 1.010, Urine Protein Negative, Urine Glucose (UA) Normal, Urine Ketones Negative, Urine Occult Blood Negative, Urine Nitrite Negative, Urine Bilirubin Negative, Urine Urobilinogen Normal, Ur Leukocyte Esterase Negative, Urine RBC 0 SEEN, Urine WBC 0 SEEN, Ur Squamous Epith Cells 0 SEEN, Urine Bacteria 0 SEEN, Urine Mucus 0 SEEN Rhythm Strip Rhythm Strip: Junctional bradycardia Rate: 47 Ectopy: None Imaging Radiology Impression Chest X-Ray 02/13/24 14:35 IMPRESSION: No acute thoracic pathology. Electronically Signed: Jaylan Santillan MD at 14:58 EDT , Assessment & Plan Assessment/Plan PLAN: Plan 1. Severe Symptomatic Bradycardia likely as the underlying cause for her lightheadedness and dizziness with her EKG this admission revealing Junctional Bradycardia with a heart rate of 47 bpm and no signs of ischemia of complete heart block - Admit to PCU. Continue supportive care and monitor until transfer can be completed. Give IV Atropine prn for recurrent symptomatic bradycardia <35 bpm. Check echocardiogram to evaluate LVEF. 2. Mild Chronic Hyponatremia of 129 mmol/L present on admission; (with baseline levels ranging from 125-133) mmol/L) - Noted. Check BMP daily to ensure continued stability. 3. essential hypertension, hyperlipidemia, hypothyroidism, overweight; with BMI of 26.1 this admission, history of mild CHF; on Losartan and Lasix qod, history of Right breast cancer; s/p radiation and bilateral mastectomy with lymphedema syndrome, history of carotid stenosis; with bruit, history of mitral valve insufficiency, neuropathy; on Gabapentin, history of asthma, history of anemia, IBS, depression; on Desvenlafaxine, listed allergy to PCN (anaphylaxis), history of cataract; s/p extraction, osteopenia and OA who presents to [facility] ER complaining of lightheadedness with symptomatic bradycardia in the ~35 bpm range. Ms. Taylor reports her symptoms began approximately 30 minutes prior to her initial arrival with the gradual-onset of progressively worsening lightheadedness and dizziness with a heart rate in the 30's. She admits to mild SOB but she denies related fever, chills, nausea, vomiting, diaphoresis or chest pain. She states her blood pressure also remained in a normal range. She denies any new medications, recent illness or recent overexertion and she also denies a history of cardiac arrhythmias or being told she may require a PPM. In the ER and she was diagnosed with with patient currently waiting for a bed at [facility] with a delay in transfer to lack of bed availability so the hospitalist service was contacted to admit this patient until such time a bed becomes available and she was then admitted to the PCU for ongoing care for a stay that is expected to extend beyond 2 midnights.
[2024-02-14] VITALS: BP 117/59; PULSE 71; RESP 15; O2SAT 94
[2024-02-14 01:00] VITALS: PULSE 68; RESP 15; O2SAT 95
[2024-02-14 01:15] VITALS: PULSE 67; RESP 11; O2SAT 93
[2024-02-14 03:00] VITALS: BP 116/73; PULSE 76; RESP 21; TEMP 36.6; O2SAT 98
== END 2024-02-14 03:17 | disposition short-term general hospital (02) ==
PROVIDERS: Internal Medicine; Emergency Provider Emergency Medicine; PCP Internal Medicine; Visit Provider Emergency Medicine
DX: R42 Dizziness and giddiness (principal); I11.0 Hypertensive heart disease with heart failure; I50.9 Heart failure, unspecified; E78.5 Hyperlipidemia, unspecified; Z85.3 Personal history of malignant neoplasm of breast; K21.9 Gastro-esophageal reflux disease without esophagitis; Z79.899 Other long term (current) drug therapy; Z79.82 Long term (current) use of aspirin; E03.9 Hypothyroidism, unspecified; J45.909 Unspecified asthma, uncomplicated; Z79.51 Long term (current) use of inhaled steroids; Z98.42 Cataract extraction status, left eye; Z90.13 Acquired absence of bilateral breasts and nipples; R00.1 Bradycardia, unspecified
CPT/HCPCS: 71045; 80048; 81001; 84443; 84484; 85025; 93005; 99285; J7030; A4216

== ENCOUNTER → 2024-05-11 | Outpatient (CLI) | payer MEDICARE, BC, SELFPAY ==
--- NOTE | 2024-05-11 14:07 | PCM.CR.ITP ---
Diagnosis General Information Admitting Diagnosis: PCI with stent Personal Learning Style:: Audio/Visual Barriers to Learning: No Barriers Stage of change r/t lifestyle modifications:: Contemplation Gave educational material for:: Treating Heart Disease, How The Heart Works, What it means to have Heart Disease, How Coronary Artery Disease is Diagnosed, Heart Procedures, What Heart Medications Do, Risk Factors & Modifications, Living an Active Life, Nutrition, Emotions & Heart Disease, Stress Management & Relaxation and Sleep Disorders & Heart Disease Education/Goals Cardiac Rehabilitation Goals Personal Goals: Initial Assessment: Improve management of stress and emotions, Improve energy level, Improve knowledge of cardiac disease, Improve muscle strength and endurance, Improve diet and eating habits (eat healthier) and Control risk factors (learn risk factor modification) Scale for measuring improvement of personal goals Diagnosis & Disease Process Outcomes/Goals: Pt IDs own risk factors & lifestyle modifications by Session 10, Verbalizes symptoms of angina & response by session 3., Pt independently manages and Other Additional Outcomes/Goals: Plan/Interventions: Assist Pt to ID & engage in lifestyle modification to reduce CVD risk, Instruct on individual risk factors, Review symptoms of angina & emergency actions, Review secondary diagnosis & identify educational needs. and Other see comment 30 day Reassessments:: Not Met 30 day Reassessments:: Not Met 30 day Reassessments:: Not Met 30 day Reassessments:: Not Met Final Reassessments:: Not Met Safety Referral to Physical Therapy: No Referral to [facility] Case Management: No Fall Risk Assessed:: Yes Assistive Devices:: None Exercise - Initial Assessment Visit Date of Eval: 05/11/24 (initial eval ) Mets: Pre-: >5 METS for 30 minutes by discharge Physician Prescribed Exercise Modalities: Treadmill, Rower, Schwinn Airdyne AD-7, SciFit Stepper, OnepagerFit Pro-II Ergometer and OnepagerFit Lateral Oil Fire Specialist Frequency: 3x/week for 12 weeks [36 sessions] Intensity: 60-80% of age predicted maximum heart rate reserve Duration: 30 - 45 minutes Current METSs:: 3 Resting Blood Pressure: 118/68 EKG Type: Junctional rhythm with retrograde conduction Outcomes & Goals Goals:: Verbalizes understanding of THR, RPE & goal METS by session 6, Documents in home exercise log/reports 30 min aerobic 5 day/wk by DC, Demonstrates accurate pulse taking by DC and Other additional outcome/goals: see below Intervention & Plan Exercise Program Goals: Instruct on personal THR & RPE, Instruct on MET level & personal MET goal, Show patient to take own pulse /validate performance until accurate, Instruct on home exercise and Other additional plan/int Physical Activity Home Exercise Physical Activity - Home Exercise: Safe Exercise, Warm-up, Self-monitoring, Cool-Down, Home Exercise > 30 min Daily and Sitting Time <3 hours/daily Outcomes & Goals Outcomes/Goals: Demonstrates correct Warm-up/exercise Cool-Down (S3) if = 2.5 METs, Verbalizes symptoms of exercise intolerance by Session 3 (S3), Demonstrate safe equipment use (S3) & follows exercise prescrition (6) and Other: See below Intervention & Plan Plan/Intervention: Instruct warm-up & cool-down if exercising at > 2 METs, Instruct on symptoms of exercise intolerance & actions to take, Instruct & monitor on saf, Assess intial functional capacity & safety risk and Other See below Nutrition - Initial Assessment Program Goals Nutrition Program Goals Patient has diagnosis of Hyperlipidemia (ICD E78)?: Yes Visit Date of Eval: 05/11/24 (initial eval ) Cholesterol/Lipids (Other Core Measures) Determine presence & major risk factors that modify LDL goal: Hypertension or hypertensive medication, Low HDL cholesterol <40 mg/dL*, Family history of premature CHD in Male < 55 years: female <65 yearsFa and Age men > 45 years; women >/= 55 years Outcomes/Goals: Pt IDs own risk factors & lifestyle modifications by Session 10, Verbalizes symptoms of angina & response by session 3., Pt independently manages and Other Additional Outcomes/Goals: Intervention/Plan: Advocate for lipid panel cholesterol medication if applicable, Instruct on personal lipid levels & lipid goals/NCEP guidelines, Instruct on cholesterol and Other additional plan/int Referral to dietitian:: No Diabetes (Other Core Measures) Diabetes Type: Not Applicable Weight Mgt (Other Care) Height: 5 ft 2 in Weight:: 154 lb BMI: 28.1 Diagnosis Overweight/Obesity BMI> 30% ICD-10 E66: No Diagnosis High BMI/Morbid Obesity BMI> 35% ICD-10 Z68: No Outcomes/Goals: Pt sets, maintains & shows weight loss goal & trend during rehab and Other additional outcomes/goals Intervention/Plan: Instruct on ideal BMI & set weight loss goal w/patient, Assist pt to ID & incorporate diet changes for weight loss by S9, Refer to Structured Weight Loss program as appropriate, Encourage goal of using 250-300dcal per session for weight loss and Other additional plan/interventions Healthy Eating Habits Will attend diet classes:: Yes Outcomes/Goals:: Consume diet rich in vegs,fruits,whole grain/high fiber,fish,lean meat, Limit sat/trans fats,cholesterol & added salts & sugars and Other additional outcome/goals: Intervention/Plan:: Assess current eating habits and Other Additional plan/interventions Education Gave educational materials for:: Signs & symptoms of hypoglycemia, Signs & symptoms of hyperglycemia, Relate diabetes to coronary artery disease and Healthy eating Core - Initial Assessment Visit Date of Eval: 05/11/24 (initial eval ) Medication Compliance Preventative Medication(s):: Aspirin, Ticagrelor/P2Y12 inhibitor and Statin/lipid H/O mental health issues: depression, anxiety, or addiction?: No Doesn?t believe in the benefits of treatment?: No Believes medications are unnecessary or harmful?: No Has a concern about medication side effects?: No Expresses concern over the cost of medications?: No Outcomes/Goals: Verbalizes medications,desired effect & common side effects @ DC, Pt self-reports following medication regimen, Keeps card in wallet w/medications listed by DC and Other additional outcome/goals: Interventions/plans: Instruct on medication effects & side effects, Review medication list w/patient every two weeks, Instruct importance of taking meds as ordered & assist problem solving and Other additional Tobacco Use Tobacco Use: Non-smoker Hypertension Hypertension Diagnosis:: Hypertension ICD-10 I10 [place] [employer] Hypertension Guidelines Outcomes/Goals: Able to verbalize/achieve optimal blood pressure <130/80, Incorporates diet changes & exercise for blood pressure control by DC and Other additional outcomes/goals Interventions/plan: Instruct on optimal blood pressure, hypertension & medications, Instruct on effects of sodium, alcohol, stress, exercise &hypertension and Other additional plan/interventions Tobacco Cessation Referral Smoking Cessation Referral:: No Individual Education/Counseling:: No Education Schedule Given:: Yes Psychosocial - Initial Assess VIsit Date of Eval: 05/11/24 (initial eval ) History of previous Mental disease:: No Target Goals Target Goals Psychosocial Test Tool Used:: Ferrans Power QOL Cardiac and PHQ-9 Questionnaire phq-9 Severity Referral to Behavioral Health PS - Interventions: Yes: Attend Stress Management Classes Outcomes/Goals: See list Psychosocial Outcomes/Goals:: ID's personal stressors & 2 strategies to manage stress by discharge and Other Additional outcome/goals: Intervention/Plan: See List Interventions/Plan:: Assess stressors,coping strategies & signs of derpression on admission, Instruct/assist pt to develop coping & personal stress Mgt strategies, Refer to Behavioral Health if appropriate, Refer to Physician if appropriate, Instruct patient to recognize signs & symptoms of depression, Instruct patient to recog and Other additional plan/intervention Patient Health Questionnaire PHQ-9 Screening Initial Assessment: 1. Little interest or pleasure in doing things: Several days 3. Trouble falling or staying asleep, or sleeping too much: Several days 4. Feeling tired or having little energy: Several days 6. Feeling bad about yourself -- or that you are a failure or have let yourself or your family down: Not at all 7. Trouble concentrating on things, such as reading the newspaper or watching television: Not at all 8. Moving or speaking so slowly that other people could have noticed. Or the opposite - being so fidgety or restless that you have been moving around a lot more than usual: Not at all 9. Thoughts that you would be better off , or of hurting yourself in some way: Not at all How difficult have these problems made it for you to do your work, take care of things at home, or get along with other people?: Somewhat difficult Total Score: 3 VENKATA-Q SV Test Statements CAD is a disease of the arteries in the heart: False Examples of risk factors for heart disease: True Angina is chest pain or discomfort: True The benefits of resistance training include: True Eating more meat and dairy products: False Anti-platelet medications such as aspirin are important: True The only effective way to manage stress: False An exercise warm-up slowly increases heart rate: True Prepared, processed foods usually have high sodium: True Depression is common after a heart attack: I Don't Know The statin medications lower cholesterol: True To control blood pressure, lower the amount of sodium: True If someone gets chest discomfort during walking: False Transfats are partially hydrogenated vegetable oils: True Sleep apnea that is not treated increases the risk: True To control cholesterol, one should become a vegetarian: False Someone knows if he/she is exercising at the right level: True Diabetes cannot be prevented with exercise & health eating: False Stress is a large risk for heart attack: True A diet that can help lower blood pressure is rich in: True Total Score Total Correct Responses: 18 Self-Efficacy 6-Item Scale Initial Assessment: We would like to know how confident you are in doing certain activities. Please select your confidence level for: Fatigue Select Number: 7 Physical Discomfort or Pain Select Number: 6 Emotional Distress Select Number: 6 Other Symptoms or Health Problems Select Number: 7 Different Tasks and Activities Select Number: 5 Medication Select Number: 5 Total Score:: 6 Nutrition Survey Nutrition Survey Instructions Scoring Instructions Nutrition Survey Initial: Have you lost >10 lbs over the past 2 months without trying?: No Are you following a special diet at home for diabetes, low fat, or low salt?: No Are you interested in meeting with a dietitian for help understanding your diet?: No Do you eat less than 3 meals a day?: No Do you eat fatty meats ([place], sausage, ribs, etc), fried foods, desserts, large amounts of salad dressings, margarine, butter, or cheese most days?: No Do you have food allergies? [Enter types in comment field]: Yes Do you eat in restaurants more than 3 times a week?: No Do you season food with salt, seasoning salt, or garlic salt?: Yes Do you used canned, boxed, frozen meals, or soups, seasoning packets?: No Total Score:: 2 Exercise - 30-day Assessment Physician Prescribed Exercise Modalities: Treadmill, Rower, Schwinn Airdyne AD-7, SciFit Stepper, SciFit Pro-II Ergometer and SciFit Lateral [place] Exercise - 60-day Assessment Physician Prescribed Exercise Modalities: Treadmill, Rower, Schwinn Airdyne AD-7, SciFit Stepper, SciFit Pro-II Ergometer and SciFit Lateral Oil Fire Specialist Exercise - 90-day Assessment Physician Prescribed Exercise Modalities: Treadmill, Rower, Schwinn Airdyne AD-7, SciFit Stepper, SciFit Pro-II Ergometer and SciFit Lateral Oil Fire Specialist Exercise - Final/Discharge Physician Prescribed Exercise Modalities: Treadmill, Rower, Schwinn Airdyne AD-7, SciFit Stepper, SciFit Pro-II Ergometer and SciFit Lateral [place] Frequency: 3x/week for 12 weeks [36 sessions] Intensity: 60-80% of age predicted maximum heart rate reserve Current METSs:: 3 Nutrition - 30-Day Assessment Weight Mgt (Other Care) Height: 5 ft 2 in Weight:: 154 lb BMI: 28.1 Nutrition - 60-Day Assessment Weight Mgt (Other Care) Height: 5 ft 2 in Weight:: 154 lb BMI: 28.1 Psychosocial - 30-Day Assess Target Goals Target Goals Referral to Behavioral Health PS - Interventions: Yes: Attend Stress Management Classes Psychosocial - 60-Day Assess Target Goals Target Goals Referral to Behavioral Health PS - Interventions: Yes: Attend Stress Management Classes Psychosocial - 90-Day Assess Target Goals Target Goals Referral to Behavioral Health PS - Interventions: Yes: Attend Stress Management Classes Psychosocial - Final Assessmen Target Goals Target Goals Referral to Behavioral Health PS - Interventions: Yes: Attend Stress Management Classes Nutrition - 90-Day Assessment Weight Mgt (Other Care) Height: 5 ft 2 in Weight:: 154 lb BMI: 28.1 Nutrition - Final Assessment Program Goals Patient has diagnosis of Hyperlipidemia (ICD E78)?: Yes Weight Mgt (Other Care) Height: 5 ft 2 in Weight:: 154 lb BMI: 28.1
--- NOTE | 2024-05-11 14:07 | PCM.CR.HP2 ---
CR - History & Physical General Arrival date:: 05/11/24 Arrival time:: 14:07 Date of Referral:: 05/05/24 Date of CR Evaluation:: 05/11/24 Referring Physician: Dr. Gaspar Primary Diagnosis: PCI with stent Medications Ambulatory Orders ?Medication ?Instructions ?Recorded multivitamin 1 tab PO QAM vitamin 10/19/17 beclomethasone dipropionate 80 2 inh inhalation DAILY breathing 06/11/22 mcg/actuation HFA breath activated aerosol (Qvar RediHaler) aspirin 81 mg tablet,delayed 81 mg PO QHS 05/26/23 release desvenlafaxine succinate 50 mg 50 mg PO DAILY 05/26/23 tablet,extended release 24 hr (Pristiq) gabapentin 100 mg capsule 100 mg PO BID nerve pain 05/26/23 losartan 50 mg tablet 50 mg PO BID #180 tabs 05/26/23 levothyroxine 50 mcg tablet 25 mcg PO BLANKENSHIP 02/13/24 levothyroxine 50 mcg tablet 50 mcg PO MOTUWETHFRSA 02/13/24 (Synthroid) albuterol sulfate 90 mcg/actuation 2 inh inhalation Q4H PRN breathing 05/05/24 aerosol inhaler 17 days #18 grams ascorbic acid (vitamin C) 500 mg 500 mg PO QDAY 05/05/24 tablet atorvastatin 10 mg tablet 40 mg PO QHS 05/05/24 cholecalciferol (vitamin D3) 50 4,000 unit PO QDAY 05/05/24 mcg (2,000 unit) tablet ferrous sulfate 325 mg (65 mg 325 mg PO 3XW 05/05/24 iron) tablet fexofenadine 180 mg tablet 180 mg PO Q24H 05/05/24 fluticasone propionate 50 1 spray intranasal QDAY 05/05/24 mcg/actuation nasal spray,suspension (Allergy Relief (fluticasone)) furosemide 20 mg tablet (Lasix) 20 mg PO QDAY 05/05/24 guaifenesin 1,200 mg tablet, 1,200 mg PO BID 05/05/24 extended release 12 hr pantoprazole 40 mg tablet,delayed 40 mg PO QDAY 05/05/24 release ticagrelor 90 mg tablet (Brilinta) 90 mg PO BID 05/05/24 triamcinolone acetonide 0.025 % 1 applic topical BID 05/05/24 topical cream trospium 20 mg tablet 20 mg PO QDAY 05/05/24 vit A 300 mcg-C 200 mg-E 27 1 tab PO QDAY 05/05/24 mg-lutein 2 mg and minerals tablet (Ocuvite with Lutein) Allergies Allergies celecoxib (From Celebrex) Allergy (Verified 02/13/24 13:41) Rash codeine Allergy (Verified 02/13/24 13:41) Rash Penicillins Allergy (Verified 02/13/24 13:41) Anaphylaxis Sleep Disorder Evaluation Hx of Sleep Apnea: No Do you snore loudly (louder than talking or can be heard through closed doors)?: Yes Do you often feel tired/ fatigued/ sleepy during daytime?: Yes Has anyone observed you stop breathing during sleep?: No History of Hypertension (for STOP score): Yes (pt declines for now.) STOP Results: Positive Advanced Directives Advanced Directives Power of Slab Off Mill Tender: Yes Living Will: Yes Advance Directives Information Provided: No Advance Directives on File: No DNR Order?:: No Past Medical History Covid-19 Screening Physicial Symptoms Other Clinical Concerns Exposure Risk Pertinent Comorbidities 65 years or older:: Yes Past Medical Illness Past Medical History (Updated 05/05/24 @ 14:40 by Hansa Brennan) 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 Pacemaker per Dr[facility] Sy at [facility] IBS (irritable bowel syndrome) K58.9 Essential (primary) hypertension I10 History of radiation therapy Z92.3 Breast cancer C50.919 Shortness of breath R06.02 Anemia D64.9 Asthma J45.909 Hypothyroidism E03.9 Osteopenia M85.80 GERD (gastroesophageal reflux disease) K21.9 Carotid stenosis I65.29 Carotid bruit R09.89 HLD (hyperlipidemia) E78.5 Past Surgical History Past Surgical History (Updated 05/05/24 @ 14:40 by Hansa Brennan) Stented coronary artery (04/26/24) Z95.5 Mid and proximal RCA using 2.75 X 26 and 2.75 X 22 [place] stents in the mid and proximal part of the RCA to the size of 3.15 per Chantelle Brooks MD @ [place], [place] History of right and left heart catheterization (12/2017) Z98.890 History of left cataract extraction Z98.42 History of bilateral mastectomy Z90.13 Family History Summary Family History Mother CVA (cerebral vascular accident) Father Diabetes COPD (chronic obstructive pulmonary disease) Sister Colon cancer Sister Cancer ovarian cancer Brother Diabetes Colon cancer Brother Kidney failure Social History Smoking History Smoking Status: Never smoker Alcohol Use Alcohol Usage: No Substance Abuse Hx Substance Use: No Occupation Occupation (List type of work in comments):: Retired Hobbies, Recreation, Social Activities Hobbies: Reading Recreational Activities: I am able to engage in all my recreational activities Social Environment Status Marital Status: Current Living Arrangements Living Environment:: Spouse Children How many children do you have?: 2 Do any of your children live nearby?: Yes Safety Do you feel safe in your surroundings?: Yes Assistance Do you need any assistance at home?: no Review of Systems Review of Systems Hints Review of Present Symptoms: Reports Shortness of Breath with Exertion, Dizziness/Lightheadedness, Fatigue, Appetite - Normal, Appetite - Special Diet and Sleep - Normal; Denies Shortness of Breath at Rest, PVD, Operative Discomfort, Angina, Wound Healing, Heart Arrhythmia/Irregularities or Sexual Changes Pain Is Patient Pain Free?: Yes Risk Factor Assessment Chief Complaint Chief Complaint: PCI with stent Vital Signs Pulse Ox: 100 Blood Pressure: 118/68 Pulse Pulse Rate: 63 Pulse Rhythm: Regular Hypertension How long have you been treated?: 10 years Blood Pressure Sitting - Left Arm: 118/68 Stress Stress: - (health) Obesity Height: 5 ft 2 in Weight:: 154 lb Weight in Pounds: 154.0 lbs Body Mass Index (BMI): 28.1 Nutritional Referral for Obesity: No Physical Inactivity Physical Inactivity: None Risk Stratification Risk Guidelines: Lowest Risk: Risk Factor for Smoking, Moderate Risk: Risk Factor for Diabetes, Risk Factor for Obesity, Risk Factor for Sedentary Lifestyle and Risk Factor for Depression and Highest Risk: Risk Factor for Dyslipidemia and Risk Factor for Hypertension For Smoking Smoking Risk Guidelines For Dyslipidemia Dyslipidemia Risk Guidelines For Diabetes Mellitus Diabetes Risk Guidelines For Obesity/Overweight Obesity/Overweight Risk Guidelines For Hypertension Hypertension Risk Guidelines For Sedentary Lifestyle Sedentary Lifestyle Risk Guidelines For Depression Depression Risk Guidelines Family History Family History Mother CVA (cerebral vascular accident) Father Diabetes COPD (chronic obstructive pulmonary disease) Sister Colon cancer Sister Cancer Brother Diabetes Colon cancer Brother Kidney failure Motivation Motivation to Participate On a scale of 1 to 10, how prepared are you to commit to attending program?: 10 What do you see as barriers to successfully being able to complete the program?: nothing What do you see as the benefits of succesfully completing the program? In other words, what do you hope to get out of participating in the program?: strength, endurance Are there issues you are dealing with that will interfere with completing the program?: no Do you have a spouse or signficant other, family or friends who will help support you to complete the program?: yes
[2024-05-11 14:41] VITALS: BMI 28.1
[2024-05-11 14:46] VITALS: BP 118/68; PULSE 63; O2SAT 100
[2024-05-11 15:22] VITALS: BP 118/68; BMI 28.1
== END | disposition home or self-care (01) ==
PROVIDERS: PCP Internal Medicine; Referring Provider Internal Medicine Cardiovascular Disease; Visit Provider Internal Medicine Cardiovascular Disease
DX: Z95.5 Presence of coronary angioplasty implant and graft (principal); Z95.0 Presence of cardiac pacemaker; I25.10 Atherosclerotic heart disease of native coronary artery without angina pectoris; I10 Essential (primary) hypertension; E78.00 Pure hypercholesterolemia, unspecified

== ENCOUNTER → 2024-05-19 | Outpatient (CLI) | payer MEDICARE, BC, SELFPAY ==
[2024-05-11 15:22] VITALS: BMI 28.1
[2024-05-19 11:29] LABS: Absolute Lymphocyte Count 1.63 X10^3/uL (0.83-4.51); Absolute Neutrophil Count 3.4 X10^3/uL (2.0-7.7); Basophil# 0.04 X10^3/uL; Basophil% 0.7 % (0-1); Eosinophil# 0.24 X10^3/uL; Eosinophils% 4.2 % (0-5); Hematocrit 36.1 % (37-47); Hemoglobin 11.8 g/dL (12.0-15.0); Lymphocyte # 1.63 X10^3/ul (0.83-4.51); Lymphocyte % 28.6 % (19-41); Mean Corp Hgb Conc 32.7 g/dL (32-36); Mean Corpuscular Hgb 29.9 pg (27.0-32.0); Mean Corpuscular Volume 91.4 fL (81-99); Mean Platelet Vol. 9.1 fl (6.2-12.0); Monocyte# 0.41 X10^3/uL; Monocyte% 7.2 % (0-10); NRBC Flagged by Analyzer 0 % (0-5); Neutrophil # 3.35 X10^3/uL (2.7-7.7); Neutrophil % 58.9 % (47-70); Platelet Count 231 K/mm3 (150-450); RBC Distribution Width CV 12.8 % (11.6-14.6); RBC Distribution Width SD 42.5 fl (35.1-43.9); Red Blood Count 3.95 M/mm3 (4.2-5.4); White Blood Count 5.7 K/mm3 (4.4-11.0)
[2024-05-19 11:48] LABS: Anion Gap 9 (5-15); BUN 18 mg/dL (7-18); BUN/Creat Ratio 20.8 RATIO (10-20); Calcium,Total 9.6 mg/dL (8.5-10.1); Chloride 97 mmol/L (98-107); Creatinine, Serum 0.86 mg/dL (0.55-1.02); EST Glomerular Filtration Rate 68 mL/min (>60); Est Glom Filt Rate - Afr Amer 82 mL/min (>60); Glucose 120 mg/dL (74-106); Potassium 3.5 mmol/L (3.5-5.1); Sodium Level 131 mmol/L (136-145)
[2024-05-19 11:49] LABS: BNP,B-Type NATRIURETIC PEPTIDE 611.9 pg/mL (0-100)
== END | disposition home or self-care (01) ==
LOC: LAB 10:46
PROVIDERS: PCP Internal Medicine; Referring Provider Nurse Practitioner Gerontology; Visit Provider Nurse Practitioner Gerontology
DX: R06.02 Shortness of breath (principal); I25.10 Atherosclerotic heart disease of native coronary artery without angina pectoris
CPT/HCPCS: 36415; 80048; 83880; 85025

== ENCOUNTER 2024-05-23 10:15 | Outpatient (RCR) | payer MEDICARE, BC, SELFPAY ==
[2024-05-11 15:22] VITALS: BMI 28.1
== END 2024-05-28 23:59 ==
LOC: CR 10:15
PROVIDERS: PCP Internal Medicine; Referring Provider Internal Medicine Cardiovascular Disease; Visit Provider Internal Medicine Cardiovascular Disease
DX: Z95.5 Presence of coronary angioplasty implant and graft (principal); I25.10 Atherosclerotic heart disease of native coronary artery without angina pectoris; R00.1 Bradycardia, unspecified; Z95.0 Presence of cardiac pacemaker; I10 Essential (primary) hypertension; E78.00 Pure hypercholesterolemia, unspecified
CPT/HCPCS: 93798

== ENCOUNTER → 2024-05-30 | Outpatient (CLI) | payer MEDICARE, BC, SELFPAY ==
[2024-05-11 15:22] VITALS: BMI 28.1
[2024-05-30 10:33] LABS: Anion Gap 6 (5-15); BUN 16 mg/dL (7-18); BUN/Creat Ratio 19.4 RATIO (10-20); Calcium,Total 9.4 mg/dL (8.5-10.1); Chloride 99 mmol/L (98-107); Creatinine, Serum 0.82 mg/dL (0.55-1.02); EST Glomerular Filtration Rate 72 mL/min (>60); Est Glom Filt Rate - Afr Amer 87 mL/min (>60); Glucose 117 mg/dL (74-106); Sodium Level 132 mmol/L (136-145)
== END | disposition home or self-care (01) ==
LOC: LAB 09:26
PROVIDERS: PCP Internal Medicine; Referring Provider Nurse Practitioner Family; Visit Provider Nurse Practitioner Family
DX: I50.9 Heart failure, unspecified (principal); Z51.81 Encounter for therapeutic drug level monitoring; Z79.899 Other long term (current) drug therapy
CPT/HCPCS: 36415; 80048

== ENCOUNTER → 2024-06-06 | Outpatient (CLI) | payer MEDICARE, BC, SELFPAY ==
[2024-05-11 15:22] VITALS: BMI 28.1
[2024-06-06 10:17] LABS: Anion Gap 6 (5-15); BUN 22 mg/dL (7-18); BUN/Creat Ratio 22.1 RATIO (10-20); Chloride 98 mmol/L (98-107); Creatinine, Serum 0.99 mg/dL (0.55-1.02); EST Glomerular Filtration Rate 58 mL/min (>60); Est Glom Filt Rate - Afr Amer 70 mL/min (>60); Glucose 120 mg/dL (74-106); Potassium 4.5 mmol/L (3.5-5.1); Sodium Level 131 mmol/L (136-145)
== END | disposition home or self-care (01) ==
LOC: LAB 09:29
PROVIDERS: PCP Internal Medicine; Referring Provider Nurse Practitioner Family; Visit Provider Nurse Practitioner Family
DX: Z51.81 Encounter for therapeutic drug level monitoring (principal); I50.9 Heart failure, unspecified; Z79.899 Other long term (current) drug therapy
CPT/HCPCS: 36415; 80048

== ENCOUNTER 2024-06-27 10:15 | Outpatient (RCR) | payer MEDICARE, BC, SELFPAY ==
[2024-05-11 15:22] VITALS: BMI 28.1
--- NOTE | 2024-06-09 07:30 | CR.ITP_ITS ---
Exercise - Initial Assessment Visit Session #:: 9 Physician Prescribed Exercise Modalities: Treadmill, Schwinn Airdyne AD-7 and SciFit Stepper Nutrition - Initial Assessment Weight Mgt (Other Care) Height: 5 ft 2 in Weight:: 141 lb BMI: 25.7 Psychosocial - Initial Assess Target Goals Target Goals Referral to Behavioral Health PS - Interventions: Yes: Attend Stress Management Classes Patient Health Questionnaire PHQ-9 Screening 30-Day Re-eval Assessment: 1. Little interest or pleasure in doing things: Several days 2. Feeling down, depressed, or hopeless: Several days 3. Trouble falling or staying asleep, or sleeping too much: Several days 4. Feeling tired or having little energy: Not at all 5. Poor appetite or overeating: Not at all 6. Feeling bad about yourself -- or that you are a failure or have let yourself or your family down: Not at all 7. Trouble concentrating on things, such as reading the newspaper or watching television: Not at all 8. Moving or speaking so slowly that other people could have noticed. Or the opposite - being so fidgety or restless that you have been moving around a lot more than usual: Not at all 9. Thoughts that you would be better off , or of hurting yourself in some way: Not at all How difficult have these problems made it for you to do your work, take care of things at home, or get along with other people?: Somewhat difficult Total Score: 3 Self-Efficacy 6-Item Scale 30-Day Re-eval Assessment: We would like to know how confident you are in doing certain activities. Please select your confidence level for: Fatigue Select Number: 7 Physical Discomfort or Pain Select Number: 6 Emotional Distress Select Number: 6 Other Symptoms or Health Problems Select Number: 7 Different Tasks and Activities Select Number: 5 Medication Select Number: 5 Total Score:: 6 Nutrition Survey Nutrition Survey Instructions Scoring Instructions Exercise - 30-day Assessment Visit Date of Eval: 06/09/24 Session #:: 9 Physician Prescribed Exercise Modalities: Treadmill, Schwinn Airdyne AD-7 and SciFit Stepper Frequency: 3x/week for 12 weeks [36 sessions] Intensity: 60-80% of age predicted maximum heart rate reserve Duration: 30 - 45 minutes Current METSs:: 3.9 Target Heart Rate:: 86-108 Current RPE:: 12-13 Maximum Excercise HR:: 111 Resting Blood Pressure: 140/66 Maximum Exercise Blood Pressure: 146/78 EKG Type: SR with 1st degree block, occas paced rhythm, rare PVC. Outcomes & Goals Goals:: Verbalizes understanding of THR, RPE & goal METS by session 6, Documents in home exercise log/reports 30 min aerobic 5 day/wk by DC, Demonstrates accurate pulse taking by DC and Other additional outcome/goals: see below Intervention & Plan Exercise Program Goals: Instruct on personal THR & RPE, Instruct on MET level & personal MET goal, Show patient to take own pulse /validate performance until accurate, Instruct on home exercise and Other additional plan/int 30-day Reassessments 30 day Reassessments:: Progressing Reassessment Notes & Comments:: RPE explained to pt. Pt demonstrates unders tanding Physical Activity Home Exercise Physical Activity - Home Exercise: Safe Exercise, Warm-up, Self-monitoring, Cool-Down, Home Exercise > 30 min Daily and Sitting Time <3 hours/daily Outcomes & Goals Outcomes/Goals: Demonstrates correct Warm-up/exercise Cool-Down (S3) if = 2.5 METs, Verbalizes symptoms of exercise intolerance by Session 3 (S3), Demonstrate safe equipment use (S3) & follows exercise prescrition (6) and Other: See below Intervention & Plan Plan/Intervention: Instruct warm-up & cool-down if exercising at > 2 METs, Instruct on symptoms of exercise intolerance & actions to take, Instruct & monitor on saf, Assess intial functional capacity & safety risk and Other See below 30-day Reassessments 30 day Reassessments:: Progressing Exercise - 60-day Assessment Physician Prescribed Exercise Modalities: Treadmill, Schwinn Airdyne AD-7 and SciFit Stepper Exercise - 90-day Assessment Physician Prescribed Exercise Modalities: Treadmill, Schwinn Airdyne AD-7 and SciFit Stepper Exercise - Final/Discharge Physician Prescribed Exercise Modalities: Treadmill, Schwinn Airdyne AD-7 and SciFit Stepper Nutrition - 30-Day Assessment Program Goals Nutrition Program Goals Patient has diagnosis of Hyperlipidemia (ICD E78)?: Yes Visit Date of Eval: 06/09/24 Session #:: 9 Cholesterol/Lipids (Other Core Measures) Determine presence & major risk factors that modify LDL goal: Hypertension or hypertensive medication, Low HDL cholesterol <40 mg/dL*, Family history of premature CHD in Male < 55 years: female <65 yearsFa and Age men > 45 years; women >/= 55 years Outcomes/Goals: Pt IDs own risk factors & lifestyle modifications by Session 10, Verbalizes symptoms of angina & response by session 3., Pt independently manages and Other Additional Outcomes/Goals: Intervention/Plan: Advocate for lipid panel cholesterol medication if applicable, Instruct on personal lipid levels & lipid goals/NCEP guidelines, Instruct on cholesterol and Other additional plan/int Diabetes (Other Core Measures) Diabetes Type: Not Applicable Weight Mgt (Other Care) Height: 5 ft 2 in Weight:: 141 lb BMI: 25.7 Diagnosis Overweight/Obesity BMI> 30% ICD-10 E66: No Diagnosis High BMI/Morbid Obesity BMI> 35% ICD-10 Z68: No Outcomes/Goals: Pt sets, maintains & shows weight loss goal & trend during rehab and Other additional outcomes/goals Intervention/Plan: Instruct on ideal BMI & set weight loss goal w/patient, Assist pt to ID & incorporate diet changes for weight loss by S9, Refer to Structured Weight Loss program as appropriate, Encourage goal of using 250- 300dcal per session for weight loss and Other additional plan/interventions 30 day Reassessments:: Progressing Reassessment Notes & Comments:: Pt is scheduled to attend nutrition class. Pt is at a healthy weight. Pt will be encouraged to keep a food log. Healthy Eating Habits Will attend diet classes:: Yes Outcomes/Goals:: Consume diet rich in vegs,fruits,whole grain/high fiber,fish ,lean meat, Limit sat/trans fats,cholesterol & added salts & sugars and Other additional outcome/goals: Intervention/Plan:: Assess current eating habits and Other Additional pl an/interventions 30-day Reassessments:: Progressing Reassessment Notes & Comments:: Pt is scheduled to attend nutrition class Education Gave educational materials for:: Signs & symptoms of hypoglycemia, Signs & symptoms of hyperglycemia, Relate diabetes to coronary artery disease and Healthy eating Nutrition - 60-Day Assessment Weight Mgt (Other Care) Height: 5 ft 2 in Weight:: 141 lb BMI: 25.7 Core - 30-Day Assessment Visit Date of Eval: 06/09/24 Session #:: 9 Medication Compliance Preventative Medication(s):: Aspirin, Clopidogrel/P2Y12 inhibit, Ticagrelor/P2Y12 inhibitor and Statin/lipid H/O mental health issues: depression, anxiety, or addiction?: No Doesn?t believe in the benefits of treatment?: No Believes medications are unnecessary or harmful?: No Has a concern about medication side effects?: No Expresses concern over the cost of medications?: No Outcomes/Goals: Verbalizes medications,desired effect & common side effects @ DC, Pt self-reports following medication regimen, Keeps card in wallet w/medications listed by DC and Other additional outcome/goals: Interventions/plans: Instruct on medication effects & side effects, Review medication list w/patient every two weeks, Instruct importance of taking meds as ordered & assist problem solving and Other additional 30-day Reassessments:: Met Reassessment Notes & Comments:: Pt is currently taking meds as prescribed Tobacco Use Tobacco Use: Non-smoker Hypertension Hypertension Diagnosis:: Hypertension ICD-10 I10 Resting Blood Pressure:: 140/66 [place] [employer] Hypertension Guidelines Peak Exercise Blood Pressure:: 146/78 Outcomes/Goals: Able to verbalize/achieve optimal blood pressure <130/80, Incorporates diet changes & exercise for blood pressure control by DC and Other additional outcomes/goals Interventions/plan: Instruct on optimal blood pressure, hypertension & medications, Instruct on effects of sodium, alcohol, stress, exercise &hypertension and Other additional plan/interventions 30 day Reassessments:: Progressing Reassessment Notes & Comments:: Pt's bp's are slightly elevated. Will encourage a low sodium diet. Will send report to pt's physician if bp's do not improve. Tobacco Cessation Referral Smoking Cessation Referral:: No Individual Education/Counseling:: No Education Schedule Given:: Yes Psychosocial - 30-Day Assess VIsit Date of Eval: 06/09/24 Session #:: 9 History of previous Mental disease:: No Target Goals Target Goals Psychosocial Test Tool Used:: [employer] Power QOL Cardiac and PHQ-9 Questionnaire phq-9 Severity Referral to Behavioral Health PS - Interventions: Yes: Attend Stress Management Classes Outcomes/Goals: See list Psychosocial Outcomes/Goals:: ID's personal stressors & 2 strategies to manage stress by discharge and Other Additional outcome/goals: Intervention/Plan: See List Interventions/Plan:: Assess stressors,coping strategies & signs of derpression on admission, Instruct/assist pt to develop coping & personal stress Mgt strategies, Refer to Behavioral Health if appropriate, Refer to Physician if appropriate, Instruct patient to recognize signs & symptoms of depression, Instruct patient to recog and Other additional plan/intervention 30-day Reassessments: 30 day Reassessments:: Progressing Reassessment Notes & Comments:: Pt denies psychosocial issues at this time. Pt is to attend stress management class. Will continue to monitor. Psychosocial - 60-Day Assess Target Goals Target Goals Referral to Behavioral Health PS - Interventions: Yes: Attend Stress Management Classes Outcomes/Goals: See list Psychosocial Outcomes/Goals:: ID's personal stressors & 2 strategies to manage stress by discharge and Other Additional outcome/goals: Psychosocial - 90-Day Assess Target Goals Target Goals Referral to Behavioral Health PS - Interventions: Yes: Attend Stress Management Classes Psychosocial - Final Assessmen Target Goals Target Goals Referral to Behavioral Health PS - Interventions: Yes: Attend Stress Management Classes Nutrition - 90-Day Assessment Weight Mgt (Other Care) Height: 5 ft 2 in Weight:: 141 lb BMI: 25.7 Nutrition - Final Assessment Weight Mgt (Other Care) Height: 5 ft 2 in Weight:: 141 lb BMI: 25.7
[2024-06-09 07:39] VITALS: BP 140/66
[2024-06-09 08:09] VITALS: BMI 25.7
[2024-06-09 08:23] VITALS: BP 140/66
== END 2024-06-28 23:59 ==
LOC: CR 10:15
PROVIDERS: PCP Internal Medicine; Referring Provider Internal Medicine Cardiovascular Disease; Visit Provider Internal Medicine Cardiovascular Disease
DX: Z95.5 Presence of coronary angioplasty implant and graft (principal); I25.10 Atherosclerotic heart disease of native coronary artery without angina pectoris; R00.1 Bradycardia, unspecified; Z95.0 Presence of cardiac pacemaker; I10 Essential (primary) hypertension; E78.00 Pure hypercholesterolemia, unspecified
CPT/HCPCS: 93798

== ENCOUNTER → 2024-06-27 | Outpatient (CLI) | payer MEDICARE, BC, SELFPAY ==
[2024-06-09 08:09] VITALS: BMI 25.7
[2024-06-27 11:11] LABS: Anion Gap 6 (5-15); BUN 16 mg/dL (7-18); Calcium,Total 9.2 mg/dL (8.5-10.1); Chloride 88 mmol/L (98-107); EST Glomerular Filtration Rate 74 mL/min (>60); Est Glom Filt Rate - Afr Amer 89 mL/min (>60); Glucose 98 mg/dL (74-106); Potassium 4.6 mmol/L (3.5-5.1); Sodium Level 120 mmol/L (136-145)
== END | disposition home or self-care (01) ==
LOC: LAB 09:39
PROVIDERS: PCP Internal Medicine; Referring Provider Nurse Practitioner Family; Visit Provider Nurse Practitioner Family
DX: Z51.81 Encounter for therapeutic drug level monitoring (principal); I50.9 Heart failure, unspecified; Z79.899 Other long term (current) drug therapy
CPT/HCPCS: 36415; 80048

== ENCOUNTER 2024-06-28 15:28 | Emergency (ER) | payer MEDICARE, BC, SELFPAY ==
[2024-06-09 08:09] VITALS: BMI 25.7
[2024-06-28 15:29] VITALS: BP 148/52; PULSE 60; RESP 16; TEMP 36.3; O2SAT 100; BMI 25.5
--- NOTE | 2024-06-28 16:31 | EKG12_ITS ---
Test Reason : ABN LABS Blood Pressure : */* mmHG Vent. Rate : 60 BPM Atrial Rate : 60 BPM P-R Int : * ms QRS Dur : 86 ms QT Int : 422 ms P-R-T Axes : * -24 11 degrees QTcB Int : 422 ms Atrial-paced rhythm Moderate voltage criteria for LVH, may be normal variant ( R in aVL , [place] product ) Septal infarct , age undetermined Abnormal ECG Confirmed by NERISSA CASANOVA MD ([id number]), photo editor COCO GABRIEL ([id number]) on 06/30/2024 6:17:49 AM Referred By: ALESHA/CAMILO Confirmed By: NERISSA CASANOVA MD
[2024-06-28 16:37] LABS: Absolute Lymphocyte Count 1.52 X10^3/uL (0.83-4.51); Absolute Neutrophil Count 4.3 X10^3/uL (2.0-7.7); Basophil# 0.04 X10^3/uL; Basophil% 0.6 % (0-1); Eosinophil# 0.14 X10^3/uL; Eosinophils% 2.1 % (0-5); Hemoglobin 11.6 g/dL (12.0-15.0); Lymphocyte # 1.52 X10^3/ul (0.83-4.51); Lymphocyte % 23.1 % (19-41); Mean Corp Hgb Conc 34.1 g/dL (32-36); Mean Corpuscular Hgb 30.4 pg (27.0-32.0); Monocyte# 0.56 X10^3/uL; Monocyte% 8.5 % (0-10); NRBC Flagged by Analyzer 0 % (0-5); Neutrophil # 4.28 X10^3/uL (2.7-7.7); Neutrophil % 64.9 % (47-70); Platelet Count 282 K/mm3 (150-450); RBC Distribution Width CV 13.1 % (11.6-14.6); RBC Distribution Width SD 42.6 fl (35.1-43.9); Red Blood Count 3.82 M/mm3 (4.2-5.4); White Blood Count 6.6 K/mm3 (4.4-11.0)
--- NOTE | 2024-06-28 16:40 | EX.ED.DYSGE1 ---
HPI History of Present Illness Chief Complaint: Abn Labs Detail of Chief Complaint: Patient was sent to the ER because of a sodium of 120. Informant: patient Onset/Context/Timing Onset: - (Sodium was 131 on June 06. June 27 the sodium is 120.) Context: Gradual Onset Timing: Continuous Quality: Hyponatremia Location: Renal Current Severity: Patient is asymptomatic Maximum Severity: Patient is asymptomatic Worsened by: Patient was treated with furosemide, spironolactone and is also on hydrochl Relieved by: Not applicable Associated Symptoms Associated Symptoms: Patient does endorse nausea for 1 to 2 weeks Narrative Narrative: Patient is a 78-year-old woman. She was noted to have edema with an elevated BNP. She was started on furosemide 40 mg and spironolactone. The furosemide was discontinued and she was started on hydrochlorothiazide 12.5 mg. She is still on spironolactone 25 mg. She denies headache, visual, ocular auditory symptoms. She has trouble with speech or swallowing. She has no neurologic symptoms. Her only complaint is feeling nauseous. 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) Cardiac pacemaker in situ (02/15/24) IBS (irritable bowel syndrome) Essential (primary) hypertension History of radiation therapy Breast cancer Shortness of breath Anemia Asthma Hypothyroidism Osteopenia GERD (gastroesophageal reflux disease) Carotid stenosis Carotid bruit HLD (hyperlipidemia) Home Medications ?Medication ?Instructions ?Recorded ?Last Taken ?Type multivitamin 1 tab PO QAM vitamin 10/19/17 02/12/24 History beclomethasone dipropionate 80 2 inh inhalation DAILY breathing 06/11/22 02/12/24 History mcg/actuation HFA breath activated aerosol (Qvar RediHaler) aspirin 81 mg tablet,delayed 81 mg PO QHS 05/26/23 02/13/24 History release desvenlafaxine succinate 50 mg 50 mg PO DAILY 05/26/23 02/12/24 History tablet,extended release 24 hr (Pristiq) gabapentin 100 mg capsule 100 mg PO BID nerve pain 05/26/23 02/12/24 History levothyroxine 50 mcg tablet 50 mcg PO MOTUWETHFRSA 02/13/24 02/13/24 History (Synthroid) albuterol sulfate 90 mcg/actuation 2 inh inhalation Q4H PRN breathing 05/05/24 Unknown History aerosol inhaler 17 days #18 grams ascorbic acid (vitamin C) 500 mg 500 mg PO QDAY 05/05/24 Unknown History tablet ferrous sulfate 325 mg (65 mg 325 mg PO 3XW 05/05/24 Unknown History iron) tablet guaifenesin 1,200 mg tablet, 1,200 mg PO BID PRN cough 05/05/24 Unknown History extended release 12 hr pantoprazole 40 mg tablet,delayed 40 mg PO QDAY 05/05/24 Unknown History release vit A 300 mcg-C 200 mg-E 27 1 tab PO QDAY 05/05/24 Unknown History mg-lutein 2 mg and minerals tablet (Ocuvite with Lutein) bisoprolol fumarate 5 mg tablet 5 mg PO QDAY #90 tabs 05/12/24 Unknown Rx clopidogrel 75 mg tablet (Plavix) 75 mg PO QDAY #90 tabs 05/12/24 Unknown Rx atorvastatin 40 mg tablet 40 mg PO QHS #90 tabs 05/17/24 Unknown Rx carvedilol 3.125 mg tablet 3.125 mg PO BID 06/28/24 Unknown History cholecalciferol (vitamin D3) 50 50 mcg PO DAILY 06/28/24 Unknown History mcg (2,000 unit) capsule fluticasone furoate 200 1 ea inhalation DAILY 06/28/24 Unknown History mcg-vilanterol 25 mcg/dose inhalation powder (Breo Ellipta) hydrochlorothiazide 12.5 mg tablet 12.5 mg PO DAILY 06/28/24 Unknown History losartan 50 mg tablet 50 mg PO DAILY 06/28/24 Unknown History spironolactone 25 mg tablet 25 mg PO DAILY 06/28/24 Unknown History Allergy/AdvReac Type Severity Reaction Status Date / Time celecoxib (From Celebrex) Allergy Rash Verified 06/28/24 15:29 codeine Allergy Rash Verified 06/28/24 15:29 ricky Allergy Rash Verified 06/28/24 15:29 Penicillins Allergy Anaphylaxis Verified 06/28/24 15:29 Family History Mother CVA (cerebral vascular accident) Father Diabetes COPD (chronic obstructive pulmonary disease) Sister Colon cancer Sister Cancer ovarian cancer Brother Diabetes Colon cancer Brother Kidney failure Surgical History Stented coronary artery (04/26/24) History of right and left heart catheterization (12/2017) History of left cataract extraction History of bilateral mastectomy Social History Smoking Status: Never smoker alcohol intake: current substance use type: does not use seatbelt use: always do you feel safe at home: Yes ROS ROS ED Constitutional Constitutional ED: Denies chills, fever(s), subjective, sweats or weight loss Eyes Eyes: Denies blurry vision or change in vision ENT ENT ED: Denies ear pain, rhinorrhea or sore throat Cardiovascular Cardiovascular: Denies chest pain, orthopnea, palpitations or paroxysmal nocturnal dyspnea Respiratory/Chest Respiratory/Chest: Denies cough, dyspnea, dyspnea on exertion, orthopnea or paroxysmal nocturnal dyspnea Gastrointestinal Gastrointestinal: Reports nausea; Denies abdominal pain, diarrhea, melena or vomiting Musculoskeletal Musculoskeletal: Denies back pain or neck pain Integumentary Denies rash Neurologic Neurologic: Denies headache(s) Psychiatric Psychiatric: Denies anxiety Endocrine Endocrinology: Denies cold intolerance or heat intolerance Hematologic/Lymphatic Hematologic/Lymphatic: Reports systems reviewed and no addt'l complaints, except as documented EXAM Physical Exam Const Vital Signs: 06/28/24 15:29 06/28/24 17:29 06/28/24 18:54 Temperature 97.4 F L Temperature Source Temporal Pulse Rate 60 81 Pulse Rate [Lying] 63 Pulse Rate [Sitting (for 1 minute prior to obtaining)] 63 Pulse Rate [Standing (for 1 minute prior to obtaining)] 66 Respiratory Rate 16 16 Blood Pressure 148/52 H 137/61 H Blood Pressure [Lying] 136/59 H Blood Pressure [Sitting (for 1 minute prior to obtaining)] 143/56 H Blood Pressure [Standing (for 1 minute prior to obtaining)] 125/60 H Blood Pressure Mean 84 86 Blood Pressure Mean [Lying] 84 Blood Pressure Mean [Sitting (for 1 minute prior to obtaining)] 85 Blood Pressure Mean [Standing (for 1 minute prior to obtaining)] 81 Pulse Ox 100 99 Oxygen Delivery Method Room Air Room Air Positive well nourished and well developed General Appearance ED: well developed and NAD; Negative for pallor HEENT Reports moist mucous membranes HEENT Narrative: Head is atraumatic no cephalic. Ears normal. Nares patent. Patient does wear glasses. Eyes PERRL and EOMs intact bilaterally Eyes Narrative: There is no nystagmus. General Eye ED: Negative for pale conjunctiva or scleral icterus Neck no lymphadenopathy, supple and no JVD Chest Wall inspection of chest normal and palpation of chest normal Resp normal respiratory effort and clear to auscultation bilaterally Cardio regular rate, regular rhythm, S1 normal heart sound, S2 normal heart sound and no murmurs GI normal to inspection, nondistended, normoactive bowel sounds, non-tender, non-distended and no masses; Negative for hepatosplenomegaly Palpation: soft Back/Spine no CVA tenderness Neuro oriented x3, CN's II-XII intact bilaterally and no sensory deficits noted Sensorium / Orientation: alert Motor Exam: strength 5/5 throughout Psych mental status grossly normal Skin no rashes or lesions noted, no wounds and skin turgor normal General Skin Exam: elasticity normal; Negative for jaundice or pallor MDM MDM MDM Narrative Medical decision making narrative: Patient sent to ER because of hyponatremia. Patient's level has decreased over several weeks.. Patient is symptomatic. Suspect her hyponatremia is due to the fact that she was placed on furosemide and spironolactone and then had hydrochlorothiazide added per patient. Her edema has improved. This may also be due to endocrine disease. With her having history of hypothyroidism will check a TSH level. Lab Data Attestation: I reviewed the patient's lab results. Lab results narrative: Sodium is 123. Chloride is 88. This is consistent with the fact that she is on multiple water pills. Urinalysis reveals specific gravity of 1.005. Occult blood and leukoesterase. Patient does have pyuria with bacteriuria. Since patient is asymptomatic will obtain urine culture. CBC reveals anemia with normal indices. Labs: Laboratory Results - last 24 hr 06/28/24 06/28/24 16:00 16:35 WBC 6.6 RBC 3.82 L Hgb 11.6 L Hct 34.0 L MCV 89.0 MCH 30.4 MCHC 34.1 RDW Std Deviation 42.6 RDW Coeff of [place] 13.1 Plt Count 282 MPV 9.0 Immature Gran % (Auto) 0.800 Neut % (Auto) 64.9 Lymph % (Auto) 23.1 [place] % (Auto) 8.5 Eos % (Auto) 2.1 Baso % (Auto) 0.6 Absolute Neuts (auto) 4.3 Absolute Lymphs (auto) 1.52 Nucleated RBC % 0 Sodium 123 L Potassium 4.7 Chloride 88 L Carbon Dioxide 28.0 Anion Gap 8 BUN 14 Creatinine 0.81 Estim Creat Clear Calc 51.67 Est GFR (MDRD) Af Amer 89 Est GFR (MDRD) Non-Af 73 BUN/Creatinine Ratio 17.3 Glucose 93 Calcium 9.8 TSH 2.210 Urine Color Yellow Urine Clarity Sl. Cloudy Urine pH 7.0 Ur Specific [place] 1.005 Urine Protein Negative Urine Glucose (UA) Normal Urine Ketones Negative Urine Occult Blood 10 H Urine Nitrite Negative Urine Bilirubin Negative Urine Urobilinogen Normal Ur Leukocyte Esterase 500 H Urine RBC 0-5 SEEN Urine WBC 10-25 SEEN Ur Squamous Epith Cells 5-10 SEEN Urine Bacteria 1+ Urine Mucus 0 SEEN EKG Initial EKG: Attestation: I personally reviewed and interpreted this EKG as follows: Interpretation: Paced (Atrial past rhythm rate of 60. Cures duration 86 ms. QT duration 422 ms. [place] is normal. There is decreased anterior force noted. There is evidence of LVH.) Treatment and Re-Evaluation :: Since patient is asymptomatic with respect to her hyponatremia there is no indication for admission. Will have her decrease her dose of hydrochlorothiazide and spironolactone. She is no longer taking furosemide. Discharge Plan Triage Chief Complaint: Abn Labs ED Provider: Aron Villeda Dx/Rx/DC Orders Clinical Impression: Hyponatremia, Essential (primary) hypertension, HLD (hyperlipidemia), Cardiac pacemaker in situ, History of bilateral mastectomy, Hypochloremia, Asymptomatic bacteriuria, History of chronic CHF Instructions: ED Dehydration (Adult) Prescriptions: No Action multivitamin tablet 1 tab PO QAM albuterol sulfate 90 mcg/actuation HFA aerosol inhaler 2 inh INHALATION Q4H PRN (Reason: breathing) 17 Days Qty: 18 Patient Comments: Qvar RediHaler 80 mcg/actuation HFA aerosol breath activated 2 inh INHALATION DAILY aspirin 81 mg tablet,delayed release (DR/EC) 81 mg PO QHS desvenlafaxine succinate [Pristiq] 50 mg tablet extended release 24 hr 50 mg PO DAILY bisoprolol fumarate 5 mg tablet 5 mg PO QDAY Qty: 90 3RF clopidogrel [Plavix] 75 mg tablet 75 mg PO QDAY Qty: 90 4RF ferrous sulfate 325 mg (65 mg iron) tablet 325 mg PO 3XW Ocuvite with Lutein 300 mcg-200 mg-27 mg-2 mg tablet 1 tab PO QDAY Rx Instructions: administer after a meal ascorbic acid (vitamin C) 500 mg tablet 500 mg PO QDAY guaifenesin 1,200 mg tablet extended release 12hr 1,200 mg PO BID PRN (Reason: cough) pantoprazole 40 mg tablet,delayed release (DR/EC) 40 mg PO QDAY gabapentin 100 mg capsule 100 mg PO BID Patient Comments: PT STATES SHE ONLY TAKES MORNING DOSE PRN carvedilol 3.125 mg tablet 3.125 mg PO BID cholecalciferol (vitamin D3) 50 mcg (2,000 unit) capsule 50 mcg PO DAILY losartan 50 mg tablet 50 mg PO DAILY spironolactone 25 mg tablet 25 mg PO DAILY hydrochlorothiazide 12.5 mg tablet 12.5 mg PO DAILY fluticasone furoate-vilanterol [Breo Ellipta] 200-25 mcg/dose blister with device 1 ea INHALATION DAILY levothyroxine [Synthroid] 50 mcg tablet 50 mcg PO MOTUWETHFRSA atorvastatin 40 mg tablet 40 mg PO QHS Qty: 90 3RF Primary Care Provider: Mattie Santos Referrals: Regan Gaspar MD [Med Staff - Active Staff] - 5-7 Days Mattie Santos MD [Primary Care Provider] - Activity Restrictions/Additional Instructions: Contact Dr. Gomez's office on to have repeat blood work in 5 to 7 days Take half of the hydrochlorothiazide tablet and half of the spironolactone tablet. Do not resume the furosemide/Lasix tablet. Print Language: Ethiopian Disposition Disposition: Home, Self Care
[2024-06-28 17:01] LABS: Anion Gap 8 (5-15); BUN 14 mg/dL (7-18); BUN/Creat Ratio 17.3 RATIO (10-20); Calcium,Total 9.8 mg/dL (8.5-10.1); Chloride 88 mmol/L (98-107); Creatinine, Serum 0.81 mg/dL (0.55-1.02); EST Glomerular Filtration Rate 73 mL/min (>60); Est Glom Filt Rate - Afr Amer 89 mL/min (>60); Estimated Creatinine Clearance 51.67 ml/min; Glucose 93 mg/dL (74-106); Potassium 4.7 mmol/L (3.5-5.1); Sodium Level 123 mmol/L (136-145)
--- NOTE | 2024-06-28 17:24 | ED.RN ---
MULTIPLE ATTEMPTS AT PERIPHERAL IV WITH NO SUCCESS. [place] CORONADO AND TRIAGE NURSE W/ NO SUCCESS. I ATTEMPTED ULTRASOUND IV W/ NO SUCCESS. PROVIDER NOTIFIED. RESPONSE, AT LEAST GET BLOOD WORK, OTHERWISE I WILL DO A FEM. STICK.
[2024-06-28 17:29] VITALS: BP 137/61; PULSE 81; RESP 16; O2SAT 99
--- NOTE | 2024-06-28 17:54 | ED.RN ---
Markell CONTI UNABLE TO OBTAIN ULTRASOUND PERIPHERAL IV. PROVIDER NOTIFIED. LAB CALLED TO OBTAIN BLOOD WORK AT THIS TIME. RESPONSE, OK, LET ME KNOW IF THEY GET IT. SHE IS ASYMPTOMATIC
[2024-06-28] MEDS: Ondansetron ODT 4 MG Tablet PO (18:01)
[2024-06-28 18:45] LABS: Mucous, Urine 0 SEEN /hpf (<or=2+)
[2024-06-28 18:46] LABS: Color, Urine Yellow (Yellow); Glucose, Dipstick Normal (Normal); Ketone-Dipstick Negative (Negative); Leukocyte Esterase-Dipstick 500 /ul (Negative); Nitrite-Dipstick Negative (Negative); Occult Blood-Urine 10 /ul (Negative); Protein-Dipstick Negative (Negative); Specific Gravity, Urine 1.005 (1.002-1.030); Urine Bilirubin Dipstick Negative (Negative); Urine Clarity Sl. Cloudy (Clear); Urine Urobilinogen Normal (Normal)
[2024-06-28 18:54] VITALS: BP 125/60; BP 136/59; BP 143/56; PULSE 63; PULSE 66
[2024-06-28 19:00] VITALS: BP 151/82; PULSE 80; RESP 17; O2SAT 98
[2024-06-28 19:02] LABS: Bacteria 1+ /hpf (None Seen); Red Blood Cells-Urine 0-5 SEEN /hpf (0-5); Squamous Epithelial Cells - UA 5-10 SEEN /hpf (5-10); White Blood Cells 10-25 SEEN /hpf (0-5)
[2024-06-28 19:45] VITALS: BP 130/67; PULSE 80; RESP 18; TEMP 36.6; O2SAT 99
== END 2024-06-28 19:46 | disposition home or self-care (01) ==
PROVIDERS: Emergency Provider Emergency Medicine; PCP Internal Medicine; Visit Provider Emergency Medicine
DX: E87.1 Hypo-osmolality and hyponatremia (principal); I11.0 Hypertensive heart disease with heart failure; I50.9 Heart failure, unspecified; E87.8 Other disorders of electrolyte and fluid balance, not elsewhere classified; R82.71 Bacteriuria; I25.10 Atherosclerotic heart disease of native coronary artery without angina pectoris; E78.5 Hyperlipidemia, unspecified; E03.9 Hypothyroidism, unspecified; Z95.0 Presence of cardiac pacemaker; Z95.5 Presence of coronary angioplasty implant and graft; Z90.13 Acquired absence of bilateral breasts and nipples; Z79.02 Long term (current) use of antithrombotics/antiplatelets; Z79.82 Long term (current) use of aspirin; Z79.890 Hormone replacement therapy; Z79.899 Other long term (current) drug therapy
CPT/HCPCS: 80048; 81001; 84443; 85025; 93005; 99283; A4216

== ENCOUNTER → 2024-07-23 | Outpatient (CLI) | payer MEDICARE, BC, SELFPAY ==
[2024-07-11 08:16] VITALS: BMI 26.0
[2024-07-23 11:43] LABS: Anion Gap 5 (5-15); BUN 17 mg/dL (7-18); BUN/Creat Ratio 22.4 RATIO (10-20); Calcium,Total 9.4 mg/dL (8.5-10.1); Chloride 89 mmol/L (98-107); Creatinine, Serum 0.76 mg/dL (0.55-1.02); EST Glomerular Filtration Rate 79 mL/min (>60); Est Glom Filt Rate - Afr Amer 95 mL/min (>60); Glucose 95 mg/dL (74-106); Potassium 4.8 mmol/L (3.5-5.1); Sodium Level 122 mmol/L (136-145)
== END | disposition home or self-care (01) ==
LOC: LAB 10:30
PROVIDERS: PCP Internal Medicine; Referring Provider Nurse Practitioner Family; Visit Provider Nurse Practitioner Family
DX: Z51.81 Encounter for therapeutic drug level monitoring (principal); Z79.899 Other long term (current) drug therapy; R42 Dizziness and giddiness
CPT/HCPCS: 36415; 80048

== ENCOUNTER 2024-07-29 10:15 | Outpatient (RCR) | payer MEDICARE, BC, SELFPAY ==
[2024-06-29 00:27] VITALS: BP 140/66; BMI 28.1
--- NOTE | 2024-07-11 08:02 | CR.ITP_ITS ---
Exercise - Initial Assessment Physician Prescribed Exercise Modalities: Treadmill, Schwinn Airdyne AD-7 and SciFit Stepper Nutrition - Initial Assessment Weight Mgt (Other Care) Height: 5 ft 2 in Weight:: 142 lb 8 oz BMI: 26.0 Core - Initial Assessment Hypertension Resting Blood Pressure:: 130/70 [place] [employer] Hypertension Guidelines Psychosocial - Initial Assess Target Goals Target Goals Referral to Behavioral Health PS - Interventions: Yes: Attend Stress Management Classes Patient Health Questionnaire PHQ-9 Screening 60-Day Re-eval Assessment: 1. Little interest or pleasure in doing things: Several days 2. Feeling down, depressed, or hopeless: Several days 3. Trouble falling or staying asleep, or sleeping too much: Several days 4. Feeling tired or having little energy: Not at all 5. Poor appetite or overeating: Not at all 6. Feeling bad about yourself -- or that you are a failure or have let yourself or your family down: Not at all 7. Trouble concentrating on things, such as reading the newspaper or watching television: Not at all 8. Moving or speaking so slowly that other people could have noticed. Or the opposite - being so fidgety or restless that you have been moving around a lot more than usual: Not at all 9. Thoughts that you would be better off , or of hurting yourself in some way: Not at all How difficult have these problems made it for you to do your work, take care of things at home, or get along with other people?: Somewhat difficult Total Score: 3 Self-Efficacy 6-Item Scale 60-Day Re-eval Assessment: We would like to know how confident you are in doing certain activities. Please select your confidence level for: Fatigue Select Number: 7 Physical Discomfort or Pain Select Number: 6 Emotional Distress Select Number: 6 Other Symptoms or Health Problems Select Number: 7 Different Tasks and Activities Select Number: 5 Medication Select Number: 5 Total Score:: 6 Nutrition Survey Nutrition Survey Instructions Scoring Instructions Exercise - 30-day Assessment Physician Prescribed Exercise Modalities: Treadmill, Schwinn Airdyne AD-7 and SciFit Stepper Exercise - 60-day Assessment Visit Date of Eval: 07/11/24 Session #:: 19 Physician Prescribed Exercise Modalities: Treadmill, Schwinn Airdyne AD-7 and SciFit Stepper Frequency: 3x/week for 12 weeks [36 sessions] Intensity: 60-80% of age predicted maximum heart rate reserve Duration: 30 - 45 minutes Current METSs:: 3.9 Target Heart Rate:: 86-108 Current RPE:: 13 Maximum Excercise HR:: 107 Resting Blood Pressure: 144/70 Maximum Exercise Blood Pressure: 144/70 EKG Type: NSR to ST with occas PAC's, rare PVC, paced rhythm Outcomes & Goals Goals:: Verbalizes understanding of THR, RPE & goal METS by session 6, Documents in home exercise log/reports 30 min aerobic 5 day/wk by DC, Demonstrates accurate pulse taking by DC and Other additional outcome/goals: see below Intervention & Plan Exercise Program Goals: Instruct on personal THR & RPE, Instruct on MET level & personal MET goal, Show patient to take own pulse /validate performance until accurate, Instruct on home exercise and Other additional plan/int Physical Activity Home Exercise Physical Activity - Home Exercise: Safe Exercise, Warm-up, Self-monitoring, Cool-Down, Home Exercise > 30 min Daily and Sitting Time <3 hours/daily Outcomes & Goals Outcomes/Goals: Demonstrates correct Warm-up/exercise Cool-Down (S3) if = 2.5 METs, Verbalizes symptoms of exercise intolerance by Session 3 (S3), Demonstrate safe equipment use (S3) & follows exercise prescrition (6) and Other: See below Intervention & Plan Plan/Intervention: Instruct warm-up & cool-down if exercising at > 2 METs, Instruct on symptoms of exercise intolerance & actions to take, Instruct & monitor on saf, Assess intial functional capacity & safety risk and Other See below 30-day Reassessments 30 day Reassessments:: Progressing Reassessment Notes & Comments:: Slow warm up explained and demonstrated to pt. Pt is able to return demonstration. Exercise - 90-day Assessment Physician Prescribed Exercise Modalities: Treadmill, Schwinn Airdyne AD-7 and SciFit Stepper Exercise - Final/Discharge Physician Prescribed Exercise Modalities: Treadmill, Schwinn Airdyne AD-7 and SciFit Stepper Nutrition - 30-Day Assessment Weight Mgt (Other Care) Height: 5 ft 2 in Weight:: 142 lb 8 oz BMI: 26.0 Nutrition - 60-Day Assessment Program Goals Nutrition Program Goals Patient has diagnosis of Hyperlipidemia (ICD E78)?: Yes Visit Date of Eval: 07/11/24 Session #:: 19 Cholesterol/Lipids (Other Core Measures) Determine presence & major risk factors that modify LDL goal: Hypertension or hypertensive medication, Low HDL cholesterol <40 mg/dL*, Family history of premature CHD in Male < 55 years: female <65 yearsFa and Age men > 45 years; women >/= 55 years Outcomes/Goals: Pt IDs own risk factors & lifestyle modifications by Session 10, Verbalizes symptoms of angina & response by session 3., Pt independently manages and Other Additional Outcomes/Goals: Intervention/Plan: Advocate for lipid panel cholesterol medication if applicable, Instruct on personal lipid levels & lipid goals/NCEP guidelines, Instruct on cholesterol and Other additional plan/int Diabetes (Other Core Measures) Diabetes Type: Not Applicable Weight Mgt (Other Care) Height: 5 ft 2 in Weight:: 142 lb 8 oz BMI: 26.0 Diagnosis Overweight/Obesity BMI> 30% ICD-10 E66: No Diagnosis High BMI/Morbid Obesity BMI> 35% ICD-10 Z68: No Outcomes/Goals: Pt sets, maintains & shows weight loss goal & trend during rehab and Other additional outcomes/goals Intervention/Plan: Instruct on ideal BMI & set weight loss goal w/patient, Assist pt to ID & incorporate diet changes for weight loss by S9, Refer to Structured Weight Loss program as appropriate, Encourage goal of using 250- 300dcal per session for weight loss and Other additional plan/interventions Healthy Eating Habits Will attend diet classes:: Yes Outcomes/Goals:: Consume diet rich in vegs,fruits,whole grain/high fiber,fish,lean meat, Limit sat/trans fats,cholesterol & added salts & sugars and Other additional outcome/goals: Intervention/Plan:: Assess current eating habits and Other Additional plan/interventions 30-day Reassessments:: Progressing Reassessment Notes & Comments:: Heart healthy diet explained to pt. Importance of a low sodium diet explained to pt. Pt demonstrates understanding. Education Gave educational materials for:: Signs & symptoms of hypoglycemia, Signs & symptoms of hyperglycemia, Relate diabetes to coronary artery disease and Healthy eating Core - Final Assessment Hypertension Resting Blood Pressure:: 130/70 [place] [employer] Hypertension Guidelines Core - 60-Day Assessment Visit Date of Eval: 07/11/24 Session #:: 19 Medication Compliance Preventative Medication(s):: Aspirin, Clopidogrel/P2Y12 inhibit, Ticagrelor/P2Y12 inhibitor and Statin/lipid H/O mental health issues: depression, anxiety, or addiction?: No Doesn?t believe in the benefits of treatment?: No Believes medications are unnecessary or harmful?: No Has a concern about medication side effects?: No Expresses concern over the cost of medications?: No Outcomes/Goals: Verbalizes medications,desired effect & common side effects @ DC, Pt self-reports following medication regimen, Keeps card in wallet w/medications listed by DC and Other additional outcome/goals: Interventions/plans: Instruct on medication effects & side effects, Review medication list w/patient every two weeks, Instruct importance of taking meds as ordered & assist problem solving and Other additional Tobacco Use Tobacco Use: Non-smoker Hypertension Hypertension Diagnosis:: Hypertension ICD-10 I10 Resting Blood Pressure:: 144/70 Resting Blood Pressure:: 130/70 [place] [employer] Hypertension Guidelines Peak Exercise Blood Pressure:: 144/70 Outcomes/Goals: Able to verbalize/achieve optimal blood pressure <130/80, Incorporates diet changes & exercise for blood pressure control by DC and Other additional outcomes/goals 30 day Reassessments:: Progressing Reassessment Notes & Comments:: Importance of a low sodium diet explained to pt. Pt demonstrates understanding Tobacco Cessation Referral Smoking Cessation Referral:: No Individual Education/Counseling:: No Education Schedule Given:: Yes Psychosocial - 30-Day Assess Target Goals Target Goals Referral to Behavioral Health PS - Interventions: Yes: Attend Stress Management Classes Outcomes/Goals: See list Psychosocial Outcomes/Goals:: ID's personal stressors & 2 strategies to manage stress by discharge and Other Additional outcome/goals: Psychosocial - 60-Day Assess VIsit Date of Eval: 07/11/24 Session #:: 19 History of previous Mental disease:: No Target Goals Target Goals Psychosocial Test Tool Used:: Ferrans Power QOL Cardiac and PHQ-9 Questionnaire phq-9 Severity Referral to Behavioral Health PS - Interventions: Yes: Attend Stress Management Classes Outcomes/Goals: See list Psychosocial Outcomes/Goals:: ID's personal stressors & 2 strategies to manage stress by discharge and Other Additional outcome/goals: Intervention/Plan: See List Interventions/Plan:: Assess stressors,coping strategies & signs of derpression on admission, Instruct/assist pt to develop coping & personal stress Mgt strategies, Refer to Behavioral Health if appropriate, Refer to Physician if appropriate, Instruct patient to recognize signs & symptoms of depression, Instruct patient to recog and Other additional plan/intervention 30-day Reassessments: 30 day Reassessments:: Met Reassessment Notes & Comments:: Pt denies any psychosocial issues at this time. Pt to attend stress management class. will continue to monitor. Psychosocial - 90-Day Assess Target Goals Target Goals Referral to Behavioral Health PS - Interventions: Yes: Attend Stress Management Classes Psychosocial - Final Assessmen Target Goals Target Goals Referral to Behavioral Health PS - Interventions: Yes: Attend Stress Management Classes Nutrition - 90-Day Assessment Weight Mgt (Other Care) Height: 5 ft 2 in Weight:: 142 lb 8 oz BMI: 26.0 Nutrition - Final Assessment Weight Mgt (Other Care) Height: 5 ft 2 in Weight:: 142 lb 8 oz BMI: 26.0
[2024-07-11 08:16] VITALS: BP 130/70; BP 144/70; BMI 26.0
--- NOTE | 2024-07-11 11:59 | EKG12_ITS ---
Test Reason : ABNL RHYTHM Blood Pressure : */* mmHG Vent. Rate : 88 BPM Atrial Rate : 88 BPM P-R Int : * ms QRS Dur : 146 ms QT Int : 420 ms P-R-T Axes : * 36 -22 degrees QTcB Int : 508 ms afib with pvc's Left bundle branch block Abnormal ECG Confirmed by JOCELYNE MADISON, REGAN ([id number]), newspaper editor managing COCO GABRIEL ([id number]) on 07/11/2024 2:26:18 PM Referred By: Regan Gaspar Confirmed By: REGAN GSAPAR MD
[2024-07-11 13:02] LABS: BNP,B-Type NATRIURETIC PEPTIDE 1239.9 pg/mL (0-100)
[2024-07-11 13:30] LABS: Anion Gap 9 (5-15); BUN 20 mg/dL (7-18); BUN/Creat Ratio 28.4 RATIO (10-20); Calcium,Total 9.9 mg/dL (8.5-10.1); Chloride 99 mmol/L (98-107); EST Glomerular Filtration Rate 86 mL/min (>60); Est Glom Filt Rate - Afr Amer 104 mL/min (>60); Estimated Creatinine Clearance 52.81 ml/min; Glucose 101 mg/dL (74-106); Potassium 3.9 mmol/L (3.5-5.1); Sodium Level 131 mmol/L (136-145)
== END 2024-07-29 23:59 ==
LOC: CR 10:15
PROVIDERS: PCP Internal Medicine; Referring Provider Internal Medicine Cardiovascular Disease; Visit Provider Internal Medicine Cardiovascular Disease
DX: Z95.5 Presence of coronary angioplasty implant and graft (principal); I25.10 Atherosclerotic heart disease of native coronary artery without angina pectoris; R00.1 Bradycardia, unspecified; Z95.0 Presence of cardiac pacemaker; E78.00 Pure hypercholesterolemia, unspecified; I50.9 Heart failure, unspecified; R06.09 Other forms of dyspnea; I11.0 Hypertensive heart disease with heart failure
CPT/HCPCS: 36415; 80048; 83880; 93005; 93798

== ENCOUNTER → 2024-08-08 | Outpatient (CLI) | payer MEDICARE, BC, SELFPAY ==
[2024-07-25 12:02] VITALS: BMI 26.0
[2024-08-08 10:56] LABS: Anion Gap 9 (5-15); BUN 18 mg/dL (7-18); BUN/Creat Ratio 25.4 RATIO (10-20); Calcium,Total 9.7 mg/dL (8.5-10.1); Chloride 95 mmol/L (98-107); Creatinine, Serum 0.71 mg/dL (0.55-1.02); EST Glomerular Filtration Rate 85 mL/min (>60); Est Glom Filt Rate - Afr Amer 103 mL/min (>60); Glucose 103 mg/dL (74-106); Potassium 4.4 mmol/L (3.5-5.1); Sodium Level 129 mmol/L (136-145)
== END | disposition home or self-care (01) ==
PROVIDERS: PCP Internal Medicine; Referring Provider Internal Medicine Cardiovascular Disease; Visit Provider Internal Medicine Cardiovascular Disease
DX: E87.1 Hypo-osmolality and hyponatremia (principal)
CPT/HCPCS: 36415; 80048

== ENCOUNTER 2024-08-26 10:15 | Outpatient (RCR) | payer MEDICARE, BC, SELFPAY ==
[2024-07-25 12:02] VITALS: BMI 26.0
[2024-07-30 00:51] VITALS: BP 130/70; BP 140/66; BP 144/70
--- NOTE | 2024-08-10 08:08 | CR.ITP_ITS ---
Exercise - Initial Assessment Physician Prescribed Exercise Modalities: Treadmill, Schwinn Airdyne AD-7 and SciFit Stepper Nutrition - Initial Assessment Weight Mgt (Other Care) Height: 5 ft 2 in Weight:: 142 lb 8 oz BMI: 26.0 Psychosocial - Initial Assess Target Goals Target Goals Referral to Behavioral Health PS - Interventions: Yes: Attend Stress Management Classes Patient Health Questionnaire PHQ-9 Screening 90-Day Re-eval Assessment: 1. Little interest or pleasure in doing things: Several days 2. Feeling down, depressed, or hopeless: Several days 3. Trouble falling or staying asleep, or sleeping too much: Several days 4. Feeling tired or having little energy: Not at all 5. Poor appetite or overeating: Not at all 6. Feeling bad about yourself -- or that you are a failure or have let yourself or your family down: Not at all 7. Trouble concentrating on things, such as reading the newspaper or watching television: Not at all 8. Moving or speaking so slowly that other people could have noticed. Or the opposite - being so fidgety or restless that you have been moving around a lot more than usual: Not at all 9. Thoughts that you would be better off , or of hurting yourself in some way: Not at all How difficult have these problems made it for you to do your work, take care of things at home, or get along with other people?: Somewhat difficult Total Score: 3 Self-Efficacy 6-Item Scale 90-Day Re-eval Assessment: We would like to know how confident you are in doing certain activities. Please select your confidence level for: Fatigue Select Number: 7 Physical Discomfort or Pain Select Number: 6 Emotional Distress Select Number: 6 Other Symptoms or Health Problems Select Number: 7 Different Tasks and Activities Select Number: 5 Medication Select Number: 5 Total Score:: 6 Nutrition Survey Nutrition Survey Instructions Scoring Instructions Exercise - 30-day Assessment Physician Prescribed Exercise Modalities: Treadmill, Schwinn Airdyne AD-7 and SciFit Stepper Exercise - 60-day Assessment Physician Prescribed Exercise Modalities: Treadmill, Schwinn Airdyne AD-7 and SciFit Stepper Exercise - 90-day Assessment Visit Date of Eval: 08/10/24 Session #:: 25 Physician Prescribed Exercise Modalities: Treadmill, Schwinn Airdyne AD-7 and SciFit Stepper Frequency: 3x/week for 12 weeks [36 sessions] Intensity: 60-80% of age predicted maximum heart rate reserve Duration: 30 - 45 minutes Current METSs:: 3.9 Target Heart Rate:: 86-115 Current RPE:: 12-13 Maximum Excercise HR:: 103 Resting Blood Pressure: 150/70 Maximum Exercise Blood Pressure: 132/64 EKG Type: NSR 1st degree block, occas PAC's. Occas paced rhythm. Outcomes & Goals Goals:: Verbalizes understanding of THR, RPE & goal METS by session 6, Documents in home exercise log/reports 30 min aerobic 5 day/wk by DC, Demonstrates accurate pulse taking by DC and Other additional outcome/goals: see below Intervention & Plan Exercise Program Goals: Instruct on personal THR & RPE, Instruct on MET level & personal MET goal, Show patient to take own pulse /validate performance until accurate, Instruct on home exercise and Other additional plan/int Physical Activity Home Exercise Physical Activity - Home Exercise: Safe Exercise, Warm-up, Self-monitoring, Cool-Down, Home Exercise > 30 min Daily and Sitting Time <3 hours/daily Outcomes & Goals Outcomes/Goals: Demonstrates correct Warm-up/exercise Cool-Down (S3) if = 2.5 METs, Verbalizes symptoms of exercise intolerance by Session 3 (S3), Demonstrate safe equipment use (S3) & follows exercise prescrition (6) and Other: See below Intervention & Plan Plan/Intervention: Instruct warm-up & cool-down if exercising at > 2 METs, Instruct on symptoms of exercise intolerance & actions to take, Instruct & monitor on saf, Assess intial functional capacity & safety risk and Other See below 30-day Reassessments 30 day Reassessments:: Progressing Reassessment Notes & Comments:: Pt has returned to cardiac rehab and is able to increase her exercise intensity and duration. Will continue to encourage pt. Exercise - Final/Discharge Physician Prescribed Exercise Modalities: Treadmill, Schwinn Airdyne AD-7 and SciFit Stepper Nutrition - 30-Day Assessment Weight Mgt (Other Care) Height: 5 ft 2 in Weight:: 142 lb 8 oz BMI: 26.0 Nutrition - 60-Day Assessment Weight Mgt (Other Care) Height: 5 ft 2 in Weight:: 142 lb 8 oz BMI: 26.0 Core - 30-Day Assessment Hypertension [place] [employer] Hypertension Guidelines Reassessment Notes & Comments:: Will continue to monitor BP's and send report to pt's physician if necessary Core - Final Assessment Hypertension [place] [employer] Hypertension Guidelines Reassessment Notes & Comments:: Will continue to monitor BP's and send report to pt's physician if necessary Core - 90 Day Assessment Visit Date of Eval: 08/10/24 Session #:: 25 Medication Compliance Preventative Medication(s):: Aspirin, Clopidogrel/P2Y12 inhibit, Ticagrelor/P2Y12 inhibitor and Statin/lipid H/O mental health issues: depression, anxiety, or addiction?: No Doesn?t believe in the benefits of treatment?: No Believes medications are unnecessary or harmful?: No Has a concern about medication side effects?: No Expresses concern over the cost of medications?: No Outcomes/Goals: Verbalizes medications,desired effect & common side effects @ DC, Pt self-reports following medication regimen, Keeps card in wallet w/medications listed by DC and Other additional outcome/goals: Interventions/plans: Instruct on medication effects & side effects, Review medication list w/patient every two weeks, Instruct importance of taking meds as ordered & assist problem solving and Other additional 30-day Reassessments:: Progressing Reassessment Notes & Comments:: 07/29/24 Lasix in pm only and Lipitor decreased to 20 mg every pm Tobacco Use Tobacco Use: Non-smoker Hypertension Hypertension Diagnosis:: Hypertension ICD-10 I10 Resting Blood Pressure:: 150/70 [place] [employer] Hypertension Guidelines Peak Exercise Blood Pressure:: 132/64 Outcomes/Goals: Able to verbalize/achieve optimal blood pressure <130/80, Incorporates diet changes & exercise for blood pressure control by DC and Other additional outcomes/goals Interventions/plan: Instruct on optimal blood pressure, hypertension & medications, Instruct on effects of sodium, alcohol, stress, exercise &hypertension and Other additional plan/interventions 30 day Reassessments:: Progressing Reassessment Notes & Comments:: Will continue to monitor BP's and send report to pt's physician if necessary Tobacco Cessation Referral Smoking Cessation Referral:: No Individual Education/Counseling:: No Education Schedule Given:: Yes Psychosocial - 30-Day Assess Target Goals Target Goals Referral to Behavioral Health PS - Interventions: Yes: Attend Stress Management Classes Psychosocial - 60-Day Assess Target Goals Target Goals Referral to Behavioral Health PS - Interventions: Yes: Attend Stress Management Classes Psychosocial - 90-Day Assess VIsit Date of Eval: 08/10/24 Session #:: 25 History of previous Mental disease:: No Target Goals Target Goals Psychosocial Test Tool Used:: [employer] Power QOL Cardiac and PHQ-9 Questionnaire phq-9 Severity Referral to Behavioral Health PS - Interventions: Yes: Attend Stress Management Classes Outcomes/Goals: See list Psychosocial Outcomes/Goals:: ID's personal stressors & 2 strategies to manage stress by discharge and Other Additional outcome/goals: Intervention/Plan: See List Interventions/Plan:: Assess stressors,coping strategies & signs of derpression on admission, Instruct/assist pt to develop coping & personal stress Mgt strategies, Refer to Behavioral Health if appropriate, Refer to Physician if appropriate, Instruct patient to recognize signs & symptoms of depression, Instruct patient to recog and Other additional plan/intervention 30-day Reassessments: 30 day Reassessments:: Met Reassessment Notes & Comments:: pt denies any psychosocial issues at this time Psychosocial - Final Assessmen Target Goals Target Goals Referral to Behavioral Health PS - Interventions: Yes: Attend Stress Management Classes Nutrition - 90-Day Assessment Program Goals Nutrition Program Goals Patient has diagnosis of Hyperlipidemia (ICD E78)?: Yes Visit Date of Eval: 08/10/24 Session #:: 25 Cholesterol/Lipids (Other Core Measures) Determine presence & major risk factors that modify LDL goal: Hypertension or hypertensive medication, Low HDL cholesterol <40 mg/dL*, Family history of premature CHD in Male < 55 years: female <65 yearsFa and Age men > 45 years; women >/= 55 years Outcomes/Goals: Pt IDs own risk factors & lifestyle modifications by Session 10, Verbalizes symptoms of angina & response by session 3., Pt independently manages and Other Additional Outcomes/Goals: Intervention/Plan: Advocate for lipid panel cholesterol medication if appli cable, Instruct on personal lipid levels & lipid goals/NCEP guidelines, Instruct on cholesterol and Other additional plan/int Diabetes (Other Core Measures) Diabetes Type: Not Applicable Weight Mgt (Other Care) Height: 5 ft 2 in Weight:: 142 lb 8 oz BMI: 26.0 Diagnosis Overweight/Obesity BMI> 30% ICD-10 E66: No Diagnosis High BMI/Morbid Obesity BMI> 35% ICD-10 Z68: No Outcomes/Goals: Pt sets, maintains & shows weight loss goal & trend during rehab and Other additional outcomes/goals Intervention/Plan: Instruct on ideal BMI & set weight loss goal w/patient, Assist pt to ID & incorporate diet changes for weight loss by S9, Refer to Structured Weight Loss program as appropriate, Encourage goal of using 250- 300dcal per session for weight loss and Other additional plan/interventions Healthy Eating Habits Will attend diet classes:: Yes Outcomes/Goals:: Consume diet rich in vegs,fruits,whole grain/high fiber,fish,lean meat, Limit sat/trans fats,cholesterol & added salts & sugars and Other additional outcome/goals: Intervention/Plan:: Assess current eating habits and Other Additional plan/interventions 30-day Reassessments:: Progressing Reassessment Notes & Comments:: Pt is scheduled to attend nutrition class next week. Will continue to encourage a heart healthy diet. Education Gave educational materials for:: Signs & symptoms of hypoglycemia, Signs & symptoms of hyperglycemia, Relate diabetes to coronary artery disease and Healthy eating Nutrition - Final Assessment Weight Mgt (Other Care) Height: 5 ft 2 in Weight:: 142 lb 8 oz BMI: 26.0
[2024-08-10 08:22] VITALS: BP 150/70; BMI 26.0
== END 2024-08-26 23:59 ==
LOC: CR 10:15
PROVIDERS: PCP Internal Medicine; Referring Provider Internal Medicine Cardiovascular Disease; Visit Provider Internal Medicine Cardiovascular Disease
DX: Z95.5 Presence of coronary angioplasty implant and graft (principal); I25.10 Atherosclerotic heart disease of native coronary artery without angina pectoris; R00.1 Bradycardia, unspecified; Z95.0 Presence of cardiac pacemaker; I10 Essential (primary) hypertension; E78.00 Pure hypercholesterolemia, unspecified
CPT/HCPCS: 93798

== ENCOUNTER → 2024-08-31 | Outpatient (CLI) | payer MEDICARE, BC, SELFPAY ==
[2024-08-10 08:22] VITALS: BMI 26.0
[2024-08-31 11:35] LABS: Anion Gap 11 (5-15); BUN 13 mg/dL (4-19); BUN/Creat Ratio 17.4 RATIO (10-20); Calcium,Total 9.7 mg/dL (7.6-11.0); Carbon Dioxide 22.1 mmol/L (21.0-32.0); Chloride 91 mmol/L (98-108); Creatinine, Serum 0.75 mg/dL (0.70-1.20); EST Glomerular Filtration Rate 82 (>60); Glucose 115 mg/dL (70-99); Potassium 5.2 mmol/L (3.3-5.1); Sodium Level 124 mmol/L (133-145)
== END | disposition home or self-care (01) ==
LOC: LAB 09:47
PROVIDERS: PCP Internal Medicine; Referring Provider Nurse Practitioner Family; Visit Provider Nurse Practitioner Family
DX: N28.9 Disorder of kidney and ureter, unspecified (principal)
CPT/HCPCS: 36415; 80048

== ENCOUNTER 2024-09-05 10:15 | Outpatient (RCR) | payer MEDICARE, BC, SELFPAY ==
[2024-08-10 08:22] VITALS: BMI 26.0
[2024-08-27 01:51] VITALS: BP 130/70; BP 140/66; BP 144/70; BP 150/70
== END 2024-09-26 23:59 ==
LOC: CR 10:15
PROVIDERS: PCP Internal Medicine; Referring Provider Internal Medicine Cardiovascular Disease; Visit Provider Internal Medicine Cardiovascular Disease
DX: Z95.5 Presence of coronary angioplasty implant and graft (principal); I25.10 Atherosclerotic heart disease of native coronary artery without angina pectoris; R00.1 Bradycardia, unspecified; Z95.0 Presence of cardiac pacemaker; I10 Essential (primary) hypertension; E78.00 Pure hypercholesterolemia, unspecified
CPT/HCPCS: 93798

== ENCOUNTER → 2024-09-29 | Outpatient (CLI) | payer MEDICARE, BC, SELFPAY ==
[2024-08-10 08:22] VITALS: BMI 26.0
[2024-09-29 12:01] LABS: Anion Gap 9 (5-15); BUN 13 mg/dL (4-19); BUN/Creat Ratio 17.9 RATIO (10-20); Calcium,Total 9.6 mg/dL (7.6-11.0); Carbon Dioxide 23.7 mmol/L (21.0-32.0); Chloride 97 mmol/L (98-108); Creatinine, Serum 0.73 mg/dL (0.70-1.20); EST Glomerular Filtration Rate 86 (>60); Glucose 102 mg/dL (70-99); Potassium 5.3 mmol/L (3.3-5.1); Pro- Brain NATRIURETIC PEPTIDE 1305 pg/mL (<=1800); Sodium Level 130 mmol/L (133-145)
== END | disposition home or self-care (01) ==
LOC: LAB 09:46
PROVIDERS: PCP Internal Medicine; Referring Provider Internal Medicine Cardiovascular Disease; Visit Provider Internal Medicine Cardiovascular Disease
DX: I50.9 Heart failure, unspecified (principal); E78.5 Hyperlipidemia, unspecified; R06.09 Other forms of dyspnea
CPT/HCPCS: 36415; 80048; 83880

== ENCOUNTER → 2024-10-06 | Outpatient (CLI) | payer MEDICARE, BC, SELFPAY ==
[2024-08-10 08:22] VITALS: BMI 26.0
[2024-10-06 11:16] LABS: Anion Gap 10 (5-15); BUN 14 mg/dL (4-19); Calcium,Total 9.8 mg/dL (7.6-11.0); Carbon Dioxide 24.2 mmol/L (21.0-32.0); Chloride 93 mmol/L (98-108); EST Glomerular Filtration Rate 77 (>60); Glucose 108 mg/dL (70-99); Potassium 5.2 mmol/L (3.3-5.1); Sodium Level 127 mmol/L (133-145)
== END | disposition home or self-care (01) ==
PROVIDERS: PCP Internal Medicine; Referring Provider Internal Medicine Cardiovascular Disease; Visit Provider Internal Medicine Cardiovascular Disease
DX: N28.9 Disorder of kidney and ureter, unspecified (principal); E87.1 Hypo-osmolality and hyponatremia; E87.5 Hyperkalemia
CPT/HCPCS: 36415; 80048

== ENCOUNTER → 2024-10-12 | Outpatient (CLI) | payer MEDICARE, BC, SELFPAY ==
[2024-08-10 08:22] VITALS: BMI 26.0
--- NOTE | 2024-10-12 14:00 | ECHOD_ITS ---
Reason For Study Reason For Study: CHF Procedure This was a 2D Doppler, Color Flow transthoracic echocardiogram. Myocardial strain analysis was performed in this exam to aid in the assessment of cardiac function. Exam performed in department. Left Ventricle Normal LV size. The left ventricular ejection fraction is 45 %. Mid-anteroseptal : Mildly hypokinetic. Right Ventricle Normal RV size. ICD or pacer leads identified within the right ventricle. Normal systolic function. Atria Normal left atrium. Normal right atrium. Mitral Valve Normal mitral valve. Mild (1+) mitral valve insufficiency. Tricuspid Valve Normal tricuspid valve. Mild (1+) tricuspid valve insufficiency. Pulmonary artery systolic pressure is 34 mmHg. Aortic Valve Trisinus/trileaflet aortic valve. Mild-Moderate (1-2+) aortic valve insufficiency. Pulmonic Valve Normal pulmonic valve. Great Vessels Normal aortic root. The pulmonary artery is normal size. Inferior vena cava collapse with sniff. Pericardium/Pleural No pericardial effusion. MMode/2D Measurements & Calculations LVIDd: 4.6 cm IVSd: 0.99 cm Ao root diam: 3.1 cm LVIDs: 3.6 cm LVPWd: 0.97 cm RVDd: 3.0 cm FS: 21.2 % LAV(MOD-bp): 33.4 ml LVAd ap4: 23.5 cm2 LVAd ap2: 25.7 cm2 LAV(MOD-bp) Indexed: 20.5 ml/m2 LVLd ap4: 6.9 cm LVLd ap2: 7.1 cm LAV(MOD-sp2): 34.3 ml EDV(MOD-sp4): 65.5 ml EDV(MOD-sp2): 75.1 ml LAV(MOD-sp4): 31.4 ml EDV(sp4-el): 68.3 ml EDV(sp2-el): 78.7 ml LVAs ap4: 16.9 cm2 LVAs ap2: 18.2 cm2 LVLs ap4: 6.1 cm LVLs ap2: 6.4 cm ESV(MOD-sp4): 38.8 ml ESV(MOD-sp2): 42.4 ml ESV(sp4-el): 39.7 ml ESV(sp2-el): 44.0 ml EF(MOD-sp4): 40.7 % EF(MOD-sp2): 43.5 % EF(sp4-el): 41.8 % SV(MOD-sp4): 26.6 ml SV(MOD-sp2): 32.7 ml SV(sp4-el): 28.6 ml SI(MOD-sp4): 16.4 ml/m2 SI(MOD-sp2): 20.1 ml/m2 LA A4 area: 13.8 cm2 LA dimension(2D): 3.6 cm RA A4 area: 10.7 cm2 TAPSE: 2.0 cm Time Measurements MV dec time: 0.16 sec Doppler Measurements & Calculations MV E max jose manuel: 77.6 cm/sec Lat Peak E' Jose Manuel: 6.6 cm/sec Med Peak E' Jose Manuel: 4.9 cm/sec MV A max jose manuel: 96.0 cm/sec E/E' lat: 11.8 E/E' med: 15.9 MV E/A: 0.81 Ao V2 max: 165.5 cm/sec AI max jose manuel: 501.8 cm/sec LV V1 max: 110.1 cm/sec Ao max P.0 mmHg AI max P.7 mmHg LV V1 max P.8 mmHg AI dec slope: 391.5 cm/sec2 AI P1/2t: 375.4 msec PA V2 max: 79.5 cm/sec TR max jose manuel: 270.6 cm/sec TR max P.3 mmHg ECHO/Echo Complete Interpretation Summary Normal LV size. The left ventricular ejection fraction is 45 %. Mid-anteroseptal : Mildly hypokinetic ICD or pacer leads identified within the right ventricle. Pulmonary artery systolic pressure is 34 mmHg. Ordering Physician: Regan Gaspar Referring Physician: LEILA HILL Performed By: Joyce Galvez, LUMA
== END | disposition home or self-care (01) ==
LOC: CVS 13:59
PROVIDERS: PCP Internal Medicine; Referring Provider Internal Medicine Cardiovascular Disease; Visit Provider Internal Medicine Cardiovascular Disease
DX: R06.09 Other forms of dyspnea (principal)
CPT/HCPCS: 93306

== ENCOUNTER → 2024-10-18 | Outpatient (CLI) | payer MEDICARE, BC, SELFPAY ==
[2024-08-10 08:22] VITALS: BMI 26.0
[2024-10-18 11:46] LABS: Anion Gap 9 (5-15); BUN 15 mg/dL (4-19); BUN/Creat Ratio 19.1 RATIO (10-20); Calcium,Total 9.7 mg/dL (7.6-11.0); Carbon Dioxide 24.2 mmol/L (21.0-32.0); Chloride 95 mmol/L (98-108); Creatinine, Serum 0.76 mg/dL (0.70-1.20); EST Glomerular Filtration Rate 81 (>60); Glucose 102 mg/dL (70-99); Potassium 4.4 mmol/L (3.3-5.1); Sodium Level 129 mmol/L (133-145)
== END | disposition home or self-care (01) ==
LOC: LAB 09:40
PROVIDERS: PCP Internal Medicine; Referring Provider Internal Medicine Cardiovascular Disease; Visit Provider Internal Medicine Cardiovascular Disease
DX: I50.9 Heart failure, unspecified (principal)
CPT/HCPCS: 36415; 80048

== ENCOUNTER 2024-10-25 08:00 | Outpatient (RCR) | payer MEDICARE, BC, SELFPAY ==
[2024-08-10 08:22] VITALS: BMI 26.0
== END 2024-10-26 23:59 ==
LOC: CR 08:00
PROVIDERS: PCP Internal Medicine; Referring Provider Internal Medicine Cardiovascular Disease; Visit Provider Internal Medicine Cardiovascular Disease
DX: Z00.00 Encounter for general adult medical examination without abnormal findings (principal)

== ENCOUNTER → 2024-12-19 | Outpatient (CLI) | payer MEDICARE, BC, SELFPAY ==
[2024-08-10 08:22] VITALS: BMI 26.0
[2024-12-19 10:56] LABS: Urine Sodium 43 mmol/L (Not Establ.)
[2024-12-19 11:44] LABS: Osmolality, Urine 406 mOsm/KG
[2024-12-19 12:12] LABS: Anion Gap 9 (5-15); BUN 24 mg/dL (4-19); Carbon Dioxide 26.6 mmol/L (21.0-32.0); Chloride 100 mmol/L (98-108); EST Glomerular Filtration Rate 66 (>60); Glucose 113 mg/dL (70-99); Potassium 4.7 mmol/L (3.3-5.1); Sodium Level 136 mmol/L (133-145)
[2024-12-19 12:20] LABS: Osmolality, Serum 295 mOsm/KG (280-301)
== END | disposition home or self-care (01) ==
LOC: LAB 09:56
PROVIDERS: PCP Internal Medicine; Referring Provider Internal Medicine Nephrology; Visit Provider Internal Medicine Nephrology
DX: E87.1 Hypo-osmolality and hyponatremia (principal)
CPT/HCPCS: 36415; 80048; 83930; 83935; 84300

== ENCOUNTER → 2025-03-20 | Outpatient (CLI) | payer MEDICARE, BC, SELFPAY ==
[2024-08-10 08:22] VITALS: BMI 26.0
--- NOTE | 2025-03-20 11:03 | RAD_ITS ---
PROCEDURE: CHEST PA AND LATERAL 03/20/2025 REASON FOR EXAM: CHEST PAIN, PPM HX TECHNIQUE: Procedure Code: RADCXR Modality: DX Procedure: CHEST PA AND LATERAL COMPARISON: 02/13/24 FINDINGS: Interval placement of left chest pacemaker. Mary noted within bilateral chest henry. 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 There are no new focal consolidations. There are no pleural effusions. There is no pneumothorax. The heart is normal in size. The visualized osseous structures are within normal limits. RAD/Chest PA and Lateral IMPRESSION: Interval placement of left chest pacemaker. Otherwise lung findings are grossl y unchanged. No new focal consolidations. Reading Location: [id number]
[2025-03-20 11:13] LABS: Hematocrit 33.3 % (37-47); Hemoglobin 11.0 g/dL (12.0-15.0); Immature Granulocytes Count 0.020 X10^3/uL (0.0-0.0); Mean Corp Hgb Conc 33.0 g/dL (32-36); Mean Corpuscular Volume 92.0 fL (81-99); Mean Platelet Vol. 9.3 fl (6.2-12.0); NRBC Flagged by Analyzer 0 % (0-5); Platelet Count 219 K/mm3 (150-450); RBC Distribution Width CV 13.0 % (11.6-14.6); RBC Distribution Width SD 43.8 fl (35.1-43.9); Red Blood Count 3.62 M/mm3 (4.2-5.4); White Blood Count 7.1 K/mm3 (4.4-11.0)
[2025-03-20 11:51] LABS: AST(SGOT) 63 U/L (<=31); Alanine Aminotransfer ALT/SGPT 106 U/L (<=34); Albumin, Serum 3.8 g/dL (3.4-4.8); Alkaline Phosphatase 63 U/L (35-104); Anion Gap 10 (5-15); BUN 15 mg/dL (4-19); BUN/Creat Ratio 21.2 RATIO (10-20); Calcium,Total 9.6 mg/dL (7.6-11.0); Carbon Dioxide 23.7 mmol/L (21.0-32.0); Chloride 101 mmol/L (98-108); Globulin 2.8 g/dL (2.2-4.2); Glucose 109 mg/dL (70-99); Potassium 4.5 mmol/L (3.3-5.1); Pro- Brain NATRIURETIC PEPTIDE 3489 pg/mL (<=1800)
== END | disposition home or self-care (01) ==
PROVIDERS: PCP Internal Medicine; Referring Provider Nurse Practitioner Family; Visit Provider Nurse Practitioner Family
DX: R07.9 Chest pain, unspecified (principal); I50.9 Heart failure, unspecified; R06.09 Other forms of dyspnea; D64.9 Anemia, unspecified; Z95.0 Presence of cardiac pacemaker; Z95.5 Presence of coronary angioplasty implant and graft
CPT/HCPCS: 36415; 71046; 80053; 83880; 85025

== ENCOUNTER → 2025-03-28 | Outpatient (CLI) | payer MEDICARE, BC, SELFPAY ==
[2024-08-10 08:22] VITALS: BMI 26.0
[2025-03-28 11:05] LABS: Anion Gap 9 (5-15); BUN 23 mg/dL (4-19); BUN/Creat Ratio 36.7 RATIO (10-20); Calcium,Total 9.6 mg/dL (7.6-11.0); Carbon Dioxide 24.9 mmol/L (21.0-32.0); Chloride 98 mmol/L (98-108); Glucose 103 mg/dL (70-99); Potassium 4.4 mmol/L (3.3-5.1)
== END | disposition home or self-care (01) ==
LOC: LAB 09:32
PROVIDERS: PCP Internal Medicine; Referring Provider Nurse Practitioner Family; Visit Provider Nurse Practitioner Family
DX: E87.1 Hypo-osmolality and hyponatremia (principal); R42 Dizziness and giddiness
CPT/HCPCS: 36415; 80048

== ENCOUNTER 2025-03-30 08:34 | Outpatient (RCR) | payer SELFPAY ==
[2024-08-10 08:22] VITALS: BMI 26.0
== END 2025-04-28 23:59 ==
LOC: CR 08:34
PROVIDERS: PCP Internal Medicine; Referring Provider Internal Medicine Cardiovascular Disease; Visit Provider Internal Medicine Cardiovascular Disease
DX: Z00.00 Encounter for general adult medical examination without abnormal findings (principal)

== ENCOUNTER 2025-05-02 09:05 | Outpatient (RCR) | payer SELFPAY ==
[2024-08-10 08:22] VITALS: BMI 26.0
== END 2025-05-28 23:59 ==
LOC: CR 09:05
PROVIDERS: PCP Internal Medicine; Referring Provider Internal Medicine Cardiovascular Disease; Visit Provider Internal Medicine Cardiovascular Disease
DX: Z00.00 Encounter for general adult medical examination without abnormal findings (principal)

== ENCOUNTER → 2025-05-22 | Outpatient (CLI) | payer BC, MEDICARE, SELFPAY ==
[2024-08-10 08:22] VITALS: BMI 26.0
[2025-05-22 11:58] LABS: Osmolality, Urine 262 mOsm/KG
[2025-05-22 12:45] LABS: Osmolality, Serum 279 mOsm/KG (280-301)
[2025-05-22 12:51] LABS: Anion Gap 14 (5-15); BUN 9 mg/dL (4-19); BUN/Creat Ratio 12.3 RATIO (10-20); Calcium,Total 9.2 mg/dL (7.6-11.0); Carbon Dioxide 21.1 mmol/L (21.0-32.0); Chloride 95 mmol/L (98-108); Glucose 119 mg/dL (70-99); Potassium 4.0 mmol/L (3.3-5.1)
== END | disposition home or self-care (01) ==
PROVIDERS: PCP Internal Medicine; Referring Provider Internal Medicine Nephrology; Visit Provider Internal Medicine Nephrology
DX: E87.1 Hypo-osmolality and hyponatremia (principal)
CPT/HCPCS: 36415; 80048; 83930; 83935

== ENCOUNTER 2025-05-30 08:42 | Outpatient (RCR) | payer SELFPAY ==
[2024-08-10 08:22] VITALS: BMI 26.0
== END 2025-06-28 23:59 ==
LOC: CR 08:42
PROVIDERS: PCP Internal Medicine; Referring Provider Internal Medicine Cardiovascular Disease; Visit Provider Internal Medicine Cardiovascular Disease
DX: Z00.00 Encounter for general adult medical examination without abnormal findings (principal)